=== PATIENT | female | born 1990 | race Caucasian/White ===

== ENCOUNTER → 2020-06-18 08:08 | Outpatient (BNVA) | payer OTHER, SELFPAY | PROVIDERS: PCP Nurse Practitioner Family; Visit Provider Surgery | DX: Z76.89 Persons encountering health services in other specified circumstances (principal) ==

== ENCOUNTER 2020-06-18 09:04 | Outpatient (REF) | payer OTHER, SELFPAY ==
--- NOTE | 2020-06-18 | XR_ITS ---
EXAMINATION: XR CHEST 2 VIEWS CLINICAL INFORMATION: Preprocedural examination. COMPARISON: Chest radiographs dated 08/05/2019. TECHNIQUE: Frontal and lateral views of the chest were obtained. FINDINGS: The heart, great vessels, pulmonary vasculature and mediastinum are normal. The lungs show no focal infiltrate, effusion or pneumothorax. There is no acute osseous abnormality. IMPRESSION: No active cardiopulmonary disease.
--- NOTE | 2020-06-18 10:00 | ECG_ITS ---
Test Reason : SOB, PREOP Blood Pressure : / mmHG Vent. Rate : 068 BPM Atrial Rate : 068 BPM P-R Int : 132 ms QRS Dur : 106 ms QT Int : 428 ms P-R-T Axes : 040 -23 012 degrees QTc Int : 455 ms Normal sinus rhythm Incomplete right bundle branch block Voltage criteria for left ventricular hypertrophy Abnormal ECG No previous ECGs available Referred By: Tacho De Electronically Signed By:MARGRET MART
[2020-06-18 10:08] LABS: MANUAL DIFF FLAG NO
[2020-06-18 10:16] LABS: Basophils Percent Auto 0.3 % (0-2); Eosinophils Absolute Auto 0.1 X10*3/uL (0.0-0.4); Eosinophils Percent Auto 1.5 % (0-4); Hematocrit 43.6 % (37-47); Hemoglobin 13.8 g/dl (12.0-16.0); Imm Gran Abs Auto 0.02 X10*3/uL (0.00-0.03); Imm Gran Pct Auto 0.2 % (0.0-0.4); Lymphocytes Absolute Auto 2.4 X10*3/uL (1.2-4.9); Lymphocytes Percent Auto 26.4 % (20-40); Mean Corpuscular HGB Conc 31.7 g/dl (31.0-35.0); Mean Corpuscular Hemoglobin 27.8 pg (27.0-33.0); Mean Corpuscular Volume 87.7 fL (80-98); Mean Platelet Volume 10.9 fL (9.4-12.3); Monocytes Absolute Auto 0.6 X10*3/uL (0.1-1.2); Monocytes Percent Auto 7.1 % (2-11); Neutrophils Absolute Auto 5.8 X10*3/uL (2.0-8.3); Neutrophils Percent Auto 64.5 % (45-73); Platelet Count 293 X10*3/uL (160-400); Red Blood Count 4.97 X10*6/uL (4.20-5.50); White Blood Count 8.9 X10*3/uL (4.8-10.8)
[2020-06-18 10:44] LABS: Estimated Average Glucose 134 mg/dL; Hemoglobin A1c % 6.3 %
[2020-06-18 10:58] LABS: Alanine Aminotransferase 42 U/L (0-31); Albumin Level 4.5 g/dL (3.5-5.0); Alkaline Phosphatase 73 U/L (39-117); Anion Gap 10 (12-20); Aspartate Amino Transferase 37 U/L (5-31); Bilirubin Total 0.6 mg/dL (0.0-1.0); Blood Urea Nitrogen 10 mg/dL (9-16); C Reactive Protein 1.57 mg/dL (< or = 0.50); Calcium 9.6 mg/dL (8.4-10.2); Carbon Dioxide 30 mmol/L (22-29); Chloride 102 mmol/L (96-108); Cholesterol 181 mg/dL; Estimated Glomerular Filt Rate > 60; Glucose Random 117 mg/dL (60-115); HDL Cholesterol 56 mg/dL; Iron 108 mcg/dL (30-160); LDL Cholesterol Calculated 106 mg/dl; Percent Iron Saturation 34 % (15-50); Potassium 4.2 mmol/l (3.3-5.1); Sodium 138 mmol/L (135-145); Total Iron Binding Capacity 318 mcg/dL (228-428); Total Protein 7.4 g/dL (6.5-8.0); Triglycerides 95 mg/dL; Unsaturated Iron Binding 210 ug/dL
[2020-06-18 11:24] LABS: Ferritin 85 ng/mL (10-122); TSH reflex Free T4 1.03 mIU/mL (0.32-4.0); Vitamin D 25-OH Total 27.6 ng/mL (>30)
[2020-06-18 12:10] LABS: Folate 18.2 ng/mL (> or = 4.0); Vitamin B12 866 pg/mL (200-900)
[2020-06-21 14:37] LABS: Insulin Level Total 15.6 uIU/mL
[2020-06-21 15:26] LABS: Calcium (PTHI) 9.5 mg/dL (8.6-10.2); PTHI 82 pg/mL (14-64)
[2020-06-23 00:12] LABS: Zinc 61 mcg/dL (60-130)
[2020-06-23 12:27] LABS: Vitamin B1 16 nmol/L (8-30)
[2020-06-24 17:16] LABS: Vitamin A 37 mcg/dL (38-98)
== END 2020-06-18 09:05 | disposition home or self-care (01) ==
LOC: HO.LAB 09:04
PROVIDERS: PCP Nurse Practitioner Family; Visit Provider Surgery
DX: Z01.818 Encounter for other preprocedural examination (principal); E66.01 Morbid (severe) obesity due to excess calories; R06.02 Shortness of breath; I45.10 Unspecified right bundle-branch block; I51.7 Cardiomegaly
CPT/HCPCS: 36415; 71046; 80053; 80061; 82306; 82607; 82728; 82746; 83036; 83525; 83540; 83970; 84425; 84443; 84590; 84630; 85025; 86140; 93005; 93010

== ENCOUNTER → 2020-06-25 14:01 | Outpatient (BNVA) | payer OTHER, SELFPAY | PROVIDERS: Visit Provider Dietitian, Registered | DX: Z76.89 Persons encountering health services in other specified circumstances (principal) ==

== ENCOUNTER → 2020-06-30 12:47 | Outpatient (REF) | payer OTHER, SELFPAY ==
--- NOTE | 2020-06-30 12:51 | CA_ITS ---
Transthoracic Echocardiogram Patient (Last, First, Middle): Karol Le, Gender: Female Date of : 1990 Age: 29 Procedure Date: 06/30/2020 Procedure Type: Transthoracic Echocardiogram Location: OP Height: 165.1 cm Weight: 135.17 kg BSA: 2.34 m2 Heart Rate: bpm BP: 138 / 80 mmHg Flight Inspector: Referring MD: Tacho De MD Symptoms: DYSPNEA OVER EXERTION Study Quality: Fair ECG Rhythm: Sinus Conclusions: - The left ventricular systolic function is normal. The visually estimated ejection fraction is between 55-60%. - No obvious valvular pathology seen on this study. Findings Procedure Information Contrast agent, definity, is being given per protocol without apparent complications. Left Ventricle Normal left ventricular cavity size. There is normal left ventricular wall thickness. The left ventricular systolic function is normal. The visually estimated ejection fraction is between 55-60%. There is no evidence of regional wall motion abnormalities. Diastolic function is normal for age. Right Ventricle Normal right ventricular cavity size and systolic function. Atria The left atrium is normal in size. The right atrium is normal in size. Aortic Valve There is a normal trileaflet aortic valve. There is no aortic valve stenosis. There is no aortic valve regurgitation. Mitral Valve The mitral valve appears normal. There is trace mitral valve regurgitation. There is no mitral valve stenosis. Pulmonic Valve The pulmonic valve was not well visualized. Tricuspid Valve Normal tricuspid valve structure. There is trace tricuspid valve regurgitation. The pulmonary artery systolic pressure is normal. Great Vessels The aortic annulus, sinuses of valsalva, and asc aorta are normal in size. Venous The inferior vena cava is normal in size and collapses greater than 50% with inspiration. Pericardium/Pleural There is no evidence of pericardial effusion. Prior Study Comparison No significant change compared to prior study dated: 11/08/2017. Recommendations, Care & Conclusions No obvious valvular pathology seen on this study. Measurements 2D Linear Measurements IVSd: 0.91 0.6-0.9/0.6-1.0 cm LVIDd: 5.34 3.9-5.3/4.2-5.9 cm LVIDd Index: 2.28 2.4-3.2/2.2-3.1 cm/m2 LVIDs: 3.07 2.0-3.6 cm LVPWd: 0.93 0.7-1.1 cm Ao Root: 2.70 2.1-3.5 cm LA Diam: 4.00 2.7-3.8/3.0-4.0 cm LAIDs Index: 1.71 1.5-2.3 cm/m2 LV Mass: 226.27 67-162/88-224 g LV Mass Index: 96.69 43-95/49-115 g/m2 LVOT Diam: 2.10 3.0+(-)1.3 cm Mitral Valve MV Pk E: 1.07 MV PK A: 0.67 MV Decel Time: 158.00 E/A: 1.60 E'Lateral: 13.40 E'Medial: 8.99 E/E' Med: 11.90 E/E' Lat: 8.00 PHT: 46.00 MVA PHT: 4.78 Decel Mower: 6.77 Aortic Valve AoV Pk Edmund: 1.54 AoV Mn Edmund: 1.09 AoV VTI: 0.38 AoV Pk Grad: 9.00 Aov Mn Grad: 6.00 UNA Cont.VTI: 2.62 LVOT LVOT Pk Edmund: 1.25 LVOT Mn Edmund: 0.84 LVOT VTI: 0.29 LVOT Pk Grad: 6.00 LVOT Mn Grad: 3.00 LVOT Diam: 2.10 LVOT Area: 3.46 Diastolic Function MV Pk E: 1.07 MV Pk A: 0.67 E/A: 1.60 E'Medial: 8.99 E/E' Med: 11.90 E' Laterial: 13.40 E/E' Lat: 8.00 Tricuspid Valve TR Pk Edmund: 1.92 TR Pk Grad: 15.00 RA Press: 3.00 RVSP: 18.00 Great Vessels Aorta Ao Root-2D: 2.70 2.0-3.7 cm Pulmonary Valve PV Pk Edmund: 0.96 Peak PV Grad: 4.00 Updated in Other Vendor System with Status of Final Asad Cintron MD electronically signed on 07/01/2020 1:39:05 PM with status of Final
== END ==
LOC: HO.CARD 12:47
PROVIDERS: PCP Nurse Practitioner Family; Visit Provider Surgery
DX: Z01.818 Encounter for other preprocedural examination (principal); I10 Essential (primary) hypertension
CPT/HCPCS: 93306; Q9957

== ENCOUNTER 2020-07-05 07:34 | Outpatient (REF) | payer OTHER, SELFPAY ==
--- NOTE | 2020-07-05 | US_ITS ---
EXAMINATION: US COMPLETE ABDOMEN WITH LIVER ELASTOGRAPHY CLINICAL INFORMATION: Fatty liver COMPARISON: September 2006 TECHNIQUE: Real-time imaging of the abdominal viscera. Noninvasive ultrasound liver fibrosis assessment is performed using Marco Antonio ElastPQ point quantification shear wave elastography (pSWE) with a 5 MHz transducer. Multiple elastography samples are obtained. FINDINGS: PANCREAS: The visualized pancreatic head and body are normal in appearance. The remainder of the pancreas is obscured from visualization by the overlying bowel gas. ABDOMINAL AORTA: The proximal, middle, and distal aortic segments are normal in caliber. INFERIOR VENA CAVA: Visualized portions are normal. LIVER: Liver echotexture is slightly increased. No focal lesion or intrahepatic biliary duct dilatation. The liver is normal in contour. The liver is slightly enlarged. The right lobe measures 20 cm in length. The left lobe measures 12 cm in length. Main portal vein is patent with appropriate hepatopedal flow Shear wave elastography provides a median stiffness of 2.2 m/s (reference: normal median stiffness is 0.81 - 1.22 m/s). The IQR/median stiffness to assess sampling precision is 0.6 (reference: optimal IQR/median stiffness is under 0.3). GALLBLADDER: Normal. The gallbladder is physiologically distended without evidence of stones, sludge, polyps, wall thickening or pericholecystic fluid. COMMON BILE DUCT: Normal in caliber measuring 0.4 cm in diameter. RIGHT KIDNEY: Normal. No hydronephrosis. No renal calculi or focal parenchymal lesions. The kidney measures 13 cm in maximum dimension. LEFT KIDNEY: Normal. No hydronephrosis. No renal calculi or focal parenchymal lesions. The kidney measures 12.5 cm in maximum dimension. SPLEEN: Normal. The spleen measures 10 cm in maximum dimension. FREE FLUID: None. IMPRESSION: 1. Impression: Slightly enlarged echogenic liver probably representing fatty infiltration. Limited visualization of the tail the pancreas. 2. Elastography: Limited due to sampling error.
== END 2020-07-05 07:35 | disposition home or self-care (01) ==
LOC: HO.US 07:34
PROVIDERS: PCP Nurse Practitioner Family; Visit Provider Surgery
DX: Z01.818 Encounter for other preprocedural examination (principal); E66.01 Morbid (severe) obesity due to excess calories; K21.9 Gastro-esophageal reflux disease without esophagitis; Z68.42 Body mass index [BMI] 45.0-49.9, adult; Z87.891 Personal history of nicotine dependence; Z71.3 Dietary counseling and surveillance
CPT/HCPCS: 76705; 76981; 99214

== ENCOUNTER 2020-07-08 09:22 | Outpatient (REF) | payer OTHER, SELFPAY ==
--- NOTE | 2020-07-08 09:25 | FL_ITS ---
EXAMINATION: FL UPPER GI SERIES CLINICAL INFORMATION: Bariatric service evaluation. COMPARISON: Ultrasound abdomen 07/05/2020 TECHNIQUE: Upper GI series is performed using fluoroscopic evaluation in addition to multiple fluoroscopic spot views. The patient is imaged both upright and prone and using both thick and thin barium sulfate along with effervescent granules. Fluoroscopy time: 1.1 minutes DAP: 25.29 Gycm2 Fluoroscopic spot images: 15 FINDINGS: There is normal esophageal motility. There is no obstruction, stricture, ulceration, or hernia. No gastroesophageal reflux is demonstrated. The stomach shows no thickened folds or ulcer crater or outlet obstruction. The duodenal bulb is pliable and without ulcer crater or scarring. The post bulbar duodenum the jejunal mucosal pattern are unremarkable. IMPRESSION: Normal study.
== END 2020-07-08 09:23 | disposition home or self-care (01) ==
LOC: HO.XRAY 09:22
PROVIDERS: PCP Nurse Practitioner Family; Visit Provider Surgery
DX: Z01.818 Encounter for other preprocedural examination (principal); E66.9 Obesity, unspecified; K21.9 Gastro-esophageal reflux disease without esophagitis
CPT/HCPCS: 74240

== ENCOUNTER → 2020-08-10 08:15 | Outpatient (BNVA) | payer OTHER, SELFPAY | PROVIDERS: PCP Nurse Practitioner Family; Referring Provider Nurse Practitioner Family; Visit Provider Surgery | DX: Z76.89 Persons encountering health services in other specified circumstances (principal) ==

== ENCOUNTER → 2020-08-25 08:13 | Outpatient (BNVA) | payer OTHER, SELFPAY | PROVIDERS: Visit Provider Dietitian, Registered | DX: Z76.89 Persons encountering health services in other specified circumstances (principal) ==

== ENCOUNTER → 2020-09-03 08:38 | Outpatient (BNVA) | payer OTHER, SELFPAY | PROVIDERS: Visit Provider Surgery | DX: Z76.89 Persons encountering health services in other specified circumstances (principal) ==

== ENCOUNTER → 2020-10-04 08:12 | Outpatient (BNVA) | payer OTHER, SELFPAY | PROVIDERS: Visit Provider Surgery ==

== ENCOUNTER → 2020-10-05 08:12 | Outpatient (BNVA) | payer OTHER, SELFPAY | PROVIDERS: Visit Provider Dietitian, Registered ==

== ENCOUNTER 2020-10-18 08:50 | Outpatient (REF) | payer OTHER, SELFPAY ==
--- NOTE | 2020-10-18 10:29 | XR_ITS ---
EXAMINATION: XR KNEE, RIGHT CLINICAL INFORMATION: Pain COMPARISON: Previous x-ray February 2014 TECHNIQUE: Standing AP view of both knees and lateral and sunrise view of the right knee. FINDINGS: Right: Bone alignment is normal. No fracture or dislocation is seen. There are small osteophytes at the medial femoral tibial and patellofemoral joints. There is no joint effusion. Standing AP view of the left knee demonstrates small osteophytes at the medial femoral tibial joint. XR/XR knee RT 2V IMPRESSION: Right knee: Small osteophytes at the medial femoral tibial and patellofemoral joints Left knee: Small osteophytes at the medial femoral tibial joint
[2020-10-18 12:08] LABS: Hematocrit 41.8 % (37-47); Hemoglobin 13.5 g/dl (12.0-16.0); Mean Corpuscular HGB Conc 32.3 g/dl (31.0-35.0); Mean Corpuscular Hemoglobin 28.1 pg (27.0-33.0); Mean Corpuscular Volume 86.9 fL (80-98); Mean Platelet Volume 10.8 fL (9.4-12.3); Platelet Count 319 X10*3/uL (160-400); Red Blood Count 4.81 X10*6/uL (4.20-5.50); Red Cell Distribution Width 12.8 % (11.0-16.0); White Blood Count 11.2 X10*3/uL (4.8-10.8)
[2020-10-18 12:37] LABS: Alanine Aminotransferase 21 U/L (0-31); Albumin Level 4.2 g/dL (3.5-5.0); Alkaline Phosphatase 69 U/L (39-117); Aspartate Amino Transferase 23 U/L (5-31); Bilirubin Total 0.6 mg/dL (0.0-1.0); Blood Urea Nitrogen 8 mg/dL (9-16); Calcium 9.4 mg/dL (8.4-10.2); Cholesterol 190 mg/dL; Estimated Glomerular Filt Rate > 60; Glucose Random 95 mg/dL (60-115); HDL Cholesterol 56 mg/dL; LDL Cholesterol Calculated 111 mg/dl; Total Protein 7.2 g/dL (6.5-8.0); Triglycerides 115 mg/dL
[2020-10-18 12:45] LABS: Anion Gap 12 (12-20); Carbon Dioxide 29 mmol/L (22-29); Chloride 102 mmol/L (96-108); Potassium 4.2 mmol/L (3.3-5.1); Sodium 139 mmol/L (135-145)
[2020-10-18 12:58] LABS: Vitamin D 25-OH Total 24.3 ng/mL (>30)
[2020-10-18 13:18] LABS: Microalbumin Urine < 5.0 mg/L
[2020-10-18 13:27] LABS: Estimated Average Glucose 123 mg/dL; Hemoglobin A1c % 5.9 %
== END 2020-10-18 08:51 | disposition home or self-care (01) ==
LOC: HO.HOSX 08:50
PROVIDERS: Visit Provider Orthopaedic Surgery
DX: M25.561 Pain in right knee (principal); M17.11 Unilateral primary osteoarthritis, right knee; M17.12 Unilateral primary osteoarthritis, left knee; E11.9 Type 2 diabetes mellitus without complications; E66.01 Morbid (severe) obesity due to excess calories
CPT/HCPCS: 36415; 73560; 80053; 80061; 82043; 82306; 83036; 85027; 99202

== ENCOUNTER 2020-10-18 11:16 | Outpatient (REF) | payer OTHER, SELFPAY | END 2020-10-18 11:17 | disposition home or self-care (01) | LOC: HO.LAB 11:16 | PROVIDERS: PCP Nurse Practitioner Family; Visit Provider Nurse Practitioner Family | DX: Z13.89 Encounter for screening for other disorder (principal) ==

== ENCOUNTER → 2020-10-20 08:22 | Outpatient (BNVA) | payer OTHER, SELFPAY | PROVIDERS: Visit Provider Surgery ==

== ENCOUNTER 2020-10-22 12:40 | Outpatient (REF) | payer OTHER, SELFPAY ==
[2020-10-22 13:34] LABS: MANUAL DIFF FLAG NO
[2020-10-22 13:50] LABS: Basophils Percent Auto 0.4 % (0-2); Eosinophils Absolute Auto 0.2 X10*3/uL (0.0-0.4); Eosinophils Percent Auto 2.2 % (0-4); Hematocrit 43.6 % (37-47); Imm Gran Abs Auto 0.03 X10*3/uL (0.00-0.03); Imm Gran Pct Auto 0.3 % (0.0-0.4); Lymphocytes Absolute Auto 3.6 X10*3/uL (1.2-4.9); Lymphocytes Percent Auto 33.3 % (20-40); Mean Corpuscular HGB Conc 32.1 g/dl (31.0-35.0); Mean Corpuscular Hemoglobin 28.1 pg (27.0-33.0); Mean Corpuscular Volume 87.4 fL (80-98); Monocytes Absolute Auto 0.8 X10*3/uL (0.1-1.2); Monocytes Percent Auto 7.3 % (2-11); Neutrophils Absolute Auto 6.1 X10*3/uL (2.0-8.3); Neutrophils Percent Auto 56.5 % (45-73); Platelet Count 333 X10*3/uL (160-400); Red Blood Count 4.99 X10*6/uL (4.20-5.50); Red Cell Distribution Width 13.2 % (11.0-16.0); White Blood Count 10.7 X10*3/uL (4.8-10.8)
[2020-10-22 13:51] LABS: Prothrombin Time 12.3 SEC (10.8-13.0)
[2020-10-22 13:54] LABS: Partial Thromboplastin Time 30.3 SEC (24.1-38.0)
[2020-10-25 18:12] LABS: Insulin Level Total 39.9 uIU/mL
== END 2020-10-22 12:41 | disposition home or self-care (01) ==
LOC: HO.LAB 12:40
PROVIDERS: PCP Nurse Practitioner Family; Visit Provider Surgery
DX: E66.01 Morbid (severe) obesity due to excess calories (principal); K21.9 Gastro-esophageal reflux disease without esophagitis
CPT/HCPCS: 36415; 83525; 85025; 85610; 85730

== ENCOUNTER 2020-11-02 06:57 | Inpatient (IN) | payer OTHER, SELFPAY ==
[2020-10-21 10:04] VITALS: BMI 46.8
--- NOTE | 2020-10-29 09:01 | HO.ANESPROP2 ---
Documented by User: Maryam Nieves 10/29/20 09:06 HPI - Anesthesia Eval Consult details Narrative: 30yo F for Gastrectomy Sleeve PMFSH Active Problems Active Problems: All Active Problems (Updated 10/21/20 @ 09:48 by Shikha Saavedra) Vitamin D deficiency (Acute) GERD (gastroesophageal reflux disease) (Acute) Morbid obesity (Acute) Past Medical History Medical History Arthritis Diabetes GERD (gastroesophageal reflux disease) Morbid obesity EVERARDO on CPAP Sleep apnea Family History Family History Father Kidney failure Diabetes CVD (cardiovascular disease) Mother Diabetes HTN (hypertension) Sister No problems noted. Sister No problems noted. Sister No problems noted. Sister No problems noted. Son No problems noted. Daughter No problems noted. Daughter No problems noted. Surgical History Surgical History (Updated 11/02/20 @ 07:30 by Jayde Salazar) History of wisdom tooth extraction, class II edentulism Social History Social History Are you a primary healthcare business analyst to a significant other at home: No Do you presently have visiting nurse or other home services: No Smoking Status: Former smoker Tobacco Type: Cigarette Smoking Quit Date: 6 yrs ago Use of substances other than those prescribed or required for medical reasons: No Have you been hit, kicked, punched, or otherwise hurt by someone within the past year? 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 Allergies Allergy/AdvReac Type Severity Reaction Status Date / Time No Known Allergies Allergy Mild NOT Verified 11/02/20 06:13 [No Known Allergies*] APPLICABLE Home Medications Medication Instructions Recorded Confirmed Last Taken Type metformin 500 mg tablet 500 mg PO BID 10/18/20 10/21/20 Unknown History Exam Exam Date and Time: October 29, 2020900 Height,Weight and Vital Signs: Height 5 ft 4 in Weight 123.831 kg Pertinent Lab Results Pertinent Lab Results: Laboratory Tests 10/18/20 10/18/20 10/22/20 11:25 11:25 12:45 WBC 10.7 Hgb 14.0 Hct 43.6 Plt Count 333 PT INR APTT Sodium 139 Potassium 4.2 Chloride 102 Carbon Dioxide 29 BUN 8 L Creatinine 0.68 Hemoglobin A1c % 5.9 Calcium 9.4 Total Bilirubin 0.6 AST 23 ALT 21 Alkaline Phosphatase 69 Total Protein 7.2 Albumin 4.2 10/22/20 12:45 WBC Hgb Hct Plt Count PT 12.3 INR 1.0 APTT 30.3 Sodium Potassium Chloride Carbon Dioxide BUN Creatinine Hemoglobin A1c % Calcium Total Bilirubin AST ALT Alkaline Phosphatase Total Protein Albumin Narrative Narrative: EKG 06/2020 Normal sinus rhythm Incomplete right bundle branch block Voltage criteria for left ventricular hypertrophy Abnormal ECG No previous ECGs available Echo 06/2020 Conclusions: - The left ventricular systolic function is normal. The visually estimated ejection fraction is between 55-60%. - No obvious valvular pathology seen on this study. Assessment and Plan Assessment Anesthesia Assessment: Chart Reviewed Documented by User: Jayde Salazar 11/02/20 07:31 [facility] Past Medical History Medical History Arthritis Diabetes GERD (gastroesophageal reflux disease) Morbid obesity EVERARDO on CPAP Sleep apnea Family History Family History Father Kidney failure Diabetes CVD (cardiovascular disease) Mother Diabetes HTN (hypertension) Sister No problems noted. Sister No problems noted. Sister No problems noted. Sister No problems noted. Son No problems noted. Daughter No problems noted. Daughter No problems noted. Family history of problems with anesthesia: No Surgical History Surgical History (Updated 11/02/20 @ 07:30 by Jayde Salazar) History of wisdom tooth extraction, class II edentulism History of Problems with Anesthesia: No Social History Social History Are you a primary healthcare business analyst to a significant other at home: No Do you presently have visiting nurse or other home services: No Smoking Status: Former smoker Tobacco Type: Cigarette Smoking Quit Date: 6 yrs ago Use of substances other than those prescribed or required for medical reasons: No Have you been hit, kicked, punched, or otherwise hurt by someone within the past year? 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 Allergies Allergy/AdvReac Type Severity Reaction Status Date / Time No Known Allergies Allergy Mild NOT Verified 11/02/20 06:13 [No Known Allergies*] APPLICABLE Home Medications Medication Instructions Recorded Confirmed Last Taken Type metformin 500 mg tablet 500 mg PO BID 10/18/20 10/21/20 Unknown History Exam Exam Date and Time: Vital Signs Temp Pulse Resp BP Pulse Ox 11/02/20 06:31 97.8 F 108 H 16 148/95 H 97 Pertinent Lab Results Pertinent Lab Results: Lab Results 11/02/20 11/02/20 11/02/20 Range/Units 06:05 06:20 06:27 Urine Test NEGATIVE (NEGATIVE) COVID-19 ([facility]) Negative (Negative) COVID-19 Clin Com See Note Blood Type O Positive Antibody Screen NEGATIVE Airway Mallampati Class: III TM Dist: >3cm Neck ROM: Full Loose/Missing/Broken Teeth: Yes (Bottom front) Heart: RRR Lungs: CTAB Assessment and Plan Assessment Anesthesia Assessment: Anesthesia Plan Discussed and Chart Reviewed Final Anesthetic Review NPO: Yes ASA Class: III Final Preanesthetic Review: No Changes in Pt Med Stat, Meds/Allgs Chart Reviewed, Consent Obtained/Reviewed and Anes Risks/Benef Reviewed Patient Risk: Intermediate Procedure Risk: Intermediate Assessment/Block/Sedation in SS: Assess/Block/Sedation-SS Anesthetic Plan Anesthetic Plan: GA Disposition: Standard PACU
--- NOTE | 2020-11-01 12:08 | MHC.SHP ---
Pre-Procedural Eval Section A The patient is an INPATIENT: Yes The History & Physical has been completed within 30 days and I have reviewed it.: No Section B Chief Complaint: obesity Details of Present Illness: obesity Relevant Family History (Specify if Yes): No Relevant Social History: None Present Medications: see Short Stay Collaborative assessment Medical History: No relevant PMH History of Previous Operations: No relevant previous surgery Allergies: Allergies Allergy/AdvReac Type Severity Reaction Status Date / Time No Known Allergies Allergy Mild NOT Unverified 10/21/20 09:15 [No Known Allergies*] APPLICABLE Review of Systems Sugical H&P ROS: Negative: Constitution, Cardiovascular, Respiratory, Neurological, Psychiatric, Hem-Onc, Allergic/Immunologic, Gastrointestinal, Genitourinary, Musculoskeletal, Integumentary, Endocrine and Eyes/Ears/Nose/Throat Exam Surgical H&P Exam: Normal: HEENT, Normal: Heart, Normal: Lungs, Normal: Extremities, Normal: Abdomen, Normal: Skin and Normal: Neurological Plan Diagnosis/Plan: Unchanged I have reviewed the history and physical and performed a pertinent physical examination on my patient. No changes have occurred unless specified.
[2020-11-02] VITALS (15 sets, daily range): BP systolic 115–151; BP diastolic 61–95; PULSE 74–108; RESP 16–18; TEMP 36.2–37; O2SAT 95–100
[2020-11-02 06:33] LABS: UPreg QC Valid YES
[2020-11-02 06:34] LABS: Urine Pregnancy NEGATIVE (NEGATIVE)
[2020-11-02 06:47] LABS: COVID-19 Test Negative (Negative)
[2020-11-02] MEDS: Lactated Ringers 1,000 ML 999 ML IVCONT (06:50)
[2020-11-02] MEDS: Lactated Ringers 1,000 ML 100 ML IVCONT (07:19)
[2020-11-02 08:01] LABS: Glucose, Whole Blood 133 mg/dL (60-115)
--- NOTE | 2020-11-02 10:07 | P.DS_ITS ---
DS: Providers Provider Date of Service: 11/03/20 Date of admission: 11/02/20 06:57 Primary care physician: Evelin Akbar NP DS: Medications Discharge Medications Home Medications: Home Medications Medication Instructions Recorded Confirmed metformin 500 mg tablet 500 mg PO BID 10/18/20 10/21/20 Previous Rx's Medication Instructions Recorded cholecalciferol (vitamin D3) 25 25 mcg PO DAILY #30 cap 06/19/20 mcg (1,000 unit) capsule ondansetron HCl 4 mg tablet 4 mg PO DAILY #30 tab 10/20/20 pantoprazole 40 mg tablet,delayed 40 mg PO DAILY #30 tab 10/20/20 release polyethylene glycol 3350 17 gram 17 g PO DAILY #14 ea 10/20/20 oral powder packet sucralfate 1 gram tablet 1 g PO BID #60 tab 10/21/20 DS: Summary Time Spent with Patient Time attestation: ADMITTING DIAGNOSIS: morbid obesity, sleep apnea, GERD DISCHARGE DIAGNOSIS: same, s/p laparoscopic sleeve gastrectomy PAST SURGICAL HISTORY: wisdom teeth removal PROCEDURE: upper endoscopy, laparoscopic sleeve gastrectomy with gastropexy DISCHARGE SUMMARY: History of Present Illness: The patient is a 30 year-old woman with a BMI of 48.98 kg/m2 and associated co- morbidities as described above. The patient had extensive work-up,lost 25.8 lbs preoperatively and was electively scheduled for laparoscopic, possible open sleeve gastrectomy and gastropexy. Risks and complications of the surgery were d iscussed with the patient in advance, particularly the possibility of , pulmonary embolism, anastomotic leak, bleeding, bowel injury, GERD, cardiac, renal or pulmonary complications. The patient understood all the risks and was in agreement with the surgical plan. Hospital Course: The patient underwent an uneventful laparoscopic sleeve gastrectomy with gastropexy the day of admission. Postoperatively, the patient was transferred to the surgical floor. The patient was on IV Acetaminophen and IV dilaudid for pain control. Patient was started on bariatric phase 1 diet POD #0. On postoperative day one, the patient was feeling well without nausea, vomiting, fevers, or tachycardia. The patient had some mild incisional pain. The abdomen was soft. On the morning of postoperative day one, the patient was continued on 1 ounce of water or ice every half hour. During the first day, the patient did fairly well, having some incisional pain, but able to ambulate adequately and to tolerate li quids well. Since the patient is doing well, we decided that the patient was ready to be discharged. The patient was given instructions to follow-up with me next week and to call my office for any fever over 101, persistent abdominal pain, nausea, vomiting, GERD, symptoms of DVT such as calf tenderness, or leg swelling, or pulmonary embolism such as chest pain or shortness of breath. The patient was also instructed to drink 40-60 ounces of liquids per day using the 1-ounce cups. The patient was given prescription for Tylenol for pain, Zofran prn for nausea, and pantoprazole and carafate. The patient was encouraged to ambulate and use the incentive spirometer. The patient was allowed to shower, but no baths, and encouraged to stay active at home. All of these instructions were given to the patient personally. All questions were answered and the patient understood all instructions, the instructions were also given to the patient in print. Total time spent providing and/or coordinating discharge services: 30 minutes Discharge coordination time: Greater than 30 minutes Physical Exam Vital Signs: Vital Signs: Last Vital Signs Temp 97.8 F 11/02/20 06:31 Pulse 108 H 11/02/20 06:31 Resp 16 11/02/20 06:31 BP 148/95 H 11/02/20 06:31 Pulse Ox 97 11/02/20 06:31 Body Mass Index 46.8 DS: Data Data Completed and Pending Pending studies at discharge: Pending at discharge 11/02/20 08:30 Surgical [PTH] Routine Labs on day of discharge: Laboratory Results - last 24 hr 11/02/20 11/02/20 11/02/20 06:05 06:20 06:27 POC Glucose Urine Test NEGATIVE COVID-19 ([facility]) Negative COVID-19 Clin Com See Note Blood Type O Positive Antibody Screen NEGATIVE 11/02/20 06:28 POC Glucose 133 H Urine Test COVID-19 ([facility]) COVID-19 Clin Com Blood Type Antibody Screen Discharge Plan Discharge Anticipated Discharge Date/Time: 11/03/20 11:05 Patient Disposition: Home, Self-Care Referrals: Evelin Akbar NP [Primary Care Provider] - Discharge Medications: Continued sucralfate 1 gram tablet 1 g PO BID Qty: 60 RF: 3 pantoprazole 40 mg tablet,delayed release (DR/EC) 40 mg PO DAILY Qty: 30 RF: 2 ondansetron HCl [Zofran] 4 mg tablet 4 mg PO DAILY Qty: 30 RF: 0 Held metformin 500 mg tablet 500 mg PO BID RF: 0 Hold Instructions: Discuss with Dr De before restarting. Discontinued cholecalciferol (vitamin D3) 25 mcg (1,000 unit) capsule 25 mcg PO DAILY Qty: 30 RF: 2 polyethylene glycol 3350 [Miralax] 17 gram powder in packet 17 g PO DAILY Qty: 14 RF: 0 Discharge Orders: Discharge Order (Routine); Ordered 11/03/20 Ordered By: Tacho De Diet: other Activity on Discharge: No heavy lifting Stand Alone Forms: Patient Portal Discharge page Activity Restrictions/Additional Instructions: No tub baths, sex or returning to work until discussed at first post op ap pointment. No exercise, alcohol, tobacco or illegal drug use. Continue to use incentive spirometer hourly while awake. Walk in home for 5- 10 minutes every 2 hours during the first week. Continue phase 1 diet today and start phase 2 diet tomorrow morning. Follow all instructions in the bariatric handbook and call with any questions. Visit Report Forms: Patient Portal Discharge page Care Plan Goals: weight loss Health Concerns: morbid obesity Plan of Treatment: see hardeep instructions Discharge Date/Time: 11/03/20 08:38
--- NOTE | 2020-11-02 10:15 | P.BOP_ITS ---
Brief Operative Note Date of Service: 11/02/20 Pre-op diagnosis: Morbid obesity and comorbidities (see below) Post-op diagnosis: same (Splenomegaly) Procedure: INITIAL PATIENT BMI ON PRESENTATION AT OUR OFFICE: 51.3 kg/m2 LAST BMI BEFORE SURGERY: 45.3 kg/m2 COMORBIDITIES: Sleep apnea, non-insulind dependent diabetes, knee pain, lower extremity edema, eczema, dysmenorrhea, left ventricular hypertrophy, liver steatosis, RBBB The patient participated in an intensive weekly lifestyle intervention and exercise program during which the patient has lost between the initial office visit and the last preoperative visit 29 lbs, or 9.04% of initial actual body weight. The patient met the BMI-criteria for bariatric surgery based on the BMI on initial presentation. The patient should not be penalized for achieving such weight loss because it is not sustainable long-term without surgical intervention and it was achieved in preparation for bariatric surgery under my direction and based on my published research ([email or web address] and [email or web address]/pdf) that a 10% preoperative weight loss improves long-term weight loss after surgery and reduces perioperative complications. Insurance carriers such as [facility] have endorsed my recommendations and have included in their policies criteria to include a 10% preoperative weight loss requirement. PROCEDURE: Esophago-gastroscopy, laparoscopic lysis of adhesions, laparoscopic sleeve gastrectomy and laparoscopic gastropexy INDICATIONS: This is a 30 year-old female who was electively scheduled for laparoscopic, possibly open sleeve gastrectomy. The risks and complications of the procedure were discussed with the patient in advance, particularly the possibility of ; pulmonary embolism; staple line leak; bleeding; GERD; cardiac, pulmonary, or renal complications; as well as long-term problems such as insufficient weight loss, vitamin deficiency, strictures, or ulcers. The patient understood all the risks, and was in agreement to proceed with surgery. DESCRIPTION OF PROCEDURE: After informed consent was obtained from the patient, the patient was given preoperative antibiotics, and was transferred to the operating room. After successful induction of general anesthesia, pneumatic compressive devices were placed on both lower extremities. An upper endoscopy was performed next. The oropharynx and esophagus appeared to be within normal limits. There was no diaphragmatic hernia present consistent with the findings of the preoperative upper GI. The stomach was entered. Then after all fluid and air were suctioned and the stomach was fully decompressed, the scope was withdrawn and secured in the mid esophagus. The patient was then prepped and draped in the usual sterile manner, and abdomi nal access was established at the right upper quadrant with the Awa technique. A 12 mm blunt port was inserted, and the abdomen was insufflated with CO2 to a pressure of 15 mmHg. Under direct visualization, additional ports were placed, specifically two 5 mm Versi-step ports to the left upper quadrant, and a 5 mm Versi-Step port to the right upper quadrant. 1% lidocained plan was used to infiltrate all port sites as well as all fascia defects. Following that, the patient was placed in a steep reverse Trendelenburg position. An additional 5 mm port was placed to the right flank for the Mediflex retractor that was used to retract the left lobe of the liver. The gastro-esophageal fat pad was opened with the ultrasonic device (Thunderbeat, Olympus) and the anterior esophagus and hiatus were exposed. The angle of His was opened with the ultrasonic device the fundus of the stomach from any diaphragmatic and splenic attachments. I then opened the gastrocolic ligament between the transverse colon and the greater curvature of the stomach with the ultrasonic device to enter the lesser sac and facilitate the ligation of the short gastric vessels. I started at a mid-point along the greater curvature and using the Thunderbeat, all short gastric vessels were divided all the way to the angle of His until the left heber was completely dissected at its entirety. I then divided the gastro-colic ligament distally to a distance of about 3-4 cm proximal to the esophagus. There were extensive congenital adhesions between the pancreas and posterior gastric wall. Those were lysed completely with the ultrasonic device. Adhesiolysis took approximately 45 min to complete. The stomach was then divided transversely with one Endo CYNDI-45 purple, one Endo- CYNDI 60 purple and three CYNDI-60 articulating orange loads using the AEON stapler and loads. Every effort was made that the gastric sleeve had a tubular shape and an even caliber throughout. Once the sleeve resection was completed, the staple line of the gastric sleeve was reinforced with Hemoclips. The resected stomach was retrieved without difficulty from the Awa port. A gastropexy was then performed in order to prevent postoperative GERD and partial gastric volvulus. Several interrupted 2.0 Surgidac sutures were placed between the sleeve's staple line and the previously divided greater omentum and gastro-colic ligament using the Endo-Stitch device. An upper endoscopy was performed. There was no narrowing at the GE junction. The scope was easily advanced all the way to the pylorus which was clearly visualized. There was no narrowing anywhere and the sleeve's caliber was even throughout. The sleeve's staple line was inspected and there was no evidence of ischemia, bleeding or dehiscence. At that point the gastroscope was withdrawn from the patient?s mouth while we were decompressing the bowel and the stomach from any remaining air. I looked into the lesser sac to see how the sleeve was situating and it was situating well. There was no bleeding from the staple line, spleen, or short gastric vessels. The Mediflex retractor was removed, and the undersurface of the liver was inspected and there was no bleeding. The patient was placed in supine position. I closed the fascial defect of the 12 mm port site with a figure of eight #1 Polysorb suture. Then 100 cc 0.25 % Marcaine plain with 10 mg of Dexamethasone were used to infiltrate the fascial closure as well as all skin incisions. At this point, the abdomen was deflated, all ports were removed under direct vision, and no bleeding was noted from any of the port sites. The skin incisions were irrigated with saline and were closed with 4-0 absorbable monofilament sutures. Steri-Strips and OpSites were used to cover all incisions. The patient was extubated and was transferred in stable condition to the recovery room for further care. I was present and performed all alvarez parts of the procedure. Ino Steel was the assistant auto center manager. There were no residents to assist with this case. Shar De MD, PhD, FACS Surgeon: Tacho De MD Anesthesia: GETA, local and other (TAP block) Castings Drafter: Esha Steel Estimated blood loss (mL): 10 IV fluids (mL): 2,500 Urine output (mL): 0 (No [place] to record) Pathology: other (Stomach) Condition: stable Disposition: PACU
--- NOTE | 2020-11-02 10:33 | P.PNGS_ITS ---
Subjective Subjective Date of Service: 11/03/20 Interval history: Patient has mild incisional pain. She was able to ambulate and use the incentive spirometer. Physical Exam Vital Signs: Vital Signs: Last Vital Signs Temp 97.1 F 11/02/20 10:04 Pulse 91 11/02/20 10:29 Resp 17 11/02/20 10:29 BP 126/75 11/02/20 10:29 Pulse Ox 100 11/02/20 10:29 Body Mass Index 46.8 GI: Inspection: Yes normal to inspection, Yes incision (dry, clean and intact) and Yes obesity Extrem: Right lower extremity: normal to inspection (no calf tenderness) Left lower extremity: normal to inspection (no calf tenderness) Progress Note: A&P Assessment and plan (1) Morbid obesity: Status: Acute (2) GERD (gastroesophageal reflux disease): Status: Acute (3) EVERARDO on CPAP: Status: Acute (4) Diabetes: Problem details: NIDDM Status: Acute (5) Knee pain: Status: Acute (6) Splenomegaly: Status: Acute (7) Lower extremity edema: Status: Acute (8) Eczema: Status: Acute (9) Dysmenorrhea: Status: Acute (10) Steatosis, liver: Status: Acute (11) Left ventricular hypertrophy: Status: Acute (12) Congenital intra-abdominal adhesions: Status: Acute (13) S/P laparoscopic sleeve gastrectomy: Status: Acute Assessment and Plan: 30 year old female was admitted 11/02/2020 with morbid obesity and comorbidities. Problem 1: s/p laparoscopic sleeve gastrectomy, gastropexy and lysis of adhesions Status: Doing well Plan: Check am labs, If OK, will continue phase 1 bariatric diet and discharge later today. Fall Risk Details Current Medications: Current Medications Generic Name Dose Route Start Last Admin Trade Name Freq PRN Reason Stop Dose Admin Fentanyl 25 mcg 11/02/20 07:32 Fentanyl Citrate/Pf 100 Mcg/2 Ml Vial IVPUSH Q5M PRN Pain, Moderate (Pain Scale 4-6 Hydromorphone HCl 0.25 mg 11/02/20 07:32 Hydromorphone Hcl 0.5 Mg/0.5 Ml Syringe IVPUSH Q5M PRN Pain, Severe (Pain Scale 7-10) Lactated Ringer's 1,000 mls @ 999 mls/hr 11/02/20 12:15 11/02/20 06:50 Lr IVCONT 11/02/20 13:15 999 mls/hr .Q1H1M MIKE Administration Cefazolin Sodium/Dextrose 2 gm in 50 mls @ 100 mls/hr 11/02/19 06:00 Ancef IV 11/02/20 23:59 PREOP MIKE Lactated Ringer's 1,000 mls @ 100 mls/hr 11/02/20 06:15 11/02/20 07:19 Lr IVCONT 100 mls/hr .Q10H MIKE Administration Ondansetron HCl 4 mg 11/02/20 07:32 Ondansetron Hcl 4 Mg/2 Ml Vial IVPUSH ONCE PRN Nausea and Vomiting Time Spent With Patient Time: Total time spent is greater than 50% in coordination of care (as doc umented) at patient's floor/unit and/or counseling patient: Time with patient: less than 15 minutes
[2020-11-02 12:03] LABS: Hematocrit 44.4 % (37-47); Hemoglobin 14.3 g/dl (12.0-16.0)
[2020-11-02 12:25] LABS: Anion Gap 15 (12-20); Carbon Dioxide 23 mmol/L (22-29); Chloride 107 mmol/L (96-108); Potassium 4.6 mmol/L (3.3-5.1); Sodium 140 mmol/L (135-145)
[2020-11-02] MEDS: ondansetron HCL 4 MG/2 ML VIAL IVPUSH ×2 (13:56→20:58)
[2020-11-02] MEDS: ceFAZolin Sodium/Dextrose,Iso 2 GM/50 ML PIGGYBACK IV (13:57)
[2020-11-02] MEDS: Famotidine/PF 20 MG/2 ML VIAL IVPUSH ×2 (13:57→20:58)
[2020-11-02] MEDS: Lactated Ringers 1,000 ML 125 ML IVCONT ×2 (14:18→20:58)
[2020-11-02] MEDS: 0.9 % Sodium Chloride Flush 3 ML SYRINGE IVFLUSH (20:59)
[2020-11-03 03:24] VITALS: BP 134/64; PULSE 81; RESP 18; TEMP 36.2; O2SAT 97
[2020-11-03] MEDS: ondansetron HCL 4 MG/2 ML VIAL IVPUSH (05:27)
[2020-11-03] MEDS: Lactated Ringers 1,000 ML 125 ML IVCONT (05:27)
[2020-11-03 05:39] LABS: MANUAL DIFF FLAG NO
[2020-11-03 05:42] LABS: Basophils Percent Auto 0.1 % (0-2); Eosinophils Percent Auto 0.1 % (0-4); Hematocrit 42.6 % (37-47); Hemoglobin 13.5 g/dl (12.0-16.0); Imm Gran Abs Auto 0.05 X10*3/uL (0.00-0.03); Imm Gran Pct Auto 0.4 % (0.0-0.4); Lymphocytes Absolute Auto 2.2 X10*3/uL (1.2-4.9); Lymphocytes Percent Auto 18.5 % (20-40); Mean Corpuscular HGB Conc 31.7 g/dl (31.0-35.0); Mean Corpuscular Hemoglobin 27.6 pg (27.0-33.0); Mean Corpuscular Volume 86.9 fL (80-98); Mean Platelet Volume 10.3 fL (9.4-12.3); Monocytes Percent Auto 8.5 % (2-11); Neutrophils Absolute Auto 8.6 X10*3/uL (2.0-8.3); Neutrophils Percent Auto 72.4 % (45-73); Platelet Count 297 X10*3/uL (160-400); Red Cell Distribution Width 13.1 % (11.0-16.0); White Blood Count 11.9 X10*3/uL (4.8-10.8)
[2020-11-03 06:11] LABS: Anion Gap 13 (12-20); Blood Urea Nitrogen 7 mg/dL (9-16); Calcium 8.8 mg/dL (8.4-10.2); Carbon Dioxide 24 mmol/L (22-29); Chloride 105 mmol/L (96-108); Creatinine Clr Calc Pharmacy 165.6; Estimated Glomerular Filt Rate > 60; Glucose Random 99 mg/dL (60-115); Sodium 138 mmol/L (135-145)
[2020-11-03] MEDS: 0.9 % Sodium Chloride Flush 3 ML SYRINGE IVFLUSH (07:54)
[2020-11-03] MEDS: Famotidine/PF 20 MG/2 ML VIAL IVPUSH (07:55)
--- NOTE | 2020-11-03 08:21 | MHC.CM.PN ---
CM met with Patient at bedside. 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 Patient has been medically cleared for dc to home today, no services. PCP is Dr. Evelin Akbar's office/practice.
--- NOTE | 2020-11-03 10:29 | HO.POSTANES ---
Post Anesthesia Evaluation Post Anesthesia Evaluation Vital Signs: Vital Signs Temp Pulse Resp BP Pulse Ox 11/03/20 03:24 97.2 F 81 18 134/64 97 11/02/20 23:26 97.3 F 75 18 115/70 95 Anesthesia: General Endotracheal-GETA Mental Status: Awake Pain Control: Satisfactory Nausea/Vomiting: None Hydration: Adequate Anesthesia-Related Issues: No Anes. Related Issues
== END 2020-11-03 08:38 | disposition home or self-care (01) | DRG 403 ==
LOC: HO.SSSA 10:07 → HO.S3 13:20
PROVIDERS: Nurse Practitioner; Physician Assistant; Admitting Provider Surgery; PCP Nurse Practitioner Family; Visit Provider Surgery
PROC: 0DB64Z3 Excision of Stomach, Percutaneous Endoscopic Approach, Vertical (ICD-10-PCS; CPT 43845; principal; 2020-11-02 07:30)
DX: E66.01 Morbid (severe) obesity due to excess calories (principal); K76.0 Fatty (change of) liver, not elsewhere classified; E11.9 Type 2 diabetes mellitus without complications; I45.10 Unspecified right bundle-branch block; L30.9 Dermatitis, unspecified; K66.0 Peritoneal adhesions (postprocedural) (postinfection); G47.30 Sleep apnea, unspecified; Z68.42 Body mass index [BMI] 45.0-49.9, adult; Z99.89 Dependence on other enabling machines and devices; Z20.822 Contact with and (suspected) exposure to COVID-19; Z79.84 Long term (current) use of oral hypoglycemic drugs; Z79.899 Other long term (current) drug therapy
CPT/HCPCS: 36415; 80048; 80051; 81025; 82947; 85014; 85018; 85025; 86850; 86900; 86901; 87635; 88307; 88342; 99024; A4649; J0131; J0690; J1100; J1170; J2250; J2405; J3010

== ENCOUNTER → 2020-11-08 07:29 | Outpatient (BNVA) | payer OTHER, SELFPAY | PROVIDERS: PCP Nurse Practitioner Family; Visit Provider Surgery | DX: E66.01 Morbid (severe) obesity due to excess calories (principal) | CPT/HCPCS: 99212 ==

== ENCOUNTER → 2020-12-02 08:03 | Outpatient (BNVA) | payer OTHER, SELFPAY | PROVIDERS: PCP Nurse Practitioner Family; Visit Provider Physician Assistant ==

== ENCOUNTER → 2020-12-06 07:26 | Outpatient (BNVA) | payer OTHER, SELFPAY | PROVIDERS: PCP Nurse Practitioner Family; Visit Provider Surgery | DX: E66.01 Morbid (severe) obesity due to excess calories (principal); Z68.41 Body mass index [BMI] 40.0-44.9, adult; Z71.3 Dietary counseling and surveillance | CPT/HCPCS: 99212 ==

== ENCOUNTER → 2021-01-05 08:22 | Outpatient (BNVA) | payer OTHER, SELFPAY | PROVIDERS: PCP Nurse Practitioner Family; Visit Provider Surgery ==

== ENCOUNTER → 2021-04-04 11:59 | Outpatient (BNVA) | payer OTHER, SELFPAY | PROVIDERS: PCP Nurse Practitioner Family; Visit Provider Advanced Practice Midwife ==

== ENCOUNTER 2021-07-04 05:56 | Emergency (ER) | payer OTHER, SELFPAY ==
--- NOTE | ~2021-07-04 | US_ITS ---
EXAMINATION: US OBSTETRICAL ULTRASOUND CLINICAL INFORMATION: Back pain and cramping. LMP 4 weeks ago. HCG 19,000 COMPARISON: None. LMP: Unknown. TECHNIQUE: Transabdominal ultrasound imaging of pelvis is performed. FINDINGS: The uterus is anteverted measuring 10.0 cm in length, 7.9 cm AP and 7.97 seen in transverse dimension. There is an intrauterine gestational sac with a pole. There is echogenic pole with crown-rump length measures 0.24 cm corresponding to 5 weeks 6 days and ANA of 02/28/2022. The gestational sac measures 1.57 cm contrast CM corresponding to 6 weeks and 3 days. There is no heartbeat seen yet. Incidental finding of a small uterine fibroid measuring 2.6 x 2.0 x 2.1 cm. US/US OB pelvic and transvaginal IMPRESSION: Single intrauterine gestational sac with an echogenic area likely pole. The crown-rump length of 0.24 cm corresponds to 5 weeks 6 days. By gestational sac measurements the ultrasound gestational age is 6 weeks 3 days. No heartbeat seen. Recommend follow-up ultrasound. Incidental finding of a small uterine fibroid measuring 2.6 cm.
[2021-07-04 06:01] VITALS: BP 109/44; PULSE 56; RESP 16; TEMP 36.6; O2SAT 100; BMI 37.4
[2021-07-04 06:25] LABS: MANUAL DIFF FLAG NO
[2021-07-04 06:26] LABS: Basophils Absolute Auto 0.1 X10*3/uL (0.0-0.2); Basophils Percent Auto 0.6 % (0-2); Eosinophils Absolute Auto 0.2 X10*3/uL (0.0-0.4); Eosinophils Percent Auto 2.1 % (0-4); Hematocrit 39.7 % (37-47); Hemoglobin 13.3 g/dl (12.0-16.0); Imm Gran Abs Auto 0.01 X10*3/uL (0.00-0.03); Imm Gran Pct Auto 0.1 % (0.0-0.4); Lymphocytes Absolute Auto 2.9 X10*3/uL (1.2-4.9); Lymphocytes Percent Auto 33.4 % (20-40); Mean Corpuscular HGB Conc 33.5 g/dl (31.0-35.0); Mean Corpuscular Volume 86.7 fL (80-98); Mean Platelet Volume 10.3 fL (9.4-12.3); Monocytes Absolute Auto 0.6 X10*3/uL (0.1-1.2); Monocytes Percent Auto 6.6 % (2-11); Neutrophils Percent Auto 57.2 % (45-73); Platelet Count 276 X10*3/uL (160-400); Red Blood Count 4.58 X10*6/uL (4.20-5.50); Red Cell Distribution Width 12.9 % (11.0-16.0); White Blood Count 8.8 X10*3/uL (4.8-10.8)
[2021-07-04 06:32] LABS: Appearance Urine HAZY; Color Urine YELLOW; Glucose Urine UA NEG (NEG); Leukocyte Esterase Urine 2+ (NEG); Nitrite Urine NEG (NEG); Specific Gravity - Urine >= 1.030 (1.005-1.025); UACC Culture Trigger YES; Urine Blood NEG (NEG); Urine Ketones NEG (NEG); Urine Protein TRACE MG/DL (NEG-TRACE)
[2021-07-04 06:39] LABS: Bacteria Urine 2+ /LPF; Mucus Urine 2+ /LPF; Squamous Epithelial Cell Urine 2+ /LPF
--- NOTE | 2021-07-04 06:41 | ED_ITS ---
HPI - Abdominal Pain General Chief Complaint: Abdominal Pain Stated Complaint: Back pain/Abd cramping Time Seen by Provider: 07/04/21 06:35 Source: patient Mode of arrival: ambulatory History of Present Illness HPI narrative: 30-year-old female with history of diabetes and states that her LMP was ?between 06/07-06/15? and she states she has been having lower abdominal cramping and lower back pain for 2 days without associated nausea, vomiting, fever, chills and denies any vaginal bleeding/spotting or loss of fluid or clots. Related Data Home Medications Medication Instructions Recorded Confirmed metformin 500 mg tablet 500 mg PO BID 10/18/20 10/21/20 Previous Rx's Medication Instructions Recorded ondansetron HCl 4 mg tablet 4 mg PO DAILY #30 tab 10/20/20 (Zofran) sucralfate 1 gram tablet 1 g PO BID #60 tab 10/21/20 pantoprazole 40 mg tablet,delayed 40 mg PO DAILY #30 tab 11/15/20 release Allergies Allergy/AdvReac Type Severity Reaction Status Date / Time No Known Allergies Allergy Mild NOT Verified 07/04/21 06:01 [No Known Allergies*] APPLICABLE Review of Systems Review of Systems Pertinent positives and negatives as stated in HPI 10 point review of systems is otherwise negative. Physical Exam Vital Signs: Vital Signs: Last Vital Signs Temp 98 F 07/04/21 06:01 Pulse 56 07/04/21 06:01 Resp 16 07/04/21 06:01 BP 109/44 L 07/04/21 06:01 Pulse Ox 100 07/04/21 06:01 Body Mass Index 37.4 VITAL SIGNS: Reviewed. GENERAL: Well developed, well nourished, in no acute distress. HEAD: Normocephalic/atraumatic EYES: PERRLA, EOMI OROPHARYNX: no oral lesions noted, posterior pharynx clear LUNGS: Normal breath sounds. No adventitious sounds or accessory muscle use. SpO2<100> CARDIOVASCULAR: Regular rate and rhythm without noted murmurs ABDOMEN: Soft, mild suprapubic tenderness without rebound, non-distended with bowel sounds. MUSCULOSKELETAL: No tenderness, deformities, or effusions noted on gross inspection. EXTREMITIES: No cyanosis, clubbing or edema. SKIN: Inspection of the skin reveals no rashes NEUROLOGIC: Alert and oriented x 4. Course Course Course Narrative: 30-year-old female with history and clinical presentation suggestive of UTI, ectopic and less likely felt to be appendicitis. On review of all investigations patient does have a UTI and pending beta quants to decide for ultrasound rule out of ectopic. Signed out to Dr Foster: f/u beta hcg MDM - Abdominal Pain Lab Data Result diagrams: 07/04/21 06:20 07/04/21 06:20 Labs: Lab Results 07/04/21 07/04/21 Range/Units 06:20 06:20 WBC 8.8 (4.8-10.8) X10*3/uL RBC 4.58 (4.20-5.50) X10*6/uL Hgb 13.3 (12.0-16.0) g/dl Hct 39.7 (37-47) % MCV 86.7 (80-98) fL MCH 29.0 (27.0-33.0) pg MCHC 33.5 (31.0-35.0) g/dl RDW 12.9 (11.0-16.0) % Plt Count 276 (160-400) X10*3/uL MPV 10.3 (9.4-12.3) fL Immature Gran % (Auto) 0.1 (0.0-0.4) % Neut % (Auto) 57.2 (45-73) % Lymph % (Auto) 33.4 (20-40) % [place] % (Auto) 6.6 (2-11) % Eos % (Auto) 2.1 (0-4) % Baso % (Auto) 0.6 (0-2) % Lymph # (Auto) 2.9 (1.2-4.9) X10*3/uL [place] # (Auto) 0.6 (0.1-1.2) X10*3/uL Eos # (Auto) 0.2 (0.0-0.4) X10*3/uL Baso # (Auto) 0.1 (0.0-0.2) X10*3/uL Abs Immat Gran (auto) 0.01 (0.00-0.03) X10*3/uL Absolute Neuts (auto) 5.0 (2.0-8.3) X10*3/uL Absolute Nucleated RBC 0.000 (0.0-0.012) X10*3/uL Nucleated RBC % (auto) 0.0 (0.0-0.2) /100WBC Urine Color YELLOW Urine Appearance HAZY Urine pH 6.0 (5.0-8.0) Ur Specific [place] >= 1.030 H (1.005-1.025) Urine Protein TRACE (NEG-TRACE) MG/DL Urine Glucose (UA) NEG (NEG) MG/DL Urine Ketones NEG (NEG) MG/DL Urine Blood NEG (NEG) Urine Nitrite NEG (NEG) Ur Leukocyte Esterase 2+ H (NEG) Urine RBC 1-4 (0) /HPF Urine WBC 10-14 H (0-4) /HPF Ur Squamous Epith Cells 2+ /LPF Urine Bacteria 2+ /LPF Urine Mucus 2+ /LPF Discharge Plan Discharge Clinical Impression: Diabetes, , UTI (urinary tract infection) Patient Disposition: Home, Self-Care Instructions: Urinary Tract Infection in (ED), (ED) Prescriptions: No Action sucralfate 1 gram tablet 1 g PO BID Qty: 60 RF: 3 pantoprazole 40 mg tablet,delayed release (DR/EC) 40 mg PO DAILY Qty: 30 RF: 2 ondansetron HCl [Zofran] 4 mg tablet 4 mg PO DAILY Qty: 30 RF: 0 metformin 500 mg tablet 500 mg PO BID RF: 0 Hold Instructions: Discuss with Dr De before restarting. [facility] Past Medical History Source: nursing notes reviewed Medical History Arthritis Diabetes Dysmenorrhea Eczema GERD (gastroesophageal reflux disease) Knee pain Left ventricular hypertrophy Lower extremity edema Morbid obesity EVERARDO on CPAP Sleep apnea Steatosis, liver Vitamin D deficiency Surgical History History of sleeve gastrectomy History of wisdom tooth extraction, class II edentulism Family History Family History Father Kidney failure Diabetes CVD (cardiovascular disease) Mother Diabetes HTN (hypertension) Sister No problems noted. Sister No problems noted. Sister No problems noted. Sister No problems noted. Son No problems noted. Daughter No problems noted. Daughter No problems noted. 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
[2021-07-04 06:47] LABS: Anion Gap 11 (12-20); Blood Urea Nitrogen 7 mg/dL (9-16); Calcium 9.4 mg/dL (8.4-10.2); Carbon Dioxide 28 mmol/L (22-29); Chloride 105 mmol/L (96-108); Creatinine Clr Calc Pharmacy 131.2; Estimated Glomerular Filt Rate > 60; Glucose Random 98 mg/dL (60-115); Potassium 3.8 mmol/L (3.3-5.1); Sodium 140 mmol/L (135-145)
[2021-07-04 07:21] LABS: HCG Quantitative 19123 mIU/mL
[2021-07-04] MEDS: Acetaminophen 325 MG TABLET 975 MG PO (07:21)
[2021-07-04] MEDS: Nitrofurantoin Monohyd/M-Cryst 100 MG CAPSULE PO (07:21)
[2021-07-04 07:24] VITALS: BP 102/55; PULSE 66; RESP 14; O2SAT 99
[2021-07-04 11:13] VITALS: BP 104/70; PULSE 52
== END 2021-07-04 11:31 | disposition home or self-care (01) ==
PROVIDERS: Emergency Provider Student in an Organized Health Care Education/Training Program
DX: O23.41 Unspecified infection of urinary tract in pregnancy, first trimester (principal); Z3A.00 Weeks of gestation of pregnancy not specified; Z79.899 Other long term (current) drug therapy
CPT/HCPCS: 36415; 76801; 76817; 80048; 81001; 84702; 85025; 87086; 99284

== ENCOUNTER 2021-07-14 17:02 | Emergency (ER) | payer OTHER, SELFPAY ==
--- NOTE | ~2021-07-14 | US_ITS ---
EXAMINATION: US RETROPERITONEAL LIMITED (RENAL ONLY) CLINICAL INFORMATION: Question kidney stones. COMPARISON: Ultrasound abdomen 07/05/2020 TECHNIQUE: Ultrasound of the kidneys was performed FINDINGS: RIGHT KIDNEY: 11.9 x 4.3 x 5.1 cm (SAG x AP x TRV). The kidney is normal in size, contour, and echogenicity. Renal cortical thickness is normal. No calculi or focal parenchymal lesions. No hydronephrosis. LEFT KIDNEY: 11.9 x 5.7 x 5.3 cm (SAG x AP x TRV). The kidney is normal in size, contour, and echogenicity. Renal cortical thickness is normal. No calculi or focal parenchymal lesions. No hydronephrosis. US/US renal BI IMPRESSION: Normal-appearing kidneys. No stones are seen.
--- NOTE | ~2021-07-14 | US_ITS ---
EXAMINATION: US OBSTETRICAL ULTRASOUND CLINICAL INFORMATION: with vaginal bleeding. COMPARISON: OB pelvic ultrasound dated 07/04/2021. LMP: Unknown. Gestational age by maternal dates is unknown. Estimated date of delivery by maternal dates is unknown. Estimated gestational age based on the first ultrasound is 7 weeks 2 days with an ANA of 02/28/2021. TECHNIQUE: Transabdominal and cine images were obtained. Patient declined transvaginal imaging. FINDINGS: There is a single intrauterine gestational sac with a possible small possible pole measuring up to 0.3 cm and corresponding to a gestational age of 6 weeks 2 days and ANA of 03/07/2022. No heart rate identified. No yolk sac identified. No evidence of subchorionic hemorrhage. Redemonstration of a probable uterine fibroid, unchanged. CRL (crown rump length): 0.3 cm (6 weeks 2 days +/- 4 days). ANA (estimated date of delivery): 03/07/2022 +/- 4 days. MATERNAL ADNEXA: The right maternal ovary measures 2 x 2 by 2.3 cm. There is a right ovarian dominant follicle measuring up to 1.4 cm. The left maternal ovary measures 1.9 x 1.4 x 1.4 cm. There is no significant maternal adnexal mass. No maternal pelvic ascites. US/US OB pelvic and transvaginal IMPRESSION: Evaluation somewhat limited on transabdominal imaging. 1. Intrauterine gestational sac and possible small pole which correspond to a gestational age of 6 weeks and 2 days and NAA of 03/07/2022. Given the size of the yolk sac and pole, this may represent too early to detect a heart rate. Continued serial beta hCG and follow-up ultrasound within 5-7 days is recommended to help further evaluate. 2. No subchorionic hemorrhage.
[2021-07-14 17:12] VITALS: BP 112/66; PULSE 55; RESP 16; TEMP 36.9; O2SAT 100; BMI 38.0
[2021-07-14 18:00] LABS: MANUAL DIFF FLAG NO
[2021-07-14 18:03] LABS: Appearance Urine HAZY; Color Urine YELLOW; Glucose Urine UA NEG (NEG); Leukocyte Esterase Urine NEG (NEG); Nitrite Urine NEG (NEG); PH 7.5 (5.0-8.0); UACC Culture Trigger NO; Urine Blood 3+ (NEG); Urine Ketones 5 MG/DL (NEG); Urine Protein 1+ MG/DL (NEG-TRACE)
[2021-07-14 18:04] LABS: UPreg QC Valid YES; Urine Pregnancy POSITIVE (NEGATIVE)
[2021-07-14 18:06] LABS: Prothrombin Time 11.3 SEC (9.9-13.0)
[2021-07-14 18:07] LABS: Basophils Percent Auto 0.4 % (0-2); Eosinophils Absolute Auto 0.4 X10*3/uL (0.0-0.4); Eosinophils Percent Auto 3.9 % (0-4); Hematocrit 39.2 % (37-47); Hemoglobin 13.1 g/dl (12.0-16.0); Imm Gran Abs Auto 0.03 X10*3/uL (0.00-0.03); Imm Gran Pct Auto 0.3 % (0.0-0.4); Lymphocytes Absolute Auto 3.9 X10*3/uL (1.2-4.9); Lymphocytes Percent Auto 40.8 % (20-40); Mean Corpuscular HGB Conc 33.4 g/dl (31.0-35.0); Mean Corpuscular Hemoglobin 29.4 pg (27.0-33.0); Mean Corpuscular Volume 88.1 fL (80-98); Mean Platelet Volume 10.2 fL (9.4-12.3); Monocytes Absolute Auto 0.8 X10*3/uL (0.1-1.2); Monocytes Percent Auto 8.2 % (2-11); Neutrophils Absolute Auto 4.5 X10*3/uL (2.0-8.3); Neutrophils Percent Auto 46.4 % (45-73); Platelet Count 268 X10*3/uL (160-400); Red Blood Count 4.45 X10*6/uL (4.20-5.50); Red Cell Distribution Width 12.8 % (11.0-16.0); White Blood Count 9.6 X10*3/uL (4.8-10.8)
[2021-07-14 18:08] LABS: Partial Thromboplastin Time 28.9 SEC (24.1-38.0)
[2021-07-14 18:11] LABS: Amorphous Sediment Urine 1+ /LPF; Bacteria Urine 1+ /LPF; Squamous Epithelial Cell Urine 1+ /LPF; WBC Urine 0 /HPF (0-4)
[2021-07-14 18:15] LABS: Alanine Aminotransferase 12 U/L (0-31); Albumin Level 3.8 g/dL (3.5-5.0); Alkaline Phosphatase 63 U/L (39-117); Anion Gap 10 (12-20); Aspartate Amino Transferase 15 U/L (5-31); Bilirubin Direct < 0.2 mg/dL (0.0-0.5); Bilirubin Total < 0.2 mg/dL (0.0-1.0); Blood Urea Nitrogen 9 mg/dL (9-16); Carbon Dioxide 25 mmol/L (22-29); Chloride 107 mmol/L (96-108); Creatinine Clr Calc Pharmacy 123.8; Estimated Glomerular Filt Rate > 60; Glucose Random 86 mg/dL (60-115); Sodium 138 mmol/L (135-145); Total Protein 6.4 g/dL (6.5-8.0)
--- NOTE | 2021-07-14 19:17 | PC.NURSE ---
assumed care of pt. Pt up to restroom and is concerned about blood clots. CHASITY William aware.
[2021-07-14 20:21] VITALS: BP 108/51; PULSE 51; RESP 14; O2SAT 100
--- NOTE | 2021-07-14 20:35 | ED_ITS ---
HPI - General Adult General Chief complaint: Vaginal Bleeding Stated complaint: vag bleeding, 7 weeks Time Seen by Provider: 07/14/21 17:19 Source: patient Mode of arrival: ambulatory Limitations: no limitations History of Present Illness HPI narrative: 30-year-old female presents to ED for vaginal bleeding and lower abdominal cramping. Patient states no nausea or vomiting. Patient denies any fever or chills. Patient denies any recent trauma to abdomen or flanks. This is patient's 5th . Patient has 3 living children and 1 miscarriage. Related Data Home Medications Medication Instructions Recorded Confirmed metformin 500 mg tablet 500 mg PO BID 10/18/20 10/21/20 Previous Rx's Medication Instructions Recorded ondansetron HCl 4 mg tablet 4 mg PO DAILY #30 tab 10/20/20 (Zofran) sucralfate 1 gram tablet 1 g PO BID #60 tab 10/21/20 pantoprazole 40 mg tablet,delayed 40 mg PO DAILY #30 tab 11/15/20 release nitrofurantoin macrocrystal 100 mg 100 mg PO BID 7 Days #14 cap 07/04/21 capsule Allergies Allergy/AdvReac Type Severity Reaction Status Date / Time No Known Allergies Allergy Mild NOT Verified 07/04/21 06:01 [No Known Allergies*] APPLICABLE Review of Systems Review of Systems: Yes all other systems are reviewed and are negative Constitutional: Constitutional: Reports as per HPI and Reports no additional constitutional complaints Eyes: Eyes: Reports as per HPI and Reports no additional eye complaints ENT: Reports system reviewed and no additional complaints, except as documented and Reports as per HPI Cardiovascular: Cardiovascular: Reports as per HPI and Reports no additional cardiovascular complaints Respiratory: Respiratory: Reports as per HPI and Reports no additional respiratory complaints Gastrointestinal: Gastrointestinal: Reports as per HPI, Reports no additional gastrointestinal complaints and Reports GI cramping (Lower abdominal cramping) Genitourinary: Genitourinary: Reports no additional female genitourinary complaints, Reports as per HPI and Reports abnormal vaginal bleeding Musculoskeletal: Musculoskeletal: Reports no additional musculoskeletal complaints and Reports as per HPI Integumentary/Breasts: Skin/Breast: Reports system reviewed and no additional complaints, except as docu and Reports as per HPI Neurologic: Reports system reviewed and no additional complaints, except as documented and Reports as per HPI Psychiatric: Psychiatric: Reports no additional psychiatric complaints and Reports as per HPI [facility] Past Medical History Medical History Arthritis Diabetes Dysmenorrhea Eczema GERD (gastroesophageal reflux disease) Knee pain Left ventricular hypertrophy Lower extremity edema Morbid obesity EVERARDO on CPAP Sleep apnea Steatosis, liver Vitamin D deficiency Surgical History History of sleeve gastrectomy History of wisdom tooth extraction, class II edentulism Family History Family History Father Kidney failure Diabetes CVD (cardiovascular disease) Mother Diabetes HTN (hypertension) Sister No problems noted. Sister No problems noted. Sister No problems noted. Sister No problems noted. Son No problems noted. Daughter No problems noted. Daughter No problems noted. Social History Social History Are you a primary home care assistant to a significant other at home: No Do you presently have visiting nurse or other home services: No Patient Tobacco Use Status: Former Tobacco user Use of substances other than those prescribed or required for medical reasons: No Advance Directives: No Advance Directives Information Provided: No Patient : Yes service: No Current occupational status: employed Current occupation: [employer] Physical Exam Vital Signs: Vital Signs: Last Vital Signs Temp 98.4 F 07/14/21 17:12 Pulse 51 07/14/21 20:21 Resp 14 07/14/21 20:21 BP 108/51 L 07/14/21 20:21 Pulse Ox 100 07/14/21 20:21 Body Mass Index 38.0 Const: General: cooperative, healthy appearing, comfortable, no acute distress, well developed, alert, awake and Physically active Or ientation/consciousness: patient oriented x3 HENMT: Head: Yes normal to inspection, Yes No palpable skull fracture present, Yes normocephalic, Yes atraumatic and No abrasion Eyes: General: appearance normal, both eyes and all related structures Neck: Neck: Yes normal visual inspection, Yes full ROM, Yes no lymphadenopathy, Yes no meningeal signs, Yes trachea midline, Yes supple and No tender Chest: Chest palpation & inspection: normal inspection of the chest and normal palpation of entire chest wall Resp: Effort & Inspection: normal respiratory effort and able to speak in complete sentences Auscultation: clear to auscultation bilaterally Cardio: Jugular venous distension: no JVD Heart sounds: S1 normal heart sound present and S2 normal heart sound present GI: Inspection: Yes normal to inspection and No abdominal wall ecchymosis P alpation (GI): Soft to palpation, not firm, Tenderness to palpation present (GI) suprapubicly; Negative for not in the epigastrum, not in the LLQ, not in the RLQ, not in the LUQ, not in the RUQ, not at McBurney's point, not periumbilically, Haynes's sign negative, obturator sign negative, psoas sign negative, with no rebound tenderness and Rovsing's sign negative, no guarding and not rigid : Other: Positive for bleeding from cervical os and vaginal vault but negative for profuse bleeding or hemorrhaging. Cervical os is closed. Negative for any vaginal discharge. General: No CVA tenderness and Yes no CVA tenderness Back/Spine/Pelvis: Back: no CVA tenderness, No CVA tenderness and No back tenderness Skin: General skin exam: no rashes or lesions noted and elasticity normal Neuro: General: patient oriented x3, gait normal, no meningeal signs and CN's II-XI intact bilaterally Cranial nerves: Yes CN's II-XII intact bilaterally Extrem: General: Yes normal to inspection and Yes full ROM Psych: Appearance: grossly normal, well kempt and not disheveled Course Course Course Narrative: Patient had basic labs drawn and sent for abdominal ultrasound for and flank pain to rule out kidney stones. Reevaluation(s) Reevaluation #1: Vital signs are stable. Patient is not hemorrhagic bleeding. Patient is not anemic. Ultrasound shows IUP at about 6 weeks but since the HCG has not increased that much may be threatening in miscarriage early miscarriage. Ultrasound of flank negative for kidney stones. Patient to follow-up with Dr. Gerri Falcon for repeat ultrasound and blood work. UA negative for UTI Time: 21:06 Medical Decision Making Lab Data Result diagrams: 07/14/21 17:46 07/14/21 17:46 Labs: Lab Results 07/14/21 07/14/21 07/14/21 Range/Units 17:46 17:46 17:46 WBC 9.6 (4.8-10.8) X10*3/uL RBC 4.45 (4.20-5.50) X10*6/uL Hgb 13.1 (12.0-16.0) g/dl Hct 39.2 (37-47) % MCV 88.1 (80-98) fL MCH 29.4 (27.0-33.0) pg MCHC 33.4 (31.0-35.0) g/dl RDW 12.8 (11.0-16.0) % Plt Count 268 (160-400) X10*3/uL MPV 10.2 (9.4-12.3) fL Immature Gran % (Auto) 0.3 (0.0-0.4) % Neut % (Auto) 46.4 (45-73) % Lymph % (Auto) 40.8 H (20-40) % [place] % (Auto) 8.2 (2-11) % Eos % (Auto) 3.9 (0-4) % Baso % (Auto) 0.4 (0-2) % Lymph # (Auto) 3.9 (1.2-4.9) X10*3/uL [place] # (Auto) 0.8 (0.1-1.2) X10*3/uL Eos # (Auto) 0.4 (0.0-0.4) X10*3/uL Baso # (Auto) 0.0 (0.0-0.2) X10*3/uL Abs Immat Gran (auto) 0.03 (0.00-0.03) X10*3/uL Absolute Neuts (auto) 4.5 (2.0-8.3) X10*3/uL Absolute Nucleated RBC 0.000 (0.0-0.012) X10*3/uL Nucleated RBC % (auto) 0.0 (0.0-0.2) /100WBC PT 11.3 (9.9-13.0) SEC INR 1.0 (0.9-1.1) APTT 28.9 (24.1-38.0) SEC Sodium 138 (135-145) mmol/L Potassium 4.0 (3.3-5.1) mmol/L Chloride 107 (96-108) mmol/L Carbon Dioxide 25 (22-29) mmol/L Anion Gap 10 L (12-20) BUN 9 (9-16) mg/dL Creatinine 0.76 (0.5-1.4) mg/dL Estim Creat Clear Calc 123.8 Estimated GFR > 60 Random Glucose 86 (60-115) mg/dL Calcium 9.0 (8.4-10.2) mg/dL Total Bilirubin < 0.2 (0.0-1.0) mg/dL Direct Bilirubin < 0.2 (0.0-0.5) mg/dL AST 15 (5-31) U/L ALT 12 (0-31) U/L Alkaline Phosphatase 63 (39-117) U/L Total Protein 6.4 L (6.5-8.0) g/dL Albumin 3.8 (3.5-5.0) g/dL Beta HCG, Quant 21032 mIU/mL Urine Color Urine Appearance Urine pH (5.0-8.0) Ur Specific [place] (1.005-1.025) Urine Protein (NEG-TRACE) MG/DL Urine Glucose (UA) (NEG) MG/DL Urine Ketones (NEG) MG/DL Urine Blood (NEG) Urine Nitrite (NEG) Ur Leukocyte Esterase (NEG) Urine RBC (0) /HPF Urine WBC (0-4) /HPF Ur Squamous Epith Cells /LPF Amorphous Sediment /LPF Urine Bacteria /LPF Urine Test (NEGATIVE) Blood Type 07/14/21 07/14/21 07/14/21 Range/Units 17:55 17:55 19:01 WBC (4.8-10.8) X10*3/uL RBC (4.20-5.50) X10*6/uL Hgb (12.0-16.0) g/dl Hct (37-47) % MCV (80-98) fL MCH (27.0-33.0) pg MCHC (31.0-35.0) g/dl RDW (11.0-16.0) % Plt Count (160-400) X10*3/uL MPV (9.4-12.3) fL Immature Gran % (Auto) (0.0-0.4) % Neut % (Auto) (45-73) % Lymph % (Auto) (20-40) % [place] % (Auto) (2-11) % Eos % (Auto) (0-4) % Baso % (Auto) (0-2) % Lymph # (Auto) (1.2-4.9) X10*3/uL [place] # (Auto) (0.1-1.2) X10*3/uL Eos # (Auto) (0.0-0.4) X10*3/uL Baso # (Auto) (0.0-0.2) X10*3/uL Abs Immat Gran (auto) (0.00-0.03) X10*3/uL Absolute Neuts (auto) (2.0-8.3) X10*3/uL Absolute Nucleated RBC (0.0-0.012) X10*3/uL Nucleated RBC % (auto) (0.0-0.2) /100WBC PT (9.9-13.0) SEC INR (0.9-1.1) APTT (24.1-38.0) SEC Sodium (135-145) mmol/L Potassium (3.3-5.1) mmol/L Chloride (96-108) mmol/L Carbon Dioxide (22-29) mmol/L Anion Gap (12-20) BUN (9-16) mg/dL Creatinine (0.5-1.4) mg/dL Estim Creat Clear Calc Estimated GFR Random Glucose (60-115) mg/dL Calcium (8.4-10.2) mg/dL Total Bilirubin (0.0-1.0) mg/dL Direct Bilirubin (0.0-0.5) mg/dL AST (5-31) U/L ALT (0-31) U/L Alkaline Phosphatase (39-117) U/L Total Protein (6.5-8.0) g/dL Albumin (3.5-5.0) g/dL Beta HCG, Quant mIU/mL Urine Color YELLOW Urine Appearance HAZY Urine pH 7.5 (5.0-8.0) Ur Specific [place] 1.010 (1.005-1.025) Urine Protein 1+ H (NEG-TRACE) MG/DL Urine Glucose (UA) NEG (NEG) MG/DL Urine Ketones 5 (NEG) MG/DL Urine Blood 3+ H (NEG) Urine Nitrite NEG (NEG) Ur Leukocyte Esterase NEG (NEG) Urine RBC 1-4 (0) /HPF Urine WBC 0 (0-4) /HPF Ur Squamous Epith Cells 1+ /LPF Amorphous Sediment 1+ /LPF Urine Bacteria 1+ /LPF Urine Test POSITIVE H (NEGATIVE) Blood Type O Positive Discharge Plan Discharge Clinical Impression: Threatened miscarriage Patient Disposition: Home, Self-Care Instructions: Threatened Miscarriage (ED) Additional Instructions: Please follow-up with Dr[facility] Gerri Falcon [facility] for repeat beta hCG and ultrasound. Return to ED for worsening vaginal bleeding, severe abdominal pain, weakness, dizziness, nausea, vomiting, flank pain, vaginal discharge, fever, chills, or any other concerning symptoms. Prescriptions: No Action sucralfate 1 gram tablet 1 g PO BID Qty: 60 RF: 3 pantoprazole 40 mg tablet,delayed release (DR/EC) 40 mg PO DAILY Qty: 30 RF: 2 nitrofurantoin macrocrystal 100 mg capsule 100 mg PO BID 7 Days Qty: 14 RF: 0 ondansetron HCl [Zofran] 4 mg tablet 4 mg PO DAILY Qty: 30 RF: 0 metformin 500 mg tablet 500 mg PO BID RF: 0 Hold Instructions: Discuss with Dr De before restarting. Referrals: Javid Talley MD [Physician] - 2 days (Threatened miscarriage) Stand Alone Forms: Work/School Release Print Language: Icelandic
--- NOTE | 2021-07-14 20:55 | ED_ITS ---
HPI - General Adult General Chief complaint: Vaginal Bleeding Stated complaint: vag bleeding, 7 weeks Time Seen by Provider: 07/14/21 17:19 Source: patient Mode of arrival: ambulatory Limitations: no limitations History of Present Illness HPI narrative: 30-year-old female presents to ED for vaginal bleeding and lower abdominal cramping. Patient states she is about 7 weeks . Patient came to the ED for evaluation. Patient denies any nausea, vomiting, or flank pain. Related Data Home Medications Medication Instructions Recorded Confirmed metformin 500 mg tablet 500 mg PO BID 10/18/20 10/21/20 Previous Rx's Medication Instructions Recorded ondansetron HCl 4 mg tablet 4 mg PO DAILY #30 tab 10/20/20 (Zofran) sucralfate 1 gram tablet 1 g PO BID #60 tab 10/21/20 pantoprazole 40 mg tablet,delayed 40 mg PO DAILY #30 tab 11/15/20 release nitrofurantoin macrocrystal 100 mg 100 mg PO BID 7 Days #14 cap 07/04/21 capsule Allergies Allergy/AdvReac Type Severity Reaction Status Date / Time No Known Allergies Allergy Mild NOT Verified 07/04/21 06:01 [No Known Allergies*] APPLICABLE [facility] Past Medical History Medical History Arthritis Diabetes Dysmenorrhea Eczema GERD (gastroesophageal reflux disease) Knee pain Left ventricular hypertrophy Lower extremity edema Morbid obesity EVERARDO on CPAP Sleep apnea Steatosis, liver Vitamin D deficiency Surgical History History of sleeve gastrectomy History of wisdom tooth extraction, class II edentulism Family History Family History Father Kidney failure Diabetes CVD (cardiovascular disease) Mother Diabetes HTN (hypertension) Sister No problems noted. Sister No problems noted. Sister No problems noted. Sister No problems noted. Son No problems noted. Daughter No problems noted. Daughter No problems noted. Social History Social History Are you a primary child care lead teacher to a significant other at home: No Do you presently have visiting nurse or other home services: No Patient Tobacco Use Status: Former Tobacco user Use of substances other than those prescribed or required for medical reasons: No Advance Directives: No Advance Directives Information Provided: No Patient : Yes service: No Current occupational status: employed Current occupation: [employer] Physical Exam Vital Signs: Vital Signs: Last Vital Signs Temp 98.4 F 07/14/21 17:12 Pulse 51 07/14/21 20:21 Resp 14 07/14/21 20:21 BP 108/51 L 07/14/21 20:21 Pulse Ox 100 07/14/21 20:21 Body Mass Index 38.0 Medical Decision Making Lab Data Result diagrams: 07/14/21 17:46 07/14/21 17:46 Labs: Lab Results 07/14/21 07/14/21 07/14/21 Range/Units 17:46 17:46 17:46 WBC 9.6 (4.8-10.8) X10*3/uL RBC 4.45 (4.20-5.50) X10*6/uL Hgb 13.1 (12.0-16.0) g/dl Hct 39.2 (37-47) % MCV 88.1 (80-98) fL MCH 29.4 (27.0-33.0) pg MCHC 33.4 (31.0-35.0) g/dl RDW 12.8 (11.0-16.0) % Plt Count 268 (160-400) X10*3/uL MPV 10.2 (9.4-12.3) fL Immature Gran % (Auto) 0.3 (0.0-0.4) % Neut % (Auto) 46.4 (45-73) % Lymph % (Auto) 40.8 H (20-40) % [place] % (Auto) 8.2 (2-11) % Eos % (Auto) 3.9 (0-4) % Baso % (Auto) 0.4 (0-2) % Lymph # (Auto) 3.9 (1.2-4.9) X10*3/uL [place] # (Auto) 0.8 (0.1-1.2) X10*3/uL Eos # (Auto) 0.4 (0.0-0.4) X10*3/uL Baso # (Auto) 0.0 (0.0-0.2) X10*3/uL Abs Immat Gran (auto) 0.03 (0.00-0.03) X10*3/uL Absolute Neuts (auto) 4.5 (2.0-8.3) X10*3/uL Absolute Nucleated RBC 0.000 (0.0-0.012) X10*3/uL Nucleated RBC % (auto) 0.0 (0.0-0.2) /100WBC PT 11.3 (9.9-13.0) SEC INR 1.0 (0.9-1.1) APTT 28.9 (24.1-38.0) SEC Sodium 138 (135-145) mmol/L Potassium 4.0 (3.3-5.1) mmol/L Chloride 107 (96-108) mmol/L Carbon Dioxide 25 (22-29) mmol/L Anion Gap 10 L (12-20) BUN 9 (9-16) mg/dL Creatinine 0.76 (0.5-1.4) mg/dL Estim Creat Clear Calc 123.8 Estimated GFR > 60 Random Glucose 86 (60-115) mg/dL Calcium 9.0 (8.4-10.2) mg/dL Total Bilirubin < 0.2 (0.0-1.0) mg/dL Direct Bilirubin < 0.2 (0.0-0.5) mg/dL AST 15 (5-31) U/L ALT 12 (0-31) U/L Alkaline Phosphatase 63 (39-117) U/L Total Protein 6.4 L (6.5-8.0) g/dL Albumin 3.8 (3.5-5.0) g/dL Beta HCG, Quant 30051 mIU/mL Urine Color Urine Appearance Urine pH (5.0-8.0) Ur Specific [place] (1.005-1.025) Urine Protein (NEG-TRACE) MG/DL Urine Glucose (UA) (NEG) MG/DL Urine Ketones (NEG) MG/DL Urine Blood (NEG) Urine Nitrite (NEG) Ur Leukocyte Esterase (NEG) Urine RBC (0) /HPF Urine WBC (0-4) /HPF Ur Squamous Epith Cells /LPF Amorphous Sediment /LPF Urine Bacteria /LPF Urine Test (NEGATIVE) Blood Type 07/14/21 07/14/21 07/14/21 Range/Units 17:55 17:55 19:01 WBC (4.8-10.8) X10*3/uL RBC (4.20-5.50) X10*6/uL Hgb (12.0-16.0) g/dl Hct (37-47) % MCV (80-98) fL MCH (27.0-33.0) pg MCHC (31.0-35.0) g/dl RDW (11.0-16.0) % Plt Count (160-400) X10*3/uL MPV (9.4-12.3) fL Immature Gran % (Auto) (0.0-0.4) % Neut % (Auto) (45-73) % Lymph % (Auto) (20-40) % [place] % (Auto) (2-11) % Eos % (Auto) (0-4) % Baso % (Auto) (0-2) % Lymph # (Auto) (1.2-4.9) X10*3/uL [place] # (Auto) (0.1-1.2) X10*3/uL Eos # (Auto) (0.0-0.4) X10*3/uL Baso # (Auto) (0.0-0.2) X10*3/uL Abs Immat Gran (auto) (0.00-0.03) X10*3/uL Absolute Neuts (auto) (2.0-8.3) X10*3/uL Absolute Nucleated RBC (0.0-0.012) X10*3/uL Nucleated RBC % (auto) (0.0-0.2) /100WBC PT (9.9-13.0) SEC INR (0.9-1.1) APTT (24.1-38.0) SEC Sodium (135-145) mmol/L Potassium (3.3-5.1) mmol/L Chloride (96-108) mmol/L Carbon Dioxide (22-29) mmol/L Anion Gap (12-20) BUN (9-16) mg/dL Creatinine (0.5-1.4) mg/dL Estim Creat Clear Calc Estimated GFR Random Glucose (60-115) mg/dL Calcium (8.4-10.2) mg/dL Total Bilirubin (0.0-1.0) mg/dL Direct Bilirubin (0.0-0.5) mg/dL AST (5-31) U/L ALT (0-31) U/L Alkaline Phosphatase (39-117) U/L Total Protein (6.5-8.0) g/dL Albumin (3.5-5.0) g/dL Beta HCG, Quant mIU/mL Urine Color YELLOW Urine Appearance HAZY Urine pH 7.5 (5.0-8.0) Ur Specific [place] 1.010 (1.005-1.025) Urine Protein 1+ H (NEG-TRACE) MG/DL Urine Glucose (UA) NEG (NEG) MG/DL Urine Ketones 5 (NEG) MG/DL Urine Blood 3+ H (NEG) Urine Nitrite NEG (NEG) Ur Leukocyte Esterase NEG (NEG) Urine RBC 1-4 (0) /HPF Urine WBC 0 (0-4) /HPF Ur Squamous Epith Cells 1+ /LPF Amorphous Sediment 1+ /LPF Urine Bacteria 1+ /LPF Urine Test POSITIVE H (NEGATIVE) Blood Type O Positive Discharge Plan Discharge Prescriptions: No Action sucralfate 1 gram tablet 1 g PO BID Qty: 60 RF: 3 pantoprazole 40 mg tablet,delayed release (DR/EC) 40 mg PO DAILY Qty: 30 RF: 2 nitrofurantoin macrocrystal 100 mg capsule 100 mg PO BID 7 Days Qty: 14 RF: 0 ondansetron HCl [Zofran] 4 mg tablet 4 mg PO DAILY Qty: 30 RF: 0 metformin 500 mg tablet 500 mg PO BID RF: 0 Hold Instructions: Discuss with Dr De before restarting.
[2021-07-15 08:54] LABS: BV Int Neg Control Negative (Negative); BV Int Pos Control Positive (Positive)
[2021-07-15 09:53] LABS: CT PCR NOT DETECTED (Not Detect.); NG PCR NOT DETECTED (Not Detect.)
== END 2021-07-14 21:38 | disposition home or self-care (01) ==
PROVIDERS: Physician Assistant; Emergency Provider Emergency Medicine Emergency Medical Services; PCP Nurse Practitioner Primary Care
DX: O20.0 Threatened abortion (principal); Z3A.01 Less than 8 weeks gestation of pregnancy
CPT/HCPCS: 36415; 76775; 76801; 76817; 80053; 81001; 81025; 82248; 84702; 85025; 85610; 85730; 86900; 86901; 87480; 87491; 87510; 87591; 87660; 99284

== ENCOUNTER 2021-07-15 12:48 | Emergency (ER) | payer OTHER, SELFPAY ==
--- NOTE | ~2021-07-15 | US_ITS ---
EXAMINATION: ULTRASOUND PELVIC, COMPLETE CLINICAL INFORMATION: Vaginal bleeding. Beta-hCG July 04, 2021 19,123, July 14, 2021 23,632 COMPARISON: Pelvic ultrasound July 14, 2021 TECHNIQUE: Transabdominal grayscale ultrasound and color Doppler exam imaging. LMP: Uncertain Date of earliest ultrasound July 04, 2021. Gestational age by first ultrasound is 7 weeks 3 days. ANA 02/28/2021. FINDINGS: UTERUS: No intrauterine gestation. Intrauterine gestational sac seen on the ultrasound exam of July 14, 2021 is no longer present. No fluid collection in the endometrial cavity. There is a small myometrial fibroid posteriorly in the subserosa measuring 2.7 x 1.2 x 3 cm. ADNEXA: Ovarian vascularity:Doppler demonstrates both arterial and venous vascular flow in the right and left ovary. No evidence of ovarian torsion. Right Ovary: 1 cm anechoic follicle/cyst. The right ovary measures 2.1 x 2.6 x 2.8 cm. Left Ovary: 2.5 x 1.8 x 1.9 cm Cul-de-sac: No Fluid US/US pelvic complete IMPRESSION: Previously seen intrauterine gestation on the ultrasound exam of July 14, 2021 is no longer present. Findings consistent with spontaneous .
[2021-07-15 15:41] VITALS: BP 120/66; PULSE 56; RESP 18; TEMP 36.8; O2SAT 98; BMI 37.8
--- NOTE | 2021-07-15 15:59 | ED.FEMALEGU ---
HPI - Female Genitourinary General Chief complaint: Vaginal Bleeding Stated complaint: vaginal bleeding, abd pain, 7 weeks preg Time Seen by Provider: 07/15/21 16:01 Source: patient Mode of arrival: ambulatory Limitations: no limitations History of Present Illness HPI Narrative: 30 yo female [id number] currently around 7 weeks pmhx significant for previous miscairage, DM, EVERARDO on CPAP, GERD, obesity s/p sleeve gastrectomy presents to the ED with abdominal cramping, and vaginal bleeding X2 days worsening. Patient states that the abdominal pain is 10/10, constant, localized in the suprapubic region free of radiation. She also reports bright red vaginal bleeding, with dark red cough. She states that yesterday she was spotting, however today she has been bleeding heavily, requiring 2 pads thus far. She denies fevers, chills, nausea, vomiting, recent trauma, chest pain, shortness of breath, malaise, fatigue. She states her plan is to terminate this [facility] Per patrient she has never required RhoGAM in the past. MD elicited complaint: vaginal bleeding Pertinent past history: prior miscarriages Onset (ago): day(s) (2) Location of symptoms: suprapubic Severity: severe Female Urogenital Radiation: Non-Radiating Severity scale (1-10): 10 Quality of pain: cramping Consistency: constant Vaginal discharge: none Vaginal bleeding: heavy, bright red, clots and # pads per day (2) Exacerbating factors: none Relieving factors: none Associated symptoms: abdominal pain (cramping) Treatment prior to arrival: none Patient : Yes Possible : at home test positive and other (HCG + here and US confirmation ) Related Data : 5 Para: 3 Total number of abortions (spontaneous and elective): 1 Home Medications Medication Instructions Recorded Confirmed metformin 500 mg tablet 500 mg PO BID 10/18/20 10/21/20 Previous Rx's Medication Instructions Recorded ondansetron HCl 4 mg tablet 4 mg PO DAILY #30 tab 10/20/20 (Zofran) sucralfate 1 gram tablet 1 g PO BID #60 tab 10/21/20 pantoprazole 40 mg tablet,delayed 40 mg PO DAILY #30 tab 11/15/20 release nitrofurantoin macrocrystal 100 mg 100 mg PO BID 7 Days #14 cap 07/04/21 capsule oxycodone 5 mg capsule 5 mg PO BID PRN #8 cap 07/15/21 Allergies Allergy/AdvReac Type Severity Reaction Status Date / Time No Known Allergies Allergy Mild NOT Verified 07/04/21 06:01 [No Known Allergies*] APPLICABLE Review of Systems Review of Systems: Yes all other systems are reviewed and are negative Constitutional: Constitutional: Reports no additional constitutional complaints, Denies body ache(s), Denies chills, Denies fever(s), Denies headache(s) and Denies weakness Eyes: Eyes: Reports no additional eye complaints and Denies change in vision ENT: Reports system reviewed and no additional complaints, except as documented, Denies dizziness, Denies headache(s), Denies nasal congestion, Denies nasal discharge and Denies neck pain Cardiovascular: Cardiovascular: Reports no additional cardiovascular complaints, Denies chest pain, Denies leg edema and Denies dyspnea Respiratory: Respiratory: Reports no additional respiratory complaints, Denies cough and Denies dyspnea Gastrointestinal: Gastrointestinal: Reports no additional gastrointestinal complaints, Reports abdominal pain (cramping ), Denies diarrhea, Denies nausea and Denies vomiting Genitourinary: Genitourinary: Reports no additional female genitourinary complaints and Denies urinary incontinence Musculoskeletal: Musculoskeletal: Reports no additional musculoskeletal complaints, Denies back pain, Denies arthralgias, Denies joint swelling, Denies neck pain, Denies numbness and Denies tingling Integumentary/Breasts: Skin/Breast: Reports system reviewed and no additional complaints, except as docu and Denies rash Neurologic: Reports system reviewed and no additional complaints, except as documented, Denies dizziness, Denies headache(s), Denies numbness, Denies tingling and Denies weakness [facility] Past Medical History Attestation statement: The following information was validated with the patient. Source: old records reviewed and nursing notes reviewed Medical History Arthritis Diabetes Dysmenorrhea Eczema GERD (gastroesophageal reflux disease) Knee pain Left ventricular hypertrophy Lower extremity edema Morbid obesity EVERARDO on CPAP Sleep apnea Steatosis, liver Vitamin D deficiency Surgical History History of sleeve gastrectomy History of wisdom tooth extraction, class II edentulism : 5 Para: 3 Total number of abortions (spontaneous and elective): 1 Family History Family History Father Kidney failure Diabetes CVD (cardiovascular disease) Mother Diabetes HTN (hypertension) Sister No problems noted. Sister No problems noted. Sister No problems noted. Sister No problems noted. Son No problems noted. Daughter No problems noted. Daughter No problems noted. 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 Products of conception were collected, and sent down to the lab. External Female Exam: normal external appearance Speculum Exam - Vagina: normal appearance of the vagina, vaginal bleeding and tissue present in vagina Speculum Exam - Cervix: Cervical os open OB/external & speculum: tissue present in vagina, Cervical os open and vaginal bleeding Course Reevaluation(s) Reevaluation #1: US consistent with spontaneous . Laboratories today shows slight leukocytosis 15.1, likely due to inflammatory changes, unlikely that this is from infection patient's vitals are stable, she is afebrile, she is not tachycardic, not hypotensive. Coags are normal. Chemistry shows no electrolyte abnormalities Time: 17:55 Reevaluation #2: TT Dr. Talley about this case. Reevaluation #3: Patient has not required RhoGAM in the past, no need for at this time. Patient has only blood through 1 pad during past 4 hours. Patient has been advised to return to the ED with increased bleeding or if using more pads than usual (more than one pad in an hour), if she develop fevers, chills, severe abdominal pain, shortness of breath , chest pain or if she feel extremely tired. She understands the plan, has no questions, and agrees to follow up with Dr.Zerbe BEAN. She will be sent home with oxycodone for pain. Patient safe for DC home with prompt PCP and OBGYN follow up. Time: 17:58 MDM - Female Genitourinary MDM Narrative Medical decision making narrative: 1607 30 yo female [id number] currently around 7 weeks pmhx significant for previous miscairage, DM, EVERARDO on CPAP, GERD, obesity s/p sleeve gastrectomy presents to the ED with supra pubic constant 10/10 abdominal cramping, and vaginal bleeding X2 days worsening. Vaginal bleeding is bright red, clots are dark red, heavy bleeding requiring 2 pads thus far today. After speaking to this patient she states that her plan for this was to terminate, [facility]. To note patient was seen here yesterday for the same sx, she got an ultrasound results were 1. Intrauterine gestational sac and possible small pole which correspond to a gestational age of 6 weeks and 2 days and ANA of 03/07/2022. Given the size of the yolk sac and pole, this may represent too early to detect a heart rate. Continued serial beta hCG and follow-up ultrasound within 5-7 days is recommended to help further evaluate. 2. No subchorionic hemorrhage , Urine was +, Blood type O+, H&H stable Today upon physical examination patient appears uncomfortable, but is in no acute distress. Lungs are clear to auscultation normal S1 and S2 without murmurs. Abdomen is soft and tender to palpation in the suprapubic region. Speculum exam was done at the bedside which revealed large dark red blood clots, cervical os was open, one of the blood clots contained what looked like products of conception. Large Q-tips were used to clean up blood, and low force suction was used to remove the remaining blood clots and blood. Products of conception were collected, and sent down to the lab. This time is to obtain a CBC, quantitative HCG, PT INR, BMP, surgical PTH, ultrasound of the pelvic complete. Patient will be given Toradol for pain. Medical Records Attestation: I reviewed the patient's medical records. Lab Data Attestation: I reviewed the patient's lab results. Result diagrams: 07/15/21 17:21 07/15/21 17:21 Labs: Lab Results 07/15/21 07/15/21 07/15/21 Range/Units 17:21 17:21 17:21 WBC 15.1 H (4.8-10.8) X10*3/uL RBC 4.77 (4.20-5.50) X10*6/uL Hgb 13.8 (12.0-16.0) g/dl Hct 41.9 (37-47) % MCV 87.8 (80-98) fL MCH 28.9 (27.0-33.0) pg MCHC 32.9 (31.0-35.0) g/dl RDW 12.8 (11.0-16.0) % Plt Count 289 (160-400) X10*3/uL MPV 10.0 (9.4-12.3) fL Immature Gran % (Auto) 0.3 (0.0-0.4) % Neut % (Auto) 66.5 (45-73) % Lymph % (Auto) 25.3 (20-40) % Mcdonald % (Auto) 5.6 (2-11) % Eos % (Auto) 1.9 (0-4) % Baso % (Auto) 0.4 (0-2) % Lymph # (Auto) 3.8 (1.2-4.9) X10*3/uL Mcdonald # (Auto) 0.9 (0.1-1.2) X10*3/uL Eos # (Auto) 0.3 (0.0-0.4) X10*3/uL Baso # (Auto) 0.1 (0.0-0.2) X10*3/uL Abs Immat Gran (auto) 0.05 H (0.00-0.03) X10*3/uL Absolute Neuts (auto) 10.0 H (2.0-8.3) X10*3/uL Absolute Nucleated RBC 0.000 (0.0-0.012) X10*3/uL Nucleated RBC % (auto) 0.0 (0.0-0.2) /100WBC PT 12.1 (9.9-13.0) SEC INR 1.1 (0.9-1.1) Sodium 139 (135-145) mmol/L Potassium 3.9 (3.3-5.1) mmol/L Chloride 106 (96-108) mmol/L Carbon Dioxide 27 (22-29) mmol/L Anion Gap 10 L (12-20) BUN 7 L (9-16) mg/dL Creatinine 0.69 (0.5-1.4) mg/dL Estim Creat Clear Calc 135.6 Estimated GFR > 60 Random Glucose 84 (60-115) mg/dL Calcium 8.9 (8.4-10.2) mg/dL Beta HCG, Quant 41930 mIU/mL Imaging Data Pelvic ultrasound: Attestation: I personally reviewed and interpreted this imaging study as follows: Radiologist's impression: US/US pelvic complete IMPRESSION: Previously seen intrauterine gestation on the ultrasound exam of July 14, 2021 is no longer present. Findings consistent with spontaneous . Discharge Plan Discharge Clinical Impression: Spontaneous , Vaginal bleeding, Abdominal cramping Patient Disposition: Home, Self-Care Instructions: Miscarriage (ED), Heat Pack Application (ED) Additional Instructions: This is likely a miscarriage, it is normal to bleed a few days, and even weeks after. If bleeding becomes severe (more than one pad in an hour), if you develop fevers, chills, shortness of breath , worsening abdominal pain, chest pain or you feel extremely tired you should return to the emergency department immediately. Drink pleanty of fluids Please follow-up with your primary care provider, and OBGYN as soon as possible. You will be given oxycodone, you can take this as needed for abdominal cramping and pain. Return to the emergency department with new or worsening symptoms. Prescriptions: New oxycodone 5 mg capsule 5 mg PO BID PRN (Reason: pain) Qty: 8 RF: 0 No Action sucralfate 1 gram tablet 1 g PO BID Qty: 60 RF: 3 pantoprazole 40 mg tablet,delayed release (DR/EC) 40 mg PO DAILY Qty: 30 RF: 2 nitrofurantoin macrocrystal 100 mg capsule 100 mg PO BID 7 Days Qty: 14 RF: 0 ondansetron HCl [Zofran] 4 mg tablet 4 mg PO DAILY Qty: 30 RF: 0 metformin 500 mg tablet 500 mg PO BID RF: 0 Hold Instructions: Discuss with Dr De before restarting. Referrals: Swathi Titus NP [Primary Care Provider] - 2 days Javid Talley MD [Physician] - 3 days Stand Alone Forms: Work/School Release
[2021-07-15] MEDS: Ketorolac Tromethamine 15 MG/ML VIAL 30 MG IM (16:32)
--- NOTE | 2021-07-15 16:34 | PC.NURSE ---
off unit to ultrasound
[2021-07-15 17:01] VITALS: BP 108/61; BP 116/31; PULSE 48; PULSE 52
[2021-07-15 17:03] VITALS: BP 121/65; PULSE 56
[2021-07-15 17:27] LABS: MANUAL DIFF FLAG NO
[2021-07-15 17:29] LABS: Basophils Absolute Auto 0.1 X10*3/uL (0.0-0.2); Basophils Percent Auto 0.4 % (0-2); Eosinophils Absolute Auto 0.3 X10*3/uL (0.0-0.4); Eosinophils Percent Auto 1.9 % (0-4); Hematocrit 41.9 % (37-47); Hemoglobin 13.8 g/dl (12.0-16.0); Imm Gran Abs Auto 0.05 X10*3/uL (0.00-0.03); Imm Gran Pct Auto 0.3 % (0.0-0.4); Lymphocytes Absolute Auto 3.8 X10*3/uL (1.2-4.9); Lymphocytes Percent Auto 25.3 % (20-40); Mean Corpuscular HGB Conc 32.9 g/dl (31.0-35.0); Mean Corpuscular Hemoglobin 28.9 pg (27.0-33.0); Mean Corpuscular Volume 87.8 fL (80-98); Monocytes Absolute Auto 0.9 X10*3/uL (0.1-1.2); Monocytes Percent Auto 5.6 % (2-11); Neutrophils Percent Auto 66.5 % (45-73); Platelet Count 289 X10*3/uL (160-400); Red Blood Count 4.77 X10*6/uL (4.20-5.50); Red Cell Distribution Width 12.8 % (11.0-16.0); White Blood Count 15.1 X10*3/uL (4.8-10.8)
[2021-07-15 17:33] LABS: INTERNATIONAL NORM RATIO 1.1 (0.9-1.1); Prothrombin Time 12.1 SEC (9.9-13.0)
[2021-07-15 17:46] LABS: Anion Gap 10 (12-20); Blood Urea Nitrogen 7 mg/dL (9-16); Calcium 8.9 mg/dL (8.4-10.2); Carbon Dioxide 27 mmol/L (22-29); Chloride 106 mmol/L (96-108); Creatinine Clr Calc Pharmacy 135.6; Estimated Glomerular Filt Rate > 60; Glucose Random 84 mg/dL (60-115); Potassium 3.9 mmol/L (3.3-5.1); Sodium 139 mmol/L (135-145)
[2021-07-15 17:53] LABS: HCG Quantitative 12610 mIU/mL
--- NOTE | 2021-07-15 18:00 | P.CONOB_ITS ---
[facility] - CN: HPI Data of Consult Consult date: 07/15/21 Primary Care Provider: Swathi Titus NP Consult Narrative Narrative: I was consulted regarding Karol Le who is a 30 year old female [id number] currently around 7 weeks presented to the ED with abdominal cramping, and vaginal bleeding X2 days worsening.? She started having spotting yesterday however today she has been bleeding heavily, prior to presentation? She denies fevers, chills, nausea, vomiting. The patient's plan was to terminate this [facility] Rh positive. 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 - Review of Systems Review of Systems ROS Unobtainable: All systems reviewed & are unremarkable except as noted in HPI and below Cardiovascular: Denies Palpatations, Loss of consciousness or Chest pain Respiratory: Denies Cough, Wheezing or Shortness of breath Musculoskeletal: Denies Low back pain Gastrointestinal: Denies Heartburn, Constipation, Diarrhea, Nausea or Vomiting Genitourinary: Denies Pain with urination, Burning with urination or Urinary frequency Neurological: Denies Migranes Psychological: Denies Depression OB PMFSH Past Medical History Medical History Arthritis Diabetes Dysmenorrhea Eczema GERD (gastroesophageal reflux disease) Knee pain Left ventricular hypertrophy Lower extremity edema Morbid obesity EVERARDO on CPAP Sleep apnea Steatosis, liver Vitamin D deficiency Family History Family History Father Kidney failure Diabetes CVD (cardiovascular disease) Mother Diabetes HTN (hypertension) Sister No problems noted. Sister No problems noted. Sister No problems noted. Sister No problems noted. Son No problems noted. Daughter No problems noted. Daughter No problems noted. 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 Allergies Allergy/AdvReac Type Severity Reaction Status Date / Time No Known Allergies Allergy Mild NOT Verified 07/04/21 06:01 [No Known Allergies*] APPLICABLE Home Medications Medication Instructions Recorded Confirmed Last Taken Type metformin 500 mg tablet 500 mg PO BID 10/18/20 10/21/20 Unknown History [facility] Physical Exam Vitals Vital signs: Temp Pulse Resp BP Pulse Ox 98.2 F 56 18 121/65 98 07/15/21 15:41 07/15/21 17:03 07/15/21 15:41 07/15/21 17:03 07/15/21 15:41 Body Mass Index 37.8 Constitutional General Appearance: Healthy appearing, Well-nourished and Well-developed Psychiatric Mood and Affect: active and alert, normal mood and normal affect Skin Appearance: No rashes and No lesions Lungs Respiratory Effort: No intercostal retractions Auscultation: Clear to auscultation Cardiovascular Auscultation: RRR Abdomen Auscultation/Inspection/Palpation: Normal bowel sounds, Soft, Non-distended and No tenderness Additional Comments: Pelvic exam done by Estephania Garcia, MONIE tissues per Oz and blood clot was removed , minimal bleeding afterwards the patient was observed for 4 hours and use only 1 pad [facility] - Results Labs CBC & Chem 7: 07/15/21 17:21 07/15/21 17:21 Labs: Short CBC 07/15/21 Range/Units 17:21 WBC 15.1 H (4.8-10.8) X10*3/uL Hgb 13.8 (12.0-16.0) g/dl Hct 41.9 (37-47) % Plt Count 289 (160-400) X10*3/uL BMP 07/15/21 17:21 Sodium 139 Potassium 3.9 Chloride 106 Carbon Dioxide 27 BUN 7 L Creatinine 0.69 Calcium 8.9 Assessment and Plan (1) Complete : Status: Acute Signs and symptoms of incomplete to be given to the patient. The patient is to call in case of the following occur, cramping, bleeding, fever or chills otherwise follow-up in the office. I Was consulted by phone regarding this patient I did not see the patient or examine her
[2021-07-15 18:10] VITALS: BP 108/61; PULSE 58; RESP 16; O2SAT 98
--- NOTE | 2021-07-15 18:45 | PC.NURSE ---
Pt refused all supportive materials offered. aware of f/u needed and when to return to ED for worsening sx. POC sent to lab per protocol
== END 2021-07-15 18:50 | disposition home or self-care (01) ==
PROVIDERS: Nurse Practitioner Family; Emergency Provider Emergency Medicine; PCP Nurse Practitioner Primary Care
DX: O03.9 Complete or unspecified spontaneous abortion without complication (principal); O24.911 Unspecified diabetes mellitus in pregnancy, first trimester; O09.291 Supervision of pregnancy with other poor reproductive or obstetric history, first trimester; O99.841 Bariatric surgery status complicating pregnancy, first trimester; Z3A.01 Less than 8 weeks gestation of pregnancy
CPT/HCPCS: 36415; 76856; 80048; 84702; 85025; 85610; 88305; 96372; 99284; J1885

== ENCOUNTER → 2021-07-21 09:00 | Outpatient (BNVA) | payer OTHER, SELFPAY | PROVIDERS: Visit Provider Advanced Practice Midwife | DX: O03.9 Complete or unspecified spontaneous abortion without complication (principal); Z30.430 Encounter for insertion of intrauterine contraceptive device | CPT/HCPCS: 58300; J7298 ==

== ENCOUNTER 2021-12-06 12:50 | Outpatient (REF) | payer OTHER, SELFPAY ==
[2021-12-06 14:09] LABS: MANUAL DIFF FLAG NO
[2021-12-06 14:24] LABS: Basophils Percent Auto 0.4 % (0-2); Eosinophils Absolute Auto 0.2 X10*3/uL (0.0-0.4); Hematocrit 42.9 % (37.0-47.0); Imm Gran Abs Auto 0.04 X10*3/uL (0.00-0.03); Imm Gran Pct Auto 0.4 % (0.0-0.4); Lymphocytes Absolute Auto 3.2 X10*3/uL (1.2-4.9); Lymphocytes Percent Auto 29.3 % (20-40); Mean Corpuscular HGB Conc 32.6 g/dl (31.0-35.0); Mean Corpuscular Hemoglobin 28.9 pg (27.0-33.0); Mean Corpuscular Volume 88.5 fL (80.0-98.0); Mean Platelet Volume 10.1 fL (9.4-12.3); Monocytes Absolute Auto 0.6 X10*3/uL (0.1-1.2); Monocytes Percent Auto 5.8 % (2-11); Neutrophils Absolute Auto 6.9 x10*3/uL (2.0-8.3); Neutrophils Percent Auto 62.1 % (45-73); Platelet Count 316 X10*3/uL (160-400); Red Blood Count 4.85 X10*6/uL (4.20-5.50); Red Cell Distribution Width 12.9 % (11.0-16.0)
[2021-12-06 14:32] LABS: Estimated Average Glucose 114 mg/dL; Hemoglobin A1c % 5.6 %
[2021-12-06 14:59] LABS: Anion Gap 11 (12-20); Blood Urea Nitrogen 7 mg/dL (9-16); Carbon Dioxide 28 mmol/L (22-29); Chloride 105 mmol/L (96-108); Cholesterol 165 mg/dL; Estimated Glomerular Filt Rate > 60; Glucose Random 83 mg/dL (60-115); HDL Cholesterol 57 mg/dL; Iron 76 mcg/dL (30-160); LDL Cholesterol Calculated 91 mg/dl; Potassium 4.3 mmol/L (3.3-5.1); Sodium 140 mmol/L (135-145); Triglycerides 88 mg/dL
[2021-12-06 15:12] LABS: Percent Iron Saturation 23 % (15-50); Total Iron Binding Capacity 333 mcg/dL (228-428); Unsaturated Iron Binding 257 ug/dL
[2021-12-06 15:21] LABS: Ferritin 29 ng/mL (10-122); TSH reflex Free T4 0.76 uIU/mL (0.32-4.0)
[2021-12-06 15:37] LABS: Folate 9.9 ng/mL (> or = 4.0); Vitamin B12 625 pg/mL (200-900)
[2021-12-07 16:01] LABS: Calcium (PTHI) 9.9 mg/dL (8.6-10.2); PTHI 84 pg/mL (16-77)
[2021-12-08 14:20] LABS: Vitamin D 25-OH Total 21.6 ng/mL (>30)
[2021-12-09 14:55] LABS: Zinc 61 mcg/dL (60-130)
[2021-12-10 10:22] LABS: Vitamin B1 19 nmol/L (8-30)
[2021-12-13 12:23] LABS: Vitamin A 36 mcg/dL (38-98)
== END 2021-12-06 12:51 | disposition home or self-care (01) ==
LOC: HO.LAB 12:50
PROVIDERS: PCP Nurse Practitioner Primary Care; Referring Provider Nurse Practitioner Primary Care; Visit Provider Physician Assistant Surgical
DX: E66.9 Obesity, unspecified (principal); Z68.36 Body mass index [BMI] 36.0-36.9, adult; Z98.84 Bariatric surgery status
CPT/HCPCS: 36415; 80048; 80061; 82306; 82607; 82728; 82746; 83036; 83540; 83970; 84425; 84443; 84590; 84630; 85025; 86140; 99212

== ENCOUNTER → 2022-02-15 10:02 | Outpatient (BNVA) | payer OTHER, SELFPAY | PROVIDERS: PCP Nurse Practitioner Primary Care; Referring Provider Nurse Practitioner Primary Care; Visit Provider Physician Assistant Surgical | DX: E66.9 Obesity, unspecified (principal); Z68.36 Body mass index [BMI] 36.0-36.9, adult; Z98.84 Bariatric surgery status | CPT/HCPCS: 99212 ==

== ENCOUNTER 2023-07-19 10:30 | Outpatient (REF) | payer OTHER, SELFPAY ==
[2023-07-21 23:02] LABS: TS Negative Control Passed; TS Panel A 0; TS Panel B 0; TS Positive Control Passed; TSpotTB Negative (Negative)
== END 2023-07-19 10:31 | disposition home or self-care (01) ==
LOC: HO.HHCL 10:30
PROVIDERS: Visit Provider Nurse Practitioner Primary Care
DX: Z11.1 Encounter for screening for respiratory tuberculosis (principal)
CPT/HCPCS: 36415; 86481

== ENCOUNTER 2024-04-02 20:03 | Emergency (ER) | payer OTHER, SELFPAY ==
--- NOTE | ~2024-04-02 | XR_ITS ---
Examination: XR foot LT min 3V, XR ankle LT min 3V Indication: pain Comparison: No pertinent prior studies are currently available for comparison. Technique: 2 views of the left ankle and 3 views of the left foot are obtained including a lateral view of the foot and ankle Findings: Diffuse soft tissue swelling is seen about the ankle but the underlying bony structures appear intact with no evidence for acute fracture or dislocation. Ankle mortise alignment is anatomic. No additional acute fracture or dislocation in the foot. No radiopaque foreign body or soft tissue gas. XR/XR foot LT min 3V Impression: Diffuse soft tissue swelling about the ankle but no acute underlying fracture or dislocation seen.
--- NOTE | ~2024-04-02 | XR_ITS ---
Examination: XR foot LT min 3V, XR ankle LT min 3V Indication: pain Comparison: No pertinent prior studies are currently available for comparison. Technique: 2 views of the left ankle and 3 views of the left foot are obtained including a lateral view of the foot and ankle Findings: Diffuse soft tissue swelling is seen about the ankle but the underlying bony structures appear intact with no evidence for acute fracture or dislocation. Ankle mortise alignment is anatomic. No additional acute fracture or dislocation in the foot. No radiopaque foreign body or soft tissue gas. XR/XR ankle LT min 3V Impression: Diffuse soft tissue swelling about the ankle but no acute underlying fracture or dislocation seen.
[2024-04-02 20:11] VITALS: BP 117/81; PULSE 72; RESP 18; TEMP 36.5; O2SAT 97; BMI 37.8
[2024-04-02 22:18] VITALS: BP 115/70; PULSE 71; RESP 16; TEMP 36.3; O2SAT 100
--- NOTE | 2024-04-02 23:32 | PC.NURSE ---
pt tired of waiting, states she saw, her xrays on the patient portal, and knows it is just soft tissue. Pt asks for crutches, informed pt, I could not give her any, until she was seen by the doctor. Informed pt, she needs to wait to see, the doctor, but if she wants to leave, that was up to her. Pt states, I will go see my primary
== END 2024-04-02 23:45 | disposition left against medical advice (07) ==
PROVIDERS: Emergency Provider Emergency Medicine; PCP Nurse Practitioner Primary Care
DX: S99.912A Unspecified injury of left ankle, initial encounter (principal); W10.1XXA Fall (on)(from) sidewalk curb, initial encounter; Y93.E2 Activity, laundry; Y92.480 Sidewalk as the place of occurrence of the external cause; Y99.9 Unspecified external cause status; Z53.21 Procedure and treatment not carried out due to patient leaving prior to being seen by health care provider
CPT/HCPCS: 73610; 73630; 99282; 99283

== ENCOUNTER 2024-07-29 18:11 | Outpatient (REF) | payer OTHER, SELFPAY ==
[2024-07-29 19:01] LABS: Creatinine Urine 208.04 mg/dL; Microalbum/Creatinine Ratio Ur 6.7 ug/mg cr (<30)
[2024-07-30 02:38] LABS: CT PCR NOT DETECTED (Not Detect.); NG PCR NOT DETECTED (Not Detect.)
== END 2024-07-29 18:12 | disposition home or self-care (01) ==
LOC: HO.HHCLNP 18:11
PROVIDERS: Visit Provider Nurse Practitioner Primary Care
DX: N89.8 Other specified noninflammatory disorders of vagina (principal); Z11.3 Encounter for screening for infections with a predominantly sexual mode of transmission
CPT/HCPCS: 82043; 82570; 87491; 87591

== ENCOUNTER 2024-12-09 08:19 | Outpatient (AMB) | payer OTHER, SELFPAY ==
--- NOTE | 2024-12-09 08:22 | A.OFFVIS_ITS ---
VS Expanded 12/09/24 08:25 BP 115/68 Blood Pressure Location Lt brachial Blood Pressure Position Sitting Pulse 57 Pulse Oximetry 100 Height 5 ft 4 in Weight 219 lb BMI 37.6 Body Fat % 41.8 Body Fat Mass 91.4 Fat Free Mass 127.4 Visceral Fat Rating 10.0 Body Water % 41.7 Body Water Mass 91.2 Muscle Mass/Score 121.0 Basal Metabolic Rate/Score 1,786 Intake Visit Reasons: (OV) PO LSG 11/02/20 Licensed Physical Therapy Assistant Required: No Allergies No Known Allergies [No Known Allergies*] Allergy (Mild, Verified 12/09/24 08:25) NOT APPLICABLE Medication List - Last Reconciled 12/09/24 by CHASITY Soria clotrimazole 1% (Antifungal (clotrimazole)) 1 appl topical BID tirzepatide (weight loss) (Zepbound) 7.5 mg subcut QWEEK HPI Comments Details: Patient is a pleasant 34-year-old female who returns to the office today to be seen. She is approximately 4 years 1 month post sleeve gastrectomy performed 11/02/2020. She was last seen in the office in February 2022 with a weight of 214.8 lb and a BMI of 36.9. Weight today is 219 lb with a BMI of 37.6. Her initial weight was 327 pounds in 2019. Weight at the time of surgery was 272.3 lb. Weight loss of 108 lb since initiating the program and 53.3 lb since surgery. Since starting Zepbound from her primary care doctor, her appetite has decreased. She states that over the last couple of years, she has had poor nutrition, eating junk food and sweets. Since starting the Zepbound, her appetite has significantly decreased. She is now having a shake in the morning. She also recently started exercising. Additionally, of greater concern is her excess skin of her abdomen. Due to the abdominal pannus, she gets rashes underneath the skin fold. These rashes would occur 2-3 times per month. She is using lhxw-vpw-mymurrq ointments with some improvement although never total resolution. The rash is described as painful, itchy, has an odor to it. This has caused her to have increased hygiene needs, requiring washing of the area 2-3 times per day. Certainly worse in the warmer months. She also has difficulty with clothes fitting properly. Meal plan: Nothing structured Exercise plan: Weight training and cardio at [employer] Any post op complications: None EVERARDO: Continues DM: Never HTN: Never Hyperlipidemia: Never GERD:?0-5 scale ??0 = no symptoms ??1 = symptoms noticeable but not bothersome 2 =symptoms bothersome but not daily ? 3 = symptoms bothersome and daily 4 = symptoms affect daily activities 5 = symptoms are incapacitating, unable to do daily activities ? How bad is the heartburn: 0 ? Heartburn while lying down: 0 ? Heartburn when standing up: 0 ? Heartburn after meals: 2 ? Does heartburn change your diet: 0 ? Does heartburn wake you up from sleep: 0 ? Do you have difficulty swallowin ? Do you have pain with swallowin ? If you take medicine for your reflux, does this affect your daily life: 0 Satisfaction with present condition - satisfied or not satisfied: Dissatisfied [facility] Medical History Left ventricular hypertrophy Steatosis, liver Dysmenorrhea Eczema Lower extremity edema Knee pain Arthritis EVERARDO on CPAP GERD (gastroesophageal reflux disease) Sleep apnea Diabetes Morbid obesity Vitamin D deficiency Surgical History History of sleeve gastrectomy History of wisdom tooth extraction, class II edentulism Family History Father Kidney failure Diabetes CVD (cardiovascular disease) Mother Diabetes HTN (hypertension) Sister No problems noted. Sister No problems noted. Sister No problems noted. Sister No problems noted. Son No problems noted. Daughter No problems noted. Daughter No problems noted. 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 Physical Exam Vital Signs: Last Vital Signs Pulse 57 12/09/24 08:25 BP 115/68 12/09/24 08:25 Pulse Ox 100 12/09/24 08:25 BMI result Body Mass Index 37.6 Const General: cooperative and no acute distress Orientation/consciousness: patient oriented x3 Resp Effort & Inspection: normal respiratory effort Auscultation: clear to auscultation bilaterally Cardio Rate: regular rate Rhythm: regular rhythm GI Inspection: Yes normal to inspection and Yes incision (well healed) Palpation (GI): Soft to palpation and no masses Neuro General: patient oriented x3 Assessment & Plan Assessment & Plan (1) S/P laparoscopic sleeve gastrectomy: Code(s): Z98.84 - Bariatric surgery status Category: Surgical Plan: Patient returns to the office after absence of a proximally 2-1/2 years. We will check 4 year postop labs. Given information regarding right BMI lu. Discussed the importance of following a meal plan, exercising regularly, getting good sleep and tracking calories while exercising with a goal of burning 300 per day or 2000 per week. Encouraged to text weights weekly and with any questions or concerns. Patient currently taking Zepbound. We will follow clinically. Return to clinic 4 weeks (2) Excess skin: Code(s): L98.7 - Excessive and redundant skin and subcutaneous tissue Category: Medical Plan: Patient with excess skin of the abdomen, causing a pannus grade 2-3. We will prescribe antifungal cream. The excess skin has affected her activities of daily living by way of increased hygienic needs. The rash that she gets has been described as painful, itching, malodorous. She has been treating this with byff-bub-qffnwap remedies. We will continue to follow clinically although I suspect that she will require medically necessary skin removal surgery in the future once she achieves a healthy weight Orders: Orders Hemoglobin A1c Today E11.9 - Type 2 diabetes mellitus without complications, G47.33 - Obstructive sleep apnea (adult) (pediatric), K21.9 - Gastro-esophageal reflux disease without esophagitis, K76.0 - Fatty (change of) liver, not elsewhere classified, R16.1 - Splenomegaly, not elsewhere classified, Z98.84 - Bariatric surgery status, Z99.89 - Dependence on other enabling machines and devices Complete Blood Count Auto Diff Today E11.9 - Type 2 diabetes mellitus without complications, G47.33 - Obstructive sleep apnea (adult) (pediatric), K21.9 - Gastro-esophageal reflux disease without esophagitis, K76.0 - Fatty (change of) liver, not elsewhere classified, R16.1 - Splenomegaly, not elsewhere classified, Z98.84 - Bariatric surgery status, Z99.89 - Dependence on other enabling machines and devices IRON PROFILE Today E11.9 - Type 2 diabetes mellitus without complications, G47.33 - Obstructive sleep apnea (adult) (pediatric), K21.9 - Gastro-esophageal reflux disease without esophagitis, K76.0 - Fatty (change of) liver, not elsewhere classified, R16.1 - Splenomegaly, not elsewhere classified, Z98.84 - Bariatric surgery status, Z99.89 - Dependence on other enabling machines and devices Comprehensive Met. Panel Today E11.9 - Type 2 diabetes mellitus without complications, G47.33 - Obstructive sleep apnea (adult) (pediatric), K21.9 - Gastro-esophageal reflux disease without esophagitis, K76.0 - Fatty (change of) liver, not elsewhere classified, R16.1 - Splenomegaly, not elsewhere classified, Z98.84 - Bariatric surgery status, Z99.89 - Dependence on other enabling machines and devices Zinc Today E11.9 - Type 2 diabetes mellitus without complications, G47.33 - Obstructive sleep apnea (adult) (pediatric), K21.9 - Gastro-esophageal reflux disease without esophagitis, K76.0 - Fatty (change of) liver, not elsewhere classified, R16.1 - Splenomegaly, not elsewhere classified, Z98.84 - Bariatric surgery status, Z99.89 - Dependence on other enabling machines and devices Vitamin A Today E11.9 - Type 2 diabetes mellitus without complications, G47.33 - Obstructive sleep apnea (adult) (pediatric), K21.9 - Gastro-esophageal reflux disease without esophagitis, K76.0 - Fatty (change of) liver, not elsewhere classified, R16.1 - Splenomegaly, not elsewhere classified, Z98.84 - Bariatric surgery status, Z99.89 - Dependence on other enabling machines and devices TSH reflex Free T4 Today E11.9 - Type 2 diabetes mellitus without complications, G47.33 - Obstructive sleep apnea (adult) (pediatric), K21.9 - Gastro-esophageal reflux disease without esophagitis, K76.0 - Fatty (change of) liver, not elsewhere classified, R16.1 - Splenomegaly, not elsewhere classified, Z98.84 - Bariatric surgery status, Z99.89 - Dependence on other enabling machines and devices Ferritin Today E11.9 - Type 2 diabetes mellitus without complications, G47.33 - Obstructive sleep apnea (adult) (pediatric), K21.9 - Gastro-esophageal reflux disease without esophagitis, K76.0 - Fatty (change of) liver, not elsewhere classified, R16.1 - Splenomegaly, not elsewhere classified, Z98.84 - Bariatric surgery status, Z99.89 - Dependence on other enabling machines and devices Insulin Today E11.9 - Type 2 diabetes mellitus without complications, G47.33 - Obstructive sleep apnea (adult) (pediatric), K21.9 - Gastro-esophageal reflux disease without esophagitis, K76.0 - Fatty (change of) liver, not elsewhere classified, R16.1 - Splenomegaly, not elsewhere classified, Z98.84 - Bariatric surgery status, Z99.89 - Dependence on other enabling machines and devices Lipid Panel Today E11.9 - Type 2 diabetes mellitus without complications, G47.33 - Obstructive sleep apnea (adult) (pediatric), K21.9 - Gastro-esophageal reflux disease without esophagitis, K76.0 - Fatty (change of) liver, not elsewhere classified, R16.1 - Splenomegaly, not elsewhere classified, Z98.84 - Bariatric surgery status, Z99.89 - Dependence on other enabling machines and devices Vitamin B12 and Folate Today E11.9 - Type 2 diabetes mellitus without complications, G47.33 - Obstructive sleep apnea (adult) (pediatric), K21.9 - Gastro-esophageal reflux disease without esophagitis, K76.0 - Fatty (change of) liver, not elsewhere classified, R16.1 - Splenomegaly, not elsewhere classified, Z98.84 - Bariatric surgery status, Z99.89 - Dependence on other enabling machines and devices C Reactive Protein Today E11.9 - Type 2 diabetes mellitus without complications, G47.33 - Obstructive sleep apnea (adult) (pediatric), K21.9 - Gastro-esophageal reflux disease without esophagitis, K76.0 - Fatty (change of) liver, not elsewhere classified, R16.1 - Splenomegaly, not elsewhere classified, Z98.84 - Bariatric surgery status, Z99.89 - Dependence on other enabling machines and devices Vitamin B1 Today E11.9 - Type 2 diabetes mellitus without complications, G47.33 - Obstructive sleep apnea (adult) (pediatric), K21.9 - Gastro-esophageal reflux disease without esophagitis, K76.0 - Fatty (change of) liver, not elsewhere classified, R16.1 - Splenomegaly, not elsewhere classified, Z98.84 - Bariatric surgery status, Z99.89 - Dependence on other enabling machines and devices Vitamin D 25-OH Total Today E11.9 - Type 2 diabetes mellitus without complications, G47.33 - Obstructive sleep apnea (adult) (pediatric), K21.9 - Gastro-esophageal reflux disease without esophagitis, K76.0 - Fatty (change of) liver, not elsewhere classified, R16.1 - Splenomegaly, not elsewhere classified, Z98.84 - Bariatric surgery status, Z99.89 - Dependence on other enabling machines and devices Medications: New clotrimazole 1% (Antifungal (clotrimazole)) 1 appl topical BID 45 grams 3RF
[2024-12-09 08:25] VITALS: BP 115/68; PULSE 57; O2SAT 100; BMI 37.6
--- OUTSIDE RECORDS SUMMARY | 2024-12-09 08:44 | XMS_ITS | Encounter Summary ---
Author Organization [employer] Address [address] [facility] [address] [place] [address] Care Team Providers Care Oracle Database Developer Name Role Phone Swathi Titus Primary Care Provider [phone] Reason for Visit * Reason Onset Date Comments Nurse Triage 11/19/2023 Encounter Details Date Type Department Care Team ([facility] st Contact Info) Description 11/19/2023 Telephone [facility] [address] [place], [place] [phone] Swathi Titus ANP [address] [place] [address] Nurse Triage Social History Tobacco Use Types Packs/Day Years Used Date Smoking Tobacco: Some Days Cigarettes Smokeless Tobacco: Never Alcohol Use Standard Drinks/Week Comments Not Currently 0 (1 standard drink = 0.6 oz pur e alcohol) Depression Answer Date Recorded Patient Health Questionnaire-9 Score 11 07/19/2023 Patient Health Questionnaire-9 Score 11 07/19/2023 Last PHQ-9: Questionnaire Data Not on file 1 09/18/2022 Housing Stability Answer Date Recorded What is your housing situation today? I have steffi ma 07/12/[address] you li ve. Do you have problems with any of the following? None of the above 07/12/2023 Food Insecurity Answer Date Recorded Within the past 12 months, y ou worried that your food would run out before you got money to buy more: Never True 07/12/2023 Within the past 12 months,th e food you bought just didn't last and you didn't have enough money to get more: Never True Transportation Answer Date Recorded In the past 12 months, has l ack of transportation kept you from medical appts, meetings, work or from getting things needed for daily living? No 07/12/2023 Utilities Answer Date Recorded In the past 12 months, has t he electric, gas, oil or water company threatened to shut off services in your home? No 07/12/2023 Depression Answer Date Recorded Patient Health Questionnaire-2 Score 4 07/19/2023 Comments Unknown Sex and Gender Information Value Date Recorded Sex Assigned at Female 07/17/2022 10:15 AM EDT Legal Sex Female 10:15 AM EDT Gender Identity Female 07/17/2022 10:15 AM EDT Sexual Orientation Straight 07/17/2022 10 :15 AM EDT documented as of this encounter Miscellaneous Notes * Telephone Encounter - Meño Rodas - 11/19/2023 11:06 AM EST Symptom: Leg Pain - Not From Injury Outcome: Schedule an urgent appointment (within 1 hour) or talk to a nurse or provider soon Reason: Severe pain now The caller accepted this outcome documented in this encounter Plan of Treatment Upcoming Encounters Date Type Department Care Team (Late st Contact Info) Description 12/12/2024 9:30 AM EDT Office Visit [facility] [address] [place] [address] Swathi Titsu ANP [address] [place] [address] documented as of this encounter Visit Diagnoses Not on filedocumented in this encounter Additional Health Concerns Assessment Noted Time PHQ-9 Depression Total Score: 11 023 10:26 AM EDT documented as of this encounter Care Teams Oracle Database Developer Relationship Specialty Start Date End Date Swathi Titus ANP [address] [place] [address] PCP - General Family Medicine 05/05/21 documented as of this encounter
--- OUTSIDE RECORDS SUMMARY | 2024-12-09 08:44 | XMS_ITS | Encounter Summary ---
Author Organization [employer] Address [address] [facility] [address] [place] [address] Care Team Providers Care Social Media Intern Name Role Phone Swathi Titus Primary Care Provider [phone] Reason for Visit * Reason Onset Date Comments Appointment Request 06/18/2023 Encounter Details Date Type Department Care Team ([facility] st Contact Info) Description 06/18/2023 Telephone [facility] [address] [place], [place] [phone] Swathi Titus ANP [address] [place] [address] Appointment Request Social History Tobacco Use Types Packs/Day Years Used Date Smoking Tobacco: Some Days Cigarettes Smokeless Tobacco: Never Alcohol Use Standard Drinks/Week Comments Not Currently 0 (1 standard drink = 0.6 oz pur e alcohol) Comments Unknown Sex and Gender Information Value Date Recorded Sex Assigned at Female 07/17/2022 10:15 AM EDT Legal Sex Female 10:15 AM EDT Gender Identity Female 07/17/2022 10:15 AM EDT Sexual Orientation Straight 07/17/2022 10 :15 AM EDT documented as of this encounter Miscellaneous Notes * Telephone Encounter - Leni Cutler - 06/20/2023 9:33 AM EDT Tc from pt calling in regards to message above. * Telephone Encounter - Leni Cutler - 06/18/2023 1:11 PM EDT Tc from pt requesting a call in regards to needing a physical for work. Hydrotechnical Specialist did not see any availability with PCP. Please contact pt at [phone] documented in this encounter Plan of Treatment Upcoming Encounters Date Type Department Care Team (Late st Contact Info) Description 12/12/2024 9:30 AM EDT Office Visit [facility] [address] [place] [address] Swathi Titus ANP [address] [place] [address] documented as of this encounter Visit Diagnoses Not on filedocumented in this encounter Care Teams Social Media Intern Relationship Specialty Start Date End Date Swathi Titus ANP [address] [place] [id number] PCP - General Family Medicine 05/05/21 documented as of this encounter
--- OUTSIDE RECORDS SUMMARY | 2024-12-09 08:44 | XMS_ITS | Encounter Summary ---
Author Organization [employer] Address [address] [facility] [address] [place] [address] Care Team Providers Care Distribution Tech Name Role Phone Swathi Titus Primary Care Provider [phone] Reason for Visit * Reason Onset Date Comments Prior Authorization 08/05/2024 Encounter Details Date Type Department Care Team ([facility] st Contact Info) Description 08/05/2024 Telephone [facility] [address] [place], [place] [phone] Swathi Titus ANP [address] [place] [address] Prior Authorization Social History Tobacco Use Types Packs/Day Years Used Date Smoking Tobacco: Every Day Cigarettes Smokeless Tobacco: Never Alcohol Use Standard Drinks/Week Comments Not Currently 0 (1 standard drink = 0.6 oz pur e alcohol) Depression Answer Date Recorded Patient Health Questionnaire-9 Score 0 07/29/2024 Patient Health Questionnaire-9 Score 0 07/29/2024 Last PHQ-9: Questionnaire Data Not on file 1 09/28/2023 Housing Stability Answer Date Recorded What is your housing situation today? I have steffi ma 07/29/[address] you li ve. Do you have problems with any of the following? None of the above 07/29/2024 Food Insecurity Answer Date Recorded Within the past 12 months, y ou worried that your food would run out before you got money to buy more: Never True 07/29/2024 Within the past 12 months,th e food you bought just didn't last and you didn't have enough money to get more: Never True 08/2024 Transportation Answer Date Recorded In the past 12 months, has l ack of transportation kept you from medical appts, meetings, work or from getting things needed for daily living? No 07/29/2024 Utilities Answer Date Recorded In the past 12 months, has t he electric, gas, oil or water company threatened to shut off services in your home? No 07/29/2024 Depression Answer Date Recorded Patient Health Questionnaire-2 Score 0 07/29/2024 Internet Access Answer Date Recorded Internet Access Q1 Yes 07/29/2024 Internet Access Q2 Not on file 07/29/2024 Comments Unknown Sex and Gender Information Value Date Recorded Sex Assigned at Female 07/17/2022 10:15 AM EDT Legal Sex Female 10:15 AM EDT Gender Identity Female 07/17/2022 10:15 AM EDT Sexual Orientation Straight 07/17/2022 10 :15 AM EDT documented as of this encounter Miscellaneous Notes * Telephone Encounter - Alfredo Anders RN - 08/05/2024 4:21 PM EST Please see below, do not see med in patient med list. Medication must be sent to pharmacy first before PA can be processed. * Telephone Encounter - Alcon Aaron - 08/05/2024 3:40 PM EST Tc from pt requesting status on Ozempic PA. Please contact pt at [phone]. documented in this encounter Plan of Treatment Upcoming Encounters Date Type Department Care Team (Late st Contact Info) Description 12/12/2024 9:30 AM EDT Office Visit [facility] [address] [place] [address] Swathi Titus ANP [address] [place] [address] documented as of this encounter Visit Diagnoses Not on filedocumented in this encounter Additional Health Concerns Assessment Noted Time PHQ-9 Depression Total Score: 0 07/29/20 10:52 AM EST documented as of this encounter Care Teams Distribution Tech Relationship Specialty Start Date End Date Swathi Titus ANP [address] [place] [address] PCP - General Family Medicine 05/05/21 documented as of this encounter
--- OUTSIDE RECORDS SUMMARY | 2024-12-09 08:45 | XMS_ITS | Encounter Summary ---
Author Organization [employer] Address [address] [facility] [address] [place] [address] Care Team Providers Care Business Performance Analyst Name Role Phone Swathi Titus Primary Care Provider [phone] Reason for Visit * Reason Onset Date Comments Prior Authorization 10/31/2024 Encounter Details Date Type Department Care Team ([facility] st Contact Info) Description 10/31/2024 Telephone [facility] [address] [place], [place] [phone] Swathi Titus ANP [address] [place] [address] Prior Authorization Social History Tobacco Use Types [...] encounter Miscellaneous Notes * Telephone Encounter - ARBEN Montes - 11/12/2024 2:49 PM EST Images from the original note were not included. This is all set-I spoke with the pharmacy and the 5 mg dose went through with no problems. They will call her when it is ready. * Telephone Encounter - Princess Ivory - 11/12/2024 12:06 PM EST PA denial received. Scanned into media. * Telephone Encounter - Princess Ivory - 11/06/2024 9:52 AM EST Fax request for additional information received from [employer] for PA/Zepbound. Additional info submitted. Pending decision. * Telephone Encounter - Princess Ivory - 11/04/2024 2:07 PM EST PA initiated on [employer] for Zepbound . Approval/denial pending. Psychiatric Therapist called pt and provided update and 24-72 hr timeframe for response. Pt verbalized understanding. * Telephone Encounter - Aric Mojica - 11/04/2024 12:46 PM EST Pt calling in again regarding Pa for Zepbound . Pt adamant for us to send anohter message regardingpa that is needed * Telephone Encounter - Nash Jimenez - 10/31/2024 11:32 AM EST Tc from pt requesting a PA for Tirzepatide-Weight Management (Zepbound) 2.5 MG/0.5ML solution auto-injector. documented in this encounter Plan of Treatment Upcoming Encounters Date Type Department Care Team (Late st Contact Info) Description 12/12/2024 9:30 AM EDT Office Visit [facility] [address] [place] [address] Swathi Titus ANP [address] [place] [address] documented as of this encounter Visit Diagnoses Not on filedocumented in this encounter Additional Health Concerns Assessment Noted Time PHQ-9 Depression Total Score: 0 07/29/20 24 10:52 AM EST documented as of this encounter Care Teams Business Performance Analyst Relationship Specialty Start Date End Date Swathi Titus ANP [address] [place] [address] PCP - General Family Medicine 05/05/21 documented as of this encounter
--- OUTSIDE RECORDS SUMMARY | 2024-12-09 08:45 | XMS_ITS | Encounter Summary ---
Author Organization [facility] Address [address] [facility] 7[address] [place] [address] Care Team Providers Care Material Handler 2Nd Shift Name Role Phone Swathi Titus Primary Care Provider [phone] Reason for Visit * Reason Onset Date Comments Appointment Request 03/19/2023 Encounter Details Date Type Department Care Team (Late st Contact Info) Description 03/19/[address] [facility] [address] [place] [address] [phone] Swathi Titus ANP [address] [place] [address] Appointment Request Social History Tobacco Use Types [...] * Telephone Encounter - Leni Cutler - 03/19/2023 9:24 AM EDT Tc from pt requesting an appointment for vaccines required by new job. Please contact pt at [phone] documented in this encounter Plan of Treatment Upcoming Encounters Date Type Department Care Team (Late st Contact Info) Description 12/12/2024 9:30 AM EDT Office Visit [facility] [address] [place] [address] Swathi Titus ANP [address] [place] [address] documented as of this encounter Visit Diagnoses Not on filedocumented in this encounter Care Teams Material Handler 2Nd Shift Relationship Specialty Start Date End Date Swathi Titus ANP [address] [place] [address] PCP - General Family Medicine 05/05/21 documented as of this encounter
--- OUTSIDE RECORDS SUMMARY | 2024-12-09 08:45 | XMS_ITS | Clinical Summary ---
Author Organization [employer] Address [address] 7[address] [place] [address] Care Team Providers Care Water Project Manager Name Role Phone Swathi Titus Primary Care Provider [phone] Allergies No known active allergies Medications Blood Glucose Monitoring Suppl (FreeStyle Safety Harbor Lite) w/Device kit USE TO TEST BLOOD SUGAR DIRECTED 2 Active albuterol (2.5 MG/3ML) 0.083% nebulizer solution Albuterol Nebulized 2.5 mg every 4 hours prn shortness of breath or wheezing 90 mL 1 4 Active albuterol 108 (90 Base) MCG/ACT inhalerIndicatio ns:Mild intermittent asthma without complication Inhale 2 puffs every 4 (four) hours if needed for wheezing or shortness of breath. Maximum 8 puffs per day 18 g 3 4 07/29/20 25 Active FREESTYLE LITE test stripIndications :Type 2 diabetes mellitus without complication, without long-term current use of insulin ([facility]) Use to check BG twice daily 100 each 11 4 Active varenicline (Chantix) 1 MG tabletIndication s:Tobacco dependence due to cigarettes Take 1 tablet (1 mg) by mouth 2 times daily. Take with full glass of water. Start after initial 7d rx. 60 tablet 2 4 Active nicotine (Nicoderm CQ) 21 MG/24HR patchIndications :Tobacco dependence due to cigarettes Place 1 patch on the skin 1 (one) time each day at the same time for 28 days. 28 patch 4 Active nicotine (Nicoderm CQ) 14 MG/24HR patchIndications :Tobacco dependence due to cigarettes Place 1 patch on the skin 1 (one) time each day at the same time for 28 days. Do not start before August 26, 2024. 28 patch 4 Active nicotine (Nicoderm, Step 3) 7 MG/24HR patchIndications :Tobacco dependence due to cigarettes Place 1 patch on the skin 1 (one) time each day at the same time. Do not start before September 17, 2024. 14 patch 2 5 Active nicotine polacrilex (Nicorette) 4 MG gumIndications:T obacco dependence due to cigarettes Use as needed ( chew and park ) up to every 1-2 hours 100 each 11 4 Active FreeStyle lancetsIndicatio ns:Type 2 diabetes mellitus without complication, without long-term current use of insulin (CMS/HCC) 1 each by Other route 2 times daily. 100 each 11 4 08/01/20 25 Active polycarbophil (FiberCon) 625 MG tabletIndication s:Constipation, unspecified constipation type Take 1 tablet (625 mg) by mouth Once per day. 90 tablet 1 5 10/27/19 26 Active varenicline (Chantix) 0.5 MG tabletIndication s:Cigarette nicotine dependence without complication Take 0.5 mg PO once daily on Days 1 through 3, then 0.5 mg PO twice daily on Days 4 through 7, then start 1mg twice daily prescription; take with full glass of water 11 tablet 5 Active Tirzepatide-Weig ht Management (Zepbound) 7.5 MG/0.5ML solution auto-injector Inject 0.5 mL (7.5 mg) under the skin 1 (one) time per week. 2 mL 2 5 Active Tirzepatide-Weig ht Management (Zepbound) 2.5 MG/0.5ML solution auto-injectorInd ications:Class 3 severe obesity with serious comorbidity and body mass index (BMI) of 40.0 to 44.9 in adult, unspecified obesity type (CMS/HCC) Inject 0.5 mL (2.5 mg) under the skin 1 (one) time per week. 2 mL 1 5 11/10/19 25 Discontin ued(Dose adjustmen t) Tirzepatide-Weig ht Management (Zepbound) 5 MG/0.5ML solution auto-injectorInd ications:Class 3 severe obesity with serious comorbidity and body mass index (BMI) of 40.0 to 44.9 in adult, unspecified obesity type (CMS/HCC) Inject 0.5 mL (5 mg) under the skin 1 (one) time per week. 2 mL 5 12/06/19 25 Discontin ued(Dose adjustmen t) Active Problems Problem Noted Date Diagnosed Date Prediabetes 08/07/2024 Cigarette nicotine dependence without complicati on 07/19/2023 Depression 07/19/2023 Presence of Mirena IUD 09/17/2020 Irregular periods 12/06/2018 07/16/2023 Vitamin D deficiency 12/06/2018 07/16/2023 Resolved Problems Problem Noted Date Diagnosed Date Resolved Date Type 2 diabetes mellitus 01/07/2019 07/16/2023 Encounters Date Type Department Care Team Description 12/05/2024 Travel 12/05/2024 Refill [facility] [address] [place] [address] Swathi Titus ANP Class 3 severe obesity with serious comorbidity and body mass index (BMI) of 40.0 to 44.9 in adult, unspecified obesity type (CMS/HCC) 11/19/2024 Refill [facility] [address] [place] [address] Swathi Titus ANP 11/06/2024 Refill [facility] [address] [place] [address] Swathi Titus ANP Class 3 severe obesity with serious comorbidity and body mass index (BMI) of 40.0 to 44.9 in adult, unspecified obesity type (CMS/HCC) (Primary Dx) 11/04/2024 Refill [facility] [address] [place] [address] Swathi Titus ANP Class 3 severe obesity with serious comorbidity and body mass index (BMI) of 40.0 to 44.9 in adult, unspecified obesity type (CMS/HCC) 10/31/2024 Telephone [facility] [address] [place] [address] Swathi Titus ANP Prior Authorization 10/27/2024 11:00 AM EST Telemedicine [facility] [address] [place] [address] Swathi Titus ANP Cigarette nicotine dependence without complication (Primary Dx); Constipation, unspecified constipation type; Dietary counseling; Exercise counseling; Tobacco abuse counseling 10/27/2024 Travel 10/20/2024 Travel 09/24/2024 Telephone [facility] [address] [place] [address] Swathi Titus ANP Med Refill 09/24/2024 Refill [facility] [address] [place] [address] Swathi Titus ANP 09/24/2024 Refill [facility] [address] [place] [address] Swathi Titus ANP 09/23/2024 Refill [facility] [address] [place] [address] Swathi Titus ANP from Last 3 Months Immunizations Name Administration Dates Next Due DTaP 12/16/1994, 2,04/17/1990,1989,1989 Hep B, Adolescent or Pediatric 3,03/22/2001,03/12/2000,1998 Hib ([facility]) 04/17/1991,10/18/1990 Influenza injectable quadriv alent IIV4 with preservative 06/27/2016 Influenza injectable quadriv alent preservative free 06/20/2022 Influenza, Split (incl. chung fied surface antigen) 10/10/2012 MMR 12/16/1994,04/17/1991 OPV 12/16/1994, 2,01/15/1990,1989 Pneumococcal Conjugate PCV 20 07/29/2024 TD (adult), 2 Lf tetanus tox oid, preservative free, adsorbed 05/04/2022,07/06/2003,03/12/2000 Tdap 04/10/2012 Social History Tobacco Use Types Packs/Day Years Used Date Smoking Tobacco: Every Day Cigarettes Smokeless Tobacco: Never Tobacco Cessation:Ready to Q uit: Not Asked; Counseling Given: Not Answered Alcohol Use Standard Drinks/Week Comments Not Currently [...] Orientation Straight 07/17/2022 10 :15 AM EDT Last Filed Vital Signs Vital Sign Reading Time Taken Comments Blood Pressure 123/81 07/29/2024 10:53 AM EST Pulse 77 07/29/2024 10:53 AM EST Temperature 36.6 ??C (97.8 ??F) 07/29/2024 10:[address] Respiratory Rate 15 07/29/2024 10:53 AM EST Oxygen Saturation 99% 09/20/2023 9:12 AM EST Inhaled Oxygen Concentration - - Weight 109 kg (241 lb 3.2 oz) 07/29/2024 10:53 A M EST Height 161.1 cm (5' 3.43 ) 07/29/2024 10:[address] Body Mass Index 42.15 07/29/2024 10:53 AM EST Plan of Treatment Upcoming Encounters Date Type Department Care Team (Late st Contact Info) Description 12/12/2024 9:30 AM EDT Office Visit [facility] [address] [place] [address] Swathi Titus ANP [address] [place], [place] [phone] Health Maintenance Due Date Last Done Comments Family Planning (PISQ) 2004 COVID-19 Vaccine ( season) 2024 06/29/2022, 07/08/2021, 10/23/2020, Additional history exists Influenza Vaccine (#1) 2024 , 06/27/2016, 10/10/2012 Cervical Cancer Screening 05/04/2025 HPV/Cotest 05/04/2025 05/04/2020 Pap Smear 05/04/2025 05/04/2020 Alcohol/Substance Use Screening 07/29/2025 07/29/2024 Depression Screening 07/29/2025 07/29/2024, 07/29/20 Diabetes: Hemoglobin A1C 07/29/2025 024, 07/19/2023, 11/07/2022, Additional history exists SDOH Screening 07/29/2025 07/29/2024 Tobacco Screening 10/27/2025 10/27/2024 Lipid Panel 11/07/2027 11/07/2022, 10/2019, 06/18/2020 DTaP/Tdap/Td Vaccines (8 - Td or Tdap) 05/04/2032 05/04/2022, 04/10/2012, 07/06/2003, Additional history exists Zoster Vaccines (1 of 2) 2039 RSV Patients and Patients Aged 60 years or older (1 - 1-dose 75+ series) 2064 HIB Vaccines Completed 04/17/1991, 10/18/1990 IPV Vaccines Completed 12/16/1994, 09/1991, 01/15/1990, Additional history exists Hepatitis B Vaccines Completed 07/06/2003, 03/22/2001, 03/12/2000, Additional history exists HIV Screening Completed 05/26/2021 Hepatitis C Screening Completed 05/26/2021 Pneumococcal Vaccine: Pediatrics (0 to 5 Years) and At-Risk Patients (6 to 49) Years) Completed 07/29/2024 HPV Vaccines Aged Out No longer eligi ble based on patient's age to complete this topic Hepatitis A Vaccines Aged Out No long er eligible based on patient's age to complete this topic Meningococcal Vaccine Aged Out No florentin red eligible based on patient's age to complete this topic RSV under 20 months Aged Out No longe r eligible based on patient's age to complete this topic Rotavirus Vaccines Aged Out No longer eligible based on patient's age to complete this topic Procedures Procedure Name Priority Date/Time Associated Diagnosis Comments POCT GLYCOSYLATED HEMOGLOBIN (HGB A1C) Routine 07/29/2024 11:10 AM EST Type 2 diabetes mellitus without complication, without long-term current use of insulin (CMS/HCC) LIPID PANEL, STANDARD Routine 11/07/2022 8:59 AM EST Type 2 diabetes mellitus without complication, without long-term current use of insulin (CMS/HCC) ZZZ HISTORICAL HEPATITIS C AB W/REFL TO HCV RNA, QN, PCR Routine 05/26/2021 10:33 AM EDT HIV 1/2 ANTIGEN/ANTIBODY, FOURTH GENERATION W/RFL Routine 05/26/2021 10:33 AM EDT HM PAP/HPV Routine 05/04/2020 from Last 3 Months or Most Recently Relevant to Health Maintenance Results * POCT glycosylated hemoglobin (Hgb A1c) (07/29/2024 11:10 AM EST) Hemoglobin A1C 5.8 4.0 - 6.0 % QC Media Lot # [id number] Lot# Expiration Date [id number] Blood Capillary blood specimen / Unknown 07/29/2024 11:10 AM EST Swathi THEODORE POINT OF CARE TEST ENTER/EDIT OR DERABLES Final Result * (ABNORMAL) Lipid Panel, Standard (11/07/2022 8:59 AM EST) Cholesterol, Total 186 <200 mg/dL [facility] HDL Cholesterol 55 > OR = 50 mg/dL [facility] Triglycerides 170(H) <150 mg/dL [facility] LDL Cholesterol 102(H) mg/dL (calc) [facility] Comment: Reference range: <100 Desirable range <100 mg/dL for primary prevention; ?? <70 mg/dL for patients with CHD or diabetic patients with > or = 2 CHD risk factors. LDL-C is now calculated using the Leslie calculation, which is a validated novel method providing better accuracy than the Friedewald equation in the estimation of LDL-C. Waldo SS et al. SADA. 2013;310(19): 9696-3518 (http://education.[employer]/faq/WZT482) Chol/HDLC Ratio 3.4 <5.0 (calc) [facility] Non-HDL Cholesterol 131(H) <130 mg/dL (calc) [facility] Comment: For patients with diabetes plus 1 major ASCVD risk factor, treating to a non-HDL-C goal of <100 mg/dL (LDL-C of <70 mg/dL) is considered a therapeutic option. Blood Venous blood specimen / Unknown 11/07/2022 8:59 AM EST 11/07/2022 9:00 AM EST Narrative [facility] - 11/08/2022 11:17 AM EST FASTING:NO FASTING: NO Swathi THEODORE LAB BLOOD ORDERABLES Final Resul t [facility] [address] [place] [address] [facility] [address], ([address]) [place] [address] * HEPATITIS C AB W/REFL TO HCV RNA, QN, PCR (05/26/2021 10:33 AM EDT) HEPATITIS C ANTIBODY NON-REACT ABIGAIL NON-REACT ABIGAIL [facility] INDEX 0.02 <1.00 [facility] Comment: ?? HCV antibody was non-reactive. There is no laboratory ?? evidence of HCV infection. ?? In most cases, no further action is required. However, if recent HCV exposure is suspected, a test for HCV RNA (test code 89728) is suggested. ?? For additional information please refer to http://Digital Guardian.TabSys/faq/GME26x4 (This link is being provided for informational/ educational purposes only.) ?? 05/26/2021 10:3 3 AM EDT us Historical Provider MD HISTORICAL/NON ORDERABLE LABS Final Result Performing Organization Address City/State/[facility] Co de Phone Number [facility] [address] * HIV 1/2 ANTIGEN/ANTIBODY,FOURTH GENERATION W/RFL (05/26/2021 10:33 AM EDT) HIV-1/2 ANTIGEN AND ANTIBODIES, 4TH GENERATION W/ REFLEX NON-REACT ABIGAIL NON-REACT ABIGAIL [facility] Comment: HIV-1 antigen and HIV-1/HIV-2 antibodies were not detected. There is no laboratory evidence of HIV infection. ?? PLEASE NOTE: This information has been disclosed to you from records whose confidentiality may be protected by state law. ??If your state requires such protection, then the state law prohibits you from making any further disclosure of the information without the specific written consent of the person to whom it pertains, or as otherwise permitted by law. A general authorization for the release of medical or other information is NOT sufficient for this purpose. ? For additional information please refer to http://Digital Guardian.TabSys/faq/GRA558 (This link is being provided for informational/ educational purposes only.) ? The performance of this assay has not been clinically validated in patients less than 2 years old. ?? 05/26/2021 10:3 3 AM EDT Historical Provider LAB BLOOD ORDERABLES Rosemary mayfield Result [facility] [address] * PAP/HPV (05/04/2020) Pap Negative for intraephithelial lesion or malignancy Negative for intraephithelial lesion or malignancy, Epithelial cell abnormality HPV Not Detected Undetected, Indeterminate, Quantitative, Not Detected Historical Provider HEALTH MAINTENANCE Final Result from Last 3 Months or Most Recently Relevant to Health Maintenance Insurance [address] [address] [facility] Care Teams Water Project Manager Relationship Specialty Start Date End Date Swathi Titus ANP [address] [place], [place] [phone] PCP - General Family Medicine 05/05/21
--- OUTSIDE RECORDS SUMMARY | 2024-12-09 08:45 | XMS_ITS | Encounter Summary ---
Author Organization [employer] Address [address] [facility] 7t [place] [address] Care Team Providers Care Beef Pluck Trimmer Name Role Phone Swathi Titus Primary Care Provider [phone] Reason for Visit * Reason Comments Med Refill Encounter Details Date Type Department Care Team (Late st Contact Info) Description 11/19/2024 Refill [facility] [address] [place], [place] [phone] Swathi Titus ANP [address] [place], [place] [phone] Social History Tobacco Use Types Packs/Day Years [...] AM EDT documented as of this encounter Plan of Treatment Upcoming Encounters Date Type Department Care Team (Late st Contact Info) Description 12/12/2024 9:30 AM EDT Office Visit [facility] [address] [place] [address] Swathi Titus ANP [address] [place] [address] documented as of this encounter Visit Diagnoses Not on filedocumented in this encounter Additional Health Concerns Assessment Noted Time PHQ-9 Depression Total Score: 0 07/29/20 24 10:52 AM EST documented as of this encounter Care Teams Beef Pluck Trimmer Relationship Specialty Start Date End Date Swathi Titsu ANP [address] [place] [phone] PCP - General Family Medicine 05/05/21 documented as of this encounter
--- OUTSIDE RECORDS SUMMARY | 2024-12-09 08:45 | XMS_ITS | Encounter Summary ---
Author Organization [employer] Address [address] [facility] 7t [place] [address] Care Team Providers Care Substitute Crossing Guard Name Role Phone Swathi Titus Primary Care Provider [phone] Reason for Visit * Reason Onset Date Comments Med Refill 12/05/2024 Encounter Details Date Type Department Care Team (Late st Contact Info) Description 12/05/2024 Refill [facility] [address] [place], [place] [phone] Swathi Titus ANP [address] [place] [address] Class 3 severe obesity with serious comorbidity and body mass index (BMI) of 40.0 to 44.9 in adult, unspecified obesity type (CMS/HCC) Social History Tobacco Use Types Packs/Day Years [...] Description 12/12/2024 9:30 AM EDT Office Visit [facility] [address] [place] [address] Swathi Titus ANP [address] [place] [address] documented as of this encounter Visit Diagnoses Diagnosis Class 3 severe obesity with serious comorbidity and body mass index (BMI) of 40.0 to 44.9 in adult, unspecified obesity type (CMS/HCC) documented in this encounter Additional Health Concerns Assessment Noted Time PHQ-9 Depression Total Score: 0 07/29/20 24 10:52 AM EST documented as of this encounter Care Teams Substitute Crossing Guard Relationship Specialty Start Date End Date Swathi Titus ANP [address] [place] [address] PCP - General Family Medicine 05/05/21 documented as of this encounter
--- OUTSIDE RECORDS SUMMARY | 2024-12-09 08:45 | XMS_ITS | Encounter Summary ---
Author Organization [facility] Address [address] [facility] 7t [place] [address] Care Team Providers Care Merchandise Adjustment Clerk Name Role Phone Swathi Titus Primary Care Provider [phone] Encounter Details Date Type Department Care Team (Late st Contact Info) Description 11/12/2022 Orders Only [facility] [address] [place] [phone] Swathi Titus ANP [address] [place] [address] [phone] Social History Tobacco Use Types Packs/Day Years [...] Orientation Straight 07/17/2022 10 :15 AM EDT COVID-19 Exposure Response Date Recorded In the last 10 days, have yo u been in contact with someone who was confirmed or suspected to have Coronavirus/COVID-19? No / Unsure 11/02/2022 9:51 AM EST documented as of this encounter Plan of Treatment Upcoming Encounters Date Type Department Care Team (Late st Contact Info) Description 12/12/2024 9:30 AM EDT Office Visit [address] [phone] Swathi Titus ANP [address] [place] [address] [phone] documented as of this encounter Procedures Procedure Name Priority Date/Time Associated Diagnosis Comments T-SPOT(R).TB Routine 07/19/2023 10:33 AM EDT documented in this encounter Results * T-SPOT??.TB (07/19/2023 10:33 AM EDT) T Spot TB Negative Negative [facility] Comment:A negative test resu lt does not exclude the possibilityof exposure to or infection with Mycobacteriumtuberculosis (M. tuberculosis). Patients with recentexposure to TB infected individuals exhibiting anegative T-SPOT.TB result should be considered forretesting within 6 weeks or if other relevant clinicalsymptoms indicate. Results from T-SPOT.TB testing mustbe used in conjunction with each individual'sepidemiological history, current medical status,and results of other diagnostic evaluations.The T-SPOT.TB test is qualitative and results arereported as positive, borderline, or negative, giventhat the test controls perform as expected. In linewith the Centers for Disease Control and Prevention's2010 recommendation to report quantitative measurementsalongside the qualitative result, the laboratoryprovides spot counts for informational purposes only.The T-SPOT.TB test should not be interpreted as aquantitative test. TS PANEL A 0 [facility] TS PANEL B 0 [facility] Negative Control Passed [facility] Positive Control Passed [facility] Comment:For additional infor roel, please refer tohttp://education.Lumetrics/faq/BRF914(This link is being provided for informational/educational purposes only.)THIS TEST WAS PERFORMED AT:[employer] [address] [id number] [place] [address]NUKCUXPSATINDER FONTENOT MD,PHD 07/19/2023 10:3 3 AM EDT 07/19/2023 11:25 AM EDT [facility] LAB BLOOD ORDERABLES Final Resul t [facility] [address] [place] [phone] [phone] documented in this encounter Visit Diagnoses Not on filedocumented in this encounter Care Teams Merchandise Adjustment Clerk Relationship Specialty Start Date End Date Swathi Titus ANP [address] [place] [phone] PCP - General Family Medicine 05/05/21 documented as of this encounter
--- OUTSIDE RECORDS SUMMARY | 2024-12-09 08:45 | XMS_ITS | Encounter Summary ---
Author Organization [employer] Address [address] [facility] [address]t [place] [address] Care Team Providers Care Network Operations Project Manager Name Role Phone Swathi Titus Primary Care Provider [phone] Reason for Visit * Reason Onset Date Comments Med Refill 11/04/2024 Encounter Details Date Type Department Care Team (Late st Contact Info) Description 11/04/2024 Refill [facility] [address] [place], [place] [phone] Swathi Titus ANP [address] [place] [address] Class 3 severe obesity with serious comorbidity [...] Description 12/12/2024 9:30 AM EDT Office Visit [facility] [address] [place] [address] Swathi Titus ANP [address] [place] [address] documented as of this encounter Visit Diagnoses Diagnosis Class 3 severe obesity with serious comorbidity and body mass index (BMI) of 40.0 to 44.9 in adult, unspecified obesity type (CMS/HCC) documented in this encounter Additional Health Concerns Assessment Noted Time PHQ-9 Depression Total Score: 0 07/29/20 24 10:52 AM EST documented as of this encounter Care Teams Network Operations Project Manager Relationship Specialty Start Date End Date Swathi Titus ANP [address] [place] [address] PCP - General Family Medicine 05/05/21 documented as of this encounter
--- OUTSIDE RECORDS SUMMARY | 2024-12-09 08:45 | XMS_ITS | Encounter Summary ---
Author Organization [employer] Address [address] 7t [place] [address] Care Team Providers Care Real Estate Firm Manager Name Role Phone Swathi Titus Primary Care Provider [phone] Encounter Details Date Type Department Care Team (Latest Contact Info) Description 12/05/2024 Travel Social History Tobacco Use Types Packs/Day Years [...] Description 12/12/2024 9:30 AM EDT Office Visit [facility] MEDICINE [address] [place] [address] Swathi Titus ANP [address] [place] [address] documented as of this encounter Visit Diagnoses Not on filedocumented in this encounter Additional Health Concerns Assessment Noted Time PHQ-9 Depression Total Score: 0 07/29/20 24 10:52 AM EST documented as of this encounter Care Teams Real Estate Firm Manager Relationship Specialty Start Date End Date Swathi Titus ANP [address] [place] [id number] PCP - General Family Medicine 05/05/21 documented as of this encounter
--- OUTSIDE RECORDS SUMMARY | 2024-12-09 08:45 | XMS_ITS | Encounter Summary ---
Author Organization [employer] Address [address] [facility] 7t [place] [address] Care Team Providers Care Education Technician Name Role Phone Swathi Titus Primary Care Provider [phone] Reason for Visit * Reason Onset Date Comments Medication Question 11/06/2024 Encounter Details Date Type Department Care Team ([facility] st Contact Info) Description 11/06/[address] [facility] MEDICINE [address] [place], [place] [phone] Swathi Titus ANP [address] [place] [address] Class 3 severe obesity with serious comorbidity and body mass index (BMI) of 40.0 to 44.9 in adult, unspecified obesity type (CMS/HCC) (Primary Dx) Social History Tobacco Use Types Packs/Day Years [...] encounter Miscellaneous Notes * Telephone Encounter - Thalia Arora RN - 11/11/2024 8:47 AM EST Called pharmacy, bhakti Melendez, pt picked up med this AM already. * Telephone Encounter - ARBEN Montes - 11/10/2024 5:29 PM EST This is all set-I spoke with the pharmacy and the 5 mg dose went through with no problems. They will call her when it is ready. * Telephone Encounter - Hugo Gage - 11/10/2024 9:25 AM EST TC from pt requesting a call back regarding prior message. Contact pt at [phone] * Telephone Encounter - Thalia Arora RN - 11/06/2024 2:11 PM EST Telephone call to pt to clarify message below. Pt denies side effects except constipation for firstweek but resolved, states she has lost 15 pounds. She stated that the pharmacy will not fill the refill on the Zepbound 2.5mg from 09/25/24 because the insurance denied it because it needs to be a higher dose. Unclear why since pt switched from Wegov[employer] to Zepbound and Rx was written for 2 months supply at 2.5mg. Pt specifically requesting higher dose of Zepbound anyway at this point. Called [facility] to clarify, [facility] stated script was transferred to [facility]. Called [facility] pharmacy, spoke with Lianne who stated Rx originally filled 10/02/24, PA required with message plan limitation exceeded. She explained that the insurance company is blocking further fills without prior authorization. And if Zepbound dose is increased, pt will need another PA. * Telephone Encounter - Hugo Gage - 11/06/2024 1:26 PM EST Tc from pt requesting to be put on the Next dosage for med Tirzepatide-Weight Management (Zepbound)2.5 MG/0.5ML solution auto-injector. Pt would like to be put on the 5 MG instead of the 2.5. Contact pt at [phone] documented in this encounter Plan of Treatment Upcoming Encounters Date Type Department Care Team (Late st Contact Info) Description 12/12/2024 9:30 AM EDT Office Visit [facility] MEDICINE [address] [place] [address] Swathi Titus ANP [address] [place] [address] documented as of this encounter Visit Diagnoses Diagnosis Class 3 severe obesity with serious comorbidity and body mass index (BMI) of 40.0 to 44.9 in adult, unspecified obesity type (CMS/HCC)- Primary documented in this encounter Additional Health Concerns Assessment Noted Time PHQ-9 Depression Total Score: 0 07/29/20 24 10:52 AM EST documented as of this encounter Care Teams Education Technician Relationship Specialty Start Date End Date Swathi Titus ANP [address] [place] [address] PCP - General Family Medicine 05/05/21 documented as of this encounter
--- OUTSIDE RECORDS SUMMARY | 2024-12-09 08:46 | XMS_ITS | Encounter Summary ---
Author Organization [employer] Address [address] [facility] 7t [place] [address] Care Team Providers Care Booth Operator Name Role Phone Swathi Titus Primary Care Provider [phone] Reason for Visit * Reason Onset Date Comments Med Refill 08/29/2024 Encounter Details Date Type Department Care Team (Late st Contact Info) Description 08/29/2024 Refill [facility] MEDICINE [address] [place], [place] [phone] Swathi Titus ANP [address] [place] [address] Prediabetes; Class 3 severe obesity with serious comorbidity [...] Description 12/12/2024 9:30 AM EDT Office Visit [facility] [address] [place] [address] Swathi Titus ANP [address] [place] [address] documented as of this encounter Visit Diagnoses Diagnosis Prediabetes Other abnormal glucose Class 3 severe obesity with serious comorbidity and body mass index (BMI) of 40.0 to 44.9 in adult, unspecified obesity type (CMS/HCC) documented in this encounter Additional Health Concerns Assessment Noted Time PHQ-9 Depression Total Score: 0 07/29/20 24 10:52 AM EST documented as of this encounter Care Teams Booth Operator Relationship Specialty Start Date End Date Swathi Titus ANP [address] [place] [address] PCP - General Family Medicine 05/05/21 documented as of this encounter
--- OUTSIDE RECORDS SUMMARY | 2024-12-09 08:46 | XMS_ITS | Encounter Summary ---
Author Organization [employer] Address [address] [facility] 7t [place] [address] Care Team Providers Care Barbering Teacher Name Role Phone Swathi Titus Primary Care Provider [phone] Reason for Visit * Reason Onset Date Comments Med Refill 09/24/2024 Encounter Details Date Type Department Care Team (Late st Contact Info) Description 09/24/2024 Refill [facility] MEDICINE [address] [place], [place] [phone] Swathi Titus ANP [address] [place] [address] Social History Tobacco Use Types Packs/Day Years [...] Description 12/12/2024 9:30 AM EDT Office Visit [facility] MEDICINE [address] [place] [address] Swathi Titus ANP [address] [place] [address] documented as of this encounter Visit Diagnoses Not on filedocumented in this encounter Additional Health Concerns Assessment Noted Time PHQ-9 Depression Total Score: 0 07/29/20 24 10:52 AM EST documented as of this encounter Care Teams Barbering Teacher Relationship Specialty Start Date End Date Swathi Titus ANP [address] [place] [address] PCP - General Family Medicine 05/05/21 documented as of this encounter
== END 2024-12-09 08:58 | disposition home or self-care (01) ==
LOC: HO.HBS 08:20
PROVIDERS: PCP Nurse Practitioner Primary Care; Visit Provider Physician Assistant Surgical
DX: L98.7 Excessive and redundant skin and subcutaneous tissue (principal); Z90.3 Acquired absence of stomach [part of]; Z98.84 Bariatric surgery status
CPT/HCPCS: 99214; G2211

== ENCOUNTER → 2024-12-09 08:19 | Outpatient (BNVA) | payer OTHER, SELFPAY | PROVIDERS: PCP Nurse Practitioner Primary Care; Visit Provider Physician Assistant Surgical | DX: L98.7 Excessive and redundant skin and subcutaneous tissue (principal); E65 Localized adiposity; E66.9 Obesity, unspecified; Z68.37 Body mass index [BMI] 37.0-37.9, adult; Z98.84 Bariatric surgery status | CPT/HCPCS: 99212 ==

== ENCOUNTER 2024-12-11 07:18 | Outpatient (REF) | payer OTHER, SELFPAY ==
[2024-12-11 07:40] LABS: MANUAL DIFF FLAG NO
[2024-12-11 07:52] LABS: Estimated Average Glucose 103 mg/dL; Hemoglobin A1c % 5.2 % (<6.0)
[2024-12-11 07:55] LABS: Basophils Percent Auto 0.4 % (0-2); Eosinophils Absolute Auto 0.3 X10*3/uL (0.0-0.4); Eosinophils Percent Auto 3.7 % (0-4); Hemoglobin 14.5 g/dl (12.0-16.0); Imm Gran Abs Auto 0.02 X10*3/uL (0.00-0.03); Imm Gran Pct Auto 0.2 % (0.0-0.4); Lymphocytes Absolute Auto 2.8 X10*3/uL (1.2-4.9); Lymphocytes Percent Auto 30.9 % (20-40); Mean Corpuscular Hemoglobin 29.1 pg (27.0-33.0); Mean Corpuscular Volume 88.4 fL (80.0-98.0); Mean Platelet Volume 10.7 fL (9.4-12.3); Monocytes Absolute Auto 0.6 X10*3/uL (0.1-1.2); Monocytes Percent Auto 7.1 % (2-11); Neutrophils Absolute Auto 5.2 x10*3/uL (2.0-8.3); Neutrophils Percent Auto 57.7 % (45-73); Platelet Count 288 X10*3/uL (160-400); Red Blood Count 4.98 X10*6/uL (4.20-5.50); Red Cell Distribution Width 13.2 % (11.0-16.0)
[2024-12-11 08:15] LABS: Alanine Aminotransferase 20 U/L (0-31); Albumin Level 4.3 g/dL (3.5-5.0); Alkaline Phosphatase 62 U/L (39-117); Anion Gap 9 (12-20); Aspartate Amino Transferase 18 U/L (5-31); Bilirubin Total 0.4 mg/dL (0.0-1.0); Blood Urea Nitrogen 14 mg/dL (9-16); C Reactive Protein 0.24 mg/dL (< or = 0.50); Calcium 9.8 mg/dL (8.4-10.2); Carbon Dioxide 28 mmol/L (22-29); Chloride 108 mmol/L (96-108); Cholesterol 167 mg/dL (<200); Estimated Glomerular Filt Rate > 60; Glucose Random 91 mg/dL (60-115); HDL Cholesterol 56 mg/dL (>40); Iron 71 mcg/dL (30-160); LDL Cholesterol Calculated 96 mg/dL (<100); Percent Iron Saturation 28 % (15-50); Potassium 4.1 mmol/L (3.3-5.1); Sodium 141 mmol/L (135-145); Total Iron Binding Capacity 251 mcg/dL (228-428); Total Protein 7.4 g/dL (6.5-8.0); Triglycerides 76 mg/dL (<150); Unsaturated Iron Binding 180 ug/dL
[2024-12-11 08:44] LABS: Vitamin B12 1101 pg/mL (200-900)
[2024-12-11 08:54] LABS: Ferritin 89 ng/mL (10-122); Insulin 14 uU/mL (2-29); Vitamin D 25-OH Total 22.4 ng/mL (>30)
[2024-12-15 03:38] LABS: Zinc 75 mcg/dL (60-130)
[2024-12-15 18:58] LABS: Vitamin A 57 mcg/dL (38-98)
[2024-12-19 14:48] LABS: Vitamin B1 24 nmol/L (8-30)
== END 2024-12-11 07:19 | disposition home or self-care (01) ==
LOC: HO.LAB 07:18
PROVIDERS: PCP Nurse Practitioner Primary Care; Visit Provider Physician Assistant Surgical
DX: R16.1 Splenomegaly, not elsewhere classified (principal); K21.9 Gastro-esophageal reflux disease without esophagitis; Z99.89 Dependence on other enabling machines and devices; G47.33 Obstructive sleep apnea (adult) (pediatric); E11.9 Type 2 diabetes mellitus without complications; K76.0 Fatty (change of) liver, not elsewhere classified; Z98.84 Bariatric surgery status
CPT/HCPCS: 36415; 80053; 80061; 82306; 82607; 82728; 82746; 83036; 83525; 83540; 84425; 84443; 84590; 84630; 85025; 86140

== ENCOUNTER 2025-01-13 08:52 | Outpatient (AMB) | payer OTHER, SELFPAY ==
--- NOTE | 2025-01-13 09:00 | A.OFFVIS_ITS ---
VS Expanded 01/13/25 09:17 BP 120/57 L Blood Pressure Location Rt brachial Blood Pressure Position Sitting Pulse 75 Pulse Source Pulse Oximeter Temp 97.4 F Temperature Source Temporal Artery Scan Pulse Oximetry 97 Oxygen Delivery Method Room Air Height 5 ft 4 in Weight 209 lb 12.8 oz BMI 36.0 Body Fat % 39.7 Body Fat Mass 83.4 Fat Free Mass 126.4 Visceral Fat Rating 9.0 Body Water % 43.1 Body Water Mass 90.4 Muscle Mass/Score 120.0 Basal Metabolic Rate/Score 1,758 Intake Visit Reasons: (OV) PO LSG 11/02/20 Car Rental Agent Required: No Allergies No Known Allergies [No Known Allergies*] Allergy (Mild, Verified 01/13/25 09:03) NOT APPLICABLE Medication List - Last Reconciled 01/13/25 by CHASITY Soria cholecalciferol (vitamin D3) 125 mcg PO DAILY 90 days clotrimazole 1% (Antifungal (clotrimazole)) 1 appl topical BID tirzepatide (weight loss) (Zepbound) 7.5 mg subcut QWEEK HPI Comments Details: Patient is a pleasant 34-year-old female who returns to the office today to be seen. She is approximately 4 years 2 months post sleeve gastrectomy performed 11/02/2020. Weight today is 209.8 pounds with a BMI of 36. Her initial weight was 327 pounds in 2019. Weight at the time of surgery was 272.3 lb. Weight loss of 117.2 lb since initiating the program or 35.8 % total body weight loss and 62.5 lb or 22.9% total body weight loss since surgery. Since starting Zepbound from her primary care doctor, her appetite has decreased. She states that over the last couple of years, she has had poor nutrition, eating junk food and sweets. Since starting the Zepbound, her appetite has significantly decreased. She is now having a shake in the morning. She also recently started exercising. Additionally, of greater concern is her excess skin of her abdomen. Due to the abdominal pannus, she gets rashes underneath the skin fold. These rashes would occur 2-3 times per month. She is using [id number] ointments with some improvement although never total resolution. The rash is described as painful, itchy, has an odor to it. This has caused her to have increased hygiene needs, requiring washing of the area 2-3 times per day. Certainly worse in the warmer months. She also has difficulty with clothes fitting properly. States she has decreased cigarettes from 1 PPD to 2 cigs per day. She has also decreased celcius caffeine drink to 1 per day from 2-3 per day. Meal plan: celebrate 4 in 1 2 scoops w almond milk at 8-10 herbalife protein bar, 10 gm protein 11-1 salad with tuna or chicken breast 7 forks protein and 5 forks veg fairlife rtd shake 42 gm drinking 16 oz additional water per day Exercise plan: Weight training and cardio at [employer] treadmill 5 days per week, 300-350 calories, speed 3.5, incline 8 PFSH Medical History Left ventricular hypertrophy Steatosis, liver Dysmenorrhea Eczema Lower extremity edema Knee pain Arthritis EVERARDO on CPAP GERD (gastroesophageal reflux disease) Sleep apnea Diabetes Morbid obesity Vitamin D deficiency Surgical History History of sleeve gastrectomy History of wisdom tooth extraction, class II edentulism Family History Father Kidney failure Diabetes CVD (cardiovascular disease) Mother Diabetes HTN (hypertension) Sister No problems noted. Sister No problems noted. Sister No problems noted. Sister No problems noted. Son No problems noted. Daughter No problems noted. Daughter No problems noted. 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 Discussed the importance of following the meal plan exactly. Discussed if she is going to use fair life ready to drink shake in the evening, to only have 4 oz of the 42 g however recommend the 26 g and have half or premier protein ready to drink, also having only half. Encouraged to increase exercise at the gym for a goal of 2000 calories per week. Encouraged to quit smoking. We will have her return to the office in approximately 5-6 weeks. Additionally, encouraged to continue to send weight is weekly by text and if there is any questions.
[2025-01-13 09:17] VITALS: BP 120/57; PULSE 75; TEMP 36.3; O2SAT 97; BMI 36.0
--- OUTSIDE RECORDS SUMMARY | 2025-01-13 09:22 | XMS_ITS | Encounter Summary ---
Author Organization [employer] Address [address] [facility] 7t [place] [address] Care Team Providers Care Sales Administration Manager Name Role Phone Swathi Titus Primary Care Provider [phone] Reason for Visit * Reason Onset Date Comments Nurse Triage 11/19/2023 Encounter Details Date Type Department Care Team ([facility] st Contact Info) Description 11/19/2023 Telephone [facility] MEDICINE [address] [place], [place] [phone] Swathi Titus ANP [address] [place] [address] Nurse Triage Social History Tobacco Use Types [...] Care Team (Late st Contact Info) Description 03/06/2025 11:00 AM EDT Office Visit [facility] MEDICINE [address] [place] [address] Swathi Titus ANP [address] [place] [address] documented as of this encounter Visit Diagnoses Not on filedocumented in this encounter Additional Health Concerns Assessment Noted Time PHQ-9 Depression Total Score: 11 023 10:26 AM EDT documented as of this encounter Care Teams Sales Administration Manager Relationship Specialty Start Date End Date Swathi Titus ANP [address] [place] [address] PCP - General Family Medicine 05/05/21 documented as of this encounter
--- OUTSIDE RECORDS SUMMARY | 2025-01-13 09:22 | XMS_ITS | Encounter Summary ---
Author Organization [employer] Address [address] [facility] 7t [place] [address] Care Team Providers Care Electrical Accessories Assembler Name Role Phone Swathi Titus Primary Care Provider [phone] Reason for Visit * Reason Onset Date Comments Appointment Request 06/18/2023 Encounter Details Date Type Department Care Team ([facility] st Contact Info) Description 06/18/2023 Telephone [facility] MEDICINE [address] [place], [place] [phone] Swathi Titus ANP [address] [place] [address] Appointment Request Social History Tobacco Use Types [...] regards to needing a physical for work. Criminal Intelligence Analyst did not see any availability with PCP. Please contact pt at [phone] documented in this encounter Plan of Treatment Upcoming Encounters Date Type Department Care Team (Late st Contact Info) Description 03/06/2025 11:00 AM EDT Office Visit [facility] MEDICINE [address] [place] [address] Swathi Titus ANP [address] [place] [address] documented as of this encounter Visit Diagnoses Not on filedocumented in this encounter Care Teams Electrical Accessories Assembler Relationship Specialty Start Date End Date Swathi Titus ANP [address] [place] [id number] PCP - General Family Medicine 05/05/21 documented as of this encounter
--- OUTSIDE RECORDS SUMMARY | 2025-01-13 09:22 | XMS_ITS | Encounter Summary ---
Author Organization [employer] Address [address] [facility] 7t [place] [address] Care Team Providers Care Cognos Consultant Name Role Phone Swathi Titus Primary Care Provider [phone] Reason for Visit * Reason Onset Date Comments Prior Authorization 08/05/2024 Encounter Details Date Type Department Care Team ([facility] st Contact Info) Description 08/05/2024 Telephone [facility] MEDICINE [address] [place], [place] [phone] Swathi Titus ANP [address] [place] [address] Prior Authorization Social History Tobacco Use Types [...] on Ozempic PA. Please contact pt at [phone]. documented in this encounter Plan of Treatment Upcoming Encounters Date Type Department Care Team (Late st Contact Info) Description 03/06/2025 11:00 AM EDT Office Visit [facility] MEDICINE [address] [place] [address] Swathi Titus ANP [address] [place] [address] documented as of this encounter Visit Diagnoses Not on filedocumented in this encounter Additional Health Concerns Assessment Noted Time PHQ-9 Depression Total Score: 0 07/29/20 10:52 AM EST documented as of this encounter Care Teams Cognos Consultant Relationship Specialty Start Date End Date Swathi Titus ANP [address] [place] [address] PCP - General Family Medicine 05/05/21 documented as of this encounter
--- OUTSIDE RECORDS SUMMARY | 2025-01-13 09:23 | XMS_ITS | Clinical Summary ---
Author Organization [employer] Address [address] [facility] 7t [place] [address] Care Team Providers Care Traffic Signal Supervisor Maintenance Name Role Phone Swathi Titus Primary Care Provider [phone] Allergies No known active allergies Medications Blood Glucose Monitoring Suppl (FreeStyle [place] Lite) w/Device kit USE TO TEST BLOOD SUGAR DIRECTED 2 Active albuterol (2.5 MG/3ML) 0.083% nebulizer solution Albuterol Nebulized 2.5 mg every 4 hours prn shortness of breath or wheezing 90 mL 1 4 Active albuterol 108 (90 Base) MCG/ACT inhalerIndication s:Mild intermittent asthma without complication Inhale 2 puffs every 4 (four) hours if needed for wheezing or shortness of breath. Maximum 8 puffs per day 18 g 3 4 07/29/20 25 Active FREESTYLE LITE test stripIndications: Type 2 diabetes mellitus without complication, without long-term current use of insulin ([facility]) Use to check BG twice daily 100 each 11 4 Active FreeStyle lancetsIndication s:Type 2 diabetes mellitus without complication, without long-term current use of insulin (CMS/[facility]) 1 each by Other route 2 times daily. 100 each 11 4 08/01/20 25 Active polycarbophil (FiberCon) 625 MG tabletIndications :Constipation, unspecified constipation type Take 1 tablet (625 mg) by mouth Once per day. 90 tablet 1 5 10/27/19 26 Active Tirzepatide-Weigh t Management (Zepbound) 7.5 MG/0.5ML solution auto-injector Inject 0.5 mL (7.5 mg) under the skin 1 (one) time per week. 2 mL 2 Active nicotine polacrilex (Nicorette) 2 MG gumIndications:Mayra rosales nicotine dependence without complication Chew 1 each (2 mg) if needed for smoking cessation. Every 1-2 hrs as needed in place of cigarette 100 each 3 Active Active Problems Problem Noted Date Diagnosed Date Prediabetes 08/07/2024 Cigarette nicotine dependence without complicati on 07/19/2023 Depression 07/19/2023 Presence of Mirena IUD 09/17/2020 Irregular periods 12/06/2018 07/16/2023 Vitamin D deficiency 12/06/2018 07/16/2023 Resolved Problems Problem Noted Date Diagnosed Date Resolved Date Type 2 diabetes mellitus 01/07/2019 07/16/2023 Encounters Date Type Department Care Team Description 01/06/2025 Refill [facility] [address] [place] [address] Swathi Titus ANP 12/16/2024 Telephone [facility] [address] [place] [address] Swathi Titus ANP Nurse Triage 12/12/2024 9:30 AM EDT Office Visit [facility] [address] [facility] [place] [address] Swathi Titus ANP Cigarette nicotine dependence without complication (Primary Dx); Class 2 severe obesity with serious comorbidity and body mass index (BMI) of 37.0 to 37.9 in adult, unspecified obesity type ([facility]) 12/12/2024 Travel 12/05/2024 Travel 12/05/2024 Refill [facility] [address] [place] [address] Swathi Titus ANP Class 3 severe obesity with serious comorbidity and body mass index (BMI) of 40.0 to 44.9 in adult, unspecified obesity type ([facility]/HCC) 11/19/2024 Refill [facility] [address] [place] [address] Swathi Titus ANP 11/06/2024 Refill [facility] [address] [place] [address] Swathi Titus ANP Class 3 severe obesity with serious comorbidity and body mass index (BMI) of 40.0 to 44.9 in adult, unspecified obesity type (CMS/HCC) (Primary Dx) 11/04/2024 Refill [facility] [address] [place] [phone] Swathi Titus ANP Class 3 severe obesity with serious comorbidity and body mass index (BMI) of 40.0 to 44.9 in adult, unspecified obesity type (CMS/HCC) 10/31/2024 Telephone [facility] [address] [place] [phone] Swathi Titus ANP Prior Authorization 10/27/2024 11:00 AM EST Telemedicine [address] [phone] Swathi Titus ANP Cigarette nicotine dependence without complication (Primary Dx); Constipation, unspecified constipation type; Dietary counseling; Exercise counseling; Tobacco abuse counseling 10/27/2024 Travel 10/20/2024 Travel from Last 3 Months Immunizations Name Administration Dates Next Due DTaP 12/16/1994, 2,04/17/1990,1989,1989 Hep B, Adolescent or Pediatric 3,03/22/2001,03/12/2000,1998 Hib ([facility]) 04/17/1991,10/18/1990 Influenza injectable quadriv alent IIV4 with preservative 06/27/2016 Influenza injectable quadriv alent preservative free 06/20/2022 Influenza, Split (incl. chung fied surface antigen) 10/10/2012 MMR 12/16/1994,04/17/1991 OPV, Trivalent 12/16/1994, 2,01/15/1990,1989 Pneumococcal Conjugate PCV 20 07/29/2024 [...] t he electric, gas, oil or water [employer] threatened to shut off services in your [...] Sign Reading Time Taken Comments Blood Pressure 115/68 12/12/2024 9:52 AM EDT Pulse 68 12/12/2024 9:52 AM EDT Temperature 36.4 ??C (97.6 ??F) 12/12/2024 9:52 AM ED T Respiratory Rate 14 12/12/2024 9:52 AM EDT Oxygen Saturation 100% 12/12/2024 9:52 AM EDT Inhaled Oxygen Concentration - - Weight 101 kg (222 lb) 12/12/2024 9:52 AM EDT Height 163 cm (5' 4.17 ) 12/12/2024 9:52 AM EDT Body Mass Index 37.9 12/12/2024 9:52 AM EDT Plan of Treatment Upcoming Encounters Date Type Department Care Team (Late st Contact Info) Description 03/06/2025 11:00 AM EDT Office Visit [facility] [address] [place], [place] [phone] Swathi Titus, ANP [address] [place] [address] Health Maintenance Due Date Last Done Comments Eye Exam 1999 Family Planning (PISQ) 2004 COVID-19 Vaccine ( season) 2024 06/29/2022, 07/08/2021, 10/23/2020, Additional history exists Influenza Vaccine (#1) 2024 , 06/27/2016, 10/10/2012 Cervical Cancer Screening 05/04/2025 HPV/Cotest 05/04/2025 05/04/2020 Pap Smear 05/04/2025 05/04/2020 Diabetes: Hemoglobin A1C 06/13/2025 025, 07/29/2024, 07/19/2023, Additional history exists Alcohol/Substance Use Screening 07/29/2025 07/29/2024 Depression Screening 07/29/2025 07/29/2024, 07/29/20 Diabetes: Urine Protein Screening 07/29/2025 07/29/2024, 05/26/2021, 10/18/2020 SDOH Screening 07/29/2025 07/29/2024 Lipid Panel 12/11/2025 12/11/2024, 10/19, 06/18/2020, Additional history exists Tobacco Screening 12/12/2025 12/12/2024, 10/27/2024 DTaP/Tdap/Td Vaccines (8 - Td or Tdap) 05/04/2032 05/04/2022, 04/10/2012, 07/06/2003, Additional history exists Zoster Vaccines (1 of 2) 2039 RSV Patients and Patients Aged 60 years or older (1 - 1-dose 75+ series) 2064 HIB Vaccines Completed 04/17/1991, 10/18/1990 IPV Vaccines Completed 12/16/1994, 04/0 09/1991, 01/15/1990, Additional history exists Hepatitis B Vaccines Completed 07/06/2003, 03/22/2001, 03/12/2000, Additional history exists HIV Screening Completed 05/26/2021 Hepatitis C Screening Completed 05/26/2021 Pneumococcal Vaccine: Pediatrics (0 to 5 Years) and At-Risk Patients (6 to 49) Years) Completed 07/29/2024 Diabetes: Foot Exam Discontinued HPV Vaccines Aged Out No longer eligi [...] Procedure Name Priority Date/Time Associated Diagnosis Comments VITAMIN B1 Routine 12/11/2024 7:38 AM EDT VITAMIN A Routine 12/11/2024 7:38 AM EDT ZINC Routine 12/11/2024 7:38 AM EDT INSULIN Routine 12/11/2024 7:38 AM EDT TSH W/REFLEX TO FT4 Routine 12/11/2024 7 :38 AM EDT VITAMIN D,25-OH,TOTAL,IA Routine 12/11/2024 7:38 AM EDT FERRITIN Routine 12/11/2024 7:38 AM EDT VITAMIN B12/FOLATE, SERUM PANEL Routine 12/11/2024 7:38 AM EDT LIPID PANEL, STANDARD Routine 12/11/2024 7:38 AM EDT C-REACTIVE PROTEIN Routine 12/11/2024 7: 38 AM EDT IRON AND TOTAL IRON BINDING CAPACITY Routine 12/11/2024 7:38 AM EDT COMPREHENSIVE METABOLIC PANEL Routine 12/11/2024 7:38 AM EDT CBC WITH AUTO DIFFERENTIAL Routine 12/11/2024 7:38 AM EDT HEMOGLOBIN A1C Routine 12/11/2024 7:38 AM EDT ALBUMIN, RANDOM URINE W/CREATININE Routine 07/29/2024 11:50 AM EST ZZZ HISTORICAL HEPATITIS C AB W/REFL TO HCV RNA, QN, PCR Routine 05/26/2021 10:33 AM EDT HIV 1/2 ANTIGEN/ANTIBODY, FOURTH GENERATION W/RFL Routine 05/26/2021 10:33 AM EDT HM PAP/HPV Routine 05/04/2020 from Last 3 Months or Most Recently Relevant to Health Maintenance Results * (ABNORMAL) Vitamin D, 25-Hydroxy, Total, Immunoassay (12/11/2024 7:38 AM EDT) Vitamin D 25-OH Total 22.4(L) >30 ng/mL [facility] Comment: Health Based Reference Values*< 20 ??ng/mL ??Hpealiisa51-64 ng/mL ??Insufficient> 30 ??ng/mL ??Sufficient*Melissa DEL RIO. N Engl J Med. 2007;357:266-280There is no well-established upper level of normal vitamin Dlevels. Some laboratories use 50 ng/mL as an upper limit ofnormal. However, toxicity is patient-dependent and may occurat any level. Careful correlation with the patient'spresentation is necessary and, if there is concern forvitamin D toxicity, treatment should be consideredirrespective of the serum level.Care must be taken in interpreting Vitamin D results fromdifferent laboratories and methodologies. ??Published datademonstrated that results from patients undergoinghemodialysis may show a negative bias when tested withvarious automated 25-OH vitamin D assays when compared toLC- MS/MS.When testing samples from patients whose predominant form ofVitamin D is Vitamin D2, such as patients receiving VitaminD2 supplementation, results that are subtherapeutic shouldbe confirmed with another method such as LC-MS/MS. 12/11/2024 7:38 AM EDT 12/11/2024 7:38 AM EDT Generic External Data Provider LAB BLOOD ORDERAB LES Final Result Performing Organization Address [facility] de Phone Number [facility] [address] [place] [phone] * (ABNORMAL) Vitamin B12 (Cobalamin) and Folate Panel, Serum (12/11/2024 7:38 AM EDT) Pathologist [facility] Vitamin B12 1,101(H) 200 - 900 pg/mL [facility] Comment:NORMAL 200-900 PG/ML INDETERMINATE 160-199 PG/ML DEFICIENT < 160 PG/ML Folate 9.0 > or = 4.0 ng/mL [facility] Comment:Reference Values:> o r = 4.0 ng/mL< 4.0 ng/mL suggests folate deficiency Methotrexate, aminopterin and folinic acid(leucovorin) are chemotherapeutic agents whose molecularstructures are similar to folate; therefore, the Architectfolate assay cannot be used for patients using these drugs. 12/11/2024 7:38 AM EDT 12/11/2024 7:38 AM EDT Generic External Data Provider LAB BLOOD ORDERAB LES Final Result Performing Organization Address [facility] de Phone Number [facility] [address] [place] [phone] * TSH with Reflex to Free T4 (12/11/2024 7:38 AM EDT) TSH reflex Free T4 0.60 0.32 - 4.0 uIU/mL [facility] 12/11/2024 7:38 AM EDT 12/11/2024 7:38 AM EDT us Generic External Data Provider LAB BLOOD ORDERAB LES Final Result [facility] [address] [place] [phone] [phone] * CBC auto differential (12/11/2024 7:38 AM EDT) Pathologist [facility] White Blood Count 9.0 4.8 - 10.8 X10*3/uL [facility] Red Blood Count 4.98 4.20 - 5.50 X10*6/uL [facility] Hemoglobin 14.5 12.0 - 16.0 g/dl [facility] Hematocrit 44.0 37.0 - 47.0 % [facility] Mean Corpuscular Volume 88.4 80.0 - 98.0 fL [facility] Mean Corpuscular Hemoglobin 29.1 27.0 - 33.0 pg [facility] Mean Corpuscular HGB Conc 33.0 31.0 - 35.0 g/dl [facility] Red Cell Distribution Width 13.2 11.0 - 16.0 % [facility] Platelet Count 288 160 - 400 X10*3/uL [facility] Mean Platelet Volume 10.7 9.4 - 12.3 fL [facility] Neutrophils Percent Auto 57.7 45 - 73 % [facility] Imm Gran Pct Auto 0.2 0.0 - 0.4 % [facility] Lymphocytes Percent Auto 30.9 20 - 40 % [facility] Monocytes Percent Auto 7.1 2 - 11 % [facility] Eosinophils Percent Auto 3.7 0 - 4 % [facility] Basophils Percent Auto 0.4 0 - 2 % [facility] NRBC Pct Auto 0.0 0.0 - 0.2 /100WBC [facility] Neutrophils Absolute Auto 5.2 2.0 - 8.3 x10*3/uL [facility] Imm Gran Abs Auto 0.02 0.00 - 0.03 X10*3/uL [facility] Lymphocytes Absolute Auto 2.8 1.2 - 4.9 X10*3/uL [facility] Monocytes Absolute Auto 0.6 0.1 - 1.2 X10*3/uL [facility] Eosinophils Absolute Auto 0.3 0.0 - 0.4 X10*3/uL [facility] Basophils Absolute Auto 0.0 0.0 - 0.2 X10*3/uL [facility] NRBC Abs Auto 0.000 0.0 - 0.012 X10*3/uL [facility] 12/11/2024 7:38 AM EDT 12/11/2024 7:38 AM EDT Generic External Data Provider LAB BLOOD ORDERAB LES Final Result Performing Organization Address City/[facility] Co de Phone Number [facility] [address] [place] [phone] * Iron And Total Iron Binding Capacity (12/11/2024 7:38 AM EDT) [facility] Iron 71 30 - 160 mcg/dL [facility] Total Iron Binding Capacity 251 228 - 428 mcg/dL [facility] Percent Iron Saturation 28 15 - 50 % [facility] Unsaturated Iron Binding 180 ug/dL [facility] 12/11/2024 7:38 AM EDT 12/11/2024 7:38 AM EDT Generic External Data Provider LAB BLOOD ORDERAB LES Final Result Performing Organization Address [facility] Co de Phone Number [facility] [address] [place] [phone] * Insulin (12/11/2024 7:38 AM EDT) Insulin 14 2 - 29 uU/mL [facility] Comment:This test was perfor med using the Tang chemiluminescentmethod. Values obtained from different assay methods cannot beused interchangeably. This insulin assay shows a possiblecross-reactivity with antibodies generated against insulin(immunoreactive insulin and some patients treated withbovine or porcine insulin). Insulin levels may be measuredlower in patients with insulin autoimmune syndrome orfamilial high pro-insulinemia. 12/11/2024 7:38 AM EDT 12/11/2024 7:38 AM EDT us Generic External Data Provider LAB BLOOD ORDERAB LES Final Result Performing Organization Address [facility] Co de Phone Number [facility] [address] [place] [address] [phone] * Zinc (12/11/2024 7:38 AM EDT) Zinc 75 60 - 130 mcg/dL [facility] Comment:This test was develo ped and its analytical performancecharacteristics have been determined by [employer] [place], [place]. It hasnot been cleared or approved by the U.S. Food and DrugAdministration. This assay has been validated pursuantto the CLIA regulations and is used for clinicalpurposes.THIS TEST WAS PERFORMED AT:[employer]/[id number] [place] [address]CWDNSDWSATINDER FONTENOT MD,PHD 12/11/2024 7:38 AM EDT 12/11/2024 7:38 AM EDT us Generic External Data Provider LAB BLOOD ORDERAB LES Final Result Performing Organization Address [facility] Co de Phone Number [facility] [address] [place] [phone] * Vitamin A (12/11/2024 7:38 AM EDT) Vitamin A (Retinol) 57 38 - 98 mcg/dL [facility] Comment:Vitamin supplementat ion within 24 hours prior toblood draw may affect the accuracy of the results.This test was developed and its analytical performancecharacteristics have been determined by [employer] [place], [place]. It hasnot been cleared or approved by the U.S. Food and DrugAdministration. This assay has been validated pursuantto the CLIA regulations and is used for clinicalpurposes.THIS TEST WAS PERFORMED AT:[employer]/[id number] [place] [address]ICERTZPSATINDER FONTENOT MD,PHD 12/11/2024 7:38 AM EDT 12/11/2024 7:38 AM EDT Generic External Data Provider LAB BLOOD ORDERAB LES Final Result Performing Organization Address [facility] Co de Phone Number [facility] [address] [place] [phone] * C-reactive Protein (12/11/2024 7:38 AM EDT) C Reactive Protein 0.24 < or = 0.50 mg/dL [facility] 12/11/2024 7:38 AM EDT 12/11/2024 7:38 AM EDT Generic External Data Provider LAB BLOOD ORDERAB LES Final Result Performing Organization Address [facility]/ZIP Co de Phone Number [facility] [address] [place] [phone] * Vitamin B1 (12/11/2024 7:38 AM EDT) Vitamin B1 24 8 - 30 nmol/L [facility] Comment:Vitamin supplementat ion within 24 hours prior toblood draw may affect the accuracy of the results.This test was developed and its analytical performancecharacteristics have been determined by [employer] [place], [place]. It hasnot been cleared or approved by the U.S. Food and DrugAdministration. This assay has been validated pursuantto the CLIA regulations and is used for clinicalpurposes.THIS TEST WAS PERFORMED AT:[employer]/[facility] [id number] [place] [address]RLTORXMSATINDER FONTENOT MD,PHD 12/11/2024 7:38 AM EDT 12/11/2024 7:38 AM EDT Generic External Data Provider LAB BLOOD ORDERAB LES Final Result [facility] [address] [place] [phone] * Hemoglobin A1c (12/11/2024 7:38 AM EDT) Hemoglobin A1c 5.2 <6.0 % [facility] Comment:Hemoglobin A1C Refer ence Range Adults: 4.8 - 6.0 % Non diabetic: < 6.0 % Goal: < 7.0 %Additional Action Suggested: > 8.0 %Note: Hemoglobin A1c results are invalid for patients with abnormal amounts of HbF. Blood transfusions may impact the HbA1c concentration in the patient sample. Estimated Average Glucose 103 mg/dL [facility] Comment:eAG = Estimated ave rage glucose which is %A1C expressed asaverage glucose, using the formula of the V6C-WkohkkyDfnfydu Glucose study (ADAG), Diabetes Care, Vol.31,#8,Apr. 2007 12/11/2024 7:38 AM EDT 12/11/2024 7:38 AM EDT us Generic External Data Provider LAB BLOOD ORDERAB LES Final Result Performing Organization Address [facility]/ZIP Co de Phone Number [facility] [address] [place] [phone] * Ferritin (12/11/2024 7:38 AM EDT) Ferritin 89 10 - 122 ng/mL [facility] 12/11/2024 7:38 AM EDT 12/11/2024 7:38 AM EDT us Generic External Data Provider LAB BLOOD ORDERAB LES Final Result Performing Organization Address [facility]/ZIP Co de Phone Number [facility] [address] [place] [phone] * Lipid Panel, Standard (12/11/2024 7:38 AM EDT) Triglycerides 76 <150 mg/dL [facility] Comment:Desirable Triglyceri de: less than 150 mg/dLBorderline High Triglyceride 150-199 mg/dLHigh Triglyceride: 200-499 mg/dLVery High Triglyceride: greater than or equal to 5OO mg/dL Cholesterol 167 <200 mg/dL [facility] Comment:Desirable Cholestero l: less than 200 mg/dLBorderline High Cholesterol: 200-239 mg/dLHigh Cholesterol: greater than 239 mg/dL LDL Cholesterol Calculated 96 <100 mg/dL [facility] Comment:Desirable LDL: less than 100 mg/dLNear Optimal/Above Optimal LDL: 110- 129 mg/dLBorderline High LDL: 130-159 mg/dLHigh LDL: 160-189 mg/dLVery High LDL: greater than or equal to 190 mg/dL HDL Cholesterol 56 >40 mg/dL [facility] Comment:Desirable HDL: great er than 40 mg/dL Note: This HDL assay may give artificially low results in patients with liver disease. 12/11/2024 7:38 AM EDT 12/11/2024 7:38 AM EDT us Generic External Data Provider LAB BLOOD ORDERAB LES Final Result Performing Organization Address [facility]/ZIP Co de Phone Number [facility] [address] [place] [phone] * (ABNORMAL) Comprehensive Metabolic Panel (12/11/2024 7:38 AM EDT) Sodium 141 135 - 145 mmol/L [facility] Potassium 4.1 3.3 - 5.1 mmol/L [facility] Chloride 108 96 - 108 mmol/L [facility] Carbon Dioxide 28 22 - 29 mmol/L [facility] Anion Gap 9(L) 12 - 20 [facility] Urea Nitrogen (BUN) 14 9 - 16 mg/dL [facility] Creatinine, Serum 0.66 0.5 - 1.4 mg/dL [facility] Estimated Glomerular Filt Rate >60 [facility] Comment:Chronic Kidney Disea se: Estimated GFR < 60 mL/min/1.02k9Ltwocl Kidney Disease: Estimated GFR < 15 mL/min/1.73m2 Glucose 91 60 - 115 mg/dL [facility] Calcium 9.8 8.4 - 10.2 mg/dL [facility] Bilirubin, Total 0.4 0.0 - 1.0 mg/dL [facility] Aspartate Amino Transferase 18 5 - 31 U/L [facility] Alanine Aminotransferase 20 0 - 31 U/L [facility] Total Protein 7.4 6.5 - 8.0 g/dL [facility] Albumin Level 4.3 3.5 - 5.0 g/dL [facility] Alkaline Phosphatase 62 39 - 117 U/L [facility] 12/11/2024 7:38 AM EDT 12/11/2024 7:38 AM EDT us Generic External Data Provider LAB BLOOD ORDERAB LES Final Result Performing Organization Address City/State/[facility] Co de Phone Number [facility] [address] [place] [phone] * Albumin, Random Urine W/Creatinine (07/29/2024 11:50 AM EST) Creatinine, Urine 208.04 mg/dL [facility] Microalbumin Urine 14.0 mg/L [facility] Microalbum Creatinine Ratio Ur 6.7 <30 ug/mg cr [facility] Comment:Albumin/Creatinine R atio Reference Ranges: Normal: < 30 ug/mg creatinine Microalbuminuria: 30 - 300 ug/mg creatinineClinical Albuminuria: > 300 ug/mg creatinine 07/29/2024 11:5 0 AM EST 07/29/2024 6:13 PM EST [facility] URINE ORDERABLES Final Resul t [facility] [address] [place] [phone] * HEPATITIS C AB W/REFL TO HCV RNA, QN, PCR (05/26/2021 10:33 AM EDT) HEPATITIS C ANTIBODY NON-REACT ABIGAIL NON-REACT ABIGAIL [facility] INDEX 0.02 <1.00 [facility] Comment: ?? HCV antibody was non-reactive. There is no laboratory ?? evidence of HCV infection. ?? In most cases, no further action is required. However, if recent HCV exposure is suspected, a test for HCV RNA (test code 96358) is suggested. ?? For additional information please refer to [email or web address].BigDoor/faq/WVR04f7 (This link is being provided for informational/ educational purposes only.) ?? 05/26/2021 10:3 3 AM EDT Historical Provider MD HISTORICAL/NON ORDERABLE LABS Final Result Performing Organization Address City/[facility] [facility] Co de Phone Number [facility] [address] * HIV 1/2 ANTIGEN/ANTIBODY,FOURTH GENERATION W/RFL (05/26/2021 10:33 AM EDT) HIV-1/2 ANTIGEN AND ANTIBODIES, 4TH GENERATION W/ REFLEX NON-[facility]ACT [facility] Comment: HIV-1 antigen and HIV-1/HIV-2 [...] ? For additional information please refer to http://education.BigDoor/faq/PGN516 (This link is being provided for informational/ educational purposes only.) ? The performance of this assay has not been clinically validated in patients less than 2 years old. ?? 05/26/2021 10:3 3 AM EDT Historical Provider LAB BLOOD ORDERABLES Rosemary l Result [facility] [address] * PAP/HPV (05/04/2020) Pap Negative for intraephithelial lesion or malignancy Negative for intraephithelial lesion or malignancy, Epithelial cell abnormality HPV Not Detected Undetected, Indeterminate, Quantitative, Not Detected Historical Provider HEALTH MAINTENANCE Final Result from Last 3 Months or Most Recently Relevant to Health Maintenance Insurance [facility] Care Teams Traffic Signal Supervisor Maintenance Relationship Specialty Start Date End Date Swathi Titus ANP [address] [place] [phone] PCP - General Family Medicine 05/05/21
--- OUTSIDE RECORDS SUMMARY | 2025-01-13 09:23 | XMS_ITS | Encounter Summary ---
Author Organization [employer] Address [address] [facility] 7t [place] [address] Care Team Providers Care Riding Teacher Name Role Phone Swathi Titus Primary Care Provider [phone] Reason for Visit * Reason Comments Med Refill Encounter Details Date Type Department Care Team (Late st Contact Info) Description 11/19/2024 Refill [facility] [address] [place], [place] [phone] Swathi Titus ANP [address] [place], [place] [phone] Social History Tobacco Use Types Packs/Day Years [...] Description 03/06/2025 11:00 AM EDT Office Visit [facility] [address] [place] [address] Swathi Titus ANP [address] [place] [address] documented as of this encounter Visit Diagnoses Not on filedocumented in this encounter Additional Health Concerns Assessment Noted Time PHQ-9 Depression Total Score: 0 07/29/20 24 10:52 AM EST documented as of this encounter Care Teams Riding Teacher Relationship Specialty Start Date End Date Swathi Tiuts ANP [address] [place] [address] PCP - General Family Medicine 05/05/21 documented as of this encounter
--- OUTSIDE RECORDS SUMMARY | 2025-01-13 09:23 | XMS_ITS | Encounter Summary ---
Author Organization [employer] Address [address] [facility] 7t [place] [address] Care Team Providers Care Public Policy Associate Name Role Phone Swathi Titus Primary Care Provider [phone] Reason for Visit * Reason Onset Date Comments Med Refill 08/29/2024 Encounter Details Date Type Department Care Team (Late st Contact Info) Description 08/29/2024 Refill [facility] [address] [place], [place] [phone] Swathi Titus ANP [address] [place] [address] Prediabetes; Class 3 severe obesity with serious [...] Description 03/06/2025 11:00 AM EDT Office Visit [facility] [address] [place] [address] Swathi Titus ANP [address] [place] [address] documented as of this encounter Visit Diagnoses Diagnosis Prediabetes Other abnormal glucose Class 3 severe obesity with serious comorbidity and body mass index (BMI) of 40.0 to 44.9 in adult, unspecified obesity type documented in this encounter Additional Health Concerns Assessment Noted Time PHQ-9 Depression Total Score: 0 07/29/20 24 10:52 AM EST documented as of this encounter Care Teams Public Policy Associate Relationship Specialty Start Date End Date Swathi Titus ANP [address] [place] [address] PCP - General Family Medicine 05/05/21 documented as of this encounter
--- OUTSIDE RECORDS SUMMARY | 2025-01-13 09:23 | XMS_ITS | Clinical Summary ---
Author Organization [facility] Address [address] [place] [address] Phone Care Team Providers Care Wetland Scientist Name Role Phone Physician, Pcp Unknown Primary Care Provider Ruth vailable Allergies No known active allergies Medications polyethylene glycol (GoLYTELY) 236-22.74-6.74 -5.86 gram solution Take 4,000 mL by mouth 1 (one) time for 1 dose. 4000 mL 12/16/2024 5 Encounters Date Type Department Care Team Description 12/16/2024 1:43 PM EDT - 12/16/2024 3:45 PM EDT Emergency [facility] Emergency [address] [place] [address] Constipation, unspecified constipation type (Primary Dx) Discharge Disposition: Home or Self Care from Last 3 Months Surgical History Surgery Date Site/Laterality Comments OTHER SURGICAL HISTORY PROCEDURE: HISTORY OTHER; COMMENT: gastric sleeve, 10/2020 WISDOM TOOTH EXTRACTION PROCEDURE: HISTORICAL WISDOM TEETH EXTRACTION Medical History Medical History Date Comments Sleep apnea DX:Sleep apnea Type 2 diabetes mellitus wit hout complications (CMS/HCC V24, CMS/HCC V28) DX:Type 2 ellis betes mellitus without complications ([facility]); COMMENT: taken off metformin at time of gastric sleeve Other chronic allergic conjunctivitis DX:Other chronic allergic conjunctivitis Gastro-esophageal reflux dis ease without esophagitis DX:Gastro-esophageal reflux disease without esophagitis Social History Tobacco Use Types Packs/Day Years Used Date Smoking Tobacco: Former Smokeless Tobacco: Never Alcohol Use Standard Drinks/Week Comments Not Currently 0 (1 standard drink = 0.6 oz pur e alcohol) Comments Unknown Sex and Gender Information Value Date Recorded Sex Assigned at Female 12/16/2024 2:09 PM EDT Legal Sex Female 5:45 AM EST Gender Identity Female 12/16/2024 2:09 PM EDT Sexual Orientation Straight 12/16/2024 2: 09 PM EDT Obstetrics History Last Filed Vital Signs Vital Sign Reading Time Taken Comments Blood Pressure 129/71 12/16/2024 11:55 AM EDT Pulse 99 12/16/2024 11:55 AM EDT Temperature 37.1 ??C (98.8 ??F) 12/16/2024 11:55 AM E DT Respiratory Rate 20 12/16/2024 11:55 AM EDT Oxygen Saturation 99% 12/16/2024 11:55 AM EDT Inhaled Oxygen Concentration - - Weight 99.3 kg (219 lb) 12/16/2024 11:55 AM EDT Height 162.6 cm (5' 4 ) 12/16/2024 11:55 AM EDT Body Mass Index 37.59 12/16/2024 11:55 AM EDT Plan of Treatment Health Maintenance Due Date Last Done Comments Cervical Cancer Screening: Pap Smear 2010 Hepatitis C Screening 08/20/2022 Social Influencers of Health Screening 08/20/2022 COVID-19 Vaccine ( season) 2024 Influenza Vaccine (Season Ended) 2025 06/20/2022, 06/27/2016, 10/10/2012 Depression Screening 07/29/2025 07/29/2024 Cholesterol Screening (Lipid Panel) 12/11/2029 12/11/2024 DTaP,Tdap,and Td Vaccines (10 - Td or Tdap) 05/04/2032 05/04/2022, 04/10/2012, 07/06/2003, Additional history exists HIB Vaccines Completed 04/17/1991, 10/18/1990 IPV Vaccines Completed 12/16/1994, 0409/1991, 01/15/1990, Additional history exists MMR Vaccines Completed 12/16/1994, 04/17/1991 Hepatitis B Vaccines Completed 07/06/2003, 03/22/2001, 03/12/2000, Additional history exists HIV Screening Completed 05/26/2021 Pneumococcal Vaccine: Pediatrics (0 to 5 Years) and At-Risk Patients (6 to 64 Years) Aged Out 07/29/2024 No longer eligible based on patient's age to complete this topic HPV Vaccines Aged Out No longer eligi ble based on patient's age to complete this topic Hepatitis A Vaccines Aged Out No long er eligible based on patient's age to complete this topic Meningococcal ACWY Vaccine Aged Out N o longer eligible based on patient's age to complete this topic Meningococcal B Vaccine Aged Out No l onger eligible based on patient's age to complete this topic RSV Immunization Patients Under 20 months Aged Out No longer eligible based on patient's age to complete this topic Varicella Vaccines Aged Out No longer eligible based on patient's age to complete this topic Procedures Procedure Name Priority Date/Time Associated Diagnosis Comments XR ABDOMEN 1 VIEW STAT 12/16/2024 2:1 1 PM EDT from Last 3 Months Results * XR Abdomen 1 View (12/16/2024 2:11 PM EDT) Anatomical Region Laterality Modality Body Radiographic Digna ging 12/16/2024 3:46 PM EDT Impressions 12/16/2024 3:46 PM EDT FINDINGS/IMPRESSION: Prominent rectal fecal impaction. ??Normal bowel gas pattern otherwise. ??Post surgical changes left upper quadrant. ??IUD. -------- FINAL REPORT -------- Dictated By: Dirk Stack Dictated Date: 12/16/2024 15:46 ET Assigned Physician: Dirk Stack Reviewed and Electronically Signed By: Dirk Stack Signed Date: 12/16/2024 15:46 ET Workstation ID: [id number] Transcribed By: Self Edit Transcribed Date: 12/16/2024 15:46 ET Narrative 12/16/2024 3:46 PM EDT XR ABDOMEN 1 VIEW INDICATION: abdominal distension TECHNIQUE: XR ABDOMEN 1 VIEW COMPARISON: No priors available. Procedure Note Dirk Stack MD - 12/16/2024 XR ABDOMEN 1 VIEW INDICATION: abdominal distension TECHNIQUE: XR ABDOMEN 1 VIEW COMPARISON: No priors available. IMPRESSION: FINDINGS/IMPRESSION: Prominent rectal fecal impaction. Normal bowel gaspattern otherwise. Post surgical changes left upper quadrant. IUD. -------- FINAL REPORT -------- Dictated By: Dirk Stack Dictated Date: 12/16/2024 15:46 ET Assigned Physician: Dirk Stack Reviewed and Electronically Signed By: Dirk Stack Signed Date: 12/16/2024 15:46 ET Workstation ID: [id number] Transcribed By: Self Edit Transcribed Date: 12/16/2024 15:46 ET [facility] Aristeo Florez MD IMG XR PROCEDURES Final Result from Last 3 Months Insurance [facility] Care Teams Wetland Scientist Relationship Specialty Start Date End Date Physician, Pcp Unknown PCP - General 12/16/24
--- OUTSIDE RECORDS SUMMARY | 2025-01-13 09:23 | XMS_ITS | Encounter Summary ---
Author Organization [employer] Address [address] [facility] 7t [place] [address] Care Team Providers Care Ic Design Engineer Name Role Phone Swathi Titus Primary Care Provider [phone] Reason for Visit * Reason Onset Date Comments Med Refill 09/24/2024 Encounter Details Date Type Department Care Team (Late st Contact Info) Description 09/24/2024 Refill [facility] [address] [place], [place] [phone] Swathi Titus ANP [address] [place] [address] Social History Tobacco Use Types Packs/Day Years [...] Description 03/06/2025 11:00 AM EDT Office Visit [facility] [address] [place] [address] Swathi Titus ANP [address] [place] [address] documented as of this encounter Visit Diagnoses Not on filedocumented in this encounter Additional Health Concerns Assessment Noted Time PHQ-9 Depression Total Score: 0 07/29/20 24 10:52 AM EST documented as of this encounter Care Teams Ic Design Engineer Relationship Specialty Start Date End Date Swathi Titus ANP [address] [place] [address] PCP - General Family Medicine 05/05/21 documented as of this encounter
--- OUTSIDE RECORDS SUMMARY | 2025-01-13 09:23 | XMS_ITS | Encounter Summary ---
Author Organization [employer] [facility] Address [address] [facility] 7t [place] [address] Care Team Providers Care License Examiner Name Role Phone Swathi Titus Primary Care Provider [phone] Encounter Details Date Type Department Care Team (Late st Contact Info) Description 11/12/2022 Orders Only [facility] [address] [place] [address] [phone] Swathi Titus ANP [address] [place] [address] [phone] Social History Tobacco Use Types Packs/Day Years [...] Description 03/06/2025 11:00 AM EDT Office Visit [address] [phone] Swathi Titus ANP [address] [place] [address] [phone] documented as of this encounter Procedures Procedure Name Priority Date/Time Associated Diagnosis Comments T-SPOT(R).TB Routine 07/19/2023 10:33 AM EDT documented in this encounter Results * T-SPOT??.TB (07/19/2023 10:33 AM EDT) T Spot TB Negative Negative [facility] Comment:A negative test resu lt [...] as aquantitative test. TS PANEL A 0 [facility] TS PANEL B 0 [facility] Negative Control Passed [facility] Positive Control Passed [facility] Comment:For additional infor roel, please refer tohttp://education.The Political Student/faq/NQB497(This link is being provided for informational/educational purposes only.)THIS TEST WAS PERFORMED AT:[employer] [id number] [place] [address]HXIANOXSATINDER FONTENOT MD,PHD 07/19/2023 10:3 3 AM EDT 07/19/2023 11:25 AM EDT [facility] LAB BLOOD ORDERABLES Final Resul t [facility] [address] [place] [address] [phone] documented in this encounter Visit Diagnoses Not on filedocumented in this encounter Care Teams License Examiner Relationship Specialty Start Date End Date Swathi Titus ANP [address] [place] [address] PCP - General Family Medicine 05/05/21 documented as of this encounter
--- OUTSIDE RECORDS SUMMARY | 2025-01-13 09:23 | XMS_ITS | Encounter Summary ---
Author Organization [facility] Address [address] [facility] 7t [place] [address] Care Team Providers Care Bridal Stylist Sales Consultant Name Role Phone Swathi Titus Primary Care Provider [phone] Reason for Visit * Reason Onset Date Comments Appointment Request 03/19/2023 Encounter Details Date Type Department Care Team (Late Contact Info) Description 03/19/2023 Telephone [facility] MEDICINE [address] [place] [address] [phone] Swathi Titus ANP [address] [place] [address] Appointment Request Social History Tobacco Use Types [...] by new job. Please contact pt at [phone] documented in this encounter Plan of Treatment Upcoming Encounters Date Type Department Care Team (Late Contact Info) Description 03/06/2025 11:00 AM EDT Office Visit [facility]INE [address] [place] [address] Swathi Titus ANP [address] [place] [address] documented as of this encounter Visit Diagnoses Not on filedocumented in this encounter Care Teams Bridal Stylist Sales Consultant Relationship Specialty Start Date End Date Swathi Titus ANP [address] [place] [address] PCP - General Family Medicine 05/05/21 documented as of this encounter
--- OUTSIDE RECORDS SUMMARY | 2025-01-13 09:23 | XMS_ITS | Encounter Summary ---
Author Organization [employer] Address [address] [facility] 7t [place] [address] Care Team Providers Care Data Lead Name Role Phone Swathi Titus Primary Care Provider [phone] Reason for Visit * Reason Onset Date Comments Med Refill 01/06/2025 Encounter Details Date Type Department Care Team (Late st Contact Info) Description 01/06/2025 Refill [facility] [address] [place], [place] [phone] Swathi Titus ANP [address] [place] [address] Social History Tobacco Use Types Packs/Day Years [...] 03/06/2025 11:00 AM EDT Office Visit [facility] [address] [place] [address] Swathi Titus ANP [address] [place] [address] documented as of this encounter Visit Diagnoses Not on filedocumented in this encounter Additional Health Concerns Assessment Noted Time PHQ-9 Depression Total Score: 0 07/29/20 24 10:52 AM EST documented as of this encounter Care Teams Data Lead Relationship Specialty Start Date End Date Swathi Titus ANP [address] [place] [address] PCP - General Family Medicine 05/05/21 documented as of this encounter
--- OUTSIDE RECORDS SUMMARY | 2025-01-13 09:23 | XMS_ITS | Encounter Summary ---
Author Organization [employer] Address [address] [facility] 7t [place] [address] Care Team Providers Care Architect Naval Name Role Phone Swathi Titus Primary Care Provider [phone] Reason for Visit * Reason Onset Date Comments Med Refill 11/04/2024 Encounter Details Date Type Department Care Team (Late st Contact Info) Description 11/04/2024 Refill [facility] [address] [place], [place] [phone] Swathi Titus ANP [address] [place] [address] Class 3 severe obesity with serious comorbidity [...] Description 03/06/2025 11:00 AM EDT Office Visit [facility] [address] [place] [address] Swathi Titus ANP [address] [place] [address] documented as of this encounter Visit Diagnoses Diagnosis Class 3 severe obesity with serious comorbidity and body mass index (BMI) of 40.0 to 44.9 in adult, unspecified obesity type documented in this encounter Additional Health Concerns Assessment Noted Time PHQ-9 Depression Total Score: 0 07/29/20 24 10:52 AM EST documented as of this encounter Care Teams Architect Naval Relationship Specialty Start Date End Date Swathi Titus ANP [address] [place] [address] PCP - General Family Medicine 05/05/21 documented as of this encounter
== END 2025-01-13 09:27 | disposition home or self-care (01) ==
LOC: HO.HBS 08:52
PROVIDERS: PCP Nurse Practitioner Primary Care; Visit Provider Physician Assistant Surgical
DX: E66.09 Other obesity due to excess calories (principal); E66.812 Obesity, class 2; Z68.36 Body mass index [BMI] 36.0-36.9, adult; Z98.84 Bariatric surgery status
CPT/HCPCS: 99213; G2211

== ENCOUNTER → 2025-01-13 08:52 | Outpatient (BNVA) | payer OTHER, SELFPAY | PROVIDERS: PCP Nurse Practitioner Primary Care; Visit Provider Physician Assistant Surgical | DX: E66.01 Morbid (severe) obesity due to excess calories (principal); Z98.84 Bariatric surgery status; Z68.39 Body mass index [BMI] 39.0-39.9, adult | CPT/HCPCS: 99212 ==

== ENCOUNTER 2025-01-26 14:00 | Outpatient (REF) | payer OTHER, SELFPAY ==
--- OUTSIDE RECORDS SUMMARY | 2025-01-26 14:17 | XMS_ITS | Encounter Summary ---
Author Organization [employer] Address [address] [facility] 7t [place] [address] Care Team Providers Care Farm Equipment Mechanic Name Role Phone Swathi Titus Primary Care Provider [phone] Reason for Visit * Reason Onset Date Comments Nurse Triage 11/19/2023 Encounter Details Date Type Department Care Team ([facility] st Contact Info) Description 11/19/2023 Telephone [facility] [address] [place], [place] [phone] Swathi Titus ANP [address] [place] [address] Nurse Triage Social History Tobacco Use Types [...] Description 03/06/2025 11:00 AM EDT Office Visit [facility] [address] [place] [address] Swathi Titus ANP [address] [place] [address] 03/10/2025 9:30 AM EDT Procedure Visit [facility] [address] [place] [address] Nazanin Willett CNM [address] [place] [address] documented as of this encounter Visit Diagnoses Not on filedocumented in this encounter Additional Health Concerns Assessment Noted Time PHQ-9 Depression Total Score: 11 023 10:26 AM EDT documented as of this encounter Care Teams Farm Equipment Mechanic Relationship Specialty Start Date End Date Swathi Titus ANP [address] [place] [address] PCP - General Family Medicine 05/05/21 documented as of this encounter
--- OUTSIDE RECORDS SUMMARY | 2025-01-26 14:18 | XMS_ITS | Encounter Summary ---
Author Organization [employer] Address 75 [facility] 7t [place] [address] Care Team Providers Care Results Technician Name Role Phone Swathi Titus Primary Care Provider [phone] Reason for Visit * Reason Comments Med Refill Encounter Details Date Type Department Care Team (Late st Contact Info) Description 11/19/2024 Refill [facility] [address] [place], [place] [phone] Swathi Titus ANP [address] [place] [address] Social History Tobacco Use Types Packs/Day Years [...] Description 03/06/2025 11:00 AM EDT Office Visit [facility] [address] [place] [address] Swathi Titus ANP [address] [place] [address] 03/10/2025 9:30 AM EDT Procedure Visit [facility] [address] [place] [address] Nazanin Willett CNM [address] [place] [address] documented as of this encounter Visit Diagnoses Not on filedocumented in this encounter Additional Health Concerns Assessment Noted Time PHQ-9 Depression Total Score: 0 07/29/20 24 10:52 AM EST documented as of this encounter Care Teams Results Technician Relationship Specialty Start Date End Date Swathi Titus ANP [address] [place] [address] PCP - General Family Medicine 05/05/21 documented as of this encounter
--- OUTSIDE RECORDS SUMMARY | 2025-01-26 14:18 | XMS_ITS | Encounter Summary ---
Author Organization [employer] Address [address] [facility] 7t [place] [address] Care Team Providers Care Compressed Gas Equipment Mechanic Name Role Phone Swathi Titus Primary Care Provider [phone] Reason for Visit * Reason Onset Date Comments Prior Authorization 08/05/2024 Encounter Details Date Type Department Care Team ([facility] st Contact Info) Description 08/05/2024 Telephone [facility] [address] [place], [place] [phone] Swathi Titus ANP [address] [place] [address] Prior Authorization Social History Tobacco Use Types [...] on Ozempic PA. Please contact pt at [phone]. documented in this encounter Plan of Treatment Upcoming Encounters Date Type Department Care Team (Late st Contact Info) Description 03/06/2025 11:00 AM EDT Office Visit [facility] [address] [place] [address] [phone] Swathi Titus ANP [address] [place], [place] [phone] 03/10/2025 9:30 AM EDT Procedure Visit [facility] [address] [place] [address] Nazanin Willett CNM [address] [place] [address] documented as of this encounter Visit Diagnoses Not on filedocumented in this encounter Additional Health Concerns Assessment Noted Time PHQ-9 Depression Total Score: 0 07/29/20 24 10:52 AM EST documented as of this encounter Care Teams Compressed Gas Equipment Mechanic Relationship Specialty Start Date End Date Swathi Titus ANP [address] [place] [address] PCP - General Family Medicine 05/05/21 documented as of this encounter
--- OUTSIDE RECORDS SUMMARY | 2025-01-26 14:18 | XMS_ITS | Encounter Summary ---
Author Organization [employer] Address [address] [facility] 7t [place] [address] Care Team Providers Care Field Account Manager Name Role Phone Swathi Titus Primary Care Provider [phone] Reason for Visit * Reason Onset Date Comments Med Refill 09/24/2024 Encounter Details Date Type Department Care Team (Late st Contact Info) Description 09/24/2024 Refill [facility] [address] [place], [place] [phone] Swathi Titus ANP [address] [place] [address] Social History Tobacco Use Types Packs/Day Years [...] Description 03/06/2025 11:00 AM EDT Office Visit [facility] [address] [place] [address] Swathi Titus ANP [address] [place] [address] 03/10/2025 9:30 AM EDT Procedure Visit [facility] [address] [place] [phone] Nazanin Willett CNM [address] [place] [address] documented as of this encounter Visit Diagnoses Not on filedocumented in this encounter Additional Health Concerns Assessment Noted Time PHQ-9 Depression Total Score: 0 07/29/20 10:52 AM EST documented as of this encounter Care Teams Field Account Manager Relationship Specialty Start Date End Date Swathi Titus ANP [address] [place] [address] PCP - General Family Medicine 05/05/21 documented as of this encounter
--- OUTSIDE RECORDS SUMMARY | 2025-01-26 14:18 | XMS_ITS | Encounter Summary ---
Author Organization [employer] Address [address] [facility] 7t [place] [address] Care Team Providers Care Computer Graphic Artist Name Role Phone Swathi Titus Primary Care Provider [phone] Reason for Visit * Reason Onset Date Comments Immunizations 01/26/2025 Encounter Details Date Type Department Care Team ([facility] st Contact Info) Description 01/26/2025 Telephone [facility] MEDICINE [address] [place], [place] [phone] Swathi Titus ANP [address] [place] [address] Immunizations Social History Tobacco Use Types Packs/Day Years [...] Telephone Encounter - Thalia Arora RN - 01/26/2025 1:46 PM EDT Telephone call to pt who confirmed needing TB test for work. Last Tspot on file was 2022. Per protocol, pended lab order. Pt aware that results can take a few days, no further questions. * Telephone Encounter - Aric Mojica - 01/26/2025 1:28 PM EDT TC from pt requesting TB test for work purposes/ documented in this encounter Plan of Treatment Upcoming Encounters Date Type Department Care Team (Late st Contact Info) Description 03/06/2025 11:00 AM EDT Office Visit [facility] MEDICINE [address] [place] [address] Swathi Titus ANP [address] [place] [address] 03/10/2025 9:30 AM EDT Procedure Visit [facility] MEDICINE [address] [place] [address] Nazanin Willett CNM [address] [place] [address] Scheduled Orders Name Type Priority Associated Diagnoses Orde r Schedule T-SPOT??.TB Lab Routine Tuberculosis screening Expected: 01/26/2025 (Approximate), Expires: 01/26/2026 documented as of this encounter Visit Diagnoses Diagnosis Tuberculosis screening Screening examination for pulmonary tuberculosis documented in this encounter Additional Health Concerns Assessment Noted Time PHQ-9 Depression Total Score: 0 07/29/20 24 10:52 AM EST documented as of this encounter Care Teams Computer Graphic Artist Relationship Specialty Start Date End Date Swathi Titus ANP [address] [place] [address] PCP - General Family Medicine 05/05/21 documented as of this encounter
--- OUTSIDE RECORDS SUMMARY | 2025-01-26 14:18 | XMS_ITS | Encounter Summary ---
Author Organization [employer] Address [address] [facility] 7t [place] [address] Care Team Providers Care Search Strategist Name Role Phone Swathi Titus Primary Care Provider [phone] Reason for Visit * Reason Onset Date Comments Med Refill 01/20/2025 Encounter Details Date Type Department Care Team ([facility] st Contact Info) Description 01/20/2025 Refill [facility] MEDICINE [address] [place], [place] [phone] Swathi Titus ANP [address] [place], [place] [phone] Type 2 diabetes mellitus without complication, without long-term current use of insulin ([facility]); Constipation, unspecified constipation type Social History Tobacco Use Types Packs/Day Years [...] Description 03/06/2025 11:00 AM EDT Office Visit [facility] MEDICINE [address] [place] [address] Swathi Titus ANP [address] [place] [address] 03/10/2025 9:30 AM EDT Procedure Visit [address] [address] Nazanin Willett CNM [address] [place] [address] documented as of this encounter Visit Diagnoses Diagnosis Type 2 diabetes mellitus without complication, without long-term current use of insulin ([facility]) Constipation, unspecified constipation type documented in this encounter Additional Health Concerns Assessment Noted Time PHQ-9 Depression Total Score: 0 07/29/20 24 10:52 AM EST documented as of this encounter Care Teams Search Strategist Relationship Specialty Start Date End Date Swathi Titus ANP [address] [place] [phone] PCP - General Family Medicine 05/05/21 documented as of this encounter
--- OUTSIDE RECORDS SUMMARY | 2025-01-26 14:18 | XMS_ITS | Encounter Summary ---
Author Organization [employer] Address [address] [place] [address] [address] [place] [address] Care Team Providers Care Lard Maker Name Role Phone Swathi Titus Primary Care Provider [phone] Reason for Visit * Reason Onset Date Comments Appointment Request 03/19/2023 Encounter Details Date Type Department Care Team (Late Contact Info) Description 03/19/[address] [address] wSathi Titus ANP [address] [place] [address] Appointment Request Social History Tobacco Use Types [...] by new job. Please contact pt at [phone] documented in this encounter Plan of Treatment Upcoming Encounters Date Type Department Care Team (Late Contact Info) Description 03/06/2025 11:00 AM EDT Office Visit [facility] MEDICINE [address] [place] [address] Swathi Titus ANP [address] [place] [address] 03/10/2025 9:30 AM EDT Procedure Visit [address] [phone] Nazanin Willett CNM [address] [place], [place] [phone] documented as of this encounter Visit Diagnoses Not on filedocumented in this encounter Care Teams Lard Maker Relationship Specialty Start Date End Date Swathi Titus ANP [address] [place] [phone] PCP - General Family Medicine 05/05/21 documented as of this encounter
--- OUTSIDE RECORDS SUMMARY | 2025-01-26 14:18 | XMS_ITS | Encounter Summary ---
Author Organization [employer] Address [address] [facility] 7 [place] [address] Care Team Providers Care Jewel Oliving Machine Operator Name Role Phone Swathi Titus Primary Care Provider [phone] Reason for Visit * Reason Onset Date Comments Appointment Request 06/18/2023 Encounter Details Date Type Department Care Team ([facility] st Contact Info) Description 06/18/[address] [facility] MEDICINE [address] [place], [place] [phone] Swathi Titus ANP [address] [place] [address] Appointment Request Social History Tobacco Use Types [...] regards to needing a physical for work. Nuclear Reactor Technician did not see any availability with PCP. Please contact pt at [phone] documented in this encounter Plan of Treatment Upcoming Encounters Date Type Department Care Team (Late st Contact Info) Description 03/06/2025 11:00 AM EDT Office Visit [address] [address] Swathi Titus ANP [address] [place] [address] 03/10/2025 9:30 AM EDT Procedure Visit [address] [phone] Nazanin Willett CNM [address] [place] [address] documented as of this encounter Visit Diagnoses Not on filedocumented in this encounter Care Teams Jewel Oliving Machine Operator Relationship Specialty Start Date End Date Swathi Titus ANP [address] [place] [address] PCP - General Family Medicine 05/05/21 documented as of this encounter
--- OUTSIDE RECORDS SUMMARY | 2025-01-26 14:18 | XMS_ITS | Clinical Summary ---
Author Organization [facility] Address [address] [place] [address] Phone Care Team Providers Care Harvesting Supervisor Name Role Phone Physician, Pcp Unknown Primary Care Provider Ruth vailable Allergies No known active allergies Encounters Date Type Department Care Team Description 12/16/2024 1:43 PM EDT - 12/16/2024 3:45 PM EDT Emergency [facility] Emergency [address] [place] [address] Constipation, unspecified constipation type (Primary Dx) Discharge Disposition: Home or Self Care from Last 3 Months Surgical History Surgery Date Site/Laterality Comments OTHER SURGICAL HISTORY PROCEDURE: HISTORY OTHER; COMMENT: gastric sleeve, 10/2020 WISDOM TOOTH EXTRACTION PROCEDURE: HISTORICAL WISDOM TEETH EXTRACTION Medical History Medical History Date Comments Sleep apnea DX:Sleep apnea Type 2 diabetes mellitus wit hout complications ([facility]/HCC V24, CMS/HCC V28) DX:Type 2 ellis betes mellitus without complications ([facility]); COMMENT: taken off metformin at time of [...] 12/16/1994, 04/0 09/1991, 01/15/1990, Additional history exists MMR Vaccines Completed [...] Signed Date: 12/16/2024 15:46 ET Workstation ID: [id number] Transcribed By: Self Edit Transcribed Date: 12/16/2024 [...] Signed Date: 12/16/2024 15:46 ET Workstation ID: [id number] Transcribed By: Self Edit Transcribed Date: 12/16/2024 15:46 ET [facility] Aristeo Florez MD IMG XR PROCEDURES Final Result from Last 3 Months Insurance [facility] Care Teams Harvesting Supervisor Relationship Specialty Start Date End Date Physician, Pcp Unknown PCP - General 12/16/24
--- OUTSIDE RECORDS SUMMARY | 2025-01-26 14:18 | XMS_ITS | Clinical Summary ---
Author Organization [employer] Address [address] [facility] 7t [place] [address] Care Team Providers Care Traffic Warehouse Supervisor Name Role Phone Swathi Titus Primary Care Provider [phone] Allergies No known active allergies Medications Blood Glucose Monitoring Suppl (FreeStyle Baker Lite) w/Device kit USE TO TEST BLOOD [...] complication, without long-term current use of insulin (CMS/[facility]) Use to check BG twice daily 100 each 11 4 Active FreeStyle lancetsIndication s:Type 2 diabetes mellitus without complication, without long-term current use of insulin (CMS/[facility]) 1 each by Other route 2 times [...] Active nicotine polacrilex (Nicorette) 2 MG gumIndications:Mayra connie nicotine dependence without complication Chew 1 each [...] Encounters Date Type Department Care Team Description 01/26/2025 Telephone [facility] [address] [place] [address] Swathi Titus ANP Immunizations 01/20/2025 Refill [facility] [address] [place] [address] Swathi Titus ANP Type 2 diabetes mellitus without complication, without long-term current use of insulin ([facility]); Constipation, unspecified constipation type 01/06/2025 Refill [facility] [address] [place] [address] Swathi Titus ANP 12/16/2024 Telephone [facility] [address] [place] [address] Swathi Titus ANP Nurse Triage 12/12/2024 9:30 AM EDT Office Visit [facility] [address] [place] [address] Swathi Titus ANP Cigarette nicotine dependence without complication (Primary Dx); Class 2 severe obesity with serious comorbidity and body mass index (BMI) of 37.0 to 37.9 in adult, unspecified obesity type (CMS/HCC) 12/12/2024 Travel 12/05/2024 Travel 12/05/2024 Refill [facility] [address] [place] [address] Swathi Titus ANP Class 3 severe obesity with serious comorbidity and body mass index (BMI) of 40.0 to 44.9 in adult, unspecified obesity type ([facility]) 11/19/2024 Refill [facility] [address] [place] [address] Swathi Titus ANP 11/06/2024 Refill [facility] [address] [place] [address] Swathi Titus ANP Class 3 severe obesity with serious comorbidity and body mass index (BMI) of 40.0 to 44.9 in adult, unspecified obesity type ([facility]) (Primary Dx) 11/04/2024 Refill [facility] [address] [place] [address] Swathi Titus ANP Class 3 severe obesity with serious comorbidity and body mass index (BMI) of 40.0 to 44.9 in adult, unspecified obesity type ([facility]) 10/31/2024 Telephone [facility] [address], [place] [phone] Swathi Titus ANP Prior Authorization from Last 3 Months Immunizations Name Administration Dates Next Due DTaP 12/16/1994, 2,04/17/1990,1989,1989 Hep B, Adolescent or Pediatric 3,03/22/2001,03/12/2000,1998 Hib ([facility]) 04/17/1991,10/18/1990 Influenza injectable quadriv alent IIV4 [...] Description 03/06/2025 11:00 AM EDT Office Visit [facility] [address] [place] [phone] Swathi Titus, ANP [address] [place] [address] 03/10/2025 9:30 AM EDT Procedure Visit [facility] [address] [place] [address] Nazanin Willett, AMALIA [address], [place] [phone] Health Maintenance Due Date Last Done Comments [...] Vitamin D 25-OH Total 22.4(L) >30 ng/mL [facility] Comment: Health Based Reference Values*< 20 ??ng/mL ??Dmxypvhuk31-25 ng/mL ??Insufficient> 30 ??ng/mL ??Sufficient*Melissa DEL RIO. [...] Provider LAB BLOOD ORDERAB LES Final Result [facility] [address] [place] [address] [phone] * (ABNORMAL) Vitamin B12 (Cobalamin) and Folate Panel, Serum (12/11/2024 7:38 AM EDT) Vitamin B12 1,101(H) 200 - 900 pg/mL [facility] Comment:NORMAL 200-900 PG/ML INDETERMINATE 160-199 PG/ML DEFICIENT < 160 PG/ML Folate 9.0 > or = 4.0 ng/mL [facility] Comment:Reference Values:> o r = 4.0 ng/mL< 4.0 ng/mL suggests folate deficiency Methotrexate, aminopterin and folinic acid(leucovorin) are chemotherapeutic agents whose molecularstructures are similar to folate; therefore, the Architectfolate assay cannot be used for patients using these drugs. 12/11/2024 7:38 AM EDT 12/11/2024 7:38 AM EDT us Generic External Data Provider LAB BLOOD ORDERAB LES Final Result Performing Organization Address City/[facility]/ZIP Co de Phone Number [facility] [address] [place] [address] [phone] * TSH with Reflex to Free T4 (12/11/2024 7:38 AM EDT) Pathologist [facility] TSH reflex Free T4 0.60 0.32 - 4.0 uIU/mL [facility] 12/11/2024 7:38 AM EDT 12/11/2024 7:38 AM EDT Generic External Data Provider LAB BLOOD ORDERAB LES Final Result Performing Organization Address [facility] Co de Phone Number [facility] [address] [place] [phone] * CBC auto differential (12/11/2024 7:38 AM EDT) [facility] White Blood Count 9.0 4.8 - 10.8 X10*3/uL [facility] Red Blood Count 4.98 4.20 - 5.50 X10*6/uL [facility] Hemoglobin 14.5 12.0 - 16.0 g/dl [facility] Hematocrit 44.0 37.0 - 47.0 % [facility] Mean Corpuscular Volume 88.4 80.0 - 98.0 fL [facility] Mean Corpuscular Hemoglobin 29.1 27.0 - 33.0 pg [facility] Mean Corpuscular HGB Conc 33.0 31.0 - 35.0 g/dl [facility] Red Cell Distribution Width 13.2 11.0 - 16.0 % [facility] Platelet Count 288 160 - 400 X10*3/uL [facility] Mean Platelet Volume 10.7 9.4 - 12.3 fL [facility] Neutrophils Percent Auto 57.7 45 - 73 % [facility] Imm Gran Pct Auto 0.2 0.0 - 0.4 % [facility] Lymphocytes Percent Auto 30.9 20 - 40 % [facility] Monocytes Percent Auto 7.1 2 - 11 % [facility] Eosinophils Percent Auto 3.7 0 - 4 % [facility] Basophils Percent Auto 0.4 0 - 2 % [facility] NRBC Pct Auto 0.0 0.0 - 0.2 /100WBC [facility] Neutrophils Absolute Auto 5.2 2.0 - 8.3 x10*3/uL [facility] Imm Gran Abs Auto 0.02 0.00 - 0.03 X10*3/uL [facility] Lymphocytes Absolute Auto 2.8 1.2 - 4.9 X10*3/uL [facility] Monocytes Absolute Auto 0.6 0.1 - 1.2 X10*3/uL [facility] Eosinophils Absolute Auto 0.3 0.0 - 0.4 X10*3/uL [facility] Basophils Absolute Auto 0.0 0.0 - 0.2 X10*3/uL [facility] NRBC Abs Auto 0.000 0.0 - 0.012 X10*3/uL [facility] 12/11/2024 7:38 AM EDT 12/11/2024 7:38 AM EDT us Generic External Data Provider LAB BLOOD ORDERAB LES Final Result [facility] [address] [place] [phone] * Iron And Total Iron Binding Capacity (12/11/2024 7:38 AM EDT) Iron 71 30 - 160 mcg/dL [facility] Total Iron Binding Capacity 251 228 - 428 mcg/dL [facility] Percent Iron Saturation 28 15 - 50 % [facility] Unsaturated Iron Binding 180 ug/dL [facility] 12/11/2024 7:38 AM EDT 12/11/2024 7:38 AM EDT Generic External Data Provider LAB BLOOD ORDERAB LES Final Result Performing Organization Address [facility] Co de Phone Number [facility] [address] [place] [phone] * Insulin (12/11/2024 7:38 AM EDT) Insulin 14 2 - 29 uU/mL [facility] Comment:This test was perfor med using [...] ORDERAB LES Final Result Performing Organization Address [facility] Co de Phone Number [facility] [address] [place] [phone] * Zinc (12/11/2024 7:38 AM EDT) Zinc 75 60 - 130 mcg/dL [facility] Comment:This test was develo ped and its analytical performancecharacteristics have been determined by [employer] [place], [place]. It hasnot been cleared or approved by the U.S. Food and DrugAdministration. This assay has been validated pursuantto the CLIA regulations and is used for clinicalpurposes.THIS TEST WAS PERFORMED AT:[id number] [place] [address]GUCQNJCSATINDER FONTENOT MD,PHD 12/11/2024 7:38 AM EDT 12/11/2024 7:38 AM EDT Generic External Data Provider LAB BLOOD ORDERAB LES Final Result Performing Organization Address [facility] Co de Phone Number [facility] [address] [place] [phone] * Vitamin A (12/11/2024 7:38 AM EDT) [facility] Vitamin A (Retinol) 57 38 - 98 mcg/dL [facility] Comment:Vitamin supplementat ion within 24 hours prior toblood draw may affect the accuracy of the results.This test was developed and its analytical performancecharacteristics have been determined by [employer] [place], [place]. It hasnot been cleared or approved by the U.S. Food and DrugAdministration. This assay has been validated pursuantto the CLIA regulations and is used for clinicalpurposes.THIS TEST WAS PERFORMED AT:[employer] [place] [address]HYDBXBH W. MASON,MD,PHD 12/11/2024 7:38 AM EDT 12/11/2024 7:38 AM EDT us Generic External Data Provider LAB BLOOD ORDERAB LES Final Result Performing Organization Address [facility] de Phone Number [facility] [address] [place] [phone] * C-reactive Protein (12/11/2024 7:38 AM EDT) [facility] C Reactive Protein 0.24 < or = 0.50 mg/dL [facility] 12/11/2024 7:38 AM EDT 12/11/2024 7:38 AM EDT us Generic External Data Provider LAB BLOOD ORDERAB LES Final Result Performing Organization Address [facility] Co de Phone Number [facility] [address] [place] [phone] * Vitamin B1 (12/11/2024 7:38 AM EDT) [facility] Vitamin B1 24 8 - 30 nmol/L [facility] Comment:Vitamin supplementat ion within 24 hours prior toblood draw may affect the accuracy of the results.This test was developed and its analytical performancecharacteristics have been determined by [employer] [place], [place]. It hasnot been cleared or approved by the U.S. Food and DrugAdministration. This assay has been validated pursuantto the CLIA regulations and is used for clinicalpurposes.THIS TEST WAS PERFORMED AT:[facility] [place] [address]TIDLZQJSATINDER FONTENOT MD,PHD 12/11/2024 7:38 AM EDT 12/11/2024 7:38 AM EDT us Generic External Data Provider LAB BLOOD ORDERAB LES Final Result Performing Organization Address [facility]/ZIP Co de Phone Number [facility] [address] [place] [phone] * Hemoglobin A1c (12/11/2024 7:38 AM EDT) Pathologist [facility] Hemoglobin A1c 5.2 <6.0 % [facility] Comment:Hemoglobin A1C Refer ence Range Adults: 4.8 - 6.0 % Non diabetic: < 6.0 % Goal: < 7.0 %Additional Action Suggested: > 8.0 %Note: Hemoglobin A1c results are invalid for patients with abnormal amounts of HbF. Blood transfusions may impact the HbA1c concentration in the patient sample. Estimated Average Glucose 103 mg/dL [facility] Comment:eAG = Estimated ave rage glucose which is %A1C expressed asaverage glucose, using the formula of the C4H-XtejxrxWxjlppy Glucose study (ADAG), Diabetes Care, Vol.31,#8,Apr. 2007 12/11/2024 7:38 AM EDT 12/11/2024 7:38 AM EDT us Generic External Data Provider LAB BLOOD ORDERAB LES Final Result Performing Organization Address [facility]/ZIP Co de Phone Number [facility] [address] [place] [address] [phone] * Ferritin (12/11/2024 7:38 AM EDT) Ferritin 89 10 - 122 ng/mL [facility] 12/11/2024 7:38 AM EDT 12/11/2024 7:38 AM EDT us Generic External Data Provider LAB BLOOD ORDERAB LES Final Result Performing Organization Address [facility] Co de Phone Number [facility] [address] [place] [phone] * Lipid Panel, Standard (12/11/2024 7:38 AM EDT) Triglycerides 76 <150 mg/dL [facility] Comment:Desirable Triglyceri de: less than 150 mg/dLBorderline High Triglyceride 150-199 mg/dLHigh Triglyceride: 200-499 mg/dLVery High Triglyceride: greater than or equal to 5OO mg/dL Cholesterol 167 <200 mg/dL [facility] Comment:Desirable Cholestero l: less than 200 mg/dLBorderline High Cholesterol: 200-239 mg/dLHigh Cholesterol: greater than 239 mg/dL LDL Cholesterol Calculated 96 <100 mg/dL [facility] Comment:Desirable LDL: less than 100 mg/dLNear Optimal/Above Optimal LDL: 110- 129 mg/dLBorderline High LDL: 130-159 mg/dLHigh LDL: 160-189 mg/dLVery High LDL: greater than or equal to 190 mg/dL HDL Cholesterol 56 >40 mg/dL [facility] Comment:Desirable HDL: great er than 40 mg/dL Note: This HDL assay may give artificially low results in patients with liver disease. 12/11/2024 7:38 AM EDT 12/11/2024 7:38 AM EDT us Generic External Data Provider LAB BLOOD ORDERAB LES Final Result Performing Organization Address City/[facility]/ZIP Co de Phone Number [facility] [address] [place] [address] [phone] * (ABNORMAL) Comprehensive Metabolic Panel (12/11/2024 7:38 AM EDT) [facility] Sodium 141 135 - 145 mmol/L [facility] Potassium 4.1 3.3 - 5.1 mmol/L [facility] Chloride 108 96 - 108 mmol/L [facility] Carbon Dioxide 28 22 - 29 mmol/L [facility] Anion Gap 9(L) 12 - 20 [facility] Urea Nitrogen (BUN) 14 9 - 16 mg/dL [facility] Creatinine, Serum 0.66 0.5 - 1.4 mg/dL [facility] Estimated Glomerular Filt Rate >60 [facility] Comment:Chronic Kidney Disea se: Estimated GFR < 60 mL/min/1.42w2Eivnqo Kidney Disease: Estimated GFR < 15 mL/min/1.73m2 Glucose 91 60 - 115 mg/dL [facility] Calcium 9.8 8.4 - 10.2 mg/dL [facility] Bilirubin, Total 0.4 0.0 - 1.0 mg/dL [facility] Aspartate Amino Transferase 18 5 - 31 U/L [facility] Alanine Aminotransferase 20 0 - 31 U/L [facility] Total Protein 7.4 6.5 - 8.0 g/dL [facility] Albumin Level 4.3 3.5 - 5.0 g/dL [facility] Alkaline Phosphatase 62 39 - 117 U/L [facility] 12/11/2024 7:38 AM EDT 12/11/2024 7:38 AM EDT us Generic External Data Provider LAB BLOOD ORDERAB LES Final Result [facility] [address] [place] [address] [phone] * Albumin, Random Urine W/Creatinine (07/29/2024 11:50 AM EST) [facility] Creatinine, Urine 208.04 mg/dL [facility] Microalbumin Urine 14.0 mg/L [facility] Microalbum Creatinine Ratio Ur 6.7 <30 ug/mg cr [facility] Comment:Albumin/Creatinine R atio Reference Ranges: Normal: < 30 ug/mg creatinine Microalbuminuria: 30 - 300 ug/mg creatinineClinical Albuminuria: > 300 ug/mg creatinine 07/29/2024 11:5 0 AM EST 07/29/2024 6:13 PM EST us Swathi Titus ANP LAB URINE ORDERABLES Final Resul t Performing Organization Address City/[facility]/ZIP Co de Phone Number [facility] [address] [place] [address] [phone] * HEPATITIS C AB W/REFL TO HCV RNA, QN, PCR (05/26/2021 10:33 AM EDT) Pathologist [facility] HEPATITIS C ANTIBODY NON-REACT ABIGAIL NON-REACT ABIGAIL [facility] INDEX 0.02 <1.00 [facility] Comment: ?? HCV antibody was non-reactive. There is no laboratory ?? evidence of HCV infection. ?? In most cases, no further action is required. However, if recent HCV exposure is suspected, a test for HCV RNA (test code 93342) is suggested. ?? For additional information please refer to http://education.Isentropic/faq/PRF74q5 (This link is being provided for informational/ educational purposes only.) ?? 05/26/2021 10:3 3 AM EDT Historical Provider MD HISTORICAL/NON ORDERABLE LABS Final Result Performing Organization Address City/[facility]/ZIP Co de Phone Number [facility] [address] * HIV 1/2 ANTIGEN/ANTIBODY,FOURTH GENERATION W/RFL (05/26/2021 10:33 AM EDT) HIV-1/2 ANTIGEN AND ANTIBODIES, 4TH GENERATION W/ REFLEX NON-REACT ABIGAIL NON-REACT ABIGAIL [facility] Comment: HIV-1 antigen and HIV-1/HIV-2 [...] ? For additional information please refer to http://education.Isentropic/faq/JTM046 (This link is being provided for informational/ educational purposes only.) ? The performance of this assay has not been clinically validated in patients less than 2 years old. ?? 05/26/2021 10:3 3 AM EDT Historical Provider LAB BLOOD ORDERABLES Rosemary mayfield Result Performing Organization Address City/State/ZIP Co de [facility] [address] * PAP/HPV (05/04/2020) Pap Negative for intraephithelial lesion or malignancy Negative for intraephithelial lesion or malignancy, Epithelial cell abnormality HPV Not Detected Undetected, Indeterminate, Quantitative, Not Detected us Historical Provider HEALTH MAINTENANCE Final Result from Last 3 Months or Most Recently Relevant to Health Maintenance Insurance [facility] n[facility] Care Teams Traffic Warehouse Supervisor Relationship Specialty Start Date End Date Swathi Titus ANP [address] [place] [phone] PCP - General Family Medicine 05/05/21
--- OUTSIDE RECORDS SUMMARY | 2025-01-26 14:18 | XMS_ITS | Encounter Summary ---
Author Organization [employer] Address [address] [facility] 7t [place] [address] Care Team Providers Care Health Service Coordinator Name Role Phone Swathi Titus Primary Care Provider [phone] Encounter Details Date Type Department Care Team (Late Contact Info) Description 11/12/2022 Orders Only [address] [phone] Swathi Titus ANP [address] [place] [address] [phone] Social History Tobacco Use Types Packs/Day Years [...] Description 03/06/2025 11:00 AM EDT Office Visit [address] [phone] Swathi Titus ANP [address] [place] [address] [phone] 03/10/2025 9:30 AM EDT Procedure Visit [facility] [address] [place], [place] [phone] Nazanin Willett, AMALIA [address] [place] [place], [place] [phone] documented as of this encounter Procedures Procedure Name Priority Date/Time Associated Diagnosis Comments T-SPOT(R).TB Routine 07/19/2023 10:33 AM EDT documented in this encounter Results * T-SPOT??.TB (07/19/2023 10:33 AM EDT) T Spot TB Negative Negative [facility] Comment:A negative test resu [...] as aquantitative test. TS PANEL A 0 [facility] TS PANEL B 0 [facility] Negative Control Passed [facility] Positive Control Passed [facility] Comment:For additional infor roel, please refer tohttp://education.AvePoint/faq/CYF859(This link is being provided for informational/educational purposes only.)THIS TEST WAS PERFORMED AT:[facility] [id number] [place] [address]APXNWGYSATINDER FONTENOT MD,PHD 07/19/2023 10:3 3 AM EDT 07/19/2023 11:25 AM EDT Swathi THEODORE LAB BLOOD ORDERABLES Final Resul t [facility] [address] [place] [phone] [phone] documented in this encounter Visit Diagnoses Not on filedocumented in this encounter Care Teams Health Service Coordinator Relationship Specialty Start Date End Date Swathi Titus ANP [address] [place] [phone] PCP - General Family Medicine 05/05/21 documented as of this encounter
--- OUTSIDE RECORDS SUMMARY | 2025-01-26 14:18 | XMS_ITS | Encounter Summary ---
Author Organization [employer] Address [address] [facility] 7t [place] [address] Care Team Providers Care Universal Worker Assisted Living Name Role Phone Swathi Titus Primary Care Provider [phone] Reason for Visit * Reason Onset Date Comments Med Refill 08/29/2024 Encounter Details Date Type Department Care Team (Late st Contact Info) Description 08/29/2024 Refill [facility] [address] [place], [place] [phone] Swathi Titus ANP [address] [place] [address] Prediabetes; Class 3 severe obesity with serious [...] Description 03/06/2025 11:00 AM EDT Office Visit [facility] [address] [place] [phone] Swathi Titus ANP [address] [place] [address] 03/10/2025 9:30 AM EDT Procedure Visit [facility] [address] [place] [phone] Nazanin Willett CNM [address] [place] [phone] documented as of this encounter Visit Diagnoses Diagnosis Prediabetes Other abnormal glucose Class 3 severe obesity with serious comorbidity and body mass index (BMI) of 40.0 to 44.9 in adult, unspecified obesity type documented in this encounter Additional Health Concerns Assessment Noted Time PHQ-9 Depression Total Score: 0 07/29/20 24 10:52 AM EST documented as of this encounter Care Teams Universal Worker Assisted Living Relationship Specialty Start Date End Date Swathi Titus ANP [address] [place] [phone] PCP - General Family Medicine 05/05/21 documented as of this encounter
--- OUTSIDE RECORDS SUMMARY | 2025-01-26 14:18 | XMS_ITS | Encounter Summary ---
Author Organization [employer] Address [address] [facility] 7t [place] [address] Care Team Providers Care Audio/Visual Manager Name Role Phone Swathi Titus Primary Care Provider [phone] Reason for Visit * Reason Onset Date Comments Med Refill 01/06/2025 Encounter Details Date Type Department Care Team (Late st Contact Info) Description 01/06/2025 Refill [facility] [address] [place], [place] [phone] Swathi Titus ANP [address] [place] [address] Social History Tobacco Use Types Packs/Day Years [...] AM EDT Office Visit [facility] [address] [place] [phone] Swathi Titus ANP [address] [place] [address] 03/10/2025 9:30 AM EDT Procedure Visit [facility] [address] [place] [phone] Nazanin Willett CNM [address] [place] [address] documented as of this encounter Visit Diagnoses Not on filedocumented in this encounter Additional Health Concerns Assessment Noted Time PHQ-9 Depression Total Score: 0 07/29/20 10:52 AM EST documented as of this encounter Care Teams Audio/Visual Manager Relationship Specialty Start Date End Date Swathi Titus ANP [address] [place] [phone] PCP - General Family Medicine 05/05/21 documented as of this encounter
--- OUTSIDE RECORDS SUMMARY | 2025-01-26 14:18 | XMS_ITS | Encounter Summary ---
Author Organization [employer] Address [address] [facility] 7t [place] [address] Care Team Providers Care Heel Attacher Wood Name Role Phone Swathi Titus Primary Care Provider [phone] Reason for Visit * Reason Onset Date Comments Med Refill 11/04/2024 Encounter Details Date Type Department Care Team (Late st Contact Info) Description 11/04/2024 Refill [facility] [address] [place], [place] [phone] Swathi Titus ANP [address] [place] [address] Class 3 severe obesity with serious comorbidity [...] Description 03/06/2025 11:00 AM EDT Office Visit [facility] [address] [place] [phone] Swathi Titus ANP [address] [place] [phone] 03/10/2025 9:30 AM EDT Procedure Visit [facility] [address] [place] [phone] Nazanin Willett CNM [address] [place] [address] documented as of this encounter Visit Diagnoses Diagnosis Class 3 severe obesity with serious comorbidity and body mass index (BMI) of 40.0 to 44.9 in adult, unspecified obesity type documented in this encounter Additional Health Concerns Assessment Noted Time PHQ-9 Depression Total Score: 0 07/29/20 24 10:52 AM EST documented as of this encounter Care Teams Heel Attacher Wood Relationship Specialty Start Date End Date Swathi Titus ANP [address] [place] [id number] PCP - General Family Medicine 05/05/21 documented as of this encounter
[2025-01-28 23:19] LABS: TS Negative Control Passed; TS Panel A 0; TS Panel B 2; TS Positive Control Passed; TSpotTB Negative (Negative)
== END 2025-01-26 14:01 | disposition home or self-care (01) ==
LOC: HO.HHCL 14:00
PROVIDERS: Visit Provider Nurse Practitioner Primary Care
DX: Z11.1 Encounter for screening for respiratory tuberculosis (principal)
CPT/HCPCS: 36415; 86481

== ENCOUNTER 2025-02-19 08:19 | Outpatient (AMB) | payer OTHER, SELFPAY ==
--- NOTE | 2025-02-19 08:20 | A.OFFVIS_ITS ---
VS Expanded 02/19/25 08:29 BP 121/63 Blood Pressure Location Rt brachial Blood Pressure Position Sitting Pulse 80 Pulse Source Pulse Oximeter Temp 97.7 F Temperature Source Temporal Artery Scan Pulse Oximetry 100 Oxygen Delivery Method Room Air Height 5 ft 4 in Weight 202 lb 6.4 oz BMI 34.7 Body Fat % 39.9 Body Fat Mass 80.6 Fat Free Mass 121.6 Visceral Fat Rating 8.0 Body Water % 43.1 Body Water Mass 87.4 Muscle Mass/Score 115.6 Basal Metabolic Rate/Score 1,696 Intake Visit Reasons: (OV) PO LSG 11/02/20 Allergies No Known Allergies [No Known Allergies*] Allergy (Mild, Verified 02/19/25 08:24) NOT APPLICABLE HPI Comments Details: Patient is a pleasant 34-year-old female who returns to the office today to be seen. She is approximately 4 years 4 months post sleeve gastrectomy performed 11/02/2020. Weight today is 202.4 pounds with a BMI of 34.8. Her initial weight was 327 pounds in 2019. Weight at the time of surgery was 272.3 lb. Weight loss of 124.6 lb since initiating the program or 38.1 % total body weight loss and 69.9 lb or 25.6% total body weight loss since surgery. Since starting Zepbound from her primary care doctor, her appetite has decreased. She states that over the last couple of years, she has had poor n utrition, eating junk food and sweets. Since starting the Zepbound, her appetite has significantly decreased. She is now having a shake in the morning. She also recently started exercising. Additionally, of greater concern is her excess skin of her abdomen. Due to the abdominal pannus, she gets rashes underneath the skin fold. These rashes would occur 2-3 times per month. She is using [id number]-[id number] ointments with some improvement although never total resolution. The rash is described as painful, itchy, has an odor to it. This has caused her to have increased hygiene needs, requiring washing of the area 2-3 times per day. Certainly worse in the warmer months. She also has difficulty with clothes fitting properly. States she has quit smoking 3 weeks ago. She has also decreased celcius caffeine drink to 1 per day from 2-3 per day. Discussed if she is going to use [employer] ready to drink shake in the evening, to only have 4 oz of the 42 g however recommend the 26 g and have half or premier protein ready to drink, also having only half. States using [email or web address] 42 gm shake 1/2 shake 4 forks tuna, salad not measuring 1 egg herbalife bar Meal plan: celebrate 4 in 1 2 scoops w almond milk at 8-10 herbalife protein bar, 10 gm protein 11-1 salad with tuna or chicken breast 7 forks protein and 5 forks veg fairlife rtd shake 42 gm drinking 16 oz additional water per day Exercise plan: Weight training and cardio at [employer] treadmill 5 days per week, 300-350 calories, speed 3.5, incline 8 PFSH Medical History Left ventricular hypertrophy Steatosis, liver Dysmenorrhea Eczema Lower extremity edema Knee pain Arthritis EVERARDO on CPAP GERD (gastroesophageal reflux disease) Sleep apnea Diabetes Morbid obesity Vitamin D deficiency Surgical History History of sleeve gastrectomy History of wisdom tooth extraction, class II edentulism Family History Father Kidney failure Diabetes CVD (cardiovascular disease) Mother Diabetes HTN (hypertension) Sister No problems noted. Sister No problems noted. Sister No problems noted. Sister No problems noted. Son No problems noted. Daughter No problems noted. Daughter No problems noted. 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 Discussed the importance of both. Given information regarding right BMI lu. she will resume exercise with a goal of burning 350-400 calories per day. We will have her return to the office in approximately 1 month. She was encouraged and congratulated for quitting smoking.
[2025-02-19 08:29] VITALS: BP 121/63; PULSE 80; TEMP 36.5; O2SAT 100; BMI 34.7
--- OUTSIDE RECORDS SUMMARY | 2025-02-19 08:29 | XMS_ITS | Encounter Summary ---
Author Organization [employer] Address [address] [facility] 7t [place] [address] Care Team Providers Care Medical Service Technician Name Role Phone Swathi Titus Primary Care Provider [phone] Reason for Visit * Reason Onset Date Comments Nurse Triage 11/19/2023 Encounter Details Date Type Department Care Team ([facility] st Contact Info) Description 11/19/2023 Telephone [facility] [address] [place], [place] [phone] Swathi Titus ANP [address] [place] [address] Nurse Triage Social History Tobacco Use Types [...] Description 03/06/2025 11:00 AM EDT Office Visit [facility] [address] [place] [address] Swathi Titus ANP [address] [place] [address] 03/10/2025 9:30 AM EDT Procedure Visit [facility] [address] [place] [address] Nazanin Willett CNM [address] [place] [address] documented as of this encounter Visit Diagnoses Not on filedocumented in this encounter Additional Health Concerns Assessment Noted Time PHQ-9 Depression Total Score: 11 023 10:26 AM EDT documented as of this encounter Care Teams Medical Service Technician Relationship Specialty Start Date End Date Swathi Titus ANP [address] [place] [address] PCP - General Family Medicine 05/05/21 documented as of this encounter
== END 2025-02-19 08:49 | disposition home or self-care (01) ==
LOC: HO.HBS 08:19
PROVIDERS: PCP Nurse Practitioner Primary Care; Visit Provider Physician Assistant Surgical
DX: E66.9 Obesity, unspecified (principal); Z68.34 Body mass index [BMI] 34.0-34.9, adult; Z90.3 Acquired absence of stomach [part of]; Z98.84 Bariatric surgery status
CPT/HCPCS: 99213

== ENCOUNTER → 2025-02-19 08:19 | Outpatient (BNVA) | payer OTHER, SELFPAY | PROVIDERS: PCP Nurse Practitioner Primary Care; Visit Provider Physician Assistant Surgical | DX: E66.01 Morbid (severe) obesity due to excess calories (principal); Z98.84 Bariatric surgery status; Z68.34 Body mass index [BMI] 34.0-34.9, adult | CPT/HCPCS: 99212 ==

== ENCOUNTER 2025-03-23 08:46 | Outpatient (REF) | payer OTHER, SELFPAY ==
--- OUTSIDE RECORDS SUMMARY | 2025-03-24 09:02 | XMS_ITS | Encounter Summary ---
Author Organization [employer] Address [address] [facility] 7t [place] [address] Care Team Providers Care Integration Solution Architect Name Role Phone Swathi Titus Primary Care Provider [phone] Reason for Visit * Reason Onset Date Comments Nurse Triage 11/19/2023 Encounter Details Date Type Department Care Team ([facility] st Contact Info) Description 11/19/2023 Telephone [facility] [address] [place], [place] [phone] Swathi Titus ANP [address] [place] [address] Nurse Triage Social History Tobacco Use Types [...] Care Team (Late st Contact Info) Description 04/07/2025 9:00 AM EDT Office Visit [facility] OPTOMETRY [address] [place] [address] 06/09/2025 10:15 AM EDT Office Visit [facility] [address] [place] [address] Swathi Titus ANP [address] [place] [address] documented as of this encounter Visit Diagnoses Not on filedocumented in this encounter Additional Health Concerns Assessment Noted Time PHQ-9 Depression Total Score: 11 023 10:26 AM EDT documented as of this encounter Care Teams Integration Solution Architect Relationship Specialty Start Date End Date Swathi Titus ANP [address] [place] [address] PCP - General Family Medicine 05/05/21 documented as of this encounter
--- OUTSIDE RECORDS SUMMARY | 2025-03-24 09:02 | XMS_ITS | Clinical Summary ---
Author Organization [facility] Address [address] [place] [address] Phone Care Team Providers Care Plaster Caster Name Role Phone Physician, Pcp Unknown Primary Care Provider Ruth vailable Allergies No known active allergies Surgical History Surgery Date Site/Laterality Comments OTHER SURGICAL HISTORY PROCEDURE: HISTORY OTHER; COMMENT: gastric sleeve, 10/2020 WISDOM TOOTH EXTRACTION PROCEDURE: HISTORICAL WISDOM TEETH EXTRACTION Medical History Medical History Date Comments Sleep apnea DX:Sleep apnea Type 2 diabetes mellitus wit hout complications ([facility] V24, [facility] V28) DX:Type 2 ellis betes mellitus without complications ([facility]); COMMENT: taken off metformin at time of [...] 99 12/16/2024 11:55 AM EDT Temperature 37.1 C (98.8 F) 12/16/2024 11:55 AM EDT Respiratory Rate 20 12/16/2024 11:55 AM EDT [...] COVID-19 Vaccine ( season) 2024 Influenza Vaccine (#1) 2025 , 06/27/2016, 10/10/2012 Depression Screening 07/29/2025 07/29/2024 Cholesterol Screening (Lipid Panel) 12/11/2029 12/11/2024 DTaP,Tdap,and Td Vaccines (10 - Td or Tdap) 05/04/2032 05/04/2022, 04/10/2012, 07/06/2003, Additional history exists HIB Vaccines Completed 04/17/1991, 10/18/1990 IPV Vaccines Completed 12/16/1994, 09/1991, 01/15/1990, Additional history exists MMR Vaccines Completed 12/16/1994, 04/17/1991 Hepatitis B Vaccines Completed 07/06/2003, 03/22/2001, 03/12/2000, Additional history exists HIV Screening Completed 05/26/2021 Pneumococcal Vaccine: Pediatrics (0 to 5 Years) and At-Risk Patients (6 to 49 Years) Aged Out 07/29/2024 No longer eligible [...] on patient's age to complete this topic Insurance [facility] Care Teams Plaster Caster Relationship Specialty Start Date End Date Physician, Pcp Unknown PCP - General 12/16/24
== END 2025-03-23 08:47 | disposition home or self-care (01) ==
LOC: HO.LNP 08:46
PROVIDERS: Visit Provider Advanced Practice Midwife
DX: Z12.4 Encounter for screening for malignant neoplasm of cervix (principal)
CPT/HCPCS: 87626; 88175

== ENCOUNTER 2025-03-23 16:45 | Outpatient (REF) | payer OTHER, SELFPAY | END 2025-03-23 16:46 | disposition home or self-care (01) | LOC: HO.HHCLNP 16:45 | PROVIDERS: Visit Provider Advanced Practice Midwife | DX: Z13.89 Encounter for screening for other disorder (principal) ==

== ENCOUNTER 2025-04-10 08:10 | Outpatient (AMB) | payer OTHER, SELFPAY ==
--- NOTE | 2025-04-10 08:13 | A.OFFVIS_ITS ---
VS Expanded 04/10/25 08:26 BP 166/64 H Blood Pressure Location Rt brachial Blood Pressure Position Sitting Pulse 64 Pulse Source Pulse Oximeter Temp 97.3 F Temperature Source Temporal Artery Scan Pulse Oximetry 100 Oxygen Delivery Method Room Air Height 5 ft 4 in Weight 197 lb BMI 33.8 Body Fat % 37.7 Body Fat Mass 74.2 Fat Free Mass 122.6 Visceral Fat Rating 8 Body Water % 44.7 Body Water Mass 88 Muscle Mass/Score 116.4 Intake Visit Reasons: (OV) PO LSG 11/02/20 Allergies No Known Allergies (No Known Allergies*) Allergy (Mild, Verified 02/19/25 08:24) NOT APPLICABLE HPI Comments Details: Patient is a pleasant 34-year-old female who returns to the office today to be seen. She is approximately 4 years 5 months post sleeve gastrectomy performed 11/02/2020. Weight today is 197 pounds with a BMI of 33.8. Her initial weight was 327 pounds in 2019. Weight at the time of surgery was 272.3 lb. Weight loss of 130 lb since initiating the program or 39.7 % total body weight loss and 75.3 lb or 27.6% total body weight loss since surgery. Since starting Zepbound from her primary care doctor, her appetite has decreased. She states that over the last couple of years, she has had poor nutrition, eating junk food and sweets. Since starting the Zepbound, her a ppetite has significantly decreased. She is now having a shake in the morning. She also recently started exercising. Additionally, of greater concern is her excess skin of her abdomen. Due to the abdominal pannus, she gets rashes underneath the skin fold. These rashes would occur 2-3 times per month. She is using fsfp-zof-[id number] ointments with some improvement although never total resolution. The rash is described as painful, itchy, has an odor to it. This has caused her to have increased hygiene needs, requiring washing of the area 2-3 times per day. Certainly worse in the warmer months. She also has difficulty with clothes fitting properly. States she has quit smoking. She had vacation in [place]. [place] the . She has started exercising in but has not create a meal plan on [employer] lu. She was given information about this last visit. We have given her another copy of the paper regarding information about the right [employer] lu. States using premier protein 1/2 shake herbalife protein bar salad w salmon drinking 24 oz water daily, no soda or juice Exercise plan: 2 weeks in the last month [employer] treadmill 5 days per week, 350-400 calories, speed 3.5, incline 15 PFSH Medical History Left ventricular hypertrophy Steatosis, liver Dysmenorrhea Eczema Lower extremity edema Knee pain Arthritis EVERARDO on CPAP GERD (gastroesophageal reflux disease) Sleep apnea Diabetes Morbid obesity Vitamin D deficiency Surgical History History of sleeve gastrectomy History of wisdom tooth extraction, class II edentulism Family History Father Kidney failure Diabetes CVD (cardiovascular disease) Mother Diabetes HTN (hypertension) Sister No problems noted. Sister No problems noted. Sister No problems noted. Sister No problems noted. Son No problems noted. Daughter No problems noted. Daughter No problems noted. 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 additionally, encouraged to burn 400 calories or more per session during exercise. Consistency and discipline with her meal plan is essential. We will have her return to the [facility] in a proximally 1 month
--- OUTSIDE RECORDS SUMMARY | 2025-04-10 08:15 | XMS_ITS | Encounter Summary ---
Author Organization [facility] Address [address] [place] [phone] Phone Care Team Providers Care Vocational Education Professional Name Role Phone Giovana Choi MD Primary Care Provi megha Swathi Titus NP Primary Care Provider Encounter Details Date Type Department Care Team (Late st Contact Info) Description 02/06/2020 Transcribe Orders [facility] Specimen Processing [address] [place] [address] Aric Jones MD [address] [facility] [place] [address], [address] [place] [address] [email or web address] Social History Tobacco Use Types Packs/Day Years Used Date Smoking Tobacco: Never Assessed Comments Unknown Sex and Gender Information Value Date Recorded Sex Assigned at Not on file Legal Sex Female 2:29 PM EDT Gender Identity Not on file Sexual Orientation Not on file documented as of this encounter Plan of Treatment Not on file documented as of this encounter Visit Diagnoses Not on filedocumented in this encounter Care Teams Vocational Education Professional Relationship Specialty Start Date End Date Giovana Choi MD [address] [place], [place] [phone] PCP - General 07/03/17 09/17/23 Swathi Titus NP [address] [place], [place] [phone] PCP - General Nurse Practitioner 1/2/24 documented as of this encounter Additional Source Comments The information contained in this document represents components of the legal health record. It is not the complete legal health record.[facility]
--- OUTSIDE RECORDS SUMMARY | 2025-04-10 08:15 | XMS_ITS | Encounter Summary ---
Author Organization [employer] Address [address] [facility] 7t [place] [address] Care Team Providers Care Nanny Caregiver Name Role Phone Swathi Titus Primary Care Provider [phone] Reason for Visit * Reason Onset Date Comments Med Refill 02/04/2025 Encounter Details Date Type Department Care Team ([facility] st Contact Info) Description 02/04/2025 Refill [facility] [address] [place], [place] [phone] Swathi Titus ANP [address] [place] [address] Social History Tobacco Use Types Packs/Day Years [...] Care Team (Late st Contact Info) Description 04/14/2025 10:00 AM EDT Office Visit [facility] OPTOMETRY [address] [place] [address] 06/09/2025 10:15 AM EDT Office Visit [facility] [address] [place] [address] Swathi Titus ANP [address] [place] [address] documented as of this encounter Visit Diagnoses Not on filedocumented in this encounter Additional Health Concerns Assessment Noted Time PHQ-9 Depression Total Score: 0 07/29/20 24 10:52 AM EST documented as of this encounter Care Teams Nanny Caregiver Relationship Specialty Start Date End Date Swathi Titus ANP [address] [place] [address] PCP - General Family Medicine 05/05/21 documented as of this encounter
--- OUTSIDE RECORDS SUMMARY | 2025-04-10 08:16 | XMS_ITS | Clinical Summary ---
Author Organization [facility] Address [address] [place] [address] Phone Care Team Providers Care Motor Vehicle Technician Name Role Phone Physician, Pcp Unknown Primary Care Provider Ruth vailable Allergies No known active allergies Surgical History Surgery Date Site/Laterality Comments OTHER SURGICAL HISTORY PROCEDURE: HISTORY OTHER; COMMENT: gastric sleeve, 10/2020 WISDOM TOOTH EXTRACTION PROCEDURE: HISTORICAL WISDOM TEETH EXTRACTION Medical History Medical History Date Comments Sleep apnea DX:Sleep apnea Type 2 diabetes mellitus wit hout complications ([facility] V24, [facility] V28) DX:Type 2 ellis betes mellitus without complications ([facility]); COMMENT: taken off metformin at time [...] Screening 08/20/2022 COVID-19 Vaccine ( season) 2024 Depression Screening 09/17/2024 Influenza Vaccine (#1) 2025 , 06/27/2016, 10/10/2012 Cholesterol Screening (Lipid Panel) 12/11/2029 12/11/2024 DTaP,Tdap,and [...] patient's age to complete this topic Insurance [facility] Care Teams Motor Vehicle Technician Relationship Specialty Start Date End Date Physician, Pcp Unknown PCP - General 12/16/24
[2025-04-10 08:26] VITALS: BP 166/64; PULSE 64; TEMP 36.3; O2SAT 100; BMI 33.8
== END 2025-04-10 08:49 | disposition home or self-care (01) ==
LOC: HO.HBS 08:11
PROVIDERS: Visit Provider Physician Assistant Surgical
DX: E66.9 Obesity, unspecified (principal); Z68.33 Body mass index [BMI] 33.0-33.9, adult; Z90.3 Acquired absence of stomach [part of]; Z98.84 Bariatric surgery status
CPT/HCPCS: 99213

== ENCOUNTER → 2025-04-10 08:10 | Outpatient (BNVA) | payer OTHER, SELFPAY | PROVIDERS: Visit Provider Physician Assistant Surgical | DX: Z98.84 Bariatric surgery status (principal) | CPT/HCPCS: 99212 ==

== ENCOUNTER 2025-05-06 10:28 | Outpatient (AMB) | payer OTHER, SELFPAY ==
--- NOTE | 2025-05-06 10:40 | A.OFFVIS_ITS ---
VS Expanded 05/06/25 10:51 BP 115/59 L Blood Pressure Location Rt brachial Blood Pressure Position Sitting Pulse 63 Pulse Source Pulse Oximeter Temp 97.1 F Temperature Source Temporal Artery Scan Pulse Oximetry 100 Oxygen Delivery Method Room Air Height 5 ft 4 in Weight 189 lb 6.4 oz BMI 32.5 Body Fat % 34.8 Body Fat Mass 66.0 Fat Free Mass 123.4 Visceral Fat Rating 7.0 Body Water % 46.7 Body Water Mass 88.4 Muscle Mass/Score 117.2 Basal Metabolic Rate/Score 1,693 Intake Visit Reasons: (OV) PO LSG 11/02/20 Allergies No Known Allergies (No Known Allergies*) Allergy (Mild, Verified 05/06/25 10:48) NOT APPLICABLE HPI Comments Details: Patient is a pleasant 34-year-old female who returns to the office today to be seen. She is approximately 4 years 6 months post sleeve gastrectomy performed 11/02/2020. Weight today is 189.4 pounds with a BMI of 32.5. Her initial weight was 327 pounds in 2019. Weight at the time of surgery was 272.3 lb. Weight loss of 137.6 lb since initiating the program or 42 % total body weight loss and 82.9 lb or 30.4% total body weight loss since surgery. Since starting Zepbound from her primary care doctor, her appetite has decreased. She states that over the last couple of years, she has had poor n utrition, eating junk food and sweets. Since starting the Zepbound, her appetite has significantly decreased. Zepbound was increased to 10 mg by her primary care physician Additionally, of greater concern is her excess skin of her abdomen. Due to the abdominal pannus, she gets rashes underneath the skin fold. These rashes would occur 2-3 times per month. She is using [id number] ointments with some improvement although never total resolution. The rash is described as painful, itchy, has an odor to it. This has caused her to have increased hygiene needs, requiring washing of the area 2-3 times per day. Certainly worse in the warmer months. She also has difficulty with clothes fitting properly. She has started exercising in but has not create a meal plan on [employer] lu. She was given information about this last visit. We have given her another copy of the paper regarding information about the right BMI lu. States using premier protein 1/2 shake premier protein herbalife protein bar 1 HB egg, toast w avocado 1/2 shake or meal w salad w 4 forks salmon drinking 32 oz water daily Exercise plan: [employer] treadmill 4-5 days per week, 400 calories, speed 3.5, incline 2-15 PFSH Medical History Left ventricular hypertrophy Steatosis, liver Dysmenorrhea Eczema Lower extremity edema Knee pain Arthritis EVERARDO on CPAP GERD (gastroesophageal reflux disease) Sleep apnea Diabetes Morbid obesity Vitamin D deficiency Surgical History History of sleeve gastrectomy History of wisdom tooth extraction, class II edentulism Family History Father Kidney failure Diabetes CVD (cardiovascular disease) Mother Diabetes HTN (hypertension) Sister No problems noted. Sister No problems noted. Sister No problems noted. Sister No problems noted. Son No problems noted. Daughter No problems noted. Daughter No problems noted. 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 additionally, continue exercising, increasing by 1 day as she is able. We will have her ret urn to the office in 2 months. States her goal is to reach about 160 lb prior to panniculectomy. (2) Excess skin: Code(s): L98.7 - Excessive and redundant skin and subcutaneous tissue Category: Medical Plan: Patient has lost over 130 lb since starting the weight loss program. As a result, she has developed excess skin of the abdomen causing recurrent dermatitis, improving with the use of clotrimazole cream. We will refill this. She will continue to exercise, continue to achieve a healthy weight and healthy lifestyle. Apply clotrimazole as needed. She will likely need medically necessary skin removal surgery in the near future Medications: Refilled clotrimazole 1% (Antifungal (clotrimazole)) 1 appl topical BID 45 grams 3RF
[2025-05-06 10:51] VITALS: BP 115/59; PULSE 63; TEMP 36.2; O2SAT 100; BMI 32.5
--- OUTSIDE RECORDS SUMMARY | 2025-05-06 11:43 | XMS_ITS | Clinical Summary ---
Author Organization [facility] Address [address] [place] [address] Phone Care Team Providers Care Elevator Constructor Supervisor Name Role Phone Physician, Pcp Unknown Primary Care Provider Ruth vailable Allergies No known active allergies Surgical History Surgery Date Site/Laterality Comments OTHER SURGICAL HISTORY PROCEDURE: HISTORY OTHER; COMMENT: gastric sleeve, 10/2020 WISDOM TOOTH EXTRACTION PROCEDURE: HISTORICAL WISDOM TEETH EXTRACTION Medical History Medical History Date Comments Sleep apnea DX:Sleep apnea Type 2 diabetes mellitus wit hout complications ([facility] V24, [facility] V28) DX:Type 2 ellis betes mellitus without complications ([facility]); COMMENT: taken off metformin at time of [...] patient's age to complete this topic Insurance [facility] Care Teams Elevator Constructor Supervisor Relationship Specialty Start Date End Date Physician, Pcp Unknown PCP - General 12/16/24
--- OUTSIDE RECORDS SUMMARY | 2025-05-06 11:43 | XMS_ITS | Encounter Summary ---
Author Organization [employer] Address [address] [place] [address] Care Team Providers Care Operations Superintendent Name Role Phone Swathi Titus Primary Care Provider [phone] Reason for Visit * Reason Onset Date Comments Med Refill 02/04/2025 Encounter Details Date Type Department Care Team ([facility] st Contact Info) Description 02/04/2025 Refill [facility] [address] [place], [place] [id number] Swathi Titus ANP [address] [place] [address] Social History Tobacco Use Types Packs/Day Years [...] Care Team (Late st Contact Info) Description 06/09/2025 10:15 AM EDT Office Visit [facility] [address] [place] [address] Swathi Titus ANP [address] [place] [address] documented as of this encounter Visit Diagnoses Not on filedocumented in this encounter Additional Health Concerns Assessment Noted Time PHQ-9 Depression Total Score: 0 07/29/20 24 10:52 AM EST documented as of this encounter Care Teams Operations Superintendent Relationship Specialty Start Date End Date Swathi Titus ANP [address] [place] [address] PCP - General Family Medicine 05/05/21 documented as of this encounter
--- OUTSIDE RECORDS SUMMARY | 2025-05-06 11:43 | XMS_ITS | Encounter Summary ---
Author Organization [facility] Address [address] [place] [id number] Phone Care Team Providers Care Template Inspector Name Role Phone Giovana Choi MD Primary Care Provi megha Swathi Titus Primary Care Provider [phone] Encounter Details Date Type Department Care Team (Late st Contact Info) Description 02/06/2020 Transcribe Orders [facility] Specimen Processing [address] [place] [address] Aric Jones MD [address] [facility] [address], [address] [place] [address] [email or web address] Social History Tobacco Use Types Packs/Day Years [...] on filedocumented in this encounter Care Teams Template Inspector Relationship Specialty Start Date End Date Giovana Choi MD [address] [place], [place] [phone] PCP - General 07/03/17 09/17/23 Swathi Titus ANP [address] [place], [place] [phone] PCP - General Nurse Practitioner 1/2/24 documented as of this encounter Additional Source Comments The information contained in this document represents components of the legal health record. It is not the complete legal health record.[facility]
== END 2025-05-06 11:06 | disposition home or self-care (01) ==
PROVIDERS: PCP Nurse Practitioner Primary Care; Visit Provider Physician Assistant Surgical
DX: L98.7 Excessive and redundant skin and subcutaneous tissue (principal); E66.9 Obesity, unspecified; Z68.32 Body mass index [BMI] 32.0-32.9, adult; Z90.3 Acquired absence of stomach [part of]; Z98.84 Bariatric surgery status
CPT/HCPCS: 99213

== ENCOUNTER → 2025-05-06 10:28 | Outpatient (BNVA) | payer OTHER, SELFPAY | PROVIDERS: PCP Nurse Practitioner Primary Care; Visit Provider Physician Assistant Surgical | DX: Z98.84 Bariatric surgery status (principal); L98.7 Excessive and redundant skin and subcutaneous tissue | CPT/HCPCS: 99212 ==

== ENCOUNTER 2025-08-04 18:24 | Outpatient (REF) | payer OTHER, SELFPAY ==
--- OUTSIDE RECORDS SUMMARY | 2025-08-04 14:00 | XMS_ITS | Encounter Summary ---
Author Organization [employer] Address [address] [facility] [facility] [address] [place] [address] Care Team Providers Care Die Stamper Name Role Phone Swathi Titus Primary Care Provider [phone] Reason for Visit * Reason Comments Follow-up Encounter Details Date Type Department Care Team ([facility] Contact Info) Description 08/04/2025 2:00 PM EST Office Visit [facility] MEDICINE [address] [place], [place] [phone] Swathi Titus ANP [address] [place] [address] Healthcare maintenance (Primary Dx); Prediabetes; Fatigue, unspecified [...] or irritable 0 08/04/2025 1:52 PM EST Heleen Duenas MA Feeling afraid as if somethi [...] 08/04/2025 2:00 PM EST Look at Noom (www.noInsuritas.NextWidgets) and Hers (www.forhers.NextWidgets) for reputable online programs that offer weight [...] or sleep schedule d/t work. Works at [employer]. Quit smoking! Happy w/ mirena Would like [...] protein shake in AM. Got letter from [facility] that they will not cover Zepbound [...] from wt loss. Will look into OTC/online FCD1lhth from reputable companies. Would recommend this pt [...] Description 10/12/2025 9:30 AM EST Office Visit [facility] OPTOMETRY [address] [place] [address] Lianne Helton, OD [address] [place] [address] Scheduled Orders Name Type Priority Associated Diagnoses [...] DETECTION BY PCR NOT DETECTED Not Detect [facility] BACTERIAL VAGINOSIS DETECTION BY PCR POSITIVE(A) Negative [facility] Comment:The BV organism targ ets of [...] DETECTION BY PCR NOT DETECTED Not Detect [facility] Meghna glab krusei PCR NOT DETECTED Not Detect [facility] Swab Vaginal structure / Unknown 08/04/2025 2:55 PM EST 08/04/2025 6:32 PM EST Swathi Titus [facility] MICROBIOLOGY - GENERAL ORDER MAG Final Result [facility] [address] [place] [phone] * Chlamydia/N. Gonorrhoeae RNA, TMA, Vagina (08/04/2025 2:55 PM EST) CT PCR NOT DETECTED Not Detect. [facility] Comment:A not detected test result does [...] psychologicalconsequences. NG PCR NOT DETECTED Not Detect. [facility] Comment:A not detected test result does [...] 2:55 PM EST 08/04/2025 6:32 PM EST Result [facility] Swathi [facility] MICROBIOLOGY - GENERAL ORDER MAG Final Result [facility] [address] [place] [phone] * POCT Hgb A1c (08/04/2025 2:20 PM EST) Hemoglobin A1C 5.3 4.0 - 5.7 % QC Media Lot # [id number] Lot# Expiration Date , Blood 08/04/2025 2:20 PM EST Result [facility] Swathi Titus [facility] POINT OF CARE TEST ENTER/EDIT OR DERABLES Final Result * POCT Glucose (08/04/2025 2:19 PM EST) Glucose Blood, POC 102 60 - 200 mg/dL QC Media Lot # [id number] Lot# Expiration Date 7,026 Blood Capillary blood specimen / Unknown 08/04/2025 2:19 PM EST Result [facility] Swathi Titus ANP POINT OF CARE [...] documented as of this encounter Care Teams Die Stamper Relationship Specialty Start Date End Date Swathi Titus ANP [address] [place] [id number] PCP - General Family Medicine 05/05/21 documented as of this encounter
[2025-08-05 12:07] LABS: Bacterial Vaginosis PCR POSITIVE (Negative); Candida Group PCR NOT DETECTED (Not Detect); Candida glab krusei PCR NOT DETECTED (Not Detect); Trichomonas vaginalis PCR NOT DETECTED (Not Detect)
[2025-08-05 12:09] LABS: CT PCR NOT DETECTED (Not Detect.); NG PCR NOT DETECTED (Not Detect.)
--- OUTSIDE RECORDS SUMMARY | 2025-08-05 13:44 | XMS_ITS | Encounter Summary ---
Author Organization [employer] Address [address] [facility] [address] [place] [address] Care Team Providers Care Bailer Operators Supervisor Name Role Phone Swathi Titus Primary Care Provider [phone] Reason for Visit * Reason Onset Date Comments Med Refill 02/04/2025 Encounter Details Date Type Department Care Team ([facility] st Contact Info) Description 02/04/2025 Refill [facility] MEDICINE [address] [place], [place] [phone] Swathi Titus ANP [address] [place] [address] Social History Tobacco Use Types Packs/Day Years [...] 9:30 AM EST Office Visit [facility] OPTOMETRY [address] [place] [address] Lianne Helton, OD [address] [place] [address] documented as of this encounter Visit Diagnoses Not on filedocumented in this encounter Additional Health Concerns Assessment Noted Time PHQ-9 Depression Total Score: 0 07/29/20 24 10:52 AM EST documented as of this encounter Care Teams Bailer Operators Supervisor Relationship Specialty Start Date End Date Swathi Titus ANP [address] [place] [phone] PCP - General Family Medicine 05/05/21 documented as of this encounter
--- OUTSIDE RECORDS SUMMARY | 2025-08-05 13:44 | XMS_ITS | Encounter Summary ---
Author Organization [employer] Address [address] [facility] [address] 7t [place] [address] Care Team Providers Care Pediatric Urologist Name Role Phone Tacho Swathi THEODORE Primary Care Provider [phone] Encounter Details Date Type Department Care Team (Latest Contact Info) Description 08/04/2025 Travel Social History Tobacco Use Types Packs/Day Years Used Date Smoking Tobacco: Former Cigarettes Q uit: 09/24/2021 Smokeless Tobacco: Never Alcohol Use Standard Drinks/Week Comments Yes 0 [...] AM EDT documented as of this encounter Functional Status * Over the [...] Author Not at all 08/04/2025 1:52 PM Dewayen Hernadez MA * Trouble concentrating on things, [...] or on edge 0 08/04/2025 1:52 PM Helene Hernadez MA Not being able to stop or co ntrol worrying 0 08/04/2025 1:52 PM Helene Hernadez MA Worrying too much about diff erent things 0 08/04/2025 1:52 PM Helene Hernadez MA Trouble relaxing 0 08/04/2025 1:52 PM Helene Hernandez MA Being so restless that it is hard to sit still 0 08/04/2025 1:52 PM Helene Hernadez MA Becoming easily annoyed or irritable 0 08/04/2025 1:52 PM Helene Hernadez MA Feeling afraid as if somethi ng awful might happen 0 08/04/2025 1:52 PM Helene Hernadez MA MCKENZIE-7 Total Score 0 08/04/2025 1:52 PM Helene Hernadez MA * How difficult have these problems made it for you to do your work, take care of things at home, or get along with other people? Answer Date of Assessment Author Not difficult at all 08/04/2025 1:52 PM Helene Horton MA documented as of this encounter Plan of Treatment Upcoming Encounters Date Type Department Care Team (Late st Contact Info) Description 10/12/2025 9:30 AM EST Office Visit [facility] OPT[facility]RY [address] [place] [address] Lianne Helton, OD [address] [place] [address] documented as of this encounter Goals Goal [...] Gongora MA documented as of this encounter Visit Diagnoses Not on filedocumented in this encounter Additional Health Concerns Active Problems Noted Date Diagnosed Date Help patients manage their type 2 diabetes 08/03 Patient has chronic kidney disease 08/03/2025 Patient has chronic kidney disease 08/04/2025 Assessment Noted Time PHQ-9 Depression Total Score: 9 08/04/20 25 1:52 PM EST documented as of this encounter Care Teams Pediatric Urologist Relationship Specialty Start Date End Date Swathi Titus ANP [address] [place] [address] PCP - General Family Medicine 05/05/21 documented as of this encounter
--- OUTSIDE RECORDS SUMMARY | 2025-08-05 13:44 | XMS_ITS | Encounter Summary ---
Author Organization [employer] Address 75 [facility] 7t [place] [address] Care Team Providers Care Health Program Analyst Name Role Phone Swathi Titus Primary Care Provider [phone] Reason for Visit * Reason Onset Date Comments Med Refill 06/28/2025 Encounter Details Date Type Department Care Team ([facility] st Contact Info) Description 06/28/2025 Refill [facility] MEDICINE [address] [place] [address] Swathi Titus ANP [address] [place] [address] Prediabetes; Class 1 obesity with serious comorbidity and body mass index (BMI) of 34.0 to 34.9 in adult, unspecified obesity type Social History Tobacco Use Types Packs/Day Years Used Date Smoking Tobacco: Every Day Cigarettes Last attempted to quit: 09/24/2021 Smokeless Tobacco: Never Alcohol Use Standard [...] Description 10/12/2025 9:30 AM EST Office Visit [facility] [address] [place], [place] [phone] Lianne Helton OD [address] [place] [address] documented as of this encounter Visit Diagnoses Diagnosis Prediabetes Other abnormal glucose Class 1 obesity with serious comorbidity and body mass index (BMI) of 34.0 to 34.9 in adult, unspecified obesity type documented in this encounter Additional Health Concerns Assessment Noted Time PHQ-9 Depression Total Score: 0 07/29/20 24 10:52 AM EST documented as of this encounter Care Teams Health Program Analyst Relationship Specialty Start Date End Date Swathi Titus ANP [address] [place] [id number] PCP - General Family Medicine 05/05/21 documented as of this encounter
--- OUTSIDE RECORDS SUMMARY | 2025-08-05 13:44 | XMS_ITS | Encounter Summary ---
Author Organization [employer] Address 75 [facility] 7t [place] [address] Care Team Providers Care Environmental Remediation Consultant Name Role Phone Swathi Titus Primary Care Provider [phone] Reason for Visit * Reason Onset Date Comments Med Refill 05/28/2025 Encounter Details Date Type Department Care Team ([facility] st Contact Info) Description 05/28/2025 Refill [facility] MEDICINE [address] [place], [place] [phone] Swathi Titus ANP [address] [place] [address] Prediabetes; Class 1 obesity with serious comorbidity [...] AM EST Office Visit [facility] [address] [place], [place] [phone] Lianne Helton OD [address] [place] [address] documented as of this encounter Visit Diagnoses Diagnosis Prediabetes Other abnormal glucose Class 1 obesity with serious comorbidity and body mass index (BMI) of 34.0 to 34.9 in adult, unspecified obesity type documented in this encounter Additional Health Concerns Assessment Noted Time PHQ-9 Depression Total Score: 0 07/29/20 24 10:52 AM EST documented as of this encounter Care Teams Environmental Remediation Consultant Relationship Specialty Start Date End Date Swathi Titus ANP [address] [place] [phone] PCP - General Family Medicine 05/05/21 documented as of this encounter
--- OUTSIDE RECORDS SUMMARY | 2025-08-05 13:44 | XMS_ITS | Encounter Summary ---
Author Organization [employer] Address [address] [facility] 7t [place] [address] Care Team Providers Care Agricultural Research Engineer Name Role Phone Swathi Titus Primary Care Provider [phone] Encounter Details Date Type Department Care Team (Late Contact Info) Description 11/12/2022 Orders Only [facility] MEDICINE [address] [place], [place] [phone] Swathi Titus ANP [address] [place], [place] [phone] Social History Tobacco Use Types Packs/Day Years [...] Description 10/12/2025 9:30 AM EST Office Visit [facility] OPTOMETRY [address] [place], [place] [phone] Lianne Helton, OD [address] [place] [address] documented as of this encounter Procedures Procedure Name Priority Date/Time Associated Diagnosis Comments T-SPOT(R).TB Routine 07/19/2023 10:33 AM EDT documented in this encounter Results * T-SPOT??.TB (07/19/2023 10:33 AM EDT) T Spot TB Negative Negative [facility] Comment:A negative test resu lt [...] as aquantitative test. TS PANEL A 0 [facility] TS PANEL B 0 [facility] Negative Control Passed [facility] Positive Control Passed [facility] Comment:For additional infor roel, please refer tohttp://education.Chemayi.Quture/faq/CJG711(This link is being provided for informational/educational purposes only.)THIS TEST WAS PERFORMED AT:[id number] [place] [address]EWQLTTCSATINDER FONTENOT MD,PHD 07/19/2023 10:3 3 AM EDT 07/19/2023 11:25 AM EDT us Swathi Titus ANP LAB BLOOD ORDERABLES Final Resul t [facility] [address] [place] [address] [phone] documented in this encounter Visit Diagnoses Not on filedocumented in this encounter Care Teams Agricultural Research Engineer Relationship Specialty Start Date End Date Swathi Titus ANP [address] [place] [address] PCP - General Family Medicine 05/05/21 documented as of this encounter
--- OUTSIDE RECORDS SUMMARY | 2025-08-05 13:45 | XMS_ITS | Encounter Summary ---
Author Organization [employer] Address [address] [facility] 7t [place] [address] Care Team Providers Care Clerical Transcriber Name Role Phone Swathi Titus Primary Care Provider [phone] Reason for Visit * Reason Onset Date Comments Med Refill 04/06/2025 Encounter Details Date Type Department Care Team ([facility] st Contact Info) Description 04/06/2025 Refill [facility] MEDICINE [address] [place], [place] [phone] Swathi Titus ANP [address] [place] [address] Social History Tobacco Use Types Packs/Day Years [...] 9:30 AM EST Office Visit [facility] OPTOMETRY [address] [place] [address] TarkaLianne, OD [address] [place] [address] documented as of this encounter Visit Diagnoses Not on filedocumented in this encounter Additional Health Concerns Assessment Noted Time PHQ-9 Depression Total Score: 0 07/29/20 24 10:52 AM EST documented as of this encounter Care Teams Clerical Transcriber Relationship Specialty Start Date End Date Swathi Titus ANP [address] [place] [address] PCP - General Family Medicine 05/05/21 documented as of this encounter
--- OUTSIDE RECORDS SUMMARY | 2025-08-05 13:45 | XMS_ITS | Encounter Summary ---
Author Organization [employer] Address 75 [facility] 7t [place] [address] Care Team Providers Care Conduit Mechanic Name Role Phone Swathi Titus Primary Care Provider [phone] Reason for Visit * Reason Onset Date Comments Nurse Triage 11/19/2023 Encounter Details Date Type Department Care Team ([facility] st Contact Info) Description 11/19/2023 Telephone [facility] MEDICINE [address] [place], [place] [phone] Swathi Titus ANP [address] [place] [address] Nurse Triage Social History Tobacco Use Types [...] Description 10/12/2025 9:30 AM EST Office Visit [facility] OPTOMETRY [address] [place] [address] Dakotayanely Lianne, OD [address] [place] [address] documented as of this encounter Visit Diagnoses Not on filedocumented in this encounter Additional Health Concerns Assessment Noted Time PHQ-9 Depression Total Score: 11 023 10:26 AM EDT documented as of this encounter Care Teams Conduit Mechanic Relationship Specialty Start Date End Date Swathi Titus ANP [address] [place] [address] PCP - General Family Medicine 05/05/21 documented as of this encounter
--- OUTSIDE RECORDS SUMMARY | 2025-08-05 13:45 | XMS_ITS | Encounter Summary ---
Author Organization [employer] Address 75 [facility] 7t [place] [address] Care Team Providers Care Oil Field Technician Name Role Phone Swathi Titus Primary Care Provider [phone] Reason for Visit * Reason Onset Date Comments chart prep 08/03/2025 Encounter Details Date Type Department Care Team ([facility] st Contact Info) Description 08/03/2025 Telephone [facility] MEDICINE [address] [place], [place] [phone] Swathi Titus ANP [address] [place] [address] chart prep Social History Tobacco Use Types Packs/Day Years [...] the past 12 months, has t he [employer], gas, oil or water company threatened to shut off services in your home? No 08/04/2025 Depression Answer Date Recorded Patient Health Questionnaire-2 Score 0 08/04/2025 Internet Access Answer Date Recorded Internet Access Q1 Yes 08/04/2025 Internet Access Q2 Not on file 08/04/2025 Comments Unknown Sex and Gender Information Value Date Recorded Sex Assigned at Female 07/17/2022 10:15 AM EDT Legal Sex Female 10:15 AM EDT Gender Identity Female 07/17/2022 10:15 AM EDT Sexual Orientation Straight 07/17/2022 10 :15 AM EDT documented as of this encounter Miscellaneous Notes * Telephone Encounter - Helene Duenas MA - 08/03/2025 9:15 AM EST Chart Prep Labs: done Images: done Referrals: complete Vaccines due: Covid, Flu, and HPV Screenings: eye exam Overdue care gaps: A1c, Glucose, SBIRT, SDOH, PHQ-9, MCKENZIE-7, and Oral health screening documented in this encounter Plan of Treatment Upcoming Encounters Date Type Department Care Team (Late st Contact Info) Description 10/12/2025 9:30 AM EST Office Visit [facility] OPTOMETRY [address] [place] [address] Lianne Helton, OD [address] [place] [address] documented as of this encounter Goals Goal Patient Goal Type Associated Problems Recent Progress Patient-Stated? Author Help patients manage their type 2 diabetes Care Plan Help patients manage their type 2 diabetes No Helene Duenas MA Patient has chronic kidney disease Care Plan Patient has chronic kidney disease Helene Gongora MA documented as of this encounter Visit Diagnoses Not on filedocumented in this encounter Additional Health Concerns Active Problems Noted Date Diagnosed Date Help patients manage their type 2 diabetes 08/03 Patient has chronic kidney disease 08/03/2025 Assessment Noted Time PHQ-9 Depression Total Score: 0 07/29/20 24 10:52 AM EST documented as of this encounter Care Teams Oil Field Technician Relationship Specialty Start Date End Date Swathi Titus ANP [address] [place] [address] PCP - General Family Medicine 05/05/21 documented as of this encounter
--- OUTSIDE RECORDS SUMMARY | 2025-08-05 13:45 | XMS_ITS | Clinical Summary ---
Author Organization [facility] Address [address] [place] [address] Phone Care Team Providers Care Dust Operator Name Role Phone Physician, Pcp Unknown Primary Care Provider Ruth vailable Allergies No known active allergies Surgical History Surgery Date Site/Laterality Comments OTHER SURGICAL HISTORY PROCEDURE: HISTORY OTHER; COMMENT: gastric sleeve, 10/2020 WISDOM TOOTH EXTRACTION PROCEDURE: HISTORICAL WISDOM TEETH EXTRACTION Medical History Medical History Date Comments Sleep apnea DX:Sleep apnea Type 2 diabetes mellitus wit hout complications ([facility] V24, [facility] V28) DX:Type 2 ellis betes mellitus without complications ([facility]); COMMENT: taken off metformin at time of [...] Comments Cervical Cancer Screening: Pap Smear 2010 HPV Vaccines (1 - 3-dose SCDM series) 2016 Hepatitis C Screening 08/20/2022 Social Influencers of Health Screening 08/20/2022 Depression Screening 09/17/2024 COVID-19 Vaccine ( season) 2025 Influenza Vaccine (#1) 2025 , 06/27/2016, 10/10/2012 Cholesterol Screening (Lipid Panel) 12/11/2029 12/11/2024 DTaP,Tdap,and Td Vaccines (10 - Td or Tdap) 05/04/2032 05/04/2022, 04/10/2012, 07/06/2003, Additional history exists RSV Immunization Adult Patients (1 - 1-dose 75+ series) 2064 HIB [...] patient's age to complete this topic Insurance [facility] Care Teams Dust Operator Relationship Specialty Start Date End Date Physician, Pcp Unknown PCP - General 12/16/24
--- OUTSIDE RECORDS SUMMARY | 2025-08-05 13:45 | XMS_ITS | Encounter Summary ---
Author Organization [employer] Address 75 [facility] 7t [place] [address] Care Team Providers Care Top Installer Name Role Phone Swathi Titus Primary Care Provider [phone] Reason for Visit * Reason Onset Date Comments Appointment Request 06/18/2023 Encounter Details Date Type Department Care Team ([facility] st Contact Info) Description 06/18/2023 Telephone [facility] MEDICINE [address] [place], [place] [phone] Swathi Titus ANP [address] [place] [address] Appointment Request Social History Tobacco Use Types [...] regards to needing a physical for work. Business Transformation Manager did not see any availability with PCP. Please contact pt at [phone] documented in this encounter Plan of Treatment Upcoming Encounters Date Type Department Care Team (Late st Contact Info) Description 10/12/2025 9:30 AM EST Office Visit [facility] OPTOMETRY [address] [place] [address] Lianne Helton, OD [address] [place] [address] documented as of this encounter Visit Diagnoses Not on filedocumented in this encounter Care Teams Top Installer Relationship Specialty Start Date End Date Swathi Titus ANP [address] [place] [address] PCP - General Family Medicine 05/05/21 documented as of this encounter
--- OUTSIDE RECORDS SUMMARY | 2025-08-05 13:45 | XMS_ITS | Encounter Summary ---
Author Organization [employer] Address [address] [facility] 7t [place] [address] Care Team Providers Care Appeals Assistant Name Role Phone Swathi Titus Primary Care Provider [phone] Reason for Visit * Reason Onset Date Comments Med Refill 01/20/2025 Encounter Details Date Type Department Care Team ([facility] st Contact Info) Description 01/20/2025 Refill [facility] MEDICINE [address] [place], [place] [phone] Swathi Titus ANP [address] [place] [address] Type 2 diabetes mellitus without complication, without long-term current use of insulin ([facility]); Constipation, unspecified constipation type Social History Tobacco [...] Description 10/12/2025 9:30 AM EST Office Visit [facility] OPTOMETRY [address] [place] [address] Lianne Helton, OD [address] [place] [address] documented as of this encounter Visit Diagnoses Diagnosis Type 2 diabetes mellitus without complication, without long-term current use of insulin (HCC) Constipation, unspecified constipation type documented in this encounter Additional Health Concerns Assessment Noted Time PHQ-9 Depression Total Score: 0 07/29/20 24 10:52 AM EST documented as of this encounter Care Teams Appeals Assistant Relationship Specialty Start Date End Date Swathi Titus ANP [address] [place] [address] PCP - General Family Medicine 05/05/21 documented as of this encounter
--- OUTSIDE RECORDS SUMMARY | 2025-08-05 13:45 | XMS_ITS | Clinical Summary ---
Author Organization [employer] Address [address] [facility] 7t [place] [address] Care Team Providers Care Plant Reliability Engineer Name Role Phone Tacho Swathi THEODORE Primary Care Provider [phone] Allergies No known active allergies Medications Blood Glucose Monitoring Suppl (FreeStyle Black Oak Lite) w/Device kit USE TO TEST BLOOD SUGAR DIRECTED 022 Active albuterol (2.5 MG/3ML) 0.083% nebulizer solution Albuterol Nebulized 2.5 mg every 4 hours prn shortness of breath or wheezing 90 mL 1 024 Active albuterol 108 (90 Base) MCG/ACT inhalerIndicati ons:Mild intermittent asthma without complication Inhale 2 puffs every 4 (four) hours if needed for wheezing or shortness of breath. Maximum 8 puffs per day 18 g 3 024 Active FREESTYLE LITE test stripIndication s:Type 2 diabetes mellitus without complication, without long-term current use of insulin (HCC) Use to check BG twice daily 100 each 11 024 Active polycarbophil (FiberCon) 625 MG tabletIndicatio ns:Constipation , unspecified constipation type Take 1 tablet (625 mg) by mouth Once per day. 90 tablet 1 025 2025 Active nicotine polacrilex (Nicorette) 2 MG gumIndications: Cigarette nicotine dependence without complication CHEW 1 PIECE OF GUM EVERY 1 TO 2 HOURS NEEDED FOR SMOKING CESSATION IN PLACE OF CIGARETTE. 100 each 3 025 Active Zepbound 10 MG/0.5ML solution auto-injectorIn dications:Predi abetes,Class 1 obesity with serious comorbidity and body mass index (BMI) of 34.0 to 34.9 in adult, unspecified obesity type INJECT ONE PEN (=10MG) SUBCUTANEOUSLY ONCE A WEEK DIRECTED 2 mL 2 08/04/20 25 1:36 PM EST 025 Active FreeStyle lancetsIndicati ons:Type 2 diabetes mellitus without complication, without long-term current use of insulin (HCC) 1 each by Other route 2 times daily. 100 each 11 024 2024 Tirzepatide-Adam ght Management (Zepbound) 10 MG/0.5ML solution auto-injectorIn dications:Predi abetes,Class 1 obesity with serious comorbidity and body mass index (BMI) of 34.0 to 34.9 in adult, unspecified obesity type Inject 0.5 mL (10 mg) under the skin 1 (one) time per week. 2 mL 2 025 2024 Discontinued Active Problems Problem Noted Date Diagnosed Date Status post bariatric surgery 08/04/2025 Mild intermittent asthma without complication Prediabetes 08/07/2024 Depression 07/19/2023 Presence of Mirena IUD 09/17/2020 Irregular periods 12/06/2018 07/16/2023 Vitamin D deficiency 12/06/2018 07/16/2023 Resolved Problems Problem Noted Date Diagnosed Date Resolved Date Cigarette nicotine dependenc e without complication 07/19/2023 03/06/2025 Overview (03/06/2025): Quit 02/2025 Type 2 diabetes mellitus 01/07/2019 07/16/2023 Encounters Date Type Department Care Team Description 08/04/2025 2:00 PM EST Office Visit [facility] [address] [place] [phone] Swathi Titus ANP Healthcare maintenance (Primary Dx); Prediabetes; Fatigue, unspecified type; Vitamin D deficiency; Screening examination for STI; Overweight (BMI 25.0-29.9); Status post bariatric surgery; Mild intermittent asthma without complication 08/04/2025 Travel 08/03/2025 Telephone [facility] [address] [place] [phone] Swathi Titus ANP chart prep 07/28/2025 Travel 07/22/2025 Refill [facility] [address] [place] [address] Swathi Titus ANP Prediabetes; Class 1 obesity with serious comorbidity and body mass index (BMI) of 34.0 to 34.9 in adult, unspecified obesity type 06/28/2025 Refill [facility] [address] [place] [address] Swathi Titus ANP Cigarette nicotine dependence without complication 06/28/2025 Refill [facility] [address] [place] [address] Swathi Titus ANP Prediabetes; Class 1 obesity with serious comorbidity and body mass index (BMI) of 34.0 to 34.9 in adult, unspecified obesity type 06/08/2025 Travel 06/08/2025 Telephone [facility] [address] [place] [address] Swathi Titus ANP chart prep 05/28/2025 Refill [facility] [address] [place] [address] Swathi Titus ANP Prediabetes; Class 1 obesity with serious comorbidity and body mass index (BMI) of 34.0 to 34.9 in adult, unspecified obesity type from Last 3 Months Immunizations Immunization Administration Dates Next Due DTaP 12/16/1994, 2,04/17/1990,1989,1989 Hep B, Adolescent or Pediatric 3,03/22/2001,03/12/2000,1998 Hib ([facility]) 04/17/1991,10/18/1990 Influenza injectable quadriv alent IIV4 with preservative 06/27/2016 Influenza injectable quadriv alent preservative free 06/20/2022 Influenza, Split (incl. chung fied surface antigen) 10/10/2012 MMR 12/16/1994,04/17/1991 OPV, Trivalent 12/16/1994, 2,01/15/1990,1989 Pneumococcal Conjugate PCV 20 07/29/2024 TD (adult), 2 Lf tetanus tox oid, preservative free, adsorbed 05/04/2022,07/06/2003,03/12/2000 Tdap 04/10/2012 Family History Medical History Relation Name Comments Breast cancer Maternal Grandmother Relation Name Status Comments Maternal Grandmother Social History Tobacco Use Types Packs/Day Years [...] Q2 Not on file 08/04/2025 Comments No Intention Date Recorded No desire to become (finding) 0 03/23/2025 Sex and Gender Information Value Date Recorded [...] Mass Index 29.18 08/04/2025 2:17 PM EST Plan of Treatment Upcoming Encounters Date Type Department Care Team (Late st Contact Info) Description 10/12/2025 9:30 AM EST Office Visit [facility] OPT[facility] [address] [place] [address] Lianne Helton, OD [address] [place] [address] Health Maintenance Due Date Last Done Comments Eye Exam 1999 HPV Vaccines (1 - 3-dose series) 2004 Diabetes: Urine Protein Screening 07/29/2025 07/29/2024, 05/26/2021, 10/18/2020 Lipid Panel 12/11/2025 12/11/2024, 0209/2022, 06/18/2020, Additional history exists Depression Monitoring 02/01/2026 08/04/2025, 025 Diabetes: Hemoglobin A1C 02/01/2026 025, 12/11/2024, 07/29/2024, Additional history exists Influenza Vaccine (#1) 2026 2, 06/27/2016, 10/10/2012 Postponed from 05/18/2025 (Patient Refused) Family Planning (PISQ) 03/23/2026 03/23/2025 Alcohol/Substance Use Screening 08/04/2026 08/04/2025 COVID-19 Vaccine ( season) 2026 06/29/2022, 07/08/2021, 10/23/2020, Additional history exists Postponed from 05/18/2025 (Patient Refused) Disability Screening 08/04/2026 08/04/2025 SDOH Screening 08/04/2026 08/04/2025 Tobacco Screening 08/04/2026 08/04/2025, 10/27/2024 Cervical Cancer Screening 03/23/2030 HPV/Cotest 03/23/2030 03/23/2025, 05/04/2020 Pap Smear 03/23/2030 03/23/2025, 05/04/2020 DTaP/Tdap/Td Vaccines (8 - Td or Tdap) [...] Years) and At-Risk Patients (6 to 49) Years Completed 07/29/2024 Diabetes: Foot Exam Discontinued Hepatitis A Vaccines Aged Out No long [...] on patient's age to complete this topic Goals Goal Patient Goal Type Associated Problems Recent Progress Patient-Stated? Author Help patients manage their type 2 diabetes Care Plan Help patients manage their type 2 diabetes No Helene Duenas [place] Patient has chronic kidney disease Care Plan Patient has chronic kidney disease No Helene Duenas [place] Patient has chronic kidney disease Care Plan Patient has chronic kidney disease No Helene Duenas MA Procedures Procedure Name Priority Date/Time Associated Diagnosis Comments BACTERIAL VAGINOSIS PANEL Routine 08/04/2025 2:55 PM EST Screening examination for STI CHLAMYDIA/N. GONORRHOEAE RNA, TMA, UROGENITAL Routine 08/04/2025 2:55 PM EST Screening examination for STI POCT GLYCATED HEMOGLOBIN, TOTAL Routine 08/04/2025 2:20 PM EST Prediabetes POCT GLUCOSE Routine 08/04/2025 2:19 PM EST Prediabetes HPV DNA, LOW/HIGH RISK Routine 03/23/2025 1:57 PM EDT PAP SMEAR Routine 03/23/2025 1:57 PM EDT Cervical cancer screening LIPID PANEL, STANDARD Routine 12/11/2024 7:38 AM EDT ALBUMIN, RANDOM URINE W/CREATININE Routine 07/29/2024 11:50 AM EST ZZZ HISTORICAL HEPATITIS C AB W/REFL TO HCV RNA, QN, PCR Routine 05/26/2021 10:33 AM EDT HIV 1/2 ANTIGEN/ANTIBODY, FOURTH GENERATION W/RFL Routine 05/26/2021 10:33 AM EDT from Last 3 Months or Most Recently Relevant to Health Maintenance Results * (ABNORMAL) Bacterial Vaginosis Panel (08/04/2025 2:55 PM EST) TRICHOMONAS VAGINALIS DETECTION BY PCR NOT DETECTED Not Detect [facility] BACTERIAL VAGINOSIS DETECTION BY PCR POSITIVE(A) Negative [facility] Comment:The BV organism targ ets [...] DETECTION BY PCR NOT DETECTED Not Detect [facility] Meghna glab krusei PCR NOT DETECTED Not Detect [facility] Swab Vaginal structure / Unknown 08/04/2025 2:55 PM EST 08/04/2025 6:32 PM EST Swathi Titus [facility] MICROBIOLOGY - GENERAL ORDER MAG Final Result [facility] [address] [place] [phone] * Chlamydia/N. Gonorrhoeae RNA, TMA, Vagina (08/04/2025 2:55 PM EST) CT PCR NOT DETECTED Not Detect. [facility] Comment:A not detected test result [...] psychologicalconsequences. NG PCR NOT DETECTED Not Detect. [facility] Comment:A not detected test result [...] PM EST 08/04/2025 6:32 PM EST Result [facility] us Swathi Titus [facility] MICROBIOLOGY - GENERAL ORDER MAG Final Result [facility] [address] [place] [phone] * POCT Hgb A1c (08/04/2025 2:20 PM EST) Pathologist [facility] [place] Hemoglobin A1C 5.3 4.0 - 5.7 % QC Media Lot # [id number] Lot# Expiration Date Blood 08/04/2025 2:20 PM EST us Swathi Titus [facility] POINT OF CARE TEST ENTER/EDIT OR DERABLES Final Result * POCT Glucose (08/04/2025 2:19 PM EST) Pathologist [facility] [place] Glucose Blood, POC 102 60 - 200 mg/dL QC Media Lot # [id number] Lot# Expiration Date ,026 Blood Capillary blood specimen / Unknown 08/04/2025 2:19 PM EST us Swathi Titus [facility] POINT OF CARE TEST ENTER/EDIT OR DERABLES Final Result * HPV DNA, Low/High Risk (03/23/2025 1:57 PM EDT) Pathologist [facility] [place] HPV High Risk Negative Negative [facility] HPV Genotype 16 Negative Negative [facility] HPV Genotype 18 Negative Negative [facility] Comment:HPV testing performe d at [facility] (CLIA#[id number]), [address] [place] [address].Testing for HPV was performed using the Tyler GRANT 6800system. The presence of HPV in the female genital tract isassociated with a number of diseases, including cervicalcarcinoma. The HPV DNA high risk pool tests for HPV 31, 33,35, 39, 45, 51, 52, 56, 58, 59, 66 and 68. The testing forHPV 16 and 18 genotypes has also been performed. A positiveresult indicates detection of nucleic acid sequences fromone or more subtypes, whereas a negative result indicatessuch sequences were not detected. 03/23/2025 1:57 PM EDT 03/24/2025 8:20 AM EDT us Nadeen Campos [facility] BLOOD ORDERABLES Rosemary l Result [facility] [address] [place] [phone] * Pap Smear (03/23/2025 1:57 PM EDT) Swab Cervix uteri structure / Unknown 03/23/2025 1:57 PM EDT 03/24/2025 8:20 AM EDT Narrative [facility] - 03/26/2025 1:52 PM EDT ----- ------- Name: Karol Le Age/Sex: 34/F : 1990 Unit#: [id number] Attend Dr: NADEEN CAMPOS CNM Re03/23/25 Status: [facility] Location: [facility] Disch: ----- ------- SPEC : [id number] RECD: 03/24/25 STATUS: ROMI BRAND NUM: [id number] NILO: 03/23/25-[address] [facility] [address]: NADEEN CAMPOS [facility] ENTERED: 03/24/25 SP TYPE: Pap Smr OTHR DR: ORDERED: Pap Smear Interpretation Satisfactory for evaluation. Partially obscuring inflammation. Negative for intraepithelial lesion or malignancy. HPV High Risk: Negative HPV Genotyping 16: Negative HPV Genotyping 18: Negative Clinical Information LMP: Unknown date Previous PAP test: 2019, NIL/HPV negative Other history: IUD, cervical cancer screening Material Received ThinPrep-Cervical PAP Disclaimer As of July 09, 2024, the technical services to include automated prescreening performed by the ThinPrep Imaging System, PAP screening and HPV testing will be performed at [facility] (CLIA #[id number]), [address] [place] [address]. Testing for HPV was performed using the Tyler GRANT 6800 system. The presence of HPV in the female genital tract is associated with a number of diseases, including cervical carcinoma. The HPV DNA high risk pool tests for HPV 31, 33, 35, 39, 45, 51, 52, 56, 58, 59, 66 and 68. The testing for HPV 16 and 18 genotypes has also been performed. A positive result indicates detection of nucleic acid sequences from one or more subtypes, whereas a negative result indicates such sequences were not detected. All professional services are performed by [facility] ([address] [place] [address], [place] [address]; ; CLIA #[id number]). The PAP Test is a screening procedure with the inherent possibility of both false negative and false positive results. Results should be interpreted in the context of historic and current clinical findings. Reliability of the PAP Test is enhanced by performing the test on a regular repetitive basis. CONTINUED ON NEXT PAGE ----- ------- Name: Karol Le Age/Sex: 34/F : 1990 Unit#: [id number] Attend Dr: NADEEN CAMPOS CNM Re03/23/25 Status: [facility] REF Location: [facility] Disch: ----- ------- SPEC : [id number] RECD: 03/24/25 STATUS: ROMI BRAND NUM: [id number] NILO: 03/23/25-[address] [facility] [address]: NADEEN CAMPOS ENTERED: 03/24/25 SP TYPE: Cara SOTO DR: ORDERED: Pap Smear ----- ------- Signed (signature on file) JIM Shoemaker ([facility]) 03/26/25 1352 ----- ------- END OF REPORT us Nadeen Campos [facility] CYTOLOGY ORDERABLES F inal Result [facility] [address] [place] [phone] * Lipid Panel, Standard (12/11/2024 7:38 AM EDT) Triglycerides 76 <150 mg/dL [facility] Comment:Desirable Triglyceri de: less than 150 mg/dLBorderline High Triglyceride 150-199 mg/dLHigh Triglyceride: 200-499 mg/dLVery High Triglyceride: greater than or equal to 5OO mg/dL Cholesterol 167 <200 mg/dL [facility] Comment:Desirable Cholestero l: less than 200 mg/dLBorderline High Cholesterol: 200-239 mg/dLHigh Cholesterol: greater than 239 mg/dL LDL Cholesterol Calculated 96 <100 mg/dL [facility] Comment:Desirable LDL: less than 100 mg/dLNear Optimal/Above Optimal LDL: 110- 129 mg/dLBorderline High LDL: 130-159 mg/dLHigh LDL: 160-189 mg/dLVery High LDL: greater than or equal to 190 mg/dL HDL Cholesterol 56 >40 mg/dL [facility] Comment:Desirable HDL: great er than 40 mg/dL Note: This HDL assay may give artificially low results in patients with liver disease. 12/11/2024 7:38 AM EDT 12/11/2024 7:38 AM EDT us Generic External Data Provider LAB BLOOD ORDERAB LES Final Result Performing Organization Address [facility] [place] [facility] Co de Phone Number [facility] [address] [place] [phone] * Albumin, Random Urine W/Creatinine (07/29/2024 11:50 AM EST) Creatinine, Urine 208.04 mg/dL [facility] Microalbumin Urine 14.0 mg/L [facility] Microalbum Creatinine Ratio Ur 6.7 <30 ug/mg cr [facility] Comment:Albumin/Creatinine R atio Reference Ranges: Normal: < 30 ug/mg creatinine Microalbuminuria: 30 - 300 ug/mg creatinineClinical Albuminuria: > 300 ug/mg creatinine 07/29/2024 11:5 0 AM EST 07/29/2024 6:13 PM EST [facility] ANP LAB URINE ORDERABLES Final Resul t Performing Organization Address [facility] de Phone Number [facility] [address] [place] [phone] * HEPATITIS C AB W/REFL TO HCV RNA, QN, PCR (05/26/2021 10:33 AM EDT) Pathologist [facility] [place] HEPATITIS C ANTIBODY NON-REACT [facility]AIL NON-REACT [facility] INDEX 0.02 <1.00 [facility] Comment: HCV antibody was non-reactive. There is no laboratory evidence of HCV infection. In most cases, no further action is required. However, if recent HCV exposure is suspected, a test for HCV RNA (test code 14480) is suggested. For additional information please refer to http://education.Reclamador.MasteryConnect/faq/SUX83r5 (This link is being provided for informational/ educational purposes only.) 05/26/2021 10:3 3 AM EDT Historical Provider MD HISTORICAL/NON ORDERABLE LABS Final Result Performing Organization Address [facility] [place] [facility] Co de Phone Number [facility] [address] * HIV 1/2 ANTIGEN/ANTIBODY,FOURTH GENERATION W/RFL (05/26/2021 10:33 AM EDT) HIV-1/2 ANTIGEN AND ANTIBODIES, 4TH GENERATION W/ REFLEX NON-REACT ABIGAIL NON-REACT ABIGAIL [facility] Comment: HIV-1 antigen and HIV-1/HIV-2 antibodies were not detected. There is no laboratory evidence of HIV infection. PLEASE NOTE: This information has been disclosed to you from records whose confidentiality may be protected by state law. If your state requires such protection, then the state law prohibits you from making any further disclosure of the information without the specific written consent of the person to whom it pertains, or as otherwise permitted by law. A general authorization for the release of medical or other information is NOT sufficient for this purpose. For additional information please refer to http://education.DAQRI/faq/OYM577 (This link is being provided for informational/ educational purposes only.) The performance of this assay has not been clinically validated in patients less than 2 years old. 05/26/2021 10:3 3 AM EDT us Historical Provider LAB BLOOD ORDERABLES Rosemary mayfield Result [facility] [address] from Last 3 Months or Most Recently Relevant to Health Maintenance Additional Health Concerns Active Problems Noted Date Diagnosed Date Help patients manage their type 2 diabetes 08/03 Patient has chronic kidney disease 08/03/2025 Patient has chronic kidney disease 08/04/2025 [facility] Care Teams Plant Reliability Engineer Relationship Specialty Start Date End Date Swathi Ttius ANP [address] [place] [phone] PCP - General Family Medicine 05/05/21
--- OUTSIDE RECORDS SUMMARY | 2025-08-05 13:45 | XMS_ITS | Encounter Summary ---
Author Organization [employer] Address [address] [facility] 7t [place] [address] Care Team Providers Care [employer] History Teacher Name Role Phone Swathi Titus Primary Care Provider [phone] Reason for Visit * Reason Onset Date Comments Med Refill 01/06/2025 Encounter Details Date Type Department Care Team ([facility] st Contact Info) Description 01/06/2025 Refill [facility] [address] [place] [address] Swathi Titus ANP [address] [place] [address] Social History Tobacco Use Types Packs/Day Years [...] Description 10/12/2025 9:30 AM EST Office Visit [facility] OPTOMETRY [address] [place] [address] Lianne Helton, OD [address] [place] [address] documented as of this encounter Visit Diagnoses Not on filedocumented in this encounter Additional Health Concerns Assessment Noted Time PHQ-9 Depression Total Score: 0 07/29/20 24 10:52 AM EST documented as of this encounter Care Teams [employer] History Teacher Relationship Specialty Start Date End Date Swathi Titus ANP [address] [place] [phone] PCP - General Family Medicine 05/05/21 documented as of this encounter
--- OUTSIDE RECORDS SUMMARY | 2025-08-05 13:45 | XMS_ITS | Encounter Summary ---
Author Organization [employer] Address [address] [facility] 7t [place] [address] Care Team Providers Care Ror Engineer Name Role Phone Swathi Titus Primary Care Provider [phone] Reason for Visit * Reason Onset Date Comments Appointment Request 03/19/2023 Encounter Details Date Type Department Care Team (Late Contact Info) Description 03/19/2023 Telephone [facility] [address] [place] [address] Swathi Titus ANP [address] [place] [address] Appointment Request Social History Tobacco Use Types [...] by new job. Please contact pt at [phone] documented in this encounter Plan of Treatment Upcoming Encounters Date Type Department Care Team (Late Contact Info) Description 10/12/2025 9:30 AM EST Office Visit [facility] OPTOMETRY [address] [place], [place] [phone] Lianne Helton, OD [address] [place], [place] [phone] documented as of this encounter Visit Diagnoses Not on filedocumented in this encounter Care Teams Ror Engineer Relationship Specialty Start Date End Date Swathi Titus ANP [address] [place] [address] [phone] PCP - General Family Medicine 05/05/21 documented as of this encounter
--- OUTSIDE RECORDS SUMMARY | 2025-08-05 13:45 | XMS_ITS | Encounter Summary ---
Author Organization [employer] Address [address] [facility] 7t [place] [address] Care Team Providers Care Drapery Worker Name Role Phone Swathi Titus Primary Care Provider [phone] Reason for Visit * Reason Onset Date Comments Prior Authorization 08/05/2024 Encounter Details Date Type Department Care Team ([facility] Contact Info) Description 08/05/2024 Telephone [facility] [address] [place], [place] [phone] Swathi Titus ANP [address] [place] [address] Prior Authorization Social History Tobacco Use Types [...] on Ozempic [employer]. Please contact pt at [phone]. documented in this encounter Plan of Treatment Upcoming Encounters Date Type Department Care Team (Late st Contact Info) Description 10/12/2025 9:30 AM EST Office Visit [facility] OPTOMETRY [address] [place] [address] Lianne Helton, BRANDON [address] [place] [address] documented as of this encounter Visit Diagnoses Not on filedocumented in this encounter Additional Health Concerns Assessment Noted Time PHQ-9 Depression Total Score: 0 07/29/20 10:52 AM EST documented as of this encounter Care Teams Drapery Worker Relationship Specialty Start Date End Date Swathi Titus ANP [address] [place] [address] PCP - General Family Medicine 05/05/21 documented as of this encounter
--- OUTSIDE RECORDS SUMMARY | 2025-08-05 13:45 | XMS_ITS | Encounter Summary ---
Author Organization [employer] Address [address] [facility] 7t [place] [address] Care Team Providers Care Instructional Coordinator Name Role Phone Swathi Titus Primary Care Provider [phone] Reason for Visit * Reason Onset Date Comments Med Refill 11/04/2024 Encounter Details Date Type Department Care Team ([facility] st Contact Info) Description 11/04/2024 Refill [facility] [address] [place], [place] [phone] Swathi Titus ANP [address] [place] [address] Class 3 severe obesity with serious comorbidity [...] Description 10/12/2025 9:30 AM EST Office Visit [facility] OPTOMETRY [address] [place] [address] Lianne Helton, OD [address] [place] [address] documented as of this encounter Visit Diagnoses Diagnosis Class 3 severe obesity with serious comorbidity and body mass index (BMI) of 40.0 to 44.9 in adult, unspecified obesity type (HCC) documented in this encounter Additional Health Concerns Assessment Noted Time PHQ-9 Depression Total Score: 0 07/29/20 24 10:52 AM EST documented as of this encounter Care Teams Instructional Coordinator Relationship Specialty Start Date End Date Swathi Titus ANP [address] [place] [phone] PCP - General Family Medicine 05/05/21 documented as of this encounter
--- OUTSIDE RECORDS SUMMARY | 2025-08-05 13:45 | XMS_ITS | Encounter Summary ---
Author Organization [employer] Address 75 [facility] 7t [place] [address] Care Team Providers Care Guard Range Name Role Phone Swathi Titus Primary Care Provider [phone] Reason for Visit * Reason Comments Med Refill Encounter Details Date Type Department Care Team ([facility] Contact Info) Description 11/19/2024 Refill [facility] MEDICINE 230 [place], [place] [phone] Swathi Titus ANP 230 [place] [address] Social History Tobacco Use Types Packs/Day Years [...] Upcoming Encounters Date Type Department Care Team ([facility] st Contact Info) Description 10/12/2025 9:30 AM EST Office Visit [facility] OPTOMETRY 267 [place] [address] Lianne Helton, OD 267 [place] [address] documented as of this encounter Visit Diagnoses Not on filedocumented in this encounter Additional Health Concerns Assessment Noted Time PHQ-9 Depression Total Score: 0 07/29/20 24 10:52 AM EST documented as of this encounter Care Teams Guard Range Relationship Specialty Start Date End Date Swathi Titus ANP [address] [place] [address] PCP - General Family Medicine 05/05/21 documented as of this encounter
--- OUTSIDE RECORDS SUMMARY | 2025-08-05 13:45 | XMS_ITS | Encounter Summary ---
Author Organization [facility] Address [address] [place] [address] Phone Care Team Providers Care Manager Civil Name Role Phone Giovana Choi MD Primary Care Provi megha Swathi Titus NP Primary Care Provider [phone] Encounter Details Date Type Department Care Team (Late st Contact Info) Description 02/06/2020 Transcribe Orders [facility] Specimen Processing 30 [place] [address] Aric Jones MD [address] [facility] [address] [address], [address] [place] [address] [email or web address] Social History Tobacco Use Types Packs/Day Years [...] on filedocumented in this encounter Care Teams Manager Civil Relationship Specialty Start Date End Date Giovana Choi MD 230 [place], [place] [phone] PCP - General 07/03/17 09/17/23 Swathi Titus NP 230 [place], [place] [phone] PCP - General Nurse Practitioner 1/2/24 documented as of this encounter Additional Source Comments The information contained in this document represents components of the legal health record. It is not the complete legal health record.[facility]
--- OUTSIDE RECORDS SUMMARY | 2025-08-05 13:45 | XMS_ITS | Clinical Summary ---
Author Organization [facility] Address [address] [place] [address] Phone Care Team Providers Care Arterial Embalmer Name Role Phone Tacho Swathi LOMAX Primary Care Provider [phone] Allergies No known active allergies Medications No known medications Social History Tobacco Use Types Packs/Day Years Used Date Smoking Tobacco: Never Assessed Education Answer Date Recorded Are you interested in more education? Not on sulema e 01/12/2023 Are you concerned about learning? Not on file 01/12/2023 No 01/12/2023 No 01/12/2023 Digital Access Answer Date Recorded No 02/10/2023 No 02/10/2023 No 02/10/2023 Reliable internet access at home? Not on file 02/10/2023 Device with a working camera? Not on file Intimate Partner Violence Answer Date R ecorded Are you denied basic needs s uch as food, clothing, or medical care? No 09/18/2023 In the past 12 months have y ou been in a relationship with a person who hurts, threatens, or tries to control you? No 09/18/2023 Are you denied basic needs s uch as food, clothing, or medical care? No 09/18/2023 In the past 12 months have y ou been in a relationship with a person who hurts, threatens, or tries to control you? No 09/18/2023 Comments Unknown Sex and Gender Information Value Date Recorded Sex Assigned at Not on file Legal Sex Female 2:29 PM EDT Gender Identity Not on file Sexual Orientation Not on file Last Filed Vital Signs Vital Sign Reading Time Taken Comments Blood Pressure 111/75 09/18/2023 9:00 PM EST Pulse 68 09/18/2023 9:00 PM EST Temperature 36.6 C (97.9 F) 09/18/2023 9:00 PM EST Respiratory Rate 19 09/18/2023 9:00 PM EST Oxygen Saturation 97% 09/18/2023 9:00 PM EST Inhaled Oxygen Concentration - - Weight 71.2 kg (157 lb) 09/18/2023 2:13 PM EST Height 162.6 cm (5' 4 ) 09/18/2023 2:13 PM EST Body Mass Index 26.95 09/18/2023 2:13 PM EST Plan of Treatment Health Maintenance Due Date Last Done Comments Adult Td,Tdap Booster 1989 DEPRESSION SCREENING 2001 SMOKING Hx and SMOKELESS TOBACCO SCREENING 2002 HEPATITIS C SCREENING 2007 HIV ONE-TIME SCREENING (18-6 5 YEARS) 2007 PAP SMEAR 2010 INFLUENZA VACCINE (#1) 2025 COVID-19 VACCINE (2024-2 6 season) 2025 10/23/2020, 10/02/2020 SCREENING FOR DIABETES 09/18/2026 09/18/2023 HEPATITIS A VACCINES Aged Out No long er eligible based on patient's age to complete this topic HIB VACCINES Aged Out No longer eligi ble based on patient's age to complete this topic MENINGOCOCCAL VACCINES (ACWY) Aged Out No longer eligible based on patient's age to complete this topic MENINGOCOCCAL VACCINES (B) Aged Out N o longer eligible based on patient's age to complete this topic PNEUMOCOCCAL VACCINES (0-49 years) Aged Out No longer eligible b ased on patient's age to complete this topic Medical Devices Not on file Insurance [employer] NON NSPG PCP [facility]VER [employer] CONNECTORCARE [employer] [facility] PARTIAL [facility] NON NSPG PCP SILVER CLARITY CONNECTORCARE [employer] NET PARTIAL HEALTH [employer] NON NSPG PCP [facility] CONNECTOR[facility]ARE [facility] NSPG PCP S[facility]VER [facility] CONNECTORCARE [facility] SILVER [facility] HEALTH SAFET[facility] NET [facility]IAL [facility] NON NSPG PCP S[facility]AR[facility] CONNECTORCARE [facility] NON NSPG PCP S[employer] CONNECTORCARE Member Subscriber Plan / Payer (Ef fective 2020-Present) Name:Ulysses Le Relation to Subscriber:Self Name:ReyHermilo patiñorajendra Payer ID:[id number] Type:HMO Address: [address] [facility] NON [facility] [address] NET PARTIAL [facility]ALTH [facility] NON NSPG PCP S[place] [facility] [address] NET PARTIAL Care Teams Arterial Embalmer Relationship Specialty Start Date End Date Swathi Titus NP [address] [place] [address] PCP - General Nurse Practitioner 09/18/23 Additional Source Comments The information contained in this document represents components of the legal health record. It is not the complete legal health record.[facility]
--- OUTSIDE RECORDS SUMMARY | 2025-08-05 13:45 | XMS_ITS | Encounter Summary ---
Author Organization [employer] Address 75 [facility] 7t [place] [address] Care Team Providers Care Sludge Control Operator Name Role Phone Swathi Titus Primary Care Provider [phone] Reason for Visit * Reason Onset Date Comments Med Refill 08/29/2024 Encounter Details Date Type Department Care Team ([facility] st Contact Info) Description 08/29/2024 Refill [facility] MEDICINE 230 [place], [place] [phone] Swathi Titus ANP 230 [place] [address] Prediabetes; Class 3 severe obesity with serious [...] Description 10/12/2025 9:30 AM EST Office Visit [facility] OPTOMETRY 267 [place], [place] [phone] Lianne Helton, OD 267 [place] [address] documented as of this encounter Visit Diagnoses Diagnosis Prediabetes Other abnormal glucose Class 3 severe obesity with serious comorbidity and body mass index (BMI) of 40.0 to 44.9 in adult, unspecified obesity type (HCC) documented in this encounter Additional Health Concerns Assessment Noted Time PHQ-9 Depression Total Score: 0 07/29/20 24 10:52 AM EST documented as of this encounter Care Teams Sludge Control Operator Relationship Specialty Start Date End Date Swathi Titus ANP [address] [place] [address] PCP - General Family Medicine 05/05/21 documented as of this encounter
--- OUTSIDE RECORDS SUMMARY | 2025-08-05 13:46 | XMS_ITS | Encounter Summary ---
Author Organization [employer] Address 75 [facility] 7t [place] [address] Care Team Providers Care Mid Level Clinician Name Role Phone Swathi Titus Primary Care Provider [phone] Reason for Visit * Reason Onset Date Comments Med Refill 09/24/2024 Encounter Details Date Type Department Care Team ([facility] st Contact Info) Description 09/24/2024 Refill [facility] MEDICINE 230 [place], [place] [phone] Swathi Titus ANP 230 [place] [address] Social History Tobacco Use Types Packs/Day Years [...] Description 10/12/2025 9:30 AM EST Office Visit [facility] OPTOMETRY 267 [place] [address] Lianne Helton, OD 267 [place] [address] documented as of this encounter Visit Diagnoses Not on filedocumented in this encounter Additional Health Concerns Assessment Noted Time PHQ-9 Depression Total Score: 0 07/29/20 24 10:52 AM EST documented as of this encounter Care Teams Mid Level Clinician Relationship Specialty Start Date End Date Swathi Titus ANP [address] [place] [address] PCP - General Family Medicine 05/05/21 documented as of this encounter
[2025-08-05 19:53] LABS: C.Trachomatis RNA TMA, Rectal NOT DETECTED (NOT DETECTED); N.Gonorrhoeae RNA TMA, Rectal NOT DETECTED (NOT DETECTED)
[2025-08-08 13:03] LABS: C. Trachomatis RNA TMA, Throat NOT DETECTED; N. gonorrhoeae RNA TMA, Throat NOT DETECTED
== END 2025-08-04 18:25 | disposition home or self-care (01) ==
LOC: HO.HHCLNP 18:24
PROVIDERS: Visit Provider Nurse Practitioner Primary Care
DX: Z20.2 Contact with and (suspected) exposure to infections with a predominantly sexual mode of transmission (principal)
CPT/HCPCS: 81515; 87491; 87591

== ENCOUNTER 2025-08-07 13:01 | Outpatient (REF) | payer OTHER, SELFPAY ==
--- OUTSIDE RECORDS SUMMARY | 2025-08-04 14:00 | XMS_ITS | Encounter Summary ---
Author Organization [employer] Address [address] [facility] [address] [place] [address] Care Team Providers Care Civil Drafter Name Role Phone Swathi Titus Primary Care Provider [phone] Reason for Visit * Reason Comments Follow-up Encounter Details Date Type Department Care Team ([facility] Contact Info) Description 08/04/2025 2:00 PM EST Office Visit [facility] MEDICINE [address] [place], [place] [phone] Swathi Titus ANP [address] [place] [address] Healthcare maintenance (Primary Dx); Prediabetes; Fatigue, unspecified type; Vitamin D deficiency; Screening examination for STI; Overweight (BMI 25.0-29.9); Status post bariatric surgery; Mild intermittent asthma without complication Social History Tobacco Use Types Packs/Day Years Used Date Smoking Tobacco: Former Cigarettes Q uit: 09/24/2021 Smokeless Tobacco: Never Tobacco Cessation:Counseling Given: Not Answered Alcohol Use Standard Drinks/Week Comments Yes 0 (1 standard drink = 0.6 oz pur e alcohol) Alcohol Answer Date Recorded How often do you have a drink containing alcohol ? 0 08/04/2025 How many drinks containing a lcohol do you have on a typical day when you are drinking? 0 08/04/2025 How often do you have six or more drinks on one occasion? 0 08/04/2025 Depression Answer Date Recorded Patient Health Questionnaire-9 Score 9 08/04/2025 Patient Health Questionnaire-9 Score 9 08/04/2025 Last PHQ-9: Questionnaire Data Not on file 1 10/04/2024 Housing Stability Answer Date Recorded What is your housing situation today? I have steffi ma 08/04/[address] you li ve. Do you have problems with any of the following? None of the above 08/04/2025 Food Insecurity Answer Date Recorded Within the past 12 months, y ou worried that your food would run out before you got money to buy more: Never True 08/04/2025 Within the past 12 months,th e food you bought just didn't last and you didn't have enough money to get more: Never True Transportation Answer Date Recorded In the past 12 months, has l ack of transportation kept you from medical appts, meetings, work or from getting things needed for daily living? No 08/04/2025 Utilities Answer Date Recorded In the past 12 months, has t he electric, gas, oil or water company threatened to shut off services in your home? No 08/04/2025 Depression Answer Date Recorded Patient Health Questionnaire-2 Score 0 08/04/2025 Internet Access Answer Date Recorded Internet Access Q1 Yes 08/04/2025 Internet Access Q2 Not on file 08/04/2025 Comments No Sex and Gender Information Value Date Recorded Sex Assigned at Female 07/17/2022 10:15 AM EDT Legal Sex Female 10:15 AM EDT Gender Identity Female 07/17/2022 10:15 AM EDT Sexual Orientation Straight 07/17/2022 10 :15 AM EDT documented as of this encounter Last Filed Vital Signs Vital Sign Reading Time Taken Comments Blood Pressure 110/70 08/04/2025 2:17 PM EST Pulse 65 08/04/2025 2:17 PM EST Temperature 36.2 C (97.2 F) 08/04/2025 2:17 PM EST Respiratory Rate 20 08/04/2025 2:17 PM EST Oxygen Saturation 98% 08/04/2025 2:17 PM EST Inhaled Oxygen Concentration - - Weight 77.1 kg (170 lb) 08/04/2025 2:17 PM EST Height 162.6 cm (5' 4 ) 08/04/2025 2:17 PM EST Body Mass Index 29.18 08/04/2025 2:17 PM EST documented in this encounter Functional Status * Over the past 2 weeks, how often have you been bothered by any of the following problems? Question Answer Date of Assessment Author Patient Health Questionnaire -2 Score 0 08/04/2025 1:52 PM Helene Hernadez MA * Little interest or pleasure in doing things Answer Date of Assessment Author Not at all 08/04/2025 1:52 PM Dewayne Hernadez MA * Feeling down, depressed, or hopeless Answer Date of Assessment Author Not at all 08/04/2025 1:52 PM Dewayne Hernadez MA * Trouble falling or staying asleep, or sleeping too much Answer Date of Assessment Author Nearly every day 08/04/2025 1:52 PM Helene Hernadez MA * Feeling tired or having little energy Answer Date of Assessment Author Nearly every day 08/04/2025 1:52 PM Helene Hernadez MA * Poor appetite or overeating Answer Date of Assessment Author Nearly every day 08/04/2025 1:52 PM Helene Hernadez MA * Feeling bad about yourself - or that you are a failure or have let yourself or your family down Answer Date of Assessment Author Not at all 08/04/2025 1:52 PM Dewayne Hernadez MA * Trouble concentrating on things, such as reading the newspaper or watching television Answer Date of Assessment Author Not at all 08/04/2025 1:52 PM Dewayne Hernadez MA * Moving or speaking so slowly that other people could have noticed? Or the opposite - being so fidgety or restless that you have been moving around a lot more than usual. Answer Date of Assessment Author Not at all 08/04/2025 1:52 PM Dewayne Hernadez MA * Thoughts that you would be better off or hurting yourself in some way Answer Date of Assessment Author Not at all 08/04/2025 1:52 PM Dewayne Hernadez MA * Patient Health Questionnaire-9 Score Answer Date of Assessment Author 9 08/04/2025 1:52 PM Dewayne Hernadez MA * Over the last 2 weeks, how often have you been bothered by any of the following problems? Question Answer Date of Assessment Author Feeling nervous, anxious, or on edge 0 08/04/2025 1:52 PM EST Helene Duenas MA Not being able to stop or co ntrol worrying 0 08/04/2025 1:52 PM EST Helene Duenas MA Worrying too much about diff erent things 0 08/04/2025 1:52 PM EST Helene Duenas MA Trouble relaxing 0 08/04/2025 1:52 PM EST Helene Blackmon MA Being so restless that it is hard to sit still 0 08/04/2025 1:52 PM EST Helene Duenas MA Becoming easily annoyed or irritable 0 08/04/2025 1:52 PM EST Helene Duenas MA Feeling afraid as if somethi ng awful might happen 0 08/04/2025 1:52 PM EST Helene Duenas MA MCKENZIE-7 Total Score 0 08/04/2025 1:52 PM EST Helene Duenas MA * How difficult have these problems made it for you to do your work, take care of things at home, or get along with other people? Answer Date of Assessment Author Not difficult at all 08/04/2025 1:52 PM EST Helene Morejon MA documented as of this encounter Patient Instructions * Patient Instructions* ARBEN Montes - 08/04/2025 2:00 PM EST Look at Noom (www.[email or web address].[email or web address]) and Hers (www.forhers.Oodrive) for reputable online programs that offer weight loss medications like zepbound/tirzepatide. Please try to increase protein intake and overall dietary intake. Eating small frequent meals or snacks throughout the day may help. Please resume your multivitamins. Congratulations on quitting smoking!!! That is a huge achievement. If you do end up smoking a cigarette, just remember all is not lost, you can chose not to smoke another. documented in this encounter Progress Notes * ARBEN Montes - 08/04/2025 2:00 PM EST Subjective Patient ID: Karol Le is a 34 y.o. female who presents for Follow-up and annual exam. HPI PMH incl PreDM, s/p sleeve gastrectomy performed 11/02/2020 Here today for follow-up/weight check and annual exam. Feeling tired of late. Thinks may be d/t anemia (would like CBC checked) or sleep schedule d/t work. Works at [employer] on [employer]. Quit smoking! Happy w/ mirena Would like STI testing Has eye appointment 10/05/24 Tolerating zepbound (tirzepatide) well, denies side effects. BMI Readings from Last 6 Encounters: 08/04/25 29.18 kg/m?? 03/23/25 34.33 kg/m?? 03/06/25 34.67 kg/m?? 12/12/24 37.90 kg/m?? 07/29/24 42.15 kg/m?? 01/02/24 44.53 kg/m?? Wt Readings from Last 6 Encounters: 08/04/25 170 lb (77.1 kg) 03/23/25 200 lb (90.7 kg) 03/06/25 202 lb (91.6 kg) 12/12/24 222 lb (101 kg) 07/29/24 241 lb 3.2 oz (109 kg) 09/20/23 259 lb 6.4 oz (118 kg) Has had improvement in secondary outcomes incl A1c and BP with weight loss medication use. Understands that weight loss medications must be used as part of a comprehensive lifestyle plan that incorporates daily exercise, adequate protein intake, decreased soda and sugary beverage consumption, decreased caloric intake. She exercises most days of the week and drinks protein shake in AM. Got letter from [facility] that they will not cover Zepbound beyond August. This is unfortunate asshe has had great success with wt loss and is already s/p bariatric surgery. She has 10lb more to lose until she can qualify for paniculectomy. Review of Systems Constitutional: Positive for fatigue. Negative for chills, diaphoresis, fever and unexpected weightchange. HENT: Negative for congestion and sore throat. Eyes: Negative for visual disturbance. Respiratory: Negative for cough and shortness of breath. Cardiovascular: Negative for chest pain. Gastrointestinal: Positive for constipation. Negative for abdominal pain and diarrhea. Endocrine: Positive for cold intolerance. Negative for polydipsia, polyphagia and polyuria. Genitourinary: Negative for dysuria. Musculoskeletal: Negative for back pain. Allergic/Immunologic: Negative for immunocompromised state. Neurological: Negative for weakness. Psychiatric/Behavioral: Positive for sleep disturbance. Objective BP 110/70 (BP Location: Left arm, Patient Position: Sitting, BP Cuff Size: Adult) Pulse65 Temp 97.2 ??F (36.2 ??C) (Oral) Resp 20 Ht 5' 4 (1.626 m) Wt 170 lb (77.1 kg) LMP 07/21/2025 (Exact Date) SpO2 98% BMI 29.18 kg/m?? Physical Exam Constitutional: General: She is not in acute distress. Appearance: Normal appearance. She is not ill-appearing. HENT: Head: Normocephalic and atraumatic. Nose: No congestion. Eyes: General: No scleral icterus. Extraocular Movements: Extraocular movements intact. Pupils: Pupils are equal, round, and reactive to light. Cardiovascular: Rate and Rhythm: Normal rate and regular rhythm. Pulmonary: Effort: Pulmonary effort is normal. No accessory muscle usage or respiratory distress. Breath sounds: Normal breath sounds. Musculoskeletal: Right lower leg: No edema. Left lower leg: No edema. Lymphadenopathy: Cervical: No cervical adenopathy. Skin: General: Skin is warm and dry. Neurological: Mental Status: She is alert and oriented to person, place, and time. Mental status is at baseline. Cranial Nerves: No cranial nerve deficit. Motor: No weakness. Gait: Gait normal. Psychiatric: Mood and Affect: Mood normal. Behavior: Behavior normal. Assessment/Plan Diagnoses and all orders for this visit: Healthcare maintenance Comments: UTD w/ pap, eye exam upcoming, self refer dental, quit smoking, STI testing today Prediabetes Lab Results Component Value Date HGBA1C 5.3 08/04/2025 Improved from previous. Cont to exercise, eat healthy and cont weight loss. - POCT Glucose - POCT Hgb A1c Fatigue, unspecified type Comments: TSH normal last check, update labs today as ordered r/o anemia. sleep optimization. cont exercise regularly. Orders: - CBC auto differential; Future - Vitamin B12; Future Vitamin D deficiency Comments: check level, resume multivitamins due to s/p bariatric status Orders: - Vitamin D, 25-Hydroxy, Total, Immunoassay; Future Screening examination for STI - HIV-1/2 Antigen and Antibodies, Fourth Generation, with Reflexes; Future - Syphilis Screen; Future - Chlamydia/N. Gonorrhoeae RNA, TMA, Rectal; Future - Chlamydia/N. Gonorrhoeae RNA, TMA, Throat; Future - Chlamydia/N. Gonorrhoeae RNA, TMA, Vagina - Bacterial Vaginosis Panel - Hepatitis C Antibody with Reflex to HCV, RNA, Quantitative, Real-Time PCR; Future Overweight (BMI 25.0-29.9) Comments: Down from BMI 44.53 09/2023, would continue to benefit from wt loss. Will look into OTC/online [id number] from reputable companies. Would recommend this pt continue on Zepbound given great success w/ wt loss even after bariatric surgery, plus preDM Status post bariatric surgery Resume multivitamin and cont follow-up w/ bariatric team Mild intermittent asthma without complication Avoid asthma triggers if possible. Continue albuterol q4-6 hrs PRN wheezing/SOB. Let us know if using albuterol >2x/wk. documented in this encounter Plan of Treatment Upcoming Encounters Date Type Department Care Team (Late st Contact Info) Description 10/12/2025 9:30 AM EST Office Visit [facility] OPTOMETRY [address] [place] [address] Lianne Helton, OD [address] [place] [address] 11/05/2025 10:00 AM EST Office Visit [facility] MEDICINE [address] [place] [address] Swathi Titus ANP [address] [place] [address] Scheduled Orders Name Type Priority Associated Diagnoses Orde r Schedule CBC auto differential Lab Routine Fatigue, unspecified type Expected: 08/04/2025 (Approximate), Expires: 08/04/2026 HIV-1/2 Antigen and Antibodies, Fourth Generation, with Reflexes Lab Routine Screening examination for STI Expected: 08/04/2025 (Approximate), Expires: 08/04/2026 Syphilis Screen Lab Routine Screening examination for STI Expected: 08/04/2025, Expires: 08/04/2026 Chlamydia/N. Gonorrhoeae RNA, TMA, Rectal Microbiology Routine Screening examination for STI Expected: 08/04/2025 (Approximate), Expires: 08/04/2026 Chlamydia/N. Gonorrhoeae RNA, TMA, Throat Microbiology Routine Screening examination for STI Expected: 08/04/2025 (Approximate), Expires: 08/04/2026 Vitamin B12 Lab Routine Fatigue, unspecified type Expected: 08/04/2025 (Approximate), Expires: 08/04/2026 Vitamin D, 25-Hydroxy, Total, Immunoassay Lab Routine Vitamin D deficiency Expected: 08/04/2025 (Approximate), Expires: 08/04/2026 Hepatitis C Antibody with Reflex to HCV, RNA, Quantitative, Real-Time PCR Lab Routine Screening examination for STI Expected: 08/04/2025 (Approximate), Expires: 08/04/2026 documented as of this encounter Goals Goal Patient Goal Type Associated Problems Recent Progress Patient-Stated? Author Help patients manage their type 2 diabetes Care Plan Help patients manage their type 2 diabetes Helene Gongora MA Patient has chronic kidney disease Care Plan Patient has chronic kidney disease Helene Gongora MA Patient has chronic kidney disease Care Plan Patient has chronic kidney disease Helene Gongora MA documented as of this encounter Procedures Procedure Name Priority Date/Time Associated Diagnosis Comments BACTERIAL VAGINOSIS PANEL Routine 08/04/2025 2:55 PM EST Screening examination for STI CHLAMYDIA/N. GONORRHOEAE RNA, TMA, UROGENITAL Routine 08/04/2025 2:55 PM EST Screening examination for STI POCT GLYCATED HEMOGLOBIN, TOTAL Routine 08/04/2025 2:20 PM EST Prediabetes POCT GLUCOSE Routine 08/04/2025 2:19 PM EST Prediabetes documented in this encounter Results * (ABNORMAL) Bacterial Vaginosis Panel (08/04/2025 2:55 PM EST) TRICHOMONAS VAGINALIS DETECTION BY PCR NOT DETECTED Not Detect [facility] BACTERIAL VAGINOSIS DETECTION BY PCR POSITIVE(A) Negative [facility] Comment:The BV organism targ ets of the Xpert Xpress MVP test can becommensal in women; Xpert Xpress MVP positive results forbacterial vaginosis should be considered in conjunction withother clinical and patient information to determine thedisease status. Organisms that are not detected by the XpertXpress MVP test have also been reported to be associatedwith BV and aerobic vaginitis.The Xpert Xpress MVP test performance has not been evaluatedin patients under the age of 14. MEGHNA GROUP DETECTION BY PCR NOT DETECTED Not Detect [facility] Meghna glab krusei PCR NOT DETECTED Not Detect [facility] Swab Vaginal structure / Unknown 08/04/2025 2:55 PM EST 08/04/2025 6:32 PM EST [facility] MICROBIOLOGY - GENERAL ORDER MAG Final Result [facility] [address] [place] [phone] * Chlamydia/N. Gonorrhoeae RNA, TMA, Vagina (08/04/2025 2:55 PM EST) CT PCR NOT DETECTED Not Detect. [facility] Comment:A not detected test result does not exclude the possibilityof infection because test results can be affected byimproper specimen collection, concurrent antibiotic therapy,or the number of organisms in the specimen which may bebelow the sensitivity of the test. As with many diagnostictests, results from the Xpert CT/NG assay should beinterpreted in conjunction with other laboratory andclinical data available to the clinician.Xpert CT/NG performance has not been evaluated in patientsless than 14 years of age. The assay should not be used forthe evaluationof suspected sexual abuse or for other medico-legalindications. Additional testing is recommended in anycircumstance when false positive or false negative resultscould lead to adverse medical, social or psychologicalconsequences. NG PCR NOT DETECTED Not Detect. [facility] Comment:A not detected test result does not exclude the possibilityof infection because test results can be affected byimproper specimen collection, concurrent antibiotic therapy,or the number of organisms in the specimen which may bebelow the sensitivity of the test. As with many diagnostictests, results from the Xpert CT/NG assay should beinterpreted in conjunction with other laboratory andclinical data available to the clinician.Xpert CT/NG performance has not been evaluated in patientsless than 14 years of age. The assay should not be used forthe evaluationof suspected sexual abuse or for other medico-legalindications. Additional testing is recommended in anycircumstance when false positive or false negative resultscould lead to adverse medical, social or psychologicalconsequences. Swab Vaginal structure / Unknown 08/04/2025 2:55 PM EST 08/04/2025 6:32 PM EST us Sw[facility] MICROBIOLOGY - GENERAL ORDER MAG Final Result [facility] [address] [place] [address] [phone] * POCT Hgb A1c (08/04/2025 2:20 PM EST) Hemoglobin A1C 5.3 4.0 - 5.7 % QC Media Lot # [id number] Lot# Expiration Date 751,027 Blood 08/04/2025 2:20 PM EST us Swathi Titus ANP POINT OF CARE TEST ENTER/EDIT OR DERABLES Final Result * POCT Glucose (08/04/2025 2:19 PM EST) Glucose Blood, POC 102 60 - 200 mg/dL QC Media Lot # [id number] Lot# Expiration Date 7,,026 Blood Capillary blood specimen / Unknown 08/04/2025 2:19 PM EST Swathi [facility] POINT OF CARE TEST ENTER/EDIT OR DERABLES Final Result documented in this encounter Visit Diagnoses Diagnosis Healthcare maintenance- Primary Prediabetes Other abnormal glucose Fatigue, unspecified type Vitamin D deficiency Screening examination for STI Overweight (BMI 25.0-29.9) Overweight Status post bariatric surgery Bariatric surgery status Mild intermittent asthma without complication documented in this encounter Additional Health Concerns Active Problems Noted Date Diagnosed Date Help patients manage their type 2 diabetes 08/03 Patient has chronic kidney disease 08/03/2025 Patient has chronic kidney disease 08/04/2025 Assessment Noted Time PHQ-9 Depression Total Score: 9 08/04/20 25 1:52 PM EST documented as of this encounter Care Teams Civil Drafter Relationship Specialty Start Date End Date Swathi Titus ANP [address] [place] [phone] PCP - General Family Medicine 05/05/21 documented as of this encounter
--- OUTSIDE RECORDS SUMMARY | 2025-08-07 13:23 | XMS_ITS | Encounter Summary ---
Author Organization [employer] Address 75 [facility] 7t [place] [address] Care Team Providers Care Manager Dental Name Role Phone Swathi Titus Primary Care Provider [phone] Reason for Visit * Reason Onset Date Comments Med Refill 01/06/2025 Encounter Details Date Type Department Care Team ([facility] st Contact Info) Description 01/06/2025 Refill [facility] MEDICINE 230 [place] [address] Swathi Titus ANP 230 [place] [address] Social History Tobacco Use Types Packs/Day Years [...] Description 10/12/2025 9:30 AM EST Office Visit [facility] OPTOMETRY 267 [place] [address] Lianne Helton, OD 267 [place] [address] 11/05/2025 10:00 AM EST Office Visit [facility] MEDICINE 230 [place] [address] Swathi Titus ANP 230 [place] [address] documented as of this encounter Visit Diagnoses Not on filedocumented in this encounter Additional Health Concerns Assessment Noted Time PHQ-9 Depression Total Score: 0 07/29/20 24 10:52 AM EST documented as of this encounter Care Teams Manager Dental Relationship Specialty Start Date End Date Swathi Titus ANP [address] [place] [address] PCP - General Family Medicine 05/05/21 documented as of this encounter
--- OUTSIDE RECORDS SUMMARY | 2025-08-07 13:23 | XMS_ITS | Encounter Summary ---
Author Organization [employer] Address 75 [facility] 7t [place] [address] Care Team Providers Care Hematology Technologist Name Role Phone Swathi Titus Primary Care Provider [phone] Reason for Visit * Reason Onset Date Comments Med Refill 06/28/2025 Encounter Details Date Type Department Care Team ([facility] st Contact Info) Description 06/28/2025 Refill [facility] MEDICINE 230 [place] [address] Swathi Titus ANP 230 [place] [address] Prediabetes; Class 1 obesity with serious comorbidity [...] Visit [facility] OPTOMETRY 267 [place], [place] [phone] Lianne Helton, OD 267 [place] [address] 11/05/2025 10:00 AM EST Office Visit [facility] MEDICINE 230 [place] [address] Swathi Titus ANP 230 [place] [address] documented as of this encounter Visit Diagnoses Diagnosis Prediabetes Other abnormal glucose Class 1 obesity with serious comorbidity and body mass index (BMI) of 34.0 to 34.9 in adult, unspecified obesity type documented in this encounter Additional Health Concerns Assessment Noted Time PHQ-9 Depression Total Score: 0 07/29/20 24 10:52 AM EST documented as of this encounter Care Teams Hematology Technologist Relationship Specialty Start Date End Date Swathi Titus ANP [address] [place] [address] PCP - General Family Medicine 05/05/21 documented as of this encounter
--- OUTSIDE RECORDS SUMMARY | 2025-08-07 13:23 | XMS_ITS | Encounter Summary ---
Author Organization [employer] Address [address] [facility] [address] 7t [place] [address] Care Team Providers Care Buyer Name Role Phone Tacho Swathi THEODORE Primary Care Provider [phone] Encounter Details Date Type Department Care Team [...] Visit [facility] OPTOMETRY 267 [place] [address] Lianne Helton, OD 267 [place] [address] 11/05/2025 10:00 AM EST Office Visit [facility] MEDICINE 230 [place] [address] Swathi Titus ANP 230 [place] [address] documented as of this encounter Goals Goal [...] documented as of this encounter Care Teams Buyer Relationship Specialty Start Date End Date Swathi Titus ANP 230 [place] [address] PCP - General Family Medicine 05/05/21 documented as of this encounter
--- OUTSIDE RECORDS SUMMARY | 2025-08-07 13:23 | XMS_ITS | Encounter Summary ---
Author Organization [employer] Address 75 [facility] 7t [place] [address] Care Team Providers Care Etl Informatica Developer Name Role Phone Swathi Titus Primary Care Provider [phone] Encounter Details Date Type Department Care Team (Late Contact Info) Description 11/12/2022 Orders Only [facility] MEDICINE 230 [place], [place] [phone] Swathi Titus ANP 230 [place], [place] [phone] Social History Tobacco Use Types Packs/Day Years [...] Description 10/12/2025 9:30 AM EST Office Visit [facility] OPTOMETRY 267 [place], [place] [phone] Lianne Helton, OD 267 [place] [address] 11/05/2025 10:00 AM EST Office Visit [facility] MEDICINE 230 [place], [place] [phone] Swathi Titus ANP 230 [place], [place] [phone] documented as of this encounter Procedures Procedure Name Priority Date/Time Associated Diagnosis Comments T-SPOT(R).TB Routine 07/19/2023 10:33 AM EDT documented in this encounter Results * T-SPOT??.TB (07/19/2023 10:33 AM EDT) T Spot TB Negative Negative [facility] Comment:A negative test resu lt [...] as aquantitative test. TS PANEL A 0 [facility] TS PANEL B 0 [facility] Negative Control Passed [facility] Positive Control Passed [facility] Comment:For additional infor roel, please refer tohttp://education.[employer]/faq/MPG862(This link is being provided for informational/educational purposes only.)THIS TEST WAS PERFORMED AT:[facility] [id number] [place] [address]TIZTIQNSATINDER FONTENOT MD,PHD 07/19/2023 10:3 3 AM EDT 07/19/2023 11:25 AM EDT Swathi THEODORE LAB BLOOD ORDERABLES Final Resul t [facility] [address] [place] [address] [phone] documented in this encounter Visit Diagnoses Not on filedocumented in this encounter Care Teams Etl Informatica Developer Relationship Specialty Start Date End Date Swathi Titus ANP [address] [place] [address] PCP - General Family Medicine 05/05/21 documented as of this encounter
--- OUTSIDE RECORDS SUMMARY | 2025-08-07 13:23 | XMS_ITS | Encounter Summary ---
Author Organization [employer] Address 75 [facility] 7t [place] [address] Care Team Providers Care Research Physiologist Name Role Phone Swathi Titus Primary Care Provider [phone] Reason for Visit * Reason Onset Date Comments Nurse Triage 11/19/2023 Encounter Details Date Type Department Care Team ([facility] st Contact Info) Description 11/19/2023 Telephone [facility] MEDICINE 230 [place], [place] [phone] Swathi Titus ANP 230 [place] [address] Nurse Triage Social History Tobacco Use Types [...] 9:30 AM EST Office Visit [facility] OPTOMETRY 267 [place] [address] Sunitha Lianne, OD 267 [place] [address] 11/05/2025 10:00 AM EST Office Visit [facility] MEDICINE 230 [place] [address] Swathi Titus ANP 230 [place] [address] documented as of this encounter Visit Diagnoses Not on filedocumented in this encounter Additional Health Concerns Assessment Noted Time PHQ-9 Depression Total Score: 11 023 10:26 AM EDT documented as of this encounter Care Teams Research Physiologist Relationship Specialty Start Date End Date Swathi Titus ANP 230 [place] [address] PCP - General Family Medicine 05/05/21 documented as of this encounter
--- OUTSIDE RECORDS SUMMARY | 2025-08-07 13:23 | XMS_ITS | Encounter Summary ---
Author Organization [employer] Address 75 [facility] 7t [place] [address] Care Team Providers Care City Solicitor Name Role Phone Swathi Titus Primary Care Provider [phone] Reason for Visit * Reason Onset Date Comments Appointment Request 06/18/2023 Encounter Details Date Type Department Care Team ([facility] st Contact Info) Description 06/18/2023 Telephone [facility] MEDICINE 230 [place], [place] [phone] Swathi Titus ANP 230 [place] [address] Appointment Request Social History Tobacco Use Types [...] regards to needing a physical for work. Strip Tank Tender did not see any availability with PCP. Please contact pt at [phone] documented in this encounter Plan of Treatment Upcoming Encounters Date Type Department Care Team (Late st Contact Info) Description 10/12/2025 9:30 AM EST Office Visit [facility] OPTOMETRY [address] [place] [address] Lianne Helton, OD 267 [place] [address] 11/05/2025 10:00 AM EST Office Visit [facility] MEDICINE 230 [place] [address] Swathi Titus ANP 230 [place] [address] documented as of this encounter Visit Diagnoses Not on filedocumented in this encounter Care Teams City Solicitor Relationship Specialty Start Date End Date Swathi Titus ANP [address] [place] [address] PCP - General Family Medicine 05/05/21 documented as of this encounter
--- OUTSIDE RECORDS SUMMARY | 2025-08-07 13:23 | XMS_ITS | Encounter Summary ---
Author Organization [facility] Address [address] [place] [address] Phone Care Team Providers Care Medical Records Field Technician Name Role Phone Giovana Choi MD Primary Care Provi megha Swathi Titus NP Primary Care Provider [phone] Encounter Details Date Type Department Care Team (Late st Contact Info) Description 02/06/2020 Transcribe Orders [facility] Specimen Processing 30 [place] [address] Aric Jones MD [address] [facility] [address] [address], [address] [place] [address] [email or web address] Social History Tobacco Use Types Packs/Day Years [...] on filedocumented in this encounter Care Teams Medical Records Field Technician Relationship Specialty Start Date End Date Giovana Choi MD 230 [place], [place] [phone] PCP - General 07/03/17 09/17/23 Swathi Titus NP 230 [place], [place] [phone] PCP - General Nurse Practitioner 1/2/24 documented as of this encounter Additional Source Comments The information contained in this document represents components of the legal health record. It is not the complete legal health record.[facility]
--- OUTSIDE RECORDS SUMMARY | 2025-08-07 13:23 | XMS_ITS | Encounter Summary ---
Author Organization [employer] Address 75 [facility] 7t [place] [address] Care Team Providers Care Aviation Operations Specialist Name Role Phone Swathi Titus Primary Care Provider [phone] Reason for Visit * Reason Onset Date Comments chart prep 08/03/2025 Encounter Details Date Type Department Care Team ([facility] st Contact Info) Description 08/03/2025 Telephone [facility] MEDICINE 230 [place], [place] [phone] Swathi Titus ANP 230 [place] [address] chart prep Social History Tobacco Use Types [...] Description 10/12/2025 9:30 AM EST Office Visit [facility] OPTOMETRY 267 [place] [address] Lianne Helton, OD 267 [place] [address] 11/05/2025 10:00 AM EST Office Visit [facility] MEDICINE 230 [place] [address] Swathi Titus ANP 230 [place] [address] documented as of this encounter Goals Goal [...] documented as of this encounter Care Teams Aviation Operations Specialist Relationship Specialty Start Date End Date Swathi Titus ANP 230 [place] [address] PCP - General Family Medicine 05/05/21 documented as of this encounter
--- OUTSIDE RECORDS SUMMARY | 2025-08-07 13:23 | XMS_ITS | Encounter Summary ---
Author Organization [employer] Address 75 [facility] 7t [place] [address] Care Team Providers Care Feed Handler Name Role Phone Swathi Titus Primary Care Provider [phone] Reason for Visit * Reason Onset Date Comments Appointment Request 03/19/2023 Encounter Details Date Type Department Care Team (Late Contact Info) Description 03/19/2023 Telephone [facility] MEDICINE 230 [place] [address] Swathi Titus ANP 230 [place] [address] Appointment Request Social History Tobacco Use Types [...] by new job. Please contact pt at [phone] documented in this encounter Plan of Treatment Upcoming Encounters Date Type Department Care Team (Late Contact Info) Description 10/12/2025 9:30 AM EST Office Visit [facility] OPTOMETRY 267 [place] [address] Lianne Helton, OD 267 [place] [address] 11/05/2025 10:00 AM EST Office Visit [facility] MEDICINE 230 [place] [address] Swathi Titus ANP 230 [place] [address] documented as of this encounter Visit Diagnoses Not on filedocumented in this encounter Care Teams Feed Handler Relationship Specialty Start Date End Date Swathi Titus ANP [address] [place] [address] PCP - General Family Medicine 05/05/21 documented as of this encounter
--- OUTSIDE RECORDS SUMMARY | 2025-08-07 13:23 | XMS_ITS | Encounter Summary ---
Author Organization [employer] Address [address] [facility] 7t [place] [address] Care Team Providers Care Nc Machinist Name Role Phone Swathi Titus Primary Care Provider [phone] Reason for Visit * Reason Onset Date Comments Med Refill 05/28/2025 Encounter Details Date Type Department Care Team ([facility] st Contact Info) Description 05/28/2025 Refill [facility] MEDICINE 230 [place], [place] [phone] Swathi Titus ANP 230 [place] [address] Prediabetes; Class 1 obesity with serious comorbidity [...] AM EST Office Visit [facility] OPTOMETRY 267 [place], [place] [phone] Lianne Helton, OD 267 [place] [address] 11/05/2025 10:00 AM EST Office Visit [facility] MEDICINE 230 [place] [address] Swathi Titus ANP 230 [place] [address] documented as of this encounter Visit Diagnoses Diagnosis Prediabetes Other abnormal glucose Class 1 obesity with serious comorbidity and body mass index (BMI) of 34.0 to 34.9 in adult, unspecified obesity type documented in this encounter Additional Health Concerns Assessment Noted Time PHQ-9 Depression Total Score: 0 07/29/20 24 10:52 AM EST documented as of this encounter Care Teams Nc Machinist Relationship Specialty Start Date End Date Swathi Titus ANP [address] [place] [address] PCP - General Family Medicine 05/05/21 documented as of this encounter
--- OUTSIDE RECORDS SUMMARY | 2025-08-07 13:23 | XMS_ITS | Encounter Summary ---
Author Organization [employer] Address [address] [facility] 7t [place] [address] Care Team Providers Care Crushing Mill Operator Name Role Phone Swathi Titus Primary Care Provider [phone] Reason for Visit * Reason Onset Date Comments Med Refill 02/04/2025 Encounter Details Date Type Department Care Team ([facility] st Contact Info) Description 02/04/2025 Refill [facility] MEDICINE [address] [place], [place] [phone] Swathi Titus ANP 230 [place] [address] Social History Tobacco Use Types Packs/Day Years [...] Description 10/12/2025 9:30 AM EST Office Visit [facility] OPTOMETRY [address] [place] [address] Lianne Helton, OD 267 [place] [address] 11/05/2025 10:00 AM EST Office Visit [facility] MEDICINE [address] [place] [address] Swathi Titus ANP 230 [place] [address] documented as of this encounter Visit Diagnoses Not on filedocumented in this encounter Additional Health Concerns Assessment Noted Time PHQ-9 Depression Total Score: 0 07/29/20 24 10:52 AM EST documented as of this encounter Care Teams Crushing Mill Operator Relationship Specialty Start Date End Date Swathi Titus ANP [address] [place] [address] PCP - General Family Medicine 05/05/21 documented as of this encounter
--- OUTSIDE RECORDS SUMMARY | 2025-08-07 13:23 | XMS_ITS | Encounter Summary ---
Author Organization [employer] Address [address] [facility] 7t [place] [address] Care Team Providers Care Vault Mechanic Name Role Phone Swathi Titus Primary Care Provider [phone] Reason for Visit * Reason Onset Date Comments Med Refill 11/04/2024 Encounter Details Date Type Department Care Team ([facility] st Contact Info) Description 11/04/2024 Refill [facility] MEDICINE 230 [place], [place] [phone] Swathi Titus ANP 230 [place] [address] Class 3 severe obesity with serious comorbidity [...] Description 10/12/2025 9:30 AM EST Office Visit [facility] OPTOMETRY [address] [place] [address] Lianne Helton, OD 267 [place] [address] 11/05/2025 10:00 AM EST Office Visit [facility] MEDICINE [address] [place] [address] Swathi Titus ANP 230 [place] [address] documented as of this encounter Visit Diagnoses Diagnosis Class 3 severe obesity with serious comorbidity and body mass index (BMI) of 40.0 to 44.9 in adult, unspecified obesity type (HCC) documented in this encounter Additional Health Concerns Assessment Noted Time PHQ-9 Depression Total Score: 0 07/29/20 24 10:52 AM EST documented as of this encounter Care Teams Vault Mechanic Relationship Specialty Start Date End Date Swathi Titus ANP [address] [place] [address] PCP - General Family Medicine 05/05/21 documented as of this encounter
--- OUTSIDE RECORDS SUMMARY | 2025-08-07 13:23 | XMS_ITS | Encounter Summary ---
Author Organization [employer] Address 75 [facility] 7t [place] [address] Care Team Providers Care Analog Ic Design Engineer Name Role Phone Swathi Titus Primary Care Provider [phone] Reason for Visit * Reason Onset Date Comments Med Refill 01/20/2025 Encounter Details Date Type Department Care Team ([facility] st Contact Info) Description 01/20/2025 Refill [facility] MEDICINE 230 [place], [place] [phone] Swathi Titus ANP 230 [place] [address] Type 2 diabetes mellitus without complication, without long-term current use of insulin ([facility]); Constipation, unspecified constipation type Social History [...] Description 10/12/2025 9:30 AM EST Office Visit [facility] OPTOMETRY 267 [place] [address] TarkaLianne, OD 267 [place] [address] 11/05/2025 10:00 AM EST Office Visit [facility] MEDICINE 230 [place] [address] Swathi Titus ANP [address] [place] [address] documented as of this encounter Visit Diagnoses Diagnosis Type 2 diabetes mellitus without complication, without long-term current use of insulin (HCC) Constipation, unspecified constipation type documented in this encounter Additional Health Concerns Assessment Noted Time PHQ-9 Depression Total Score: 0 07/29/20 24 10:52 AM EST documented as of this encounter Care Teams Analog Ic Design Engineer Relationship Specialty Start Date End Date Swathi Titus ANP [address] [place] [address] PCP - General Family Medicine 05/05/21 documented as of this encounter
--- OUTSIDE RECORDS SUMMARY | 2025-08-07 13:23 | XMS_ITS | Encounter Summary ---
Author Organization [employer] Address [address] [facility] 7t [place] [address] Care Team Providers Care Hand Model Name Role Phone Swathi Titus Primary Care Provider [phone] Reason for Visit * Reason Onset Date Comments Prior Authorization 08/05/2024 Encounter Details Date Type Department Care Team ([facility] Contact Info) Description 08/05/2024 Telephone [facility] MEDICINE [address] [place], [place] [phone] Swathi Titus ANP 230 [place] [address] Prior Authorization Social History Tobacco Use Types [...] on [employer]. Please contact pt at [phone]. documented in this encounter Plan of Treatment Upcoming Encounters Date Type Department Care Team (Late st Contact Info) Description 10/12/2025 9:30 AM EST Office Visit [facility] OPTOMETRY [address] [place] [address] Lianne Helton, BRANDON 267 [place] [address] 11/05/2025 10:00 AM EST Office Visit [facility] MEDICINE [address] [place] [address] Swathi Titus ANP 230 [place] [address] documented as of this encounter Visit Diagnoses Not on filedocumented in this encounter Additional Health Concerns Assessment Noted Time PHQ-9 Depression Total Score: 0 07/29/20 24 10:52 AM EST documented as of this encounter Care Teams Hand Model Relationship Specialty Start Date End Date Swathi Titus ANP 230 [place] [address] PCP - General Family Medicine 05/05/21 documented as of this encounter
--- OUTSIDE RECORDS SUMMARY | 2025-08-07 13:24 | XMS_ITS | Encounter Summary ---
Author Organization [employer] Address 75 [facility] 7t [place] [address] Care Team Providers Care Correctional Classification Counselor Name Role Phone Swathi Titus Primary Care Provider [phone] Reason for Visit * Reason Onset Date Comments Med Refill 08/29/2024 Encounter Details Date Type Department Care Team ([facility] st Contact Info) Description 08/29/2024 Refill [facility] MEDICINE 230 [place], [place] [phone] Swathi Titus ANP 230 [place] [address] Prediabetes; Class 3 severe obesity with serious [...] Office Visit [facility] OPTOMETRY [address] [place] [address] Lianne Helton, OD 267 [place] [address] 11/05/2025 10:00 AM EST Office Visit [facility] MEDICINE 230 [place] [address] Swathi Titus ANP 230 [place] [address] documented as of this encounter Visit Diagnoses Diagnosis Prediabetes Other abnormal glucose Class 3 severe obesity with serious comorbidity and body mass index (BMI) of 40.0 to 44.9 in adult, unspecified obesity type (HCC) documented in this encounter Additional Health Concerns Assessment Noted Time PHQ-9 Depression Total Score: 0 07/29/20 24 10:52 AM EST documented as of this encounter Care Teams Correctional Classification Counselor Relationship Specialty Start Date End Date Swathi Titus ANP 230 [place] [address] PCP - General Family Medicine 05/05/21 documented as of this encounter
--- OUTSIDE RECORDS SUMMARY | 2025-08-07 13:24 | XMS_ITS | Clinical Summary ---
Author Organization [facility] Address [address] [place] [address] Phone Care Team Providers Care Dog Control Officer Name Role Phone Physician, Pcp Unknown Primary Care Provider Ruth vailable Allergies No known active allergies Surgical History Surgery Date Site/Laterality Comments OTHER SURGICAL HISTORY PROCEDURE: HISTORY OTHER; COMMENT: gastric sleeve, 10/2020 WISDOM TOOTH EXTRACTION PROCEDURE: HISTORICAL WISDOM TEETH EXTRACTION Medical History Medical History Date Comments Sleep apnea DX:Sleep apnea Type 2 diabetes mellitus wit hout complications ([facility] V24, [facility] V28) DX:Type 2 ellis betes mellitus without complications ([facility]); COMMENT: taken off metformin at [...] patient's age to complete this topic Insurance [facility] Care Teams Dog Control Officer Relationship Specialty Start Date End Date Physician, Pcp Unknown PCP - General 12/16/24
--- OUTSIDE RECORDS SUMMARY | 2025-08-07 13:24 | XMS_ITS | Encounter Summary ---
Author Organization [employer] Address 75 [facility] 7t [place] [address] Care Team Providers Care Clarification Operator Name Role Phone Swathi Titus Primary Care Provider Encounter Details Date Type Department Care Team (Late st Contact Info) Description 08/04/2025 Orders Only [facility] MEDICINE [address] [place], [place] [phone] Swathi Titus ANP 230 [place], [place] [phone] Social History Tobacco Use Types Packs/Day Years [...] [place] documented as of this encounter Plan of Treatment Upcoming Encounters Date Type Department Care Team (Late st Contact Info) Description 10/12/2025 9:30 AM EST Office Visit [facility] OPTOMETRY [address] [place] [address] Lianne Helton, OD 267 [place] [address] 11/05/2025 10:00 AM EST Office Visit [facility] MEDICINE [address] [place] [address] Swathi Titus ANP [address] [place] [address] documented as of this encounter Goals Goal Patient Goal Type Associated Problems Recent Progress Patient-Stated? Author Help patients manage their type 2 diabetes Care Plan Help patients manage their type 2 diabetes Helene Gognora [place] Patient has chronic kidney disease Care Plan Patient has chronic kidney disease Helene Gongora [place] Patient has chronic kidney disease Care Plan Patient has chronic kidney disease Helene Gongora [place] documented as of this encounter Procedures Procedure Name Priority Date/Time Associated Diagnosis Comments CHLAMYDIA/N. GONORRHOEAE RNA, TMA, RECTAL Routine 08/04/2025 2:55 PM EST documented in this encounter Results * Chlamydia/N. Gonorrhoeae RNA, TMA, Rectal (08/04/2025 2:55 PM EST) C.Trachomatis RNA TMA, Rectal NOT DETECTED NOT DETECTED [facility] N.Gonorrhoeae RNA TMA, Rectal NOT DETECTED NOT DETECTED [facility] 08/04/2025 2:55 PM EST 08/04/2025 6:30 PM EST us Swathi [facility] - GENERAL ORDER MAG Final Result [facility] [address] [place] [address] [phone] documented in this encounter Visit Diagnoses Not on filedocumented in this encounter Additional Health Concerns Active Problems Noted Date Diagnosed Date Help patients manage their type 2 diabetes 08/03 Patient has chronic kidney disease 08/03/2025 Patient has chronic kidney disease 08/04/2025 Assessment Noted Time PHQ-9 Depression Total Score: 9 08/04/20 25 1:52 PM EST documented as of this encounter Care Teams Clarification Operator Relationship Specialty Start Date End Date Swathi Titus ANP [address] [place] [address] PCP - General Family Medicine 05/05/21 documented as of this encounter
--- OUTSIDE RECORDS SUMMARY | 2025-08-07 13:24 | XMS_ITS | Encounter Summary ---
Author Organization [employer] Address 75 [facility] 7t [place] [address] Care Team Providers Care Nib Assembler Name Role Phone Swathi Titus Primary Care Provider [phone] Reason for Visit * Reason Onset Date Comments Med Refill 09/24/2024 Encounter Details Date Type Department Care Team ([facility] st Contact Info) Description 09/24/2024 Refill [facility] MEDICINE [address] [place], [place] [phone] Swathi Titus ANP [address] [place] [address] Social History Tobacco Use Types Packs/Day Years [...] Office Visit [facility] OPTOMETRY [address] [place] [address] Lianne Helton, OD [address] [place] [address] 11/05/2025 10:00 AM EST Office Visit [facility] MEDICINE [address] [place] [address] Swathi Titus ANP [address] [place] [address] documented as of this encounter Visit Diagnoses Not on filedocumented in this encounter Additional Health Concerns Assessment Noted Time PHQ-9 Depression Total Score: 0 07/29/20 24 10:52 AM EST documented as of this encounter Care Teams Nib Assembler Relationship Specialty Start Date End Date Swathi Titus ANP [address] [place] [address] PCP - General Family Medicine 05/05/21 documented as of this encounter
--- OUTSIDE RECORDS SUMMARY | 2025-08-07 13:24 | XMS_ITS | Encounter Summary ---
Author Organization [employer] Address 75 [facility] 7t [place] [address] Care Team Providers Care Web Interface Developer Name Role Phone Swathi Titus Primary Care Provider [phone] Reason for Visit * Reason Comments Med Refill Encounter Details Date Type Department Care Team ([facility] Contact Info) Description 11/19/2024 Refill [facility] MEDICINE 230 [place], [place] [phone] Swathi Titus ANP 230 [place] [address] Social History Tobacco Use Types Packs/Day Years [...] Description 10/12/2025 9:30 AM EST Office Visit [facility] OPTOMETRY [address] [place] [address] Lianne Helton, OD [address] [place] [address] 11/05/2025 10:00 AM EST Office Visit [facility] MEDICINE [address] [place] [address] Swathi Titus ANP [address] [place] [address] documented as of this encounter Visit Diagnoses Not on filedocumented in this encounter Additional Health Concerns Assessment Noted Time PHQ-9 Depression Total Score: 0 07/29/20 24 10:52 AM EST documented as of this encounter Care Teams Web Interface Developer Relationship Specialty Start Date End Date Swathi Titus ANP [address] [place] [address] PCP - General Family Medicine 05/05/21 documented as of this encounter
--- OUTSIDE RECORDS SUMMARY | 2025-08-07 13:24 | XMS_ITS | Clinical Summary ---
Author Organization [facility] Address [address] [place] [address] Phone Care Team Providers Care Stenotype Operator Name Role Phone Tacho Swathi LOMAX Primary Care Provider [phone] Allergies No known active allergies Medications No [...] WELL[facility]ENSE NON NSPG PCP [facility] PARTIAL [facility] NON NSPG PCP S[facility] [employer] NET PARTIAL HEALTH [facility] NON NSPG PCP S[facility] Address: [place] [address] [facility] NON NSPG PCP S[facility] S[facility]VER [facility]ALTH [facility] NET PARTIAL [facility] NON NSPG PCP S[facility] NON NSPG PCP [facility] Member Subscriber Plan / Payer (Ef fective 2020-Present) Name:Ulysses Le Relation to Subscriber:Self Name:ReyHermilo patiñorajendra Payer ID:[id number] Type:HMO Address: [address] [facility] NON [facility] [address] NET PARTIAL [facility] NON NSPG PCP S[facility] [place] [facility] [address] NET PARTIAL Care Teams Stenotype Operator Relationship Specialty Start Date End Date Swathi Titus NP [address] [place] [address] PCP - General Nurse Practitioner 09/18/23 Additional Source Comments The information contained in this document represents components of the legal health record. It is not the complete legal health record.[facility]
--- OUTSIDE RECORDS SUMMARY | 2025-08-07 13:24 | XMS_ITS | Clinical Summary ---
Author Organization [employer] Address [address] [facility] 7t [place] [address] Care Team Providers Care Priming Powder Premix Blender Name Role Phone Tacho Swathi THEODORE Primary Care Provider [phone] Allergies No known active allergies Medications Blood Glucose Monitoring Suppl (FreeStyle [place] Lite) w/Device kit USE TO TEST BLOOD [...] 08/04/20 25 1:36 PM EST 025 Active metroNIDAZOLE (Metrogel) 0.75 % vaginal gelIndications: Bacterial vaginosis Insert into the vagina at bedtime for 5 days. 70 g 025 2024 Active FreeStyle lancetsIndicati ons:Type 2 diabetes mellitus [...] Encounters Date Type Department Care Team Description 08/05/2025 Results Follow-Up [facility] [address] [place] [address] Swathi Titus, ANP POCT Glucose, POCT Hgb A1c, Chlamydia/N. Gonorrhoeae RNA, TMA, Vagina, Bacterial Vaginosis Panel 08/04/2025 2:00 PM EST Office Visit [facility] [place] [place] [address] Swathi Titus ANP Healthcare maintenance (Primary Dx); Prediabetes; Fatigue, unspecified type; Vitamin D deficiency; Screening examination for STI; Overweight (BMI 25.0-29.9); Status post bariatric surgery; Mild intermittent asthma without complication 08/04/2025 Orders Only [facility] [place] [address] Swathi Titus ANP 08/04/2025 Travel 08/03/2025 Telephone [facility] [place] [address] Swathi Titus ANP chart prep 07/28/2025 Travel 07/22/2025 Refill [facility] [place] [place] [address] Swathi Titus ANP Prediabetes; Class 1 obesity with serious comorbidity and body mass index (BMI) of 34.0 to 34.9 in adult, unspecified obesity type 06/28/2025 Refill [facility] [place] [address] Swathi Titus ANP Cigarette nicotine dependence without complication 06/28/2025 Refill [facility] [place] [address] Swathi Titus ANP Prediabetes; Class 1 obesity with serious comorbidity and body mass index (BMI) of 34.0 to 34.9 in adult, unspecified obesity type 06/08/2025 Travel 06/08/2025 Telephone [facility] [place] [address] Swathi Titus ANP chart prep 05/28/2025 Refill [facility] [place] [address] Swathi Titus ANP Prediabetes; Class 1 obesity with serious comorbidity and body mass index (BMI) of 34.0 to 34.9 in adult, unspecified obesity type from Last 3 Months Immunizations Immunization Administration Dates Next Due DTaP 12/16/1994, 2,04/17/1990,1989,1989 Hep B, Adolescent or Pediatric 3,03/22/2001,03/12/2000,1998 Hib (HbOC) 04/17/1991,10/18/1990 Influenza injectable quadriv alent IIV4 with [...] your housing situation today? I have steffi francesca 08/04/[address] you li [...] Description 10/12/2025 9:30 AM EST Office Visit [facility] [address] [place], [place] [phone] Lianne Helton OD [address] [place] [address] 11/05/2025 10:00 AM EST Office Visit [facility] [address] [place], [place] [phone] Swathi Titus ANP [address] [place] [address] Health Maintenance Due Date Last Done Comments Eye Exam 1999 HPV Vaccines (1 - 3-dose series) 2004 Diabetes: Urine Protein Screening 07/29/2025 07/29/2024, 05/26/2021, 10/18/2020 Lipid Panel 12/11/2025 12/11/2024, 02/2 09/2022, 06/18/2020, Additional history exists Depression Monitoring 02/01/2026 08/04/2025, 025 Diabetes: Hemoglobin A1C 02/01/2026 025, 12/11/2024, 07/29/2024, Additional history exists Influenza Vaccine (#1) 2026 , 06/27/2016, 10/10/2012 Postponed from 05/18/2025 (Patient Refused) [...] has chronic kidney disease Helene Gongora MA Procedures Procedure Name Priority Date/Time Associated Diagnosis Comments CHLAMYDIA/N. GONORRHOEAE RNA, TMA, RECTAL Routine 08/04/2025 2:55 PM EST BACTERIAL VAGINOSIS PANEL Routine 08/04/2025 2:55 PM [...] DETECTION BY PCR NOT DETECTED Not Detect [facility] BACTERIAL VAGINOSIS DETECTION BY PCR POSITIVE(A) Negative [facility] Comment:The BV organism targ ets [...] DETECTION BY PCR NOT DETECTED Not Detect [facility] Meghna glab krusei PCR NOT DETECTED Not Detect [facility] Swab Vaginal structure / Unknown 08/04/2025 2:55 PM EST 08/04/2025 6:32 PM EST Swathi Titus [facility] LAB MICROBIOLOGY - GENERAL ORDER MAG Final Result [facility] [address] [place] [phone] * Chlamydia/N. Gonorrhoeae RNA, TMA, Rectal (08/04/2025 2:55 PM EST) C.Trachomatis RNA TMA, Rectal NOT DETECTED NOT DETECTED [facility] N.Gonorrhoeae RNA TMA, Rectal NOT DETECTED NOT DETECTED [facility] 08/04/2025 2:55 PM EST 08/04/2025 6:30 PM EST [facility] LAB MICROBIOLOGY - GENERAL ORDER MAG Final Result [facility] [address] [place] [address] [phone] * Chlamydia/N. Gonorrhoeae RNA, TMA, Vagina (08/04/2025 2:55 PM EST) CT PCR NOT DETECTED Not Detect. [facility] Comment:A not detected test result [...] psychologicalconsequences. NG PCR NOT DETECTED Not Detect. [facility] Comment:A not detected test result [...] EST 08/04/2025 6:32 PM EST Swathi Titus [facility] LAB MICROBIOLOGY - GENERAL ORDER MAG Final Result [facility] [address] [place] [phone] * POCT Hgb A1c (08/04/2025 2:20 PM EST) Pathologist [facility] Hemoglobin A1C 5.3 4.0 - 5.7 % QC Media Lot # [id number] Lot# Expiration Date Blood 08/04/2025 2:20 PM EST Swathi Titus ANP POINT OF CARE TEST ENTER/EDIT OR DERABLES Final Result * POCT Glucose (08/04/2025 2:19 PM EST) Pathologist [facility] Glucose Blood, POC 102 60 - 200 mg/dL QC Media Lot # [id number] Lot# Expiration Date , Blood Capillary blood specimen / Unknown 08/04/2025 2:19 PM EST [facility] Titus ANP POINT OF CARE TEST ENTER/EDIT OR DERABLES Final Result * HPV DNA, Low/High Risk (03/23/2025 1:57 PM EDT) [facility] HPV High Risk Negative Negative [facility] HPV Genotype 16 Negative Negative [facility] HPV Genotype 18 Negative Negative [facility] Comment:HPV testing performe d at [facility] (CLIA#[id number]), [address] [place] [phone].Testing for HPV was performed using the [place] [...] 03/24/2025 8:20 AM EDT us Nadeen Campos CNM LAB BLOOD ORDERABLES Rosemary mayfield Result [facility] [address] [place] [phone] * Pap Smear (03/23/2025 1:57 PM EDT) Swab Cervix uteri structure / Unknown 03/23/2025 1:57 PM EDT 03/24/2025 8:20 AM EDT Narrative [facility] - 03/26/2025 1:52 PM EDT ----- ------- Name: Karol Le Age/Sex: 34/F : 1990 Unit#: [id number] Attend Dr: NADEEN CAMPOS CNM Re03/23/25 Status: DEP REF Location: [facility] Disch: ----- ------- SPEC : [id number] RECD: 03/24/25 STATUS: ROMI BRAND NUM: [id number] NILO: 03/23/[address] [facility] [address]: NADEEN CAMPOS CNM ENTERED: 03/24/25 SP TYPE: Pap Smr [facility] DR: ORDERED: Pap Smear Interpretation Satisfactory for [...] and HPV testing will be performed at [facility] (CLIA #[id number]), [address] [place] [address]. Testing for HPV was performed using the [...] detected. All professional services are performed by [facility] ([address] [place] [address], [place] [address]; ; CLIA #[id number]). The PAP Test is a screening procedure with the inherent possibility of both false negative and false positive results. Results should be interpreted in the context of historic and current clinical findings. Reliability of the PAP Test is enhanced by performing the test on a regular repetitive basis. CONTINUED ON NEXT PAGE ----- ------- Name: Karol Le Age/Sex: 34/F : 1990 Unit#: [id number] Attend Dr: NADEEN CAMPOS [facility] Re03/23/25 Status: DEP REF Location: [facility] Disch: ----- ------- SPEC : [id number] RECD: 03/24/25 STATUS: ROMI BRAND NUM: [id number] NILO: 03/23/25-[address] [facility] [address]: NADEEN CAMPOS [facility] ENTERED: 03/24/25 SP TYPE: Pap [facility] DR: ORDERED: Pap Smear ----- ------- Signed (signature on file) JIM Shoemaker ([facility]) 03/26/25 0545 ----- ------- END OF REPORT Nadeen Campos [facility] LAB CYTOLOGY ORDERABLES F inal Result Performing Organization Address [facility] [place] [facility]/ZIP Co de Phone Number [facility] [address] [place] [address] [phone] * Lipid Panel, Standard (12/11/2024 7:38 AM EDT) Triglycerides 76 <150 mg/dL [facility] Comment:Desirable Triglyceri de: less than 150 mg/dLBorderline High Triglyceride 150-199 mg/dLHigh Triglyceride: 200-499 mg/dLVery High Triglyceride: greater than or equal to 5OO mg/dL Cholesterol 167 <200 mg/dL [facility] Comment:Desirable Cholestero l: less than 200 mg/dLBorderline High Cholesterol: 200-239 mg/dLHigh Cholesterol: greater than 239 mg/dL LDL Cholesterol Calculated 96 <100 mg/dL [facility] Comment:Desirable LDL: less than 100 mg/dLNear Optimal/Above Optimal LDL: 110- 129 mg/dLBorderline High LDL: 130-159 mg/dLHigh LDL: 160-189 mg/dLVery High LDL: greater than or equal to 190 mg/dL HDL Cholesterol 56 >40 mg/dL [facility] Comment:Desirable HDL: great er than 40 mg/dL Note: This HDL assay may give artificially low results in patients with liver disease. 12/11/2024 7:38 AM EDT 12/11/2024 7:38 AM EDT Generic External Data Provider LAB BLOOD ORDERAB LES Final Result Performing Organization Address [facility] [place] [facility]/ZIP Co de Phone Number [facility] [address] [place] [address] [phone] * Albumin, Random Urine W/Creatinine (07/29/2024 11:50 AM EST) Creatinine, Urine 208.04 mg/dL [facility] Microalbumin Urine 14.0 mg/L H [facility] Microalbum Creatinine Ratio Ur 6.7 <30 ug/mg cr [facility] Comment:Albumin/Creatinine R atio Reference Ranges: Normal: < 30 ug/mg creatinine Microalbuminuria: 30 - 300 ug/mg creatinineClinical Albuminuria: > 300 ug/mg creatinine 07/29/2024 11:5 0 AM EST 07/29/2024 6:13 PM EST Swathi Titus ANP LAB URINE ORDERABLES Final Resul t Performing Organization Address City/[facility] [place] [facility]/ZIP Co de Phone Number [facility] [address] [place] [address] [phone] * HEPATITIS C AB W/REFL TO HCV RNA, QN, PCR (05/26/2021 10:33 AM EDT) HEPATITIS C ANTIBODY NON-REACT ABIGAIL NON-REACT ABIGAIL [facility] INDEX 0.02 <1.00 [facility] Comment: HCV antibody was non-reactive. There is no laboratory evidence of HCV infection. In most cases, no further action is required. However, if recent HCV exposure is suspected, a test for HCV RNA (test code 42305) is suggested. For additional information please refer to http://education.[employer]/faq/NBK67r6 (This link is being provided for informational/ educational purposes only.) 05/26/2021 10:3 3 AM EDT us Historical Provider MD HISTORICAL/NON ORDERABLE LABS Final Result [facility] [address] * HIV 1/2 ANTIGEN/ANTIBODY,FOURTH GENERATION W/RFL (05/26/2021 10:33 AM EDT) HIV-1/2 ANTIGEN AND ANTIBODIES, 4TH GENERATION W/ REFLEX NON-REACT ABIGAIL NON-REACT ABIGAIL [facility] Comment: HIV-1 antigen and HIV-1/HIV-2 [...] purpose. For additional information please refer to http://education.[employer]/faq/LHY932 (This link is being provided for informational/ educational purposes only.) The performance of this assay has not been clinically validated in patients less than 2 years old. 05/26/2021 10:3 3 AM EDT Historical Provider LAB BLOOD ORDERABLES Rosemary mayfield Result Performing Organization Address City/State/[facility] Co [place] Phone Number [facility] [address] from Last 3 Months or Most Recently Relevant to Health Maintenance Additional Health Concerns Active Problems Noted Date Diagnosed Date Help patients manage their type 2 diabetes 08/03 Patient has chronic kidney disease 08/03/2025 Patient has chronic kidney disease 08/04/2025 Insurance [facility] 2 Care Teams Priming Powder Premix Blender Relationship Specialty Start Date End Date Swathi Titus ANP [address] [place] [phone] PCP - General Family Medicine 05/05/21
--- OUTSIDE RECORDS SUMMARY | 2025-08-07 13:24 | XMS_ITS | Encounter Summary ---
Author Organization [employer] Address [address] [facility] [address] [place] [address] Care Team Providers Care Field Organizer Name Role Phone Swathi Titus Primary Care Provider [phone] Reason for Visit * Reason Onset Date Comments Results 08/05/2025 Encounter Details Date Type Department Care Team ([facility] st Contact Info) Description 08/05/2025 Results Follow-Up [facility] [address] [place] [address] Swathi Titus ANP [address] [place] [address] POCT Glucose, POCT Hgb A1c, Chlamydia/N. Gonorrhoeae RNA, TMA, Vagina, Bacterial Vaginosis Panel Social History Tobacco Use Types Packs/Day Years [...] encounter Miscellaneous Notes * Telephone Encounter - Marlene Harry RN - 08/05/2025 2:24 PM EST Telephone call placed to pt regarding below results and POC. Informed + bacterial vaginosis. Pt reports she has had this before. Offered vaginal gel or pill. Pt would like gel sent to [facility]. Advised going forward not to use soaps or personal care products on/in the vagina/vulva. Wash with warm water to help maintain PH and bacteria balance. Advised to call if vaginal symptoms persist after treatment is finished. Abstain from sex during treatment. Informed gonorrhea and chlamydia negative. Pt verbalized understanding and denied having any further questions or concerns at this time. * Telephone Encounter - Marlene Harry RN - 08/05/2025 2:22 PM EST ----- Message from Swathi Titus sent at 08/05/2025 2:09 PM EST ----- All the tests are not yet back, but so far the STI testing is normal. One test result shows bacterial vaginosis. Please call and let Soriah know. If she/he/they is/are having any vaginal discharge, odor or irritation, this is why. I will send in a vaginal treatment or oral metronidazole per her preference. This is not sexually transmitted. Soriah should avoid douching, as well as scented bath or body products. Wash vulva with water only. Complete medication as prescribed and schedule follow-up if symptoms persist/recur. Abstain from sex during treatment. Thanks! ----- Message ----- From: Mary Pardo MA Sent: 08/04/2025 2:19 PM EST To: ARBEN Montes * Result Encounter Note - ARBEN Montes - 08/05/2025 2:09 PM EST All the tests are not yet back, but so far the STI testing is normal. One test result shows bacterial vaginosis. Please call and let Cortneyiah know. If she/he/they is/are having any vaginal discharge, odor or irritation, this is why. I will send in a vaginal treatment or oral metronidazole per her pref erence. This is not sexually transmitted. Soriah should avoid douching, as well as scented bath or body products. Wash vulva with water only. Complete medication as prescribed and schedule follow-up if symptoms persist/recur. Abstain from sex during treatment. Thanks! documented in this encounter Plan of Treatment Upcoming Encounters Date Type Department Care Team (Late st Contact Info) Description 10/12/2025 9:30 AM EST Office Visit [facility] [address] [place] [address] Lianne Helton, OD [address] [place] [address] 11/05/2025 10:00 AM EST Office Visit [facility] [address] [place] [address] Swathi Titus ANP [address] [place] [address] documented as of this encounter Goals Goal [...] as of this encounter Visit Diagnoses Diagnosis Bacterial vaginosis- Primary Unspecified vaginitis and vulvovaginitis documented in this encounter Additional Health Concerns Active Problems Noted Date Diagnosed Date Help patients manage their type 2 diabetes 08/03 Patient has chronic kidney disease 08/03/2025 Patient has chronic kidney disease 08/04/2025 Assessment Noted Time PHQ-9 Depression Total Score: 9 08/04/20 25 1:52 PM EST documented as of this encounter Care Teams Field Organizer Relationship Specialty Start Date End Date Swathi Titus ANP [address] [place] [address] PCP - General Family Medicine 05/05/21 documented as of this encounter
--- OUTSIDE RECORDS SUMMARY | 2025-08-07 13:24 | XMS_ITS | Encounter Summary ---
Author Organization [facility] [employer] Address [address] [facility] 7t [place] [address] Care Team Providers Care Forming Mill Operator Name Role Phone Swathi Titus Primary Care Provider [phone] Reason for Visit * Reason Onset Date Comments Med Refill 04/06/2025 Encounter Details Date Type Department Care Team ([facility] st Contact Info) Description 04/06/2025 Refill [facility] [address] [place], [place] [phone] Swathi Titus ANP [address] [place] [address] Social History Tobacco Use Types Packs/Day Years [...] 9:30 AM EST Office Visit [facility] [address] [place] [address] Tarka, Lianne, OD [address] [place] [address] 11/05/2025 10:00 AM EST Office Visit [facility] [address] [place] [address] Swathi Titus ANP [address] [place] [address] documented as of this encounter Visit Diagnoses Not on filedocumented in this encounter Additional Health Concerns Assessment Noted Time PHQ-9 Depression Total Score: 0 07/29/20 24 10:52 AM EST documented as of this encounter Care Teams Forming Mill Operator Relationship Specialty Start Date End Date Swathi Titus ANP [address] [place] [phone] PCP - General Family Medicine 05/05/21 documented as of this encounter
[2025-08-07 16:27] LABS: MANUAL DIFF FLAG NO
[2025-08-07 16:29] LABS: Hematocrit 40.9 % (37.0-47.0); Hemoglobin 13.6 g/dl (12.0-16.0); Imm Gran Abs Auto 0.03 X10*3/uL (0.00-0.03); Imm Gran Pct Auto 0.3 % (0.0-0.4); Lymphocytes Absolute Auto 3.7 X10*3/uL (1.2-4.9); Mean Corpuscular HGB Conc 33.3 g/dl (31.0-35.0); Mean Corpuscular Hemoglobin 29.7 pg (27.0-33.0); Mean Corpuscular Volume 89.3 fL (80.0-98.0); NRBC Abs Auto 0.000 X10*3/uL (0.0-0.012); NRBC Pct Auto 0.0 /100WBC (0.0-0.2); Platelet Count 266 X10*3/uL (160-400); Red Blood Count 4.58 X10*6/uL (4.20-5.50); White Blood Count 10.7 X10*3/uL (4.8-10.8)
[2025-08-07 17:06] LABS: Vitamin B12 877 pg/mL (200-900)
[2025-08-08 08:28] LABS: Syphilis Screen Nonreactive (Nonreactive)
[2025-08-08 09:02] LABS: HIV Num 1 0.06 S/CO (0.00-0.99); ~HepC Num1 0.14 S/CO (0.00-0.79); ~Hepatitis C Antibody Nonreactive (Nonreactive)
== END 2025-08-07 13:02 | disposition home or self-care (01) ==
LOC: HO.HHCL 13:01
PROVIDERS: Visit Provider Nurse Practitioner Primary Care
DX: Z11.3 Encounter for screening for infections with a predominantly sexual mode of transmission (principal); Z11.4 Encounter for screening for human immunodeficiency virus [HIV]; Z11.59 Encounter for screening for other viral diseases; E55.9 Vitamin D deficiency, unspecified; R53.83 Other fatigue
CPT/HCPCS: 36415; 82306; 82607; 85025; 86780; 86803; 87389

== ENCOUNTER 2025-08-26 09:18 | Outpatient (AMB) | payer OTHER, SELFPAY ==
--- NOTE | 2025-08-26 09:30 | A.OFFVIS_ITS ---
VS Expanded 08/26/25 09:45 BP 113/64 Blood Pressure Location Rt brachial Blood Pressure Position Sitting Pulse 89 Pulse Source Pulse Oximeter Temp 97.0 F Temperature Source Temporal Artery Scan Pulse Oximetry 99 Oxygen Delivery Method Room Air Height 5 ft 4 in Weight 161 lb BMI 27.6 Body Fat % 26.8 Body Fat Mass 43.2 Fat Free Mass 117.8 Visceral Fat Rating 4.0 Body Water % 52.3 Body Water Mass 84.2 Muscle Mass/Score 111.8 Basal Metabolic Rate/Score 1,583 Intake Visit Reasons: (OV) PO LSG 11/02/20 Allergies No Known Allergies (No Known Allergies*) Allergy (Mild, Verified 08/26/25 09:46) NOT APPLICABLE Medication List - Last Reconciled 08/26/25 by CHASITY Jessica cholecalciferol (vitamin D3) 125 mcg PO DAILY 90 days clotrimazole 1% (Antifungal (clotrimazole)) 1 appl topical BID tirzepatide (weight loss) (Zepbound) 10 mg subcut QWEEK HPI Comments Details: Patient is a pleasant 34-year-old female who returns to the office today to be seen. She is status post sleeve gastrectomy performed 11/02/2020. Weight today is 161 pounds with a BMI of 27.6. Her initial weight was 327 pounds in 2019. Weight at the time of surgery was 272.3 lb. Since starting Zepbound from her primary care doctor, her appetite has decreased. She states that over the last couple of years, she has had poor nutrition, eating junk food and sweets. Since starting the Zepbound, her appetite has significantly decreased. Zepbound was increased to 10 mg by her primary care physician Additionally, of greater concern is her excess skin of her abdomen. Due to the abdominal pannus, she gets rashes underneath the skin fold. These rashes would occur 2-3 times per month. She is using [id number] ointments with some improvement although never total resolution. She has also tried clotrimazole ointment to the area but this did not improve anything. The rash is described as painful, itchy, has an odor to it. This has caused her to have increased hygiene needs, requiring washing of the area 2-3 times per day. Certainly worse in the warmer months. She also has difficulty with clothes fitting properly. She also notes issues with excess skin of the thighs. 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 Has tried Aquaphor to prevent chafing. Has to wear longer pants and compressive pants at all times to protect the skin and prevent chafing, cannot wear shorts in the summer. The skin has folds which can collect moisture/sweat and smell unpleasant so she has to clean more frequently. She reports she has not consistently been using the lu. States using premier protein 1/2 shake premier protein or part of a 42g protein shake, then will finish later herbalife protein bar 1 HB egg with crackers meal w salad w 4 forks salmon or chicken (can have up to 7 but gets full by 4) drinking 32 oz water daily Exercise plan: [employer] fitness treadmill 4-5 days per week, 400 calories, speed 3.5, incline 2-15 PFSH Medical History Left ventricular hypertrophy Steatosis, liver Dysmenorrhea Eczema Lower extremity edema Knee pain Arthritis EVERARDO on CPAP GERD (gastroesophageal reflux disease) Sleep apnea Diabetes Morbid obesity Vitamin D deficiency Surgical History History of sleeve gastrectomy History of wisdom tooth extraction, class II edentulism Family History Father Kidney failure Diabetes CVD (cardiovascular disease) Mother Diabetes HTN (hypertension) Sister No problems noted. Sister No problems noted. Sister No problems noted. Sister No problems noted. Son No problems noted. Daughter No problems noted. Daughter No problems noted. 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 Physical Exam Vital Signs: Last Vital Signs Temp 97.0 F 08/26/25 09:45 Pulse 89 08/26/25 09:45 BP 113/64 08/26/25 09:45 Pulse Ox 99 08/26/25 09:45 Oxygen Delivery Method Room Air 08/26/25 09:45 BMI result Body Mass Index 26.0 Const General: cooperative, comfortable and no acute distress Orientation/consciousness: patient oriented x3 GI Other: soft, nontender, nondistended, incisions well healed, no hernia, no masses Grade II pannus Skin Other: excess skin of bilateral thighs with multiple skin folds medially; skin of thighs makes contact medially from pelvis to knees Neuro General: patient oriented x3 Assessment & Plan Assessment & Plan (1) S/P laparoscopic sleeve gastrectomy: Code(s): Z98.84 - Bariatric surgery status Category: Surgical (2) Overweight: Code(s): E66.3 - Overweight Category: Medical (3) Excess skin: Code(s): L98.7 - Excessive and redundant skin and subcutaneous tissue Category: Medical Plan Pt doing well on Zepbound. She will let me know when she reaches 157lb on her home scale with [employer] screenshot. She was given info to create a plan on [employer] lu in anticipation of potential future surgery. She is experiencing issues of excess skin of abdomen resulting in frequent painful, itchy, malodorous rashes which are unrelieved by topical antifungals. In addition she is experiencing limitations/discomfort in activities of daily living, including walking which is necessary at her job. She requires the use of special clothing at all times to try to prevent discomfort but her issues have not been completely relieved by conservative measures. She would benefit from definitive treatment of panniculectomy. She is additionally experiencing issues of excess skin of thighs resulting in frequent painful chafing which are unrelieved by topical OTC treatments. In addition she is experiencing limitations/discomfort in activities of daily living, including walking which is necessary at her job. She requires the use of special clothing at all times to try to prevent discomfort but her issues have not been completely relieved by conservative measures. She will try prescription ointment on these areas. However, she may ultimately benefit from thighplasty. Photos taken in office today. Medications: Refilled clotrimazole 1% (Antifungal (clotrimazole)) 1 appl topical BID 45 grams 3RF
[2025-08-26 09:45] VITALS: BP 113/64; PULSE 89; TEMP 36.1; O2SAT 99; BMI 27.6
== END 2025-08-26 10:34 | disposition home or self-care (01) ==
LOC: HO.HBS 09:19
PROVIDERS: PCP Nurse Practitioner Primary Care; Visit Provider Physician Assistant Surgical
DX: M79.3 Panniculitis, unspecified (principal); L98.7 Excessive and redundant skin and subcutaneous tissue; E66.3 Overweight; Z68.27 Body mass index [BMI] 27.0-27.9, adult; Z98.84 Bariatric surgery status; Z90.3 Acquired absence of stomach [part of]
CPT/HCPCS: 99214

== ENCOUNTER → 2025-08-26 09:18 | Outpatient (BNVA) | payer OTHER, SELFPAY | PROVIDERS: PCP Nurse Practitioner Primary Care; Visit Provider Physician Assistant Surgical | DX: E66.3 Overweight (principal); L98.7 Excessive and redundant skin and subcutaneous tissue; Z68.26 Body mass index [BMI] 26.0-26.9, adult; Z98.84 Bariatric surgery status | CPT/HCPCS: 99212 ==